=== PATIENT | male | born 1945 | race Caucasian/White ===

== ENCOUNTER 2016-09-13 18:57 | Emergency (ER) | payer MEDICARE ==
[~2016-09-13] VITALS: Ht 175.3 cm; Wt 98.4 kg
[~2016-09-13 18:57] MED LIST: AMLO10TA2 PO; ASPI1TAB PO; DIOV80TA3 PO; Glucometer; IBUPOTC PO; IRBE150T12 PO; LEVA500T PO; Lancets; METF850T PO; SIMV40TA2 PO; [UNRECOGNIZED DRUG - OTHER]
[2016-09-13] MEDS ORDERED: NS 500 ML IV ONE (19:30)
--- NOTE | 2016-09-13 19:50 | REPUSA ---
CT of the head Clinical history: CVA. Protocol: Multiple axial CT images obtained with 5 mm slice thickness were obtained through the head without administration of contrast. Findings: The ventricles and sulci are symmetric but prominent in size bilaterally. There are periven tricular areas of low attenuation throughout the deep white matter. There is no evidence of acute hem orrhage or infarct. There is no midline shift, mass effect, or extra-axial fluid collection. The osse ous structures are unremarkable. The visualized paranasal sinuses and mastoid air cells are clear. Impression: No acute hemorrhage or infarct. Findings are consistent with moderate age-related atrophy and chronic small vessel ischemic disease.
[2016-09-13 20:05] LABS: BASO % 0.4 % (0.0-1.0); EOS # 0.1 K/mm3 (0.0-0.50); EOS % 1.5 % (0.0-3.0); LARGE UNSTAINED CELL # 0.1 K/mm3 (0.0-0.4); LARGE UNSTAINED CELL % 1.7 % (0.0-4.0); LYMPH # 1.7 K/mm3 (1.5-4.5); MEAN CORPUSCULAR HEMOGLOBIN 28.9 pg (27.0-33.0); MEAN CORPUSCULAR VOLUME 87.7 fl (80.0-96.0); MONO # 0.6 K/mm3 (0.0-0.8); MONO % 7.8 % (0.0-5.0); NEUTROPHILS # 4.7 K/mm3 (1.8-7.7); NEUTROPHILS % 64.6 % (36.0-66.0); PLATELET COUNT, AUTOMATED 202 k/mm3 (150-450); RED CELL DISTRIBUTION WIDTH 13.1 % (11.5-14.5); WHITE BLOOD COUNT 7.2 K/mm3 (4.0-10.0)
[2016-09-13 20:12] LABS: INR 1.02
[2016-09-13 20:30] LABS: ANION GAP 9 MEQ/L (8-16); BLOOD UREA NITROGEN 16 MG/DL (7-18); CALCIUM LEVEL 9.3 MG/DL (8.8-10.2); CARBON DIOXIDE LEVEL 27 MEQ/L (21-32); CHLORIDE LEVEL 103 MEQ/L (98-107); CREATININE FOR GFR 1.54 MG/DL (0.70-1.30); GLOMERULAR FILTRATION RATE 47.5 (>42); GLUCOSE, FASTING 192 MG/DL (83-110); POTASSIUM SERUM 4.3 MEQ/L (3.5-5.1); SODIUM LEVEL 139 MEQ/L (136-145)
--- NOTE | 2016-09-13 23:01 | REP ---
AP PORTABLE CHEST: 09/13/2016. Clinical history: CVA. There are no prior studies. Findings: Lungs are well inflated. There is underlying change of COPD. Some minor fibrotic change in the bases. No pleural effusion or acute infiltrate. Cardial fat pad along the left heart border. The aorta is mildly tortuous. Airway is intact. There is no widening of the mediastinum. No pulmonary edema, infiltrate, atelectasis or mass. Impression: 1. Hyperinflation with some underlying fibrotic change and no gross cardiomegaly, edema or other acute finding. Signed by Broderick Diaz MD 09/14/2016 08:12 P
[2016-09-13 23:03] VITALS: BP 173/84
--- NOTE | 2016-09-14 08:36 | ECGEPIP ---
Stationary ECG Study [facility] - ED Test Date: 2016-09-13 Pat Name: LINDSAY AMIN Department: Room: - Gender: M Protective Clothing Issuer: mayra : [id number] Requested By: LEAH Alexander Order Number: [id number] Reading MD: Nuria Walker Measurements Intervals [place] Rate: 83 P: 8 NM: 204 QRS: 4 QRSD: 90 T: 138 QT: 338 QTc: 398 Interpretive Statements SINUS RHYTHM LOW QRS VOLTAGE IN PRECORDIAL LEADS POSSIBLE ANTERIOR MYOCARDIAL INFARCTION, OF INDETERMINATE AGE MODERATE T-WAVE ABNORMALITY, CONSIDER LATERAL ISCHEMIA LAD NSTTW ABNORMALITY SIMILAR 03/18/16 Electronically Signed On 09-14-2016 8:36:18 EDT by Nuria Walker
== END 2016-09-13 23:05 | disposition left against medical advice (07) ==
LOC: EDBD 18:57 → EDUNIT# 18:57 → M ED 20:29
DX: G45.9 Transient cerebral ischemic attack, unspecified (principal)
CPT/HCPCS: 70450; 71010; 80048; 82550; 82553; 84484; 85025; 85610; 85730; 86850; 86900; 86901; 93005; 93041; 94760; 99284; G0480

== ENCOUNTER 2017-06-19 15:16 | Inpatient (IN) | payer MEDICARE ==
[2017-06-19 16:23] LABS: BASO % 0.2 % (0.0-1.0); EOS % 0.2 % (0.0-3.0); HEMATOCRIT 37.8 % (42.0-52.0); IMMATURE GRANULOCYTE # 0.1 10^3/uL (0-0); IMMATURE GRANULOCYTE % 0.5 % (0-0); LYMPH # 1.1 10^3/uL (1.5-4.5); LYMPH % 6.8 % (24.0-44.0); MEAN CORPUSCULAR HEMOGLOBIN 29.5 pg (27.0-33.0); MEAN CORPUSCULAR HGB CONC 34.4 g/dl (32.0-36.5); MEAN CORPUSCULAR VOLUME 85.9 fl (80.0-96.0); MONO # 1.7 10^3/uL (0.0-0.8); MONO % 11.2 % (0.0-5.0); NEUTROPHILS # 12.6 10^3/uL (1.8-7.7); NEUTROPHILS % 81.1 % (36.0-66.0); PLATELET COUNT, AUTOMATED 220 10^3/uL (150-450); RED CELL DISTRIBUTION WIDTH 11.9 % (11.5-14.5); WHITE BLOOD COUNT 15.5 10^3/uL (4.0-10.0)
[2017-06-19 16:43] LABS: ALBUMIN 3.4 GM/DL (3.2-5.2); ALBUMIN/GLOBULIN RATIO 0.89 (1.00-1.93); ALKALINE PHOSPHATASE 90 U/L (45-117); ALT/SGPT 37 U/L (12-78); ANION GAP 12 MEQ/L (8-16); AST/SGOT 35 U/L (7-37); BILIRUBIN,TOTAL 0.6 MG/DL (0.2-1.0); BLOOD UREA NITROGEN 28 MG/DL (7-18); CARBON DIOXIDE LEVEL 22 MEQ/L (21-32); CHLORIDE LEVEL 100 MEQ/L (98-107); CREATININE FOR GFR 1.32 MG/DL (0.70-1.30); GLOMERULAR FILTRATION RATE 56.6 (>42); GLUCOSE, FASTING 254 MG/DL (83-110); MAGNESIUM LEVEL 1.6 MG/DL (1.8-2.4); POTASSIUM SERUM 3.9 MEQ/L (3.5-5.1); SODIUM LEVEL 134 MEQ/L (136-145); TOTAL PROTEIN 7.2 GM/DL (6.4-8.2)
[2017-06-19] MEDS: TETANUS/DIPHTHERIA TOX ADSORB ADULT 0.5ML SYR/VIAL (90714) IM (16:55)
[2017-06-19] MEDS: VANCOMYCIN HCL 1,000 MG, VIAL MATE ADAPTER 1 EACH in D5W 250 ML IV ×2 (16:56→23:18)
[2017-06-19 17:18] LABS: ESTIMATED AVERAGE GLUCOSE 200 MG/DL (60-110); HEMOGLOBIN A1c 8.6 %
[2017-06-19 18:35] LABS: LACTIC ACID SEPSIS PROTOCOL 1.7 MMOL/L (0.4-2.0)
[2017-06-19] MEDS ORDERED: ONDANSETRON 4MG/2ML VIAL (J2405) IV (19:15)
[2017-06-19] MEDS ORDERED: GLUCOSE 4 GM CHEW TABLET PO (19:30)
[2017-06-19] MEDS ORDERED: DEXTROSE 50% 50 ML SYRINGE IV (19:30)
[2017-06-19] MEDS ORDERED: GLUCAGON FOR INJ 1 MG VIAL (J1610) SC (19:30)
[2017-06-19] MEDS: NS 1,000 ML IV (19:32)
[2017-06-19] MEDS: MAG SULF 1GM/100ML (MAG RUN) 1 GM in APPROPRIATE DILUENT 1 EA IV (19:38)
[2017-06-19] MEDS ORDERED: LORazepam 2 MG TAB PO (19:45)
[2017-06-19] MEDS: amLODIPine 5 MG TAB PO (20:00)
[2017-06-19] MEDS: HumaLOG INSULIN (NovoLOG) PER UNIT SC (21:00)
[2017-06-19 22:41] LABS: BEDSIDE GLUCOSE 227 MG/DL (83-110)
[2017-06-19] MEDS: THIAMINE 100 MG TAB PO (22:54)
[2017-06-19] MEDS: FOLIC ACID 1 MG TAB PO (22:54)
[2017-06-19] MEDS: MULTIVITAMINS/MINERALS THERAP 1 TAB PO (22:54)
[2017-06-20] MEDS: PIPERACILLIN/TAZOBACTAM SOD 3.375 GM in APPROPRIATE DILUENT 1 EA IV ×5 (00:24→21:32)
[2017-06-20 06:56] LABS: BASO % 0.3 % (0.0-1.0); EOS # 0.3 10^3/uL (0.0-0.50); EOS % 2.8 % (0.0-3.0); HEMATOCRIT 34.9 % (42.0-52.0); IMMATURE GRANULOCYTE % 0.3 % (0-0); LYMPH # 1.5 10^3/uL (1.5-4.5); LYMPH % 12.9 % (24.0-44.0); MEAN CORPUSCULAR HEMOGLOBIN 29.4 pg (27.0-33.0); MEAN CORPUSCULAR HGB CONC 34.4 g/dl (32.0-36.5); MEAN CORPUSCULAR VOLUME 85.5 fl (80.0-96.0); MONO # 1.4 10^3/uL (0.0-0.8); MONO % 11.6 % (0.0-5.0); NEUTROPHILS # 8.6 10^3/uL (1.8-7.7); NEUTROPHILS % 72.1 % (36.0-66.0); PLATELET COUNT, AUTOMATED 186 10^3/uL (150-450); RED BLOOD COUNT 4.08 10^6/uL (4.30-6.10); RED CELL DISTRIBUTION WIDTH 11.8 % (11.5-14.5); WHITE BLOOD COUNT 11.9 10^3/uL (4.0-10.0)
[2017-06-20 07:11] LABS: ANION GAP 5 MEQ/L (8-16); BLOOD UREA NITROGEN 19 MG/DL (7-18); CALCIUM LEVEL 8.5 MG/DL (8.8-10.2); CARBON DIOXIDE LEVEL 27 MEQ/L (21-32); CHLORIDE LEVEL 102 MEQ/L (98-107); CREATININE FOR GFR 1.02 MG/DL (0.70-1.30); GLOMERULAR FILTRATION RATE > 60.0 (>42); GLUCOSE, FASTING 237 MG/DL (83-110); MAGNESIUM LEVEL 2.2 MG/DL (1.8-2.4); POTASSIUM SERUM 3.7 MEQ/L (3.5-5.1); SODIUM LEVEL 134 MEQ/L (136-145)
[2017-06-20 07:38] LABS: ERYTHROCYTE SEDIMENTATION RATE 49 mm/hr (0-20)
[2017-06-20] MEDS: FOLIC ACID 1 MG TAB PO (08:07)
[2017-06-20] MEDS: THIAMINE 100 MG TAB PO ×2 (08:07→20:30)
[2017-06-20] MEDS: HumaLOG INSULIN (NovoLOG) PER UNIT SC ×4 (08:07→21:00)
[2017-06-20] MEDS: amLODIPine 5 MG TAB PO (08:07)
[2017-06-20] MEDS: ENOXAPARIN 40 MG/0.4 ML SYRINGE (J1650) SC (08:08)
[2017-06-20] MEDS: MULTIVITAMINS/MINERALS THERAP 1 TAB PO (08:08)
[2017-06-20] MEDS: VANCOMYCIN HCL 1,000 MG, VIAL MATE ADAPTER 1 EACH in D5W 250 ML IV ×2 (10:35→22:18)
[2017-06-20 12:02] LABS: BEDSIDE GLUCOSE 177 MG/DL (83-110)
[2017-06-20 17:04] LABS: BEDSIDE GLUCOSE 193 MG/DL (83-110)
[2017-06-20] MEDS ORDERED: PROHANCE 279.3MG/ML 5ML VIAL (A9576) As Ordered (17:54)
[2017-06-20] MEDS ORDERED: PROHANCE 279.3MG/ML 15ML VIAL (A9576) As Ordered (17:54)
[2017-06-20 21:15] LABS: BEDSIDE GLUCOSE 228 MG/DL (83-110)
[2017-06-21] MEDS: PIPERACILLIN/TAZOBACTAM SOD 3.375 GM in APPROPRIATE DILUENT 1 EA IV ×4 (04:41→21:12)
[2017-06-21 05:43] LABS: BASO % 0.3 % (0.0-1.0); EOS # 0.4 10^3/uL (0.0-0.50); EOS % 3.3 % (0.0-3.0); HEMATOCRIT 35.3 % (42.0-52.0); IMMATURE GRANULOCYTE # 0.1 10^3/uL (0-0); IMMATURE GRANULOCYTE % 0.5 % (0-0); LYMPH # 1.5 10^3/uL (1.5-4.5); LYMPH % 13.9 % (24.0-44.0); MEAN CORPUSCULAR HEMOGLOBIN 29.7 pg (27.0-33.0); MEAN CORPUSCULAR VOLUME 87.4 fl (80.0-96.0); MONO # 1.2 10^3/uL (0.0-0.8); NEUTROPHILS # 7.6 10^3/uL (1.8-7.7); PLATELET COUNT, AUTOMATED 192 10^3/uL (150-450); RED BLOOD COUNT 4.04 10^6/uL (4.30-6.10); RED CELL DISTRIBUTION WIDTH 11.8 % (11.5-14.5); WHITE BLOOD COUNT 10.7 10^3/uL (4.0-10.0)
[2017-06-21 05:50] LABS: ANION GAP 8 MEQ/L (8-16); BLOOD UREA NITROGEN 18 MG/DL (7-18); CALCIUM LEVEL 8.3 MG/DL (8.8-10.2); CARBON DIOXIDE LEVEL 26 MEQ/L (21-32); CHLORIDE LEVEL 102 MEQ/L (98-107); CREATININE FOR GFR 1.03 MG/DL (0.70-1.30); GLOMERULAR FILTRATION RATE > 60.0 (>42); GLUCOSE, FASTING 260 MG/DL (83-110); POTASSIUM SERUM 3.7 MEQ/L (3.5-5.1); SODIUM LEVEL 136 MEQ/L (136-145)
[2017-06-21 06:28] LABS: ERYTHROCYTE SEDIMENTATION RATE 56 mm/hr (0-20)
[2017-06-21] MEDS: HumaLOG INSULIN (NovoLOG) PER UNIT SC ×4 (08:00→21:13)
[2017-06-21] MEDS: ENOXAPARIN 40 MG/0.4 ML SYRINGE (J1650) SC (08:00)
[2017-06-21] MEDS: MULTIVITAMINS/MINERALS THERAP 1 TAB PO (08:00)
[2017-06-21] MEDS: THIAMINE 100 MG TAB PO ×2 (08:00→21:12)
[2017-06-21] MEDS: amLODIPine 5 MG TAB PO (08:01)
[2017-06-21] MEDS: FOLIC ACID 1 MG TAB PO (08:01)
[2017-06-21] MEDS: VANCOMYCIN HCL 1,000 MG, VIAL MATE ADAPTER 1 EACH in D5W 250 ML IV ×2 (10:37→19:00)
[2017-06-21 10:45] LABS: VANCOMYCIN LEVEL TROUGH 11.2 UG/ML (10.0-20.0)
[2017-06-21 11:46] LABS: BEDSIDE GLUCOSE 178 MG/DL (83-110)
[2017-06-21 20:52] LABS: BEDSIDE GLUCOSE 308 MG/DL (83-110)
[2017-06-22] MEDS: PIPERACILLIN/TAZOBACTAM SOD 3.375 GM in APPROPRIATE DILUENT 1 EA IV ×2 (04:27→09:23)
[2017-06-22 06:15] LABS: BASO # 0.1 10^3/uL (0.0-0.2); BASO % 0.5 % (0.0-1.0); EOS # 0.4 10^3/uL (0.0-0.50); EOS % 3.5 % (0.0-3.0); HEMATOCRIT 36.5 % (42.0-52.0); IMMATURE GRANULOCYTE # 0.1 10^3/uL (0-0); IMMATURE GRANULOCYTE % 0.6 % (0-0); LYMPH # 1.9 10^3/uL (1.5-4.5); LYMPH % 17.1 % (24.0-44.0); MEAN CORPUSCULAR HEMOGLOBIN 28.2 pg (27.0-33.0); MEAN CORPUSCULAR HGB CONC 32.9 g/dl (32.0-36.5); MEAN CORPUSCULAR VOLUME 85.9 fl (80.0-96.0); MONO # 1.3 10^3/uL (0.0-0.8); MONO % 11.5 % (0.0-5.0); NEUTROPHILS # 7.4 10^3/uL (1.8-7.7); NEUTROPHILS % 66.8 % (36.0-66.0); PLATELET COUNT, AUTOMATED 238 10^3/uL (150-450); RED BLOOD COUNT 4.25 10^6/uL (4.30-6.10); RED CELL DISTRIBUTION WIDTH 11.9 % (11.5-14.5); WHITE BLOOD COUNT 11.1 10^3/uL (4.0-10.0)
[2017-06-22 06:29] LABS: ANION GAP 7 MEQ/L (8-16); BLOOD UREA NITROGEN 12 MG/DL (7-18); CALCIUM LEVEL 8.6 MG/DL (8.8-10.2); CARBON DIOXIDE LEVEL 26 MEQ/L (21-32); CHLORIDE LEVEL 103 MEQ/L (98-107); CREATININE FOR GFR 0.95 MG/DL (0.70-1.30); GLOMERULAR FILTRATION RATE > 60.0 (>42); GLUCOSE, FASTING 188 MG/DL (83-110); MAGNESIUM LEVEL 1.8 MG/DL (1.8-2.4); POTASSIUM SERUM 3.8 MEQ/L (3.5-5.1); SODIUM LEVEL 136 MEQ/L (136-145)
[2017-06-22] MEDS: VANCOMYCIN HCL 1,000 MG, VIAL MATE ADAPTER 1 EACH in D5W 250 ML IV (06:30)
[2017-06-22 06:52] LABS: ERYTHROCYTE SEDIMENTATION RATE 74 mm/hr (0-20)
[2017-06-22] MEDS: ENOXAPARIN 40 MG/0.4 ML SYRINGE (J1650) SC (07:52)
[2017-06-22] MEDS: HumaLOG INSULIN (NovoLOG) PER UNIT SC ×4 (07:52→21:00)
[2017-06-22] MEDS: MULTIVITAMINS/MINERALS THERAP 1 TAB PO (07:53)
[2017-06-22] MEDS: THIAMINE 100 MG TAB PO (07:53)
[2017-06-22] MEDS: FOLIC ACID 1 MG TAB PO (07:53)
[2017-06-22] MEDS: amLODIPine 5 MG TAB PO (07:55)
[2017-06-22] MEDS: SILVER SULFADIAZINE 1% CR 50 GM JAR TOP ×2 (09:23→21:00)
[2017-06-22 11:59] LABS: BEDSIDE GLUCOSE 225 MG/DL (83-110)
[2017-06-22] MEDS ORDERED: CEFAZOLIN SOD 2 GM in APPROPRIATE DILUENT 1 EA IV (16:00)
[2017-06-22 16:59] LABS: BEDSIDE GLUCOSE 248 MG/DL (83-110)
[2017-06-22 21:03] LABS: BEDSIDE GLUCOSE 240 MG/DL (83-110)
[2017-06-23 06:31] LABS: BASO % 0.4 % (0.0-1.0); EOS # 0.3 10^3/uL (0.0-0.50); EOS % 2.9 % (0.0-3.0); HEMATOCRIT 36.7 % (42.0-52.0); HEMOGLOBIN 12.3 g/dl (14.0-18.0); IMMATURE GRANULOCYTE # 0.1 10^3/uL (0-0); IMMATURE GRANULOCYTE % 0.6 % (0-0); LYMPH # 1.8 10^3/uL (1.5-4.5); LYMPH % 18.5 % (24.0-44.0); MEAN CORPUSCULAR HEMOGLOBIN 29.1 pg (27.0-33.0); MEAN CORPUSCULAR HGB CONC 33.5 g/dl (32.0-36.5); MEAN CORPUSCULAR VOLUME 86.8 fl (80.0-96.0); MONO # 1.3 10^3/uL (0.0-0.8); MONO % 13.5 % (0.0-5.0); NEUTROPHILS # 6.1 10^3/uL (1.8-7.7); NEUTROPHILS % 64.1 % (36.0-66.0); PLATELET COUNT, AUTOMATED 229 10^3/uL (150-450); RED BLOOD COUNT 4.23 10^6/uL (4.30-6.10); RED CELL DISTRIBUTION WIDTH 11.8 % (11.5-14.5); WHITE BLOOD COUNT 9.5 10^3/uL (4.0-10.0)
[2017-06-23 06:51] LABS: ANION GAP 9 MEQ/L (8-16); BLOOD UREA NITROGEN 12 MG/DL (7-18); C REACTIVE PROTEIN QUANTITATIV 9.55 MG/DL (0.00-0.30); CALCIUM LEVEL 8.7 MG/DL (8.8-10.2); CARBON DIOXIDE LEVEL 27 MEQ/L (21-32); CHLORIDE LEVEL 101 MEQ/L (98-107); CREATININE FOR GFR 1.01 MG/DL (0.70-1.30); GLOMERULAR FILTRATION RATE > 60.0 (>42); GLUCOSE, FASTING 241 MG/DL (83-110); MAGNESIUM LEVEL 1.9 MG/DL (1.8-2.4); POTASSIUM SERUM 4.3 MEQ/L (3.5-5.1); SODIUM LEVEL 137 MEQ/L (136-145)
[2017-06-23 07:01] LABS: ERYTHROCYTE SEDIMENTATION RATE 50 mm/hr (0-20)
[2017-06-23] MEDS: HumaLOG INSULIN (NovoLOG) PER UNIT SC ×4 (08:00→20:06)
[2017-06-23 09:10] LABS: BEDSIDE GLUCOSE 238 MG/DL (83-110)
[2017-06-23 09:10] LABS: BEDSIDE GLUCOSE 421 MG/DL (83-110)
[2017-06-23] MEDS: FOLIC ACID 1 MG TAB PO (09:19)
[2017-06-23] MEDS: MULTIVITAMINS/MINERALS THERAP 1 TAB PO (09:19)
[2017-06-23] MEDS: amLODIPine 5 MG TAB PO (09:19)
[2017-06-23] MEDS: ENOXAPARIN 40 MG/0.4 ML SYRINGE (J1650) SC (09:20)
[2017-06-23] MEDS: SILVER SULFADIAZINE 1% CR 50 GM JAR TOP ×2 (09:20→20:07)
[2017-06-23 11:38] LABS: BEDSIDE GLUCOSE 243 MG/DL (83-110)
[2017-06-23] MEDS: LEVEMIR (INSULIN DETEMIR) 1 UNITS/0.01ML SC ×2 (12:45→20:06)
[2017-06-23 17:12] LABS: BEDSIDE GLUCOSE 246 MG/DL (83-110)
[2017-06-23 19:57] LABS: BEDSIDE GLUCOSE 252 MG/DL (83-110)
[2017-06-24] MEDS: ACETAMINOPHEN TAB 650MG DOSE (2X325MG) PO (00:18)
[2017-06-24] MEDS: LISINOPRIL 10 MG TAB PO (00:18)
[2017-06-24 07:04] LABS: BEDSIDE GLUCOSE 167 MG/DL (83-110)
[2017-06-24 07:26] LABS: BASO # 0.1 10^3/uL (0.0-0.2); BASO % 0.4 % (0.0-1.0); EOS # 0.3 10^3/uL (0.0-0.50); EOS % 2.9 % (0.0-3.0); HEMATOCRIT 36.6 % (42.0-52.0); HEMOGLOBIN 12.1 g/dl (14.0-18.0); IMMATURE GRANULOCYTE # 0.1 10^3/uL (0-0); LYMPH # 1.5 10^3/uL (1.5-4.5); LYMPH % 13.1 % (24.0-44.0); MEAN CORPUSCULAR HEMOGLOBIN 28.3 pg (27.0-33.0); MEAN CORPUSCULAR HGB CONC 33.1 g/dl (32.0-36.5); MEAN CORPUSCULAR VOLUME 85.7 fl (80.0-96.0); MONO # 1.6 10^3/uL (0.0-0.8); MONO % 13.9 % (0.0-5.0); NEUTROPHILS # 7.9 10^3/uL (1.8-7.7); NEUTROPHILS % 68.7 % (36.0-66.0); PLATELET COUNT, AUTOMATED 268 10^3/uL (150-450); RED BLOOD COUNT 4.27 10^6/uL (4.30-6.10); RED CELL DISTRIBUTION WIDTH 11.8 % (11.5-14.5); WHITE BLOOD COUNT 11.5 10^3/uL (4.0-10.0)
[2017-06-24 07:51] LABS: ANION GAP 7 MEQ/L (8-16); BLOOD UREA NITROGEN 12 MG/DL (7-18); C REACTIVE PROTEIN QUANTITATIV 8.41 MG/DL (0.00-0.30); CALCIUM LEVEL 8.8 MG/DL (8.8-10.2); CARBON DIOXIDE LEVEL 28 MEQ/L (21-32); CHLORIDE LEVEL 101 MEQ/L (98-107); CREATININE FOR GFR 0.92 MG/DL (0.70-1.30); GLOMERULAR FILTRATION RATE > 60.0 (>42); GLUCOSE, FASTING 168 MG/DL (83-110); MAGNESIUM LEVEL 1.9 MG/DL (1.8-2.4); POTASSIUM SERUM 3.8 MEQ/L (3.5-5.1); SODIUM LEVEL 136 MEQ/L (136-145)
[2017-06-24] MEDS: HumaLOG INSULIN (NovoLOG) PER UNIT SC ×4 (08:17→20:19)
[2017-06-24] MEDS: LEVEMIR (INSULIN DETEMIR) 1 UNITS/0.01ML SC ×2 (08:18→20:33)
[2017-06-24] MEDS: ENOXAPARIN 40 MG/0.4 ML SYRINGE (J1650) SC (08:18)
[2017-06-24] MEDS: SILVER SULFADIAZINE 1% CR 50 GM JAR TOP ×2 (08:19→20:33)
[2017-06-24] MEDS: FOLIC ACID 1 MG TAB PO (08:19)
[2017-06-24] MEDS: amLODIPine 5 MG TAB PO (08:20)
[2017-06-24] MEDS: MULTIVITAMINS/MINERALS THERAP 1 TAB PO (08:20)
[2017-06-24 08:27] LABS: ERYTHROCYTE SEDIMENTATION RATE 66 mm/hr (0-20)
[2017-06-24 12:12] LABS: BEDSIDE GLUCOSE 124 MG/DL (83-110)
[2017-06-24 17:00] LABS: BEDSIDE GLUCOSE 190 MG/DL (83-110)
[2017-06-24 20:24] LABS: BEDSIDE GLUCOSE 225 MG/DL (83-110)
[2017-06-25 06:20] LABS: BASO # 0.1 10^3/uL (0.0-0.2); BASO % 0.4 % (0.0-1.0); EOS # 0.3 10^3/uL (0.0-0.50); EOS % 2.6 % (0.0-3.0); HEMATOCRIT 35.3 % (42.0-52.0); HEMOGLOBIN 11.9 g/dl (14.0-18.0); IMMATURE GRANULOCYTE # 0.1 10^3/uL (0-0); IMMATURE GRANULOCYTE % 0.9 % (0-0); LYMPH # 1.9 10^3/uL (1.5-4.5); LYMPH % 15.7 % (24.0-44.0); MEAN CORPUSCULAR HEMOGLOBIN 29.1 pg (27.0-33.0); MEAN CORPUSCULAR HGB CONC 33.7 g/dl (32.0-36.5); MEAN CORPUSCULAR VOLUME 86.3 fl (80.0-96.0); MONO # 1.4 10^3/uL (0.0-0.8); MONO % 11.4 % (0.0-5.0); NEUTROPHILS # 8.3 10^3/uL (1.8-7.7); PLATELET COUNT, AUTOMATED 289 10^3/uL (150-450); RED BLOOD COUNT 4.09 10^6/uL (4.30-6.10); RED CELL DISTRIBUTION WIDTH 11.9 % (11.5-14.5)
[2017-06-25 06:33] LABS: ANION GAP 8 MEQ/L (8-16); BLOOD UREA NITROGEN 14 MG/DL (7-18); CALCIUM LEVEL 8.9 MG/DL (8.8-10.2); CARBON DIOXIDE LEVEL 27 MEQ/L (21-32); CHLORIDE LEVEL 101 MEQ/L (98-107); CREATININE FOR GFR 0.98 MG/DL (0.70-1.30); GLOMERULAR FILTRATION RATE > 60.0 (>42); GLUCOSE, FASTING 167 MG/DL (83-110); POTASSIUM SERUM 4.2 MEQ/L (3.5-5.1); SODIUM LEVEL 136 MEQ/L (136-145)
[2017-06-25] MEDS: LEVEMIR (INSULIN DETEMIR) 1 UNITS/0.01ML SC ×2 (08:00→22:12)
[2017-06-25] MEDS: HumaLOG INSULIN (NovoLOG) PER UNIT SC ×4 (08:00→20:56)
[2017-06-25] MEDS: ENOXAPARIN 40 MG/0.4 ML SYRINGE (J1650) SC (08:00)
[2017-06-25] MEDS: FOLIC ACID 1 MG TAB PO (08:01)
[2017-06-25] MEDS: MULTIVITAMINS/MINERALS THERAP 1 TAB PO (08:01)
[2017-06-25] MEDS: amLODIPine 5 MG TAB PO (08:01)
[2017-06-25] MEDS: LISINOPRIL 10 MG TAB PO (08:01)
[2017-06-25] MEDS: SILVER SULFADIAZINE 1% CR 50 GM JAR TOP ×2 (08:03→22:13)
[2017-06-25 11:49] LABS: BEDSIDE GLUCOSE 182 MG/DL (83-110)
[2017-06-25 16:53] LABS: BEDSIDE GLUCOSE 171 MG/DL (83-110)
[2017-06-25 21:02] LABS: BEDSIDE GLUCOSE 209 MG/DL (83-110)
[2017-06-25] MEDS: ACETAMINOPHEN TAB 650MG DOSE (2X325MG) PO (22:17)
[2017-06-26 06:18] LABS: BASO % 0.3 % (0.0-1.0); EOS # 0.3 10^3/uL (0.0-0.50); EOS % 2.3 % (0.0-3.0); HEMATOCRIT 34.8 % (42.0-52.0); HEMOGLOBIN 11.4 g/dl (14.0-18.0); IMMATURE GRANULOCYTE # 0.2 10^3/uL (0-0); IMMATURE GRANULOCYTE % 1.3 % (0-0); LYMPH # 1.7 10^3/uL (1.5-4.5); LYMPH % 14.7 % (24.0-44.0); MEAN CORPUSCULAR HEMOGLOBIN 28.5 pg (27.0-33.0); MEAN CORPUSCULAR HGB CONC 32.8 g/dl (32.0-36.5); MONO # 1.4 10^3/uL (0.0-0.8); NEUTROPHILS % 69.4 % (36.0-66.0); PLATELET COUNT, AUTOMATED 310 10^3/uL (150-450); RED CELL DISTRIBUTION WIDTH 11.9 % (11.5-14.5); WHITE BLOOD COUNT 11.5 10^3/uL (4.0-10.0)
[2017-06-26 06:36] LABS: ANION GAP 5 MEQ/L (8-16); BLOOD UREA NITROGEN 15 MG/DL (7-18); C REACTIVE PROTEIN QUANTITATIV 9.74 MG/DL (0.00-0.30); CALCIUM LEVEL 8.4 MG/DL (8.8-10.2); CARBON DIOXIDE LEVEL 28 MEQ/L (21-32); CHLORIDE LEVEL 103 MEQ/L (98-107); CREATININE FOR GFR 0.93 MG/DL (0.70-1.30); GLOMERULAR FILTRATION RATE > 60.0 (>42); GLUCOSE, FASTING 169 MG/DL (83-110); POTASSIUM SERUM 4.1 MEQ/L (3.5-5.1); SODIUM LEVEL 136 MEQ/L (136-145); URIC ACID 4.6 MG/DL (3.5-7.2)
[2017-06-26] MEDS: MULTIVITAMINS/MINERALS THERAP 1 TAB PO (08:36)
[2017-06-26] MEDS: FOLIC ACID 1 MG TAB PO (08:36)
[2017-06-26] MEDS: HumaLOG INSULIN (NovoLOG) PER UNIT SC ×4 (08:36→20:33)
[2017-06-26] MEDS: amLODIPine 5 MG TAB PO (08:36)
[2017-06-26] MEDS: LISINOPRIL 10 MG TAB PO (08:37)
[2017-06-26] MEDS: ENOXAPARIN 40 MG/0.4 ML SYRINGE (J1650) SC (08:38)
[2017-06-26] MEDS: LEVEMIR (INSULIN DETEMIR) 1 UNITS/0.01ML SC ×2 (08:38→20:37)
[2017-06-26] MEDS: SILVER SULFADIAZINE 1% CR 50 GM JAR TOP ×2 (08:39→20:37)
[2017-06-26 12:16] LABS: BEDSIDE GLUCOSE 151 MG/DL (83-110)
[2017-06-26 17:09] LABS: BEDSIDE GLUCOSE 119 MG/DL (83-110)
[2017-06-26 20:58] LABS: BEDSIDE GLUCOSE 203 MG/DL (83-110)
[2017-06-27 06:35] LABS: C REACTIVE PROTEIN QUANTITATIV 9.41 MG/DL (0.00-0.30)
[2017-06-27 07:50] LABS: BEDSIDE GLUCOSE 178 MG/DL (83-110)
[2017-06-27] MEDS: LEVEMIR (INSULIN DETEMIR) 1 UNITS/0.01ML SC ×2 (08:38→21:57)
[2017-06-27] MEDS: MULTIVITAMINS/MINERALS THERAP 1 TAB PO (08:38)
[2017-06-27] MEDS: HumaLOG INSULIN (NovoLOG) PER UNIT SC ×4 (08:38→21:00)
[2017-06-27] MEDS: FOLIC ACID 1 MG TAB PO (08:38)
[2017-06-27] MEDS: ENOXAPARIN 40 MG/0.4 ML SYRINGE (J1650) SC (08:41)
[2017-06-27] MEDS: SILVER SULFADIAZINE 1% CR 50 GM JAR TOP ×2 (08:42→21:57)
[2017-06-27] MEDS: amLODIPine 5 MG TAB PO ×2 (08:48→09:53)
[2017-06-27 09:30] LABS: BASO # 0.1 10^3/uL (0.0-0.2); BASO % 0.5 % (0.0-1.0); EOS # 0.3 10^3/uL (0.0-0.50); EOS % 2.9 % (0.0-3.0); HEMATOCRIT 35.5 % (42.0-52.0); HEMOGLOBIN 11.5 g/dl (14.0-18.0); IMMATURE GRANULOCYTE # 0.1 10^3/uL (0-0); LYMPH # 1.7 10^3/uL (1.5-4.5); LYMPH % 15.6 % (24.0-44.0); MEAN CORPUSCULAR HEMOGLOBIN 28.5 pg (27.0-33.0); MEAN CORPUSCULAR HGB CONC 32.4 g/dl (32.0-36.5); MEAN CORPUSCULAR VOLUME 88.1 fl (80.0-96.0); MONO # 1.3 10^3/uL (0.0-0.8); MONO % 11.9 % (0.0-5.0); NEUTROPHILS # 7.5 10^3/uL (1.8-7.7); NEUTROPHILS % 68.1 % (36.0-66.0); PLATELET COUNT, AUTOMATED 328 10^3/uL (150-450); RED BLOOD COUNT 4.03 10^6/uL (4.30-6.10); RED CELL DISTRIBUTION WIDTH 11.9 % (11.5-14.5); WHITE BLOOD COUNT 11.1 10^3/uL (4.0-10.0)
[2017-06-27 09:32] LABS: ANION GAP 8 MEQ/L (8-16); BLOOD UREA NITROGEN 16 MG/DL (7-18); CALCIUM LEVEL 8.8 MG/DL (8.8-10.2); CARBON DIOXIDE LEVEL 26 MEQ/L (21-32); CHLORIDE LEVEL 102 MEQ/L (98-107); CREATININE FOR GFR 0.93 MG/DL (0.70-1.30); GLOMERULAR FILTRATION RATE > 60.0 (>42); GLUCOSE, FASTING 154 MG/DL (83-110); POTASSIUM SERUM 4.4 MEQ/L (3.5-5.1); SODIUM LEVEL 136 MEQ/L (136-145)
[2017-06-27] MEDS: LISINOPRIL 10 MG TAB PO (09:54)
[2017-06-27 12:01] LABS: BEDSIDE GLUCOSE 127 MG/DL (83-110)
[2017-06-27 17:00] LABS: BEDSIDE GLUCOSE 130 MG/DL (83-110)
[2017-06-27 20:17] LABS: BEDSIDE GLUCOSE 198 MG/DL (83-110)
[2017-06-28 06:09] LABS: HEMATOCRIT 35.6 % (42.0-52.0); HEMOGLOBIN 11.7 g/dl (14.0-18.0); MEAN CORPUSCULAR HEMOGLOBIN 28.4 pg (27.0-33.0); MEAN CORPUSCULAR HGB CONC 32.9 g/dl (32.0-36.5); MEAN CORPUSCULAR VOLUME 86.4 fl (80.0-96.0); PLATELET COUNT, AUTOMATED 339 10^3/uL (150-450); RED BLOOD COUNT 4.12 10^6/uL (4.30-6.10); RED CELL DISTRIBUTION WIDTH 11.9 % (11.5-14.5); WHITE BLOOD COUNT 11.5 10^3/uL (4.0-10.0)
[2017-06-28 06:25] LABS: ANION GAP 7 MEQ/L (8-16); BLOOD UREA NITROGEN 18 MG/DL (7-18); C REACTIVE PROTEIN QUANTITATIV 7.78 MG/DL (0.00-0.30); CALCIUM LEVEL 8.7 MG/DL (8.8-10.2); CARBON DIOXIDE LEVEL 27 MEQ/L (21-32); CHLORIDE LEVEL 102 MEQ/L (98-107); CREATININE FOR GFR 0.91 MG/DL (0.70-1.30); GLOMERULAR FILTRATION RATE > 60.0 (>42); GLUCOSE, FASTING 140 MG/DL (83-110); POTASSIUM SERUM 4.4 MEQ/L (3.5-5.1); SODIUM LEVEL 136 MEQ/L (136-145)
[2017-06-28] MEDS: HumaLOG INSULIN (NovoLOG) PER UNIT SC ×4 (08:08→20:25)
[2017-06-28] MEDS: amLODIPine 5 MG TAB PO (08:08)
[2017-06-28] MEDS: LISINOPRIL 10 MG TAB PO (08:09)
[2017-06-28] MEDS: FOLIC ACID 1 MG TAB PO (08:09)
[2017-06-28] MEDS: LEVEMIR (INSULIN DETEMIR) 1 UNITS/0.01ML SC ×2 (08:09→20:24)
[2017-06-28] MEDS: MULTIVITAMINS/MINERALS THERAP 1 TAB PO (08:09)
[2017-06-28] MEDS: SILVER SULFADIAZINE 1% CR 50 GM JAR TOP ×2 (08:10→20:26)
[2017-06-28] MEDS: ENOXAPARIN 40 MG/0.4 ML SYRINGE (J1650) SC (08:10)
[2017-06-28 11:59] LABS: BEDSIDE GLUCOSE 163 MG/DL (83-110)
[2017-06-28] MEDS: SENOKOT S TAB PO ×2 (13:21→20:24)
[2017-06-28 17:17] LABS: BEDSIDE GLUCOSE 107 MG/DL (83-110)
[2017-06-28 21:04] LABS: BEDSIDE GLUCOSE 265 MG/DL (83-110)
[2017-06-29 06:10] LABS: HEMATOCRIT 34.9 % (42.0-52.0); HEMOGLOBIN 11.4 g/dl (14.0-18.0); MEAN CORPUSCULAR HGB CONC 32.7 g/dl (32.0-36.5); MEAN CORPUSCULAR VOLUME 85.7 fl (80.0-96.0); PLATELET COUNT, AUTOMATED 362 10^3/uL (150-450); RED BLOOD COUNT 4.07 10^6/uL (4.30-6.10); RED CELL DISTRIBUTION WIDTH 11.9 % (11.5-14.5); WHITE BLOOD COUNT 10.1 10^3/uL (4.0-10.0)
[2017-06-29 06:26] LABS: ANION GAP 6 MEQ/L (8-16); BLOOD UREA NITROGEN 18 MG/DL (7-18); CALCIUM LEVEL 8.5 MG/DL (8.8-10.2); CARBON DIOXIDE LEVEL 28 MEQ/L (21-32); CHLORIDE LEVEL 104 MEQ/L (98-107); CREATININE FOR GFR 0.93 MG/DL (0.70-1.30); GLOMERULAR FILTRATION RATE > 60.0 (>42); GLUCOSE, FASTING 151 MG/DL (83-110); POTASSIUM SERUM 4.1 MEQ/L (3.5-5.1); SODIUM LEVEL 138 MEQ/L (136-145)
[2017-06-29] MEDS: HumaLOG INSULIN (NovoLOG) PER UNIT SC ×4 (07:50→21:00)
[2017-06-29] MEDS: ENOXAPARIN 40 MG/0.4 ML SYRINGE (J1650) SC (07:51)
[2017-06-29] MEDS: SENOKOT S TAB PO ×2 (07:51→21:22)
[2017-06-29] MEDS: LISINOPRIL 10 MG TAB PO (07:51)
[2017-06-29] MEDS: FOLIC ACID 1 MG TAB PO (07:52)
[2017-06-29] MEDS: MULTIVITAMINS/MINERALS THERAP 1 TAB PO (07:52)
[2017-06-29] MEDS: LEVEMIR (INSULIN DETEMIR) 1 UNITS/0.01ML SC ×2 (07:52→21:22)
[2017-06-29] MEDS: amLODIPine 5 MG TAB PO (07:52)
[2017-06-29] MEDS: SILVER SULFADIAZINE 1% CR 50 GM JAR TOP ×2 (07:53→21:23)
[2017-06-29 11:41] LABS: BEDSIDE GLUCOSE 193 MG/DL (83-110)
[2017-06-30 05:48] LABS: HEMATOCRIT 35.9 % (42.0-52.0); HEMOGLOBIN 11.8 g/dl (14.0-18.0); MEAN CORPUSCULAR HEMOGLOBIN 28.4 pg (27.0-33.0); MEAN CORPUSCULAR HGB CONC 32.9 g/dl (32.0-36.5); MEAN CORPUSCULAR VOLUME 86.3 fl (80.0-96.0); PLATELET COUNT, AUTOMATED 356 10^3/uL (150-450); RED BLOOD COUNT 4.16 10^6/uL (4.30-6.10); RED CELL DISTRIBUTION WIDTH 11.8 % (11.5-14.5)
[2017-06-30 06:05] LABS: ANION GAP 8 MEQ/L (8-16); BLOOD UREA NITROGEN 20 MG/DL (7-18); CALCIUM LEVEL 8.9 MG/DL (8.8-10.2); CARBON DIOXIDE LEVEL 28 MEQ/L (21-32); CHLORIDE LEVEL 103 MEQ/L (98-107); CREATININE FOR GFR 0.97 MG/DL (0.70-1.30); GLOMERULAR FILTRATION RATE > 60.0 (>42); GLUCOSE, FASTING 146 MG/DL (83-110); POTASSIUM SERUM 4.2 MEQ/L (3.5-5.1); SODIUM LEVEL 139 MEQ/L (136-145)
[2017-06-30 07:04] LABS: BEDSIDE GLUCOSE 134 MG/DL (83-110)
[2017-06-30 07:04] LABS: BEDSIDE GLUCOSE 157 MG/DL (83-110)
[2017-06-30] MEDS: HumaLOG INSULIN (NovoLOG) PER UNIT SC ×4 (09:02→20:42)
[2017-06-30] MEDS: MULTIVITAMINS/MINERALS THERAP 1 TAB PO (09:02)
[2017-06-30] MEDS: ENOXAPARIN 40 MG/0.4 ML SYRINGE (J1650) SC (09:03)
[2017-06-30] MEDS: FOLIC ACID 1 MG TAB PO (09:03)
[2017-06-30] MEDS: SENOKOT S TAB PO ×2 (09:03→20:47)
[2017-06-30] MEDS: LEVEMIR (INSULIN DETEMIR) 1 UNITS/0.01ML SC ×2 (09:03→20:49)
[2017-06-30] MEDS: SILVER SULFADIAZINE 1% CR 50 GM JAR TOP ×2 (09:04→20:48)
[2017-06-30] MEDS: ACETAMINOPHEN TAB 650MG DOSE (2X325MG) PO (09:10)
[2017-06-30] MEDS: LISINOPRIL 10 MG TAB PO (09:10)
[2017-06-30] MEDS: amLODIPine 5 MG TAB PO (09:11)
[2017-06-30] MEDS: MOM 30ML SUSPENSION UDC PO (11:50)
[2017-06-30 12:20] LABS: BEDSIDE GLUCOSE 162 MG/DL (83-110)
[2017-06-30] MEDS ORDERED: fentaNYL 100 MCG/2 ML INJECTION (J3010) As Ordered (15:26)
[2017-06-30] MEDS ORDERED: PROTAMINE SULF INJ 50 MG/5 ML VIAL (J2720) As Ordered (15:26)
[2017-06-30] MEDS ORDERED: ISOVUE-300 61% 50ML VIAL (Q9967) As Ordered (15:27)
[2017-06-30] MEDS ORDERED: HEPARIN 1,000 UNITS/ML 10ML VIAL (FOR RADIOLOGY& DIALYSIS ONLY) As Ordered (15:27)
[2017-06-30] MEDS ORDERED: MIDAZOLAM INJ 2 MG/2 ML VIAL (J2250) As Ordered (15:27)
[2017-06-30 18:03] LABS: BEDSIDE GLUCOSE 161 MG/DL (83-110)
[2017-06-30] MEDS: NYSTATIN 100,000 UNITS/GM TOPICAL PWD 15 GM TOP (20:47)
[2017-06-30 20:55] LABS: BEDSIDE GLUCOSE 134 MG/DL (83-110)
[2017-07-01 06:31] LABS: HEMOGLOBIN 12.2 g/dl (14.0-18.0); MEAN CORPUSCULAR HEMOGLOBIN 28.3 pg (27.0-33.0); MEAN CORPUSCULAR VOLUME 85.8 fl (80.0-96.0); PLATELET COUNT, AUTOMATED 399 10^3/uL (150-450); RED BLOOD COUNT 4.31 10^6/uL (4.30-6.10); RED CELL DISTRIBUTION WIDTH 11.8 % (11.5-14.5); WHITE BLOOD COUNT 12.8 10^3/uL (4.0-10.0)
[2017-07-01 06:52] LABS: ANION GAP 7 MEQ/L (8-16); BLOOD UREA NITROGEN 19 MG/DL (7-18); C REACTIVE PROTEIN QUANTITATIV 5.39 MG/DL (0.00-0.30); CALCIUM LEVEL 9.2 MG/DL (8.8-10.2); CARBON DIOXIDE LEVEL 28 MEQ/L (21-32); CHLORIDE LEVEL 101 MEQ/L (98-107); CREATININE FOR GFR 0.88 MG/DL (0.70-1.30); GLOMERULAR FILTRATION RATE > 60.0 (>42); GLUCOSE, FASTING 117 MG/DL (70-100); POTASSIUM SERUM 4.3 MEQ/L (3.5-5.1); SODIUM LEVEL 136 MEQ/L (136-145)
[2017-07-01] MEDS: LEVEMIR (INSULIN DETEMIR) 1 UNITS/0.01ML SC ×2 (07:58→20:07)
[2017-07-01] MEDS: HumaLOG INSULIN (NovoLOG) PER UNIT SC ×4 (07:58→19:59)
[2017-07-01] MEDS: amLODIPine 5 MG TAB PO (07:59)
[2017-07-01] MEDS: FOLIC ACID 1 MG TAB PO (07:59)
[2017-07-01] MEDS: SENOKOT S TAB PO ×2 (07:59→20:07)
[2017-07-01] MEDS: LISINOPRIL 10 MG TAB PO (07:59)
[2017-07-01] MEDS: MULTIVITAMINS/MINERALS THERAP 1 TAB PO (07:59)
[2017-07-01] MEDS: SILVER SULFADIAZINE 1% CR 50 GM JAR TOP ×2 (08:00→20:08)
[2017-07-01] MEDS: ENOXAPARIN 40 MG/0.4 ML SYRINGE (J1650) SC (08:00)
[2017-07-01] MEDS: MIRALAX *UNIT DOSE* 17GM PACKET PO (10:25)
[2017-07-01] MEDS: MOM 30ML SUSPENSION UDC PO (10:25)
[2017-07-01 13:23] LABS: BEDSIDE GLUCOSE 178 MG/DL (83-110)
[2017-07-01 16:36] LABS: BEDSIDE GLUCOSE 133 MG/DL (83-110)
[2017-07-01 19:49] LABS: BEDSIDE GLUCOSE 247 MG/DL (83-110)
[2017-07-02 06:31] LABS: HEMATOCRIT 36.8 % (42.0-52.0); HEMOGLOBIN 11.9 g/dl (14.0-18.0); MEAN CORPUSCULAR HEMOGLOBIN 27.7 pg (27.0-33.0); MEAN CORPUSCULAR HGB CONC 32.3 g/dl (32.0-36.5); MEAN CORPUSCULAR VOLUME 85.6 fl (80.0-96.0); PLATELET COUNT, AUTOMATED 402 10^3/uL (150-450); RED CELL DISTRIBUTION WIDTH 11.9 % (11.5-14.5); WHITE BLOOD COUNT 12.1 10^3/uL (4.0-10.0)
[2017-07-02 06:52] LABS: ANION GAP 6 MEQ/L (8-16); BLOOD UREA NITROGEN 24 MG/DL (7-18); C REACTIVE PROTEIN QUANTITATIV 4.66 MG/DL (0.00-0.30); CALCIUM LEVEL 9.1 MG/DL (8.8-10.2); CARBON DIOXIDE LEVEL 28 MEQ/L (21-32); CHLORIDE LEVEL 103 MEQ/L (98-107); CREATININE FOR GFR 1.02 MG/DL (0.70-1.30); GLOMERULAR FILTRATION RATE > 60.0 (>42); GLUCOSE, FASTING 132 MG/DL (70-100); POTASSIUM SERUM 4.3 MEQ/L (3.5-5.1); SODIUM LEVEL 137 MEQ/L (136-145)
[2017-07-02] MEDS: LEVEMIR (INSULIN DETEMIR) 1 UNITS/0.01ML SC ×2 (08:54→20:33)
[2017-07-02] MEDS: HumaLOG INSULIN (NovoLOG) PER UNIT SC ×4 (08:54→20:29)
[2017-07-02] MEDS: SENOKOT S TAB PO ×2 (08:54→20:32)
[2017-07-02] MEDS: MULTIVITAMINS/MINERALS THERAP 1 TAB PO (08:54)
[2017-07-02] MEDS: FOLIC ACID 1 MG TAB PO (08:54)
[2017-07-02] MEDS: amLODIPine 5 MG TAB PO (08:55)
[2017-07-02] MEDS: SILVER SULFADIAZINE 1% CR 50 GM JAR TOP ×2 (08:55→20:33)
[2017-07-02] MEDS: ENOXAPARIN 40 MG/0.4 ML SYRINGE (J1650) SC (08:55)
[2017-07-02] MEDS: LISINOPRIL 10 MG TAB PO (08:55)
[2017-07-02 11:46] LABS: BEDSIDE GLUCOSE 107 MG/DL (83-110)
[2017-07-02 16:54] LABS: BEDSIDE GLUCOSE 154 MG/DL (83-110)
[2017-07-02 20:41] LABS: BEDSIDE GLUCOSE 170 MG/DL (83-110)
[2017-07-03 06:36] LABS: HEMATOCRIT 36.4 % (42.0-52.0); HEMOGLOBIN 11.9 g/dl (14.0-18.0); MEAN CORPUSCULAR HGB CONC 32.7 g/dl (32.0-36.5); MEAN CORPUSCULAR VOLUME 85.6 fl (80.0-96.0); PLATELET COUNT, AUTOMATED 418 10^3/uL (150-450); RED BLOOD COUNT 4.25 10^6/uL (4.30-6.10); RED CELL DISTRIBUTION WIDTH 11.9 % (11.5-14.5); WHITE BLOOD COUNT 11.5 10^3/uL (4.0-10.0)
[2017-07-03 06:59] LABS: ANION GAP 6 MEQ/L (8-16); BLOOD UREA NITROGEN 22 MG/DL (7-18); C REACTIVE PROTEIN QUANTITATIV 3.27 MG/DL (0.00-0.30); CALCIUM LEVEL 8.9 MG/DL (8.8-10.2); CARBON DIOXIDE LEVEL 28 MEQ/L (21-32); CHLORIDE LEVEL 103 MEQ/L (98-107); CREATININE FOR GFR 0.98 MG/DL (0.70-1.30); GLOMERULAR FILTRATION RATE > 60.0 (>42); GLUCOSE, FASTING 142 MG/DL (70-100); POTASSIUM SERUM 4.3 MEQ/L (3.5-5.1); SODIUM LEVEL 137 MEQ/L (136-145)
[2017-07-03] MEDS: SILVER SULFADIAZINE 1% CR 50 GM JAR TOP ×2 (09:00→21:00)
[2017-07-03] MEDS: ENOXAPARIN 40 MG/0.4 ML SYRINGE (J1650) SC (09:27)
[2017-07-03] MEDS: LEVEMIR (INSULIN DETEMIR) 1 UNITS/0.01ML SC ×2 (09:27→21:00)
[2017-07-03] MEDS: HumaLOG INSULIN (NovoLOG) PER UNIT SC ×4 (09:27→20:54)
[2017-07-03] MEDS: SENOKOT S TAB PO ×2 (09:28→20:59)
[2017-07-03] MEDS: MULTIVITAMINS/MINERALS THERAP 1 TAB PO (09:28)
[2017-07-03] MEDS: amLODIPine 5 MG TAB PO (09:30)
[2017-07-03] MEDS: FOLIC ACID 1 MG TAB PO (09:30)
[2017-07-03] MEDS: LISINOPRIL 10 MG TAB PO (09:31)
[2017-07-03 12:13] LABS: BEDSIDE GLUCOSE 142 MG/DL (83-110)
[2017-07-03 18:04] LABS: BEDSIDE GLUCOSE 126 MG/DL (83-110)
[2017-07-03 21:26] LABS: BEDSIDE GLUCOSE 178 MG/DL (83-110)
[2017-07-04 06:51] LABS: HEMATOCRIT 35.5 % (42.0-52.0); HEMOGLOBIN 11.6 g/dl (14.0-18.0); MEAN CORPUSCULAR HEMOGLOBIN 28.3 pg (27.0-33.0); MEAN CORPUSCULAR HGB CONC 32.7 g/dl (32.0-36.5); MEAN CORPUSCULAR VOLUME 86.6 fl (80.0-96.0); PLATELET COUNT, AUTOMATED 389 10^3/uL (150-450); RED CELL DISTRIBUTION WIDTH 11.9 % (11.5-14.5)
[2017-07-04 07:04] LABS: ANION GAP 7 MEQ/L (8-16); BLOOD UREA NITROGEN 20 MG/DL (7-18); CALCIUM LEVEL 8.8 MG/DL (8.8-10.2); CARBON DIOXIDE LEVEL 27 MEQ/L (21-32); CHLORIDE LEVEL 104 MEQ/L (98-107); CREATININE FOR GFR 1.12 MG/DL (0.70-1.30); GLOMERULAR FILTRATION RATE > 60.0 (>42); GLUCOSE, FASTING 186 MG/DL (70-100); POTASSIUM SERUM 4.2 MEQ/L (3.5-5.1); SODIUM LEVEL 138 MEQ/L (136-145)
[2017-07-04] MEDS: SILVER SULFADIAZINE 1% CR 50 GM JAR TOP ×2 (09:00→20:56)
[2017-07-04] MEDS: LEVEMIR (INSULIN DETEMIR) 1 UNITS/0.01ML SC ×2 (09:14→20:54)
[2017-07-04] MEDS: HumaLOG INSULIN (NovoLOG) PER UNIT SC ×4 (09:14→21:00)
[2017-07-04] MEDS: SENOKOT S TAB PO ×2 (09:15→20:54)
[2017-07-04] MEDS: LISINOPRIL 10 MG TAB PO (09:15)
[2017-07-04] MEDS: MULTIVITAMINS/MINERALS THERAP 1 TAB PO (09:15)
[2017-07-04] MEDS: FOLIC ACID 1 MG TAB PO (09:15)
[2017-07-04] MEDS: amLODIPine 5 MG TAB PO (09:15)
[2017-07-04] MEDS: ENOXAPARIN 40 MG/0.4 ML SYRINGE (J1650) SC (09:16)
[2017-07-04 12:14] LABS: BEDSIDE GLUCOSE 134 MG/DL (83-110)
[2017-07-04 13:05] LABS: BEDSIDE GLUCOSE 140 MG/DL (83-110)
[2017-07-04] MEDS: ASPIRIN 81 MG ENTERIC TAB PO (16:32)
[2017-07-04 17:34] LABS: BEDSIDE GLUCOSE 100 MG/DL (83-110)
[2017-07-04 20:30] LABS: BEDSIDE GLUCOSE 99 MG/DL (83-110)
[2017-07-05 07:48] LABS: HEMOGLOBIN 11.8 g/dl (14.0-18.0); MEAN CORPUSCULAR HEMOGLOBIN 28.5 pg (27.0-33.0); MEAN CORPUSCULAR HGB CONC 32.8 g/dl (32.0-36.5); PLATELET COUNT, AUTOMATED 373 10^3/uL (150-450); RED BLOOD COUNT 4.14 10^6/uL (4.30-6.10); RED CELL DISTRIBUTION WIDTH 11.9 % (11.5-14.5); WHITE BLOOD COUNT 9.6 10^3/uL (4.0-10.0)
[2017-07-05 08:01] LABS: BEDSIDE GLUCOSE 125 MG/DL (83-110)
[2017-07-05] MEDS: HumaLOG INSULIN (NovoLOG) PER UNIT SC ×4 (08:34→21:00)
[2017-07-05] MEDS: MULTIVITAMINS/MINERALS THERAP 1 TAB PO (08:35)
[2017-07-05] MEDS: FOLIC ACID 1 MG TAB PO (08:35)
[2017-07-05] MEDS: LEVEMIR (INSULIN DETEMIR) 1 UNITS/0.01ML SC ×2 (08:35→21:18)
[2017-07-05] MEDS: SENOKOT S TAB PO ×2 (08:35→21:18)
[2017-07-05] MEDS: ENOXAPARIN 40 MG/0.4 ML SYRINGE (J1650) SC (08:35)
[2017-07-05] MEDS: ASPIRIN 81 MG ENTERIC TAB PO (08:35)
[2017-07-05] MEDS: SILVER SULFADIAZINE 1% CR 50 GM JAR TOP ×2 (08:36→21:19)
[2017-07-05] MEDS: LISINOPRIL 10 MG TAB PO (08:36)
[2017-07-05] MEDS: amLODIPine 5 MG TAB PO (08:36)
[2017-07-05 12:21] LABS: BEDSIDE GLUCOSE 165 MG/DL (83-110)
[2017-07-05] MEDS: ATORVASTATIN 20 MG TAB PO (13:01)
[2017-07-05 17:52] LABS: BEDSIDE GLUCOSE 126 MG/DL (83-110)
[2017-07-05 21:22] LABS: BEDSIDE GLUCOSE 139 MG/DL (83-110)
[2017-07-06 05:51] LABS: BEDSIDE GLUCOSE 115 MG/DL (83-110)
[2017-07-06] MEDS: HumaLOG INSULIN (NovoLOG) PER UNIT SC ×4 (07:52→22:10)
[2017-07-06] MEDS: LEVEMIR (INSULIN DETEMIR) 1 UNITS/0.01ML SC ×2 (07:53→22:16)
[2017-07-06] MEDS: ENOXAPARIN 40 MG/0.4 ML SYRINGE (J1650) SC (07:53)
[2017-07-06] MEDS: amLODIPine 5 MG TAB PO (07:54)
[2017-07-06] MEDS: FOLIC ACID 1 MG TAB PO (07:54)
[2017-07-06] MEDS: LISINOPRIL 10 MG TAB PO (07:54)
[2017-07-06] MEDS: ATORVASTATIN 20 MG TAB PO (07:54)
[2017-07-06] MEDS: SENOKOT S TAB PO ×2 (07:55→22:15)
[2017-07-06] MEDS: MULTIVITAMINS/MINERALS THERAP 1 TAB PO (07:55)
[2017-07-06] MEDS: SILVER SULFADIAZINE 1% CR 50 GM JAR TOP ×2 (07:55→22:16)
[2017-07-06] MEDS: ASPIRIN 81 MG ENTERIC TAB PO (07:55)
[2017-07-06 12:33] LABS: BEDSIDE GLUCOSE 177 MG/DL (83-110)
[2017-07-06 17:17] LABS: BEDSIDE GLUCOSE 163 MG/DL (83-110)
[2017-07-06 22:58] LABS: BEDSIDE GLUCOSE 142 MG/DL (83-110)
[2017-07-07 07:11] LABS: BEDSIDE GLUCOSE 128 MG/DL (83-110)
[2017-07-07] MEDS: SENOKOT S TAB PO ×2 (08:51→20:54)
[2017-07-07] MEDS: HumaLOG INSULIN (NovoLOG) PER UNIT SC ×4 (08:51→20:49)
[2017-07-07] MEDS: ASPIRIN 81 MG ENTERIC TAB PO (08:51)
[2017-07-07] MEDS: ATORVASTATIN 20 MG TAB PO (08:51)
[2017-07-07] MEDS: LEVEMIR (INSULIN DETEMIR) 1 UNITS/0.01ML SC ×2 (08:51→20:54)
[2017-07-07] MEDS: amLODIPine 5 MG TAB PO (08:52)
[2017-07-07] MEDS: MULTIVITAMINS/MINERALS THERAP 1 TAB PO (08:52)
[2017-07-07] MEDS: FOLIC ACID 1 MG TAB PO (08:52)
[2017-07-07] MEDS: SILVER SULFADIAZINE 1% CR 50 GM JAR TOP ×2 (08:52→20:55)
[2017-07-07] MEDS: LISINOPRIL 10 MG TAB PO (08:52)
[2017-07-07] MEDS: ENOXAPARIN 40 MG/0.4 ML SYRINGE (J1650) SC (09:00)
[2017-07-07 12:08] LABS: BEDSIDE GLUCOSE 119 MG/DL (83-110)
[2017-07-07 16:46] LABS: BEDSIDE GLUCOSE 98 MG/DL (83-110)
[2017-07-07 21:47] LABS: BEDSIDE GLUCOSE 168 MG/DL (83-110)
[2017-07-08 07:14] LABS: HEMATOCRIT 38.9 % (42.0-52.0); HEMOGLOBIN 12.6 g/dl (14.0-18.0); MEAN CORPUSCULAR HEMOGLOBIN 28.1 pg (27.0-33.0); MEAN CORPUSCULAR HGB CONC 32.4 g/dl (32.0-36.5); MEAN CORPUSCULAR VOLUME 86.6 fl (80.0-96.0); PLATELET COUNT, AUTOMATED 331 10^3/uL (150-450); RED BLOOD COUNT 4.49 10^6/uL (4.30-6.10); RED CELL DISTRIBUTION WIDTH 11.8 % (11.5-14.5); WHITE BLOOD COUNT 8.6 10^3/uL (4.0-10.0)
[2017-07-08] MEDS: HumaLOG INSULIN (NovoLOG) PER UNIT SC ×4 (07:30→19:53)
[2017-07-08 07:32] LABS: ALBUMIN 2.8 GM/DL (3.2-5.2); ALBUMIN/GLOBULIN RATIO 0.62 (1.00-1.93); ALKALINE PHOSPHATASE 96 U/L (45-117); ALT/SGPT 17 U/L (12-78); ANION GAP 7 MEQ/L (8-16); AST/SGOT 14 U/L (7-37); BILIRUBIN,TOTAL 0.2 MG/DL (0.2-1.0); BLOOD UREA NITROGEN 20 MG/DL (7-18); C REACTIVE PROTEIN QUANTITATIV 1.38 MG/DL (0.00-0.30); CALCIUM LEVEL 9.2 MG/DL (8.8-10.2); CARBON DIOXIDE LEVEL 27 MEQ/L (21-32); CHLORIDE LEVEL 105 MEQ/L (98-107); CREATININE FOR GFR 0.85 MG/DL (0.70-1.30); GLOMERULAR FILTRATION RATE > 60.0 (>42); GLUCOSE, FASTING 97 MG/DL (70-100); POTASSIUM SERUM 4.1 MEQ/L (3.5-5.1); SODIUM LEVEL 139 MEQ/L (136-145); TOTAL PROTEIN 7.3 GM/DL (6.4-8.2)
[2017-07-08] MEDS: SILVER SULFADIAZINE 1% CR 50 GM JAR TOP ×2 (09:00→20:15)
[2017-07-08] MEDS: LEVEMIR (INSULIN DETEMIR) 1 UNITS/0.01ML SC ×2 (10:00→20:16)
[2017-07-08] MEDS: ATORVASTATIN 20 MG TAB PO (10:01)
[2017-07-08] MEDS: ENOXAPARIN 40 MG/0.4 ML SYRINGE (J1650) SC (10:01)
[2017-07-08] MEDS: LISINOPRIL 10 MG TAB PO (10:01)
[2017-07-08] MEDS: ASPIRIN 81 MG ENTERIC TAB PO (10:02)
[2017-07-08] MEDS: SENOKOT S TAB PO ×2 (10:02→20:15)
[2017-07-08] MEDS: FOLIC ACID 1 MG TAB PO (10:02)
[2017-07-08] MEDS: amLODIPine 5 MG TAB PO (10:02)
[2017-07-08] MEDS: MULTIVITAMINS/MINERALS THERAP 1 TAB PO (10:03)
[2017-07-08 11:32] LABS: BEDSIDE GLUCOSE 144 MG/DL (83-110)
[2017-07-08 16:44] LABS: BEDSIDE GLUCOSE 219 MG/DL (83-110)
[2017-07-08 20:05] LABS: BEDSIDE GLUCOSE 139 MG/DL (83-110)
[2017-07-08] MEDS: MIRALAX *UNIT DOSE* 17GM PACKET PO (20:16)
[2017-07-09 05:50] LABS: BEDSIDE GLUCOSE 122 MG/DL (83-110)
[2017-07-09] MEDS: LEVEMIR (INSULIN DETEMIR) 1 UNITS/0.01ML SC ×2 (09:00→20:57)
[2017-07-09] MEDS: HumaLOG INSULIN (NovoLOG) PER UNIT SC ×4 (09:00→20:51)
[2017-07-09] MEDS: ENOXAPARIN 40 MG/0.4 ML SYRINGE (J1650) SC (09:00)
[2017-07-09] MEDS: LISINOPRIL 10 MG TAB PO (09:01)
[2017-07-09] MEDS: ASPIRIN 81 MG ENTERIC TAB PO (09:01)
[2017-07-09] MEDS: MULTIVITAMINS/MINERALS THERAP 1 TAB PO (09:01)
[2017-07-09] MEDS: SILVER SULFADIAZINE 1% CR 50 GM JAR TOP ×2 (09:02→20:59)
[2017-07-09] MEDS: SENOKOT S TAB PO ×2 (09:02→20:57)
[2017-07-09] MEDS: FOLIC ACID 1 MG TAB PO (09:02)
[2017-07-09] MEDS: amLODIPine 5 MG TAB PO (09:02)
[2017-07-09] MEDS: ATORVASTATIN 20 MG TAB PO (09:02)
[2017-07-09 12:27] LABS: BEDSIDE GLUCOSE 148 MG/DL (83-110)
[2017-07-09 16:52] LABS: BEDSIDE GLUCOSE 181 MG/DL (83-110)
[2017-07-09 20:09] LABS: BEDSIDE GLUCOSE 189 MG/DL (83-110)
[2017-07-09] MEDS: NYSTATIN 100,000 UNITS/GM TOPICAL PWD 15 GM TOP (20:58)
[2017-07-10] MEDS: ASPIRIN 81 MG ENTERIC TAB PO (08:26)
[2017-07-10] MEDS: ATORVASTATIN 20 MG TAB PO (08:26)
[2017-07-10] MEDS: MULTIVITAMINS/MINERALS THERAP 1 TAB PO (08:26)
[2017-07-10] MEDS: FOLIC ACID 1 MG TAB PO (08:26)
[2017-07-10] MEDS: SENOKOT S TAB PO ×2 (08:27→20:40)
[2017-07-10] MEDS: MOM 30ML SUSPENSION UDC PO (08:27)
[2017-07-10] MEDS: amLODIPine 5 MG TAB PO (08:27)
[2017-07-10] MEDS: LISINOPRIL 10 MG TAB PO (08:27)
[2017-07-10] MEDS: ENOXAPARIN 40 MG/0.4 ML SYRINGE (J1650) SC (08:27)
[2017-07-10] MEDS: NYSTATIN 100,000 UNITS/GM TOPICAL PWD 15 GM TOP (08:27)
[2017-07-10] MEDS: HumaLOG INSULIN (NovoLOG) PER UNIT SC ×4 (08:28→20:26)
[2017-07-10] MEDS: LEVEMIR (INSULIN DETEMIR) 1 UNITS/0.01ML SC ×2 (08:28→20:40)
[2017-07-10] MEDS: SILVER SULFADIAZINE 1% CR 50 GM JAR TOP ×2 (08:28→20:40)
[2017-07-10 09:29] LABS: BEDSIDE GLUCOSE 128 MG/DL (83-110)
[2017-07-10 09:29] LABS: BEDSIDE GLUCOSE 138 MG/DL (83-110)
[2017-07-10 11:59] LABS: BEDSIDE GLUCOSE 194 MG/DL (83-110)
[2017-07-10 17:10] LABS: BEDSIDE GLUCOSE 102 MG/DL (83-110)
[2017-07-11 06:19] LABS: HEMATOCRIT 36.5 % (42.0-52.0); HEMOGLOBIN 11.9 g/dl (14.0-18.0); MEAN CORPUSCULAR HEMOGLOBIN 28.3 pg (27.0-33.0); MEAN CORPUSCULAR HGB CONC 32.6 g/dl (32.0-36.5); MEAN CORPUSCULAR VOLUME 86.7 fl (80.0-96.0); PLATELET COUNT, AUTOMATED 319 10^3/uL (150-450); RED BLOOD COUNT 4.21 10^6/uL (4.30-6.10); RED CELL DISTRIBUTION WIDTH 11.9 % (11.5-14.5); WHITE BLOOD COUNT 8.5 10^3/uL (4.0-10.0)
[2017-07-11 06:37] LABS: ALBUMIN 2.9 GM/DL (3.2-5.2); ALBUMIN/GLOBULIN RATIO 0.69 (1.00-1.93); ALKALINE PHOSPHATASE 82 U/L (45-117); ALT/SGPT 19 U/L (12-78); ANION GAP 7 MEQ/L (8-16); AST/SGOT 14 U/L (7-37); BILIRUBIN,TOTAL 0.2 MG/DL (0.2-1.0); BLOOD UREA NITROGEN 23 MG/DL (7-18); CALCIUM LEVEL 8.7 MG/DL (8.8-10.2); CARBON DIOXIDE LEVEL 27 MEQ/L (21-32); CHLORIDE LEVEL 105 MEQ/L (98-107); GLOMERULAR FILTRATION RATE > 60.0 (>42); GLUCOSE, FASTING 127 MG/DL (70-100); MAGNESIUM LEVEL 2.1 MG/DL (1.8-2.4); POTASSIUM SERUM 4.3 MEQ/L (3.5-5.1); SODIUM LEVEL 139 MEQ/L (136-145); TOTAL PROTEIN 7.1 GM/DL (6.4-8.2)
[2017-07-11] MEDS: HumaLOG INSULIN (NovoLOG) PER UNIT SC ×4 (08:58→20:22)
[2017-07-11] MEDS: SENOKOT S TAB PO ×2 (10:37→21:50)
[2017-07-11] MEDS: FOLIC ACID 1 MG TAB PO (10:38)
[2017-07-11] MEDS: ASPIRIN 81 MG ENTERIC TAB PO (10:38)
[2017-07-11] MEDS: ATORVASTATIN 20 MG TAB PO (10:38)
[2017-07-11] MEDS: MULTIVITAMINS/MINERALS THERAP 1 TAB PO (10:38)
[2017-07-11] MEDS: LISINOPRIL 10 MG TAB PO (10:38)
[2017-07-11] MEDS: amLODIPine 5 MG TAB PO (10:39)
[2017-07-11] MEDS: ENOXAPARIN 40 MG/0.4 ML SYRINGE (J1650) SC (10:39)
[2017-07-11] MEDS: LEVEMIR (INSULIN DETEMIR) 1 UNITS/0.01ML SC ×2 (10:40→21:50)
[2017-07-11] MEDS: SILVER SULFADIAZINE 1% CR 50 GM JAR TOP ×2 (10:40→21:51)
[2017-07-11 17:31] LABS: BEDSIDE GLUCOSE 105 MG/DL (83-110)
[2017-07-11 20:23] LABS: BEDSIDE GLUCOSE 136 MG/DL (83-110)
[2017-07-11 20:23] LABS: BEDSIDE GLUCOSE 169 MG/DL (83-110)
[2017-07-11 20:23] LABS: BEDSIDE GLUCOSE 197 MG/DL (83-110)
[2017-07-12] MEDS: MULTIVITAMINS/MINERALS THERAP 1 TAB PO (08:04)
[2017-07-12] MEDS: SENOKOT S TAB PO ×2 (08:04→21:56)
[2017-07-12] MEDS: ASPIRIN 81 MG ENTERIC TAB PO (08:04)
[2017-07-12] MEDS: ENOXAPARIN 40 MG/0.4 ML SYRINGE (J1650) SC (08:04)
[2017-07-12] MEDS: FOLIC ACID 1 MG TAB PO (08:05)
[2017-07-12] MEDS: LISINOPRIL 10 MG TAB PO (08:05)
[2017-07-12] MEDS: amLODIPine 5 MG TAB PO (08:05)
[2017-07-12] MEDS: LEVEMIR (INSULIN DETEMIR) 1 UNITS/0.01ML SC ×2 (08:06→21:56)
[2017-07-12] MEDS: ATORVASTATIN 20 MG TAB PO (08:06)
[2017-07-12] MEDS: SILVER SULFADIAZINE 1% CR 50 GM JAR TOP ×2 (08:08→21:57)
[2017-07-12 08:41] LABS: BEDSIDE GLUCOSE 161 MG/DL (83-110)
[2017-07-12] MEDS: HumaLOG INSULIN (NovoLOG) PER UNIT SC ×4 (09:42→21:13)
[2017-07-12 13:04] LABS: BEDSIDE GLUCOSE 116 MG/DL (83-110)
[2017-07-12 19:13] LABS: BEDSIDE GLUCOSE 156 MG/DL (83-110)
[2017-07-13] MEDS: amLODIPine 5 MG TAB PO (09:00)
[2017-07-13] MEDS: ASPIRIN 81 MG ENTERIC TAB PO (10:05)
[2017-07-13] MEDS: ATORVASTATIN 20 MG TAB PO (10:05)
[2017-07-13] MEDS: SENOKOT S TAB PO ×2 (10:05→21:35)
[2017-07-13] MEDS: MULTIVITAMINS/MINERALS THERAP 1 TAB PO (10:06)
[2017-07-13] MEDS: LISINOPRIL 10 MG TAB PO (10:06)
[2017-07-13] MEDS: FOLIC ACID 1 MG TAB PO (10:06)
[2017-07-13] MEDS: LEVEMIR (INSULIN DETEMIR) 1 UNITS/0.01ML SC ×2 (10:07→21:35)
[2017-07-13] MEDS: ENOXAPARIN 40 MG/0.4 ML SYRINGE (J1650) SC (10:07)
[2017-07-13] MEDS: HumaLOG INSULIN (NovoLOG) PER UNIT SC ×4 (10:07→20:34)
[2017-07-13] MEDS: SILVER SULFADIAZINE 1% CR 50 GM JAR TOP ×2 (10:08→21:36)
[2017-07-13 11:45] LABS: BEDSIDE GLUCOSE 181 MG/DL (83-110)
[2017-07-13 11:45] LABS: BEDSIDE GLUCOSE 102 MG/DL (83-110)
[2017-07-13 20:28] LABS: BEDSIDE GLUCOSE 133 MG/DL (83-110)
[2017-07-13] MEDS: EUCERIN 120GM CREAM TOP (21:36)
[2017-07-14 06:10] LABS: HEMATOCRIT 38.1 % (42.0-52.0); HEMOGLOBIN 12.7 g/dl (14.0-18.0); MEAN CORPUSCULAR HEMOGLOBIN 28.3 pg (27.0-33.0); MEAN CORPUSCULAR HGB CONC 33.3 g/dl (32.0-36.5); PLATELET COUNT, AUTOMATED 304 10^3/uL (150-450); RED BLOOD COUNT 4.48 10^6/uL (4.30-6.10); RED CELL DISTRIBUTION WIDTH 12.1 % (11.5-14.5); WHITE BLOOD COUNT 9.2 10^3/uL (4.0-10.0)
[2017-07-14 06:31] LABS: ALBUMIN 3.1 GM/DL (3.2-5.2); ALBUMIN/GLOBULIN RATIO 0.72 (1.00-1.93); ALKALINE PHOSPHATASE 79 U/L (45-117); ALT/SGPT 24 U/L (12-78); ANION GAP 8 MEQ/L (8-16); AST/SGOT 15 U/L (7-37); BILIRUBIN,TOTAL 0.1 MG/DL (0.2-1.0); BLOOD UREA NITROGEN 26 MG/DL (7-18); CALCIUM LEVEL 8.9 MG/DL (8.8-10.2); CARBON DIOXIDE LEVEL 25 MEQ/L (21-32); CHLORIDE LEVEL 105 MEQ/L (98-107); GLOMERULAR FILTRATION RATE > 60.0 (>42); GLUCOSE, FASTING 124 MG/DL (70-100); MAGNESIUM LEVEL 2.1 MG/DL (1.8-2.4); POTASSIUM SERUM 4.2 MEQ/L (3.5-5.1); SODIUM LEVEL 138 MEQ/L (136-145); TOTAL PROTEIN 7.4 GM/DL (6.4-8.2)
[2017-07-14 06:57] LABS: BEDSIDE GLUCOSE 117 MG/DL (83-110)
[2017-07-14] MEDS: amLODIPine 5 MG TAB PO (08:45)
[2017-07-14] MEDS: LISINOPRIL 10 MG TAB PO (08:45)
[2017-07-14] MEDS: SENOKOT S TAB PO ×2 (09:00→21:52)
[2017-07-14] MEDS: ENOXAPARIN 40 MG/0.4 ML SYRINGE (J1650) SC (09:00)
[2017-07-14] MEDS: MOM 30ML SUSPENSION UDC PO (09:00)
[2017-07-14] MEDS: MULTIVITAMINS/MINERALS THERAP 1 TAB PO (09:00)
[2017-07-14] MEDS: ASPIRIN 81 MG ENTERIC TAB PO (09:00)
[2017-07-14] MEDS: ATORVASTATIN 20 MG TAB PO (09:00)
[2017-07-14] MEDS: EUCERIN 120GM CREAM TOP ×2 (09:00→21:54)
[2017-07-14] MEDS: FOLIC ACID 1 MG TAB PO (09:00)
[2017-07-14] MEDS: HumaLOG INSULIN (NovoLOG) PER UNIT SC ×4 (09:01→21:00)
[2017-07-14] MEDS: LEVEMIR (INSULIN DETEMIR) 1 UNITS/0.01ML SC ×2 (09:01→21:52)
[2017-07-14 12:22] LABS: BEDSIDE GLUCOSE 187 MG/DL (83-110)
[2017-07-14] MEDS: SILVER SULFADIAZINE 1% CR 50 GM JAR TOP ×2 (14:05→21:53)
[2017-07-14 17:00] LABS: BEDSIDE GLUCOSE 140 MG/DL (83-110)
[2017-07-14 21:25] LABS: BEDSIDE GLUCOSE 162 MG/DL (83-110)
[2017-07-15 06:52] LABS: BEDSIDE GLUCOSE 117 MG/DL (83-110)
[2017-07-15] MEDS: HumaLOG INSULIN (NovoLOG) PER UNIT SC ×4 (08:38→21:17)
[2017-07-15] MEDS: LEVEMIR (INSULIN DETEMIR) 1 UNITS/0.01ML SC ×2 (08:38→22:03)
[2017-07-15] MEDS: ENOXAPARIN 40 MG/0.4 ML SYRINGE (J1650) SC (08:39)
[2017-07-15] MEDS: FOLIC ACID 1 MG TAB PO (08:39)
[2017-07-15] MEDS: MULTIVITAMINS/MINERALS THERAP 1 TAB PO (08:39)
[2017-07-15] MEDS: SENOKOT S TAB PO ×2 (08:39→22:03)
[2017-07-15] MEDS: ATORVASTATIN 20 MG TAB PO (08:39)
[2017-07-15] MEDS: LISINOPRIL 10 MG TAB PO (08:39)
[2017-07-15] MEDS: ASPIRIN 81 MG ENTERIC TAB PO (08:39)
[2017-07-15] MEDS: SILVER SULFADIAZINE 1% CR 50 GM JAR TOP ×2 (08:40→22:04)
[2017-07-15] MEDS: amLODIPine 5 MG TAB PO (08:40)
[2017-07-15] MEDS: EUCERIN 120GM CREAM TOP ×2 (08:40→22:04)
[2017-07-15 12:14] LABS: BEDSIDE GLUCOSE 143 MG/DL (83-110)
[2017-07-15] MEDS: MOM 30ML SUSPENSION UDC PO (12:55)
[2017-07-15 16:43] LABS: BEDSIDE GLUCOSE 127 MG/DL (83-110)
[2017-07-15 21:14] LABS: BEDSIDE GLUCOSE 160 MG/DL (83-110)
[2017-07-16 06:46] LABS: BEDSIDE GLUCOSE 126 MG/DL (83-110)
[2017-07-16] MEDS: MOM 30ML SUSPENSION UDC PO (08:45)
[2017-07-16] MEDS: SENOKOT S TAB PO ×2 (08:45→20:33)
[2017-07-16] MEDS: HumaLOG INSULIN (NovoLOG) PER UNIT SC ×4 (08:45→20:34)
[2017-07-16] MEDS: ENOXAPARIN 40 MG/0.4 ML SYRINGE (J1650) SC (08:45)
[2017-07-16] MEDS: ATORVASTATIN 20 MG TAB PO (08:45)
[2017-07-16] MEDS: LEVEMIR (INSULIN DETEMIR) 1 UNITS/0.01ML SC ×2 (08:45→20:34)
[2017-07-16] MEDS: ASPIRIN 81 MG ENTERIC TAB PO (08:45)
[2017-07-16] MEDS: amLODIPine 5 MG TAB PO (08:46)
[2017-07-16] MEDS: LISINOPRIL 10 MG TAB PO (08:46)
[2017-07-16] MEDS: FOLIC ACID 1 MG TAB PO (08:46)
[2017-07-16] MEDS: MULTIVITAMINS/MINERALS THERAP 1 TAB PO (08:46)
[2017-07-16] MEDS: SILVER SULFADIAZINE 1% CR 50 GM JAR TOP (08:47)
[2017-07-16] MEDS: EUCERIN 120GM CREAM TOP ×2 (08:47→20:35)
[2017-07-16 12:02] LABS: BEDSIDE GLUCOSE 209 MG/DL (83-110)
[2017-07-16 17:09] LABS: BEDSIDE GLUCOSE 81 MG/DL (83-110)
[2017-07-16 20:56] LABS: BEDSIDE GLUCOSE 176 MG/DL (83-110)
[2017-07-17 06:50] LABS: HEMATOCRIT 39.8 % (42.0-52.0); HEMOGLOBIN 12.9 g/dl (14.0-18.0); MEAN CORPUSCULAR HEMOGLOBIN 27.7 pg (27.0-33.0); MEAN CORPUSCULAR HGB CONC 32.4 g/dl (32.0-36.5); MEAN CORPUSCULAR VOLUME 85.4 fl (80.0-96.0); PLATELET COUNT, AUTOMATED 280 10^3/uL (150-450); RED BLOOD COUNT 4.66 10^6/uL (4.30-6.10); RED CELL DISTRIBUTION WIDTH 12.3 % (11.5-14.5); WHITE BLOOD COUNT 9.1 10^3/uL (4.0-10.0)
[2017-07-17 07:10] LABS: ALBUMIN 3.3 GM/DL (3.2-5.2); ALBUMIN/GLOBULIN RATIO 0.79 (1.00-1.93); ALKALINE PHOSPHATASE 86 U/L (45-117); ALT/SGPT 22 U/L (12-78); ANION GAP 7 MEQ/L (8-16); AST/SGOT 9 U/L (7-37); BILIRUBIN,TOTAL 0.2 MG/DL (0.2-1.0); BLOOD UREA NITROGEN 21 MG/DL (7-18); CALCIUM LEVEL 9.4 MG/DL (8.8-10.2); CARBON DIOXIDE LEVEL 28 MEQ/L (21-32); CHLORIDE LEVEL 105 MEQ/L (98-107); CREATININE FOR GFR 0.88 MG/DL (0.70-1.30); GLOMERULAR FILTRATION RATE > 60.0 (>42); GLUCOSE, FASTING 101 MG/DL (70-100); MAGNESIUM LEVEL 2.3 MG/DL (1.8-2.4); POTASSIUM SERUM 4.1 MEQ/L (3.5-5.1); SODIUM LEVEL 140 MEQ/L (136-145); TOTAL PROTEIN 7.5 GM/DL (6.4-8.2)
[2017-07-17] MEDS: HumaLOG INSULIN (NovoLOG) PER UNIT SC ×4 (07:30→21:00)
[2017-07-17] MEDS: ENOXAPARIN 40 MG/0.4 ML SYRINGE (J1650) SC (09:05)
[2017-07-17] MEDS: LEVEMIR (INSULIN DETEMIR) 1 UNITS/0.01ML SC ×2 (09:05→22:15)
[2017-07-17] MEDS: ATORVASTATIN 20 MG TAB PO (09:05)
[2017-07-17] MEDS: SENOKOT S TAB PO ×2 (09:06→22:15)
[2017-07-17] MEDS: LISINOPRIL 10 MG TAB PO (09:06)
[2017-07-17] MEDS: FOLIC ACID 1 MG TAB PO (09:06)
[2017-07-17] MEDS: MULTIVITAMINS/MINERALS THERAP 1 TAB PO (09:07)
[2017-07-17] MEDS: amLODIPine 5 MG TAB PO (09:07)
[2017-07-17] MEDS: EUCERIN 120GM CREAM TOP ×2 (09:07→22:15)
[2017-07-17 11:51] LABS: BEDSIDE GLUCOSE 160 MG/DL (83-110)
[2017-07-17 17:24] LABS: BEDSIDE GLUCOSE 144 MG/DL (83-110)
[2017-07-18] MEDS: HumaLOG INSULIN (NovoLOG) PER UNIT SC ×4 (07:30→21:00)
[2017-07-18 08:37] LABS: BEDSIDE GLUCOSE 138 MG/DL (83-110)
[2017-07-18 08:37] LABS: BEDSIDE GLUCOSE 155 MG/DL (83-110)
[2017-07-18] MEDS: LISINOPRIL 10 MG TAB PO ×2 (09:00→10:11)
[2017-07-18] MEDS: SENOKOT S TAB PO ×3 (09:00→22:04)
[2017-07-18] MEDS: FOLIC ACID 1 MG TAB PO ×2 (09:00→10:11)
[2017-07-18] MEDS: amLODIPine 5 MG TAB PO (09:00)
[2017-07-18] MEDS: LEVEMIR (INSULIN DETEMIR) 1 UNITS/0.01ML SC ×2 (09:00→22:04)
[2017-07-18] MEDS: MULTIVITAMINS/MINERALS THERAP 1 TAB PO ×2 (09:00→10:11)
[2017-07-18] MEDS: ATORVASTATIN 20 MG TAB PO ×2 (09:00→10:10)
[2017-07-18] MEDS: EUCERIN 120GM CREAM TOP ×2 (10:12→22:05)
[2017-07-18 11:13] LABS: BEDSIDE GLUCOSE 112 MG/DL (83-110)
[2017-07-18] MEDS ORDERED: LIDOCAINE 2% INJ 100 MG/5 ML SDV (FOR ANES.) As Ordered (14:05)
[2017-07-18] MEDS ORDERED: PROPOFOL 200 MG/20 ML VIAL As Ordered (14:05)
[2017-07-18] MEDS ORDERED: MIDAZOLAM INJ 2 MG/2 ML VIAL (J2250) As Ordered ×2 (14:06→15:26)
[2017-07-18] MEDS ORDERED: fentaNYL 100 MCG/2 ML INJECTION (J3010) As Ordered ×2 (14:06→15:49)
[2017-07-18] MEDS: ROPIvacaine 0.5% 30 ML INJECTION (J2795 PER 1MG) As Ordered (15:09)
[2017-07-18] MEDS: VANCOMYCIN 1000 MG/20 ML VIAL (J3370) As Ordered (15:19)
[2017-07-18] MEDS ORDERED: PHENYLephrine HCL 500 MCG/5 ML (100MCG/ML) SYRINGE (J2370) As Ordered (15:26)
[2017-07-18] MEDS ORDERED: ePHEDrine INJ 50 MG/ML VIAL As Ordered (15:38)
[2017-07-18] MEDS ORDERED: METOCLOPRAMIDE INJ 10MG/2ML VIAL (J2765) As Ordered (15:48)
[2017-07-18] MEDS ORDERED: ONDANSETRON 4MG/2ML VIAL (J2405) As Ordered (15:48)
[2017-07-18] MEDS: VANCOMYCIN HCL 500 MG/10 ML VIAL (J3370) As Ordered (15:49)
[2017-07-18] MEDS ORDERED: KETOROLAC 60 MG/2 ML VIAL (J1885) As Ordered (16:59)
[2017-07-18 17:35] LABS: BEDSIDE GLUCOSE 128 MG/DL (83-110)
[2017-07-18 22:56] LABS: BEDSIDE GLUCOSE 187 MG/DL (83-110)
[2017-07-19 07:50] LABS: HEMATOCRIT 33.5 % (42.0-52.0); MEAN CORPUSCULAR HEMOGLOBIN 28.3 pg (27.0-33.0); MEAN CORPUSCULAR HGB CONC 32.8 g/dl (32.0-36.5); MEAN CORPUSCULAR VOLUME 86.1 fl (80.0-96.0); PLATELET COUNT, AUTOMATED 233 10^3/uL (150-450); RED BLOOD COUNT 3.89 10^6/uL (4.30-6.10); RED CELL DISTRIBUTION WIDTH 12.5 % (11.5-14.5); WHITE BLOOD COUNT 10.3 10^3/uL (4.0-10.0)
[2017-07-19 08:16] LABS: ANION GAP 6 MEQ/L (8-16); BLOOD UREA NITROGEN 32 MG/DL (7-18); CALCIUM LEVEL 8.7 MG/DL (8.8-10.2); CARBON DIOXIDE LEVEL 29 MEQ/L (21-32); CHLORIDE LEVEL 104 MEQ/L (98-107); CREATININE FOR GFR 1.32 MG/DL (0.70-1.30); GLOMERULAR FILTRATION RATE 56.6 (>42); GLUCOSE, FASTING 113 MG/DL (70-100); MAGNESIUM LEVEL 2.2 MG/DL (1.8-2.4); POTASSIUM SERUM 4.5 MEQ/L (3.5-5.1); SODIUM LEVEL 139 MEQ/L (136-145)
[2017-07-19 08:30] LABS: BEDSIDE GLUCOSE 121 MG/DL (83-110)
[2017-07-19] MEDS: HumaLOG INSULIN (NovoLOG) PER UNIT SC ×4 (09:10→20:37)
[2017-07-19] MEDS: LEVEMIR (INSULIN DETEMIR) 1 UNITS/0.01ML SC ×2 (09:11→20:41)
[2017-07-19] MEDS: LISINOPRIL 10 MG TAB PO (09:12)
[2017-07-19] MEDS: ENOXAPARIN 40 MG/0.4 ML SYRINGE (J1650) SC (09:12)
[2017-07-19] MEDS: FOLIC ACID 1 MG TAB PO (09:13)
[2017-07-19] MEDS: ATORVASTATIN 20 MG TAB PO (09:13)
[2017-07-19] MEDS: amLODIPine 5 MG TAB PO (09:13)
[2017-07-19] MEDS: SENOKOT S TAB PO ×2 (09:14→20:41)
[2017-07-19] MEDS: MULTIVITAMINS/MINERALS THERAP 1 TAB PO (09:14)
[2017-07-19] MEDS: EUCERIN 120GM CREAM TOP ×2 (09:14→20:42)
[2017-07-19] MEDS: NS 1,000 ML IV (11:37)
[2017-07-19 12:12] LABS: BEDSIDE GLUCOSE 182 MG/DL (83-110)
[2017-07-19 12:12] LABS: BEDSIDE GLUCOSE 391 MG/DL (83-110)
[2017-07-19 17:26] LABS: BEDSIDE GLUCOSE 132 MG/DL (83-110)
[2017-07-20] MEDS: NS 1,000 ML IV (00:52)
[2017-07-20 07:40] LABS: HEMATOCRIT 31.2 % (42.0-52.0); HEMOGLOBIN 10.2 g/dl (14.0-18.0); MEAN CORPUSCULAR HEMOGLOBIN 28.2 pg (27.0-33.0); MEAN CORPUSCULAR HGB CONC 32.7 g/dl (32.0-36.5); MEAN CORPUSCULAR VOLUME 86.2 fl (80.0-96.0); PLATELET COUNT, AUTOMATED 214 10^3/uL (150-450); RED BLOOD COUNT 3.62 10^6/uL (4.30-6.10); RED CELL DISTRIBUTION WIDTH 12.5 % (11.5-14.5); WHITE BLOOD COUNT 9.5 10^3/uL (4.0-10.0)
[2017-07-20 08:10] LABS: ANION GAP 7 MEQ/L (8-16); BLOOD UREA NITROGEN 20 MG/DL (7-18); CALCIUM LEVEL 8.3 MG/DL (8.8-10.2); CARBON DIOXIDE LEVEL 26 MEQ/L (21-32); CHLORIDE LEVEL 108 MEQ/L (98-107); CREATININE FOR GFR 0.91 MG/DL (0.70-1.30); GLOMERULAR FILTRATION RATE > 60.0 (>42); GLUCOSE, FASTING 118 MG/DL (70-100); POTASSIUM SERUM 4.4 MEQ/L (3.5-5.1); SODIUM LEVEL 141 MEQ/L (136-145)
[2017-07-20] MEDS: ENOXAPARIN 40 MG/0.4 ML SYRINGE (J1650) SC (09:13)
[2017-07-20] MEDS: HumaLOG INSULIN (NovoLOG) PER UNIT SC ×4 (09:13→20:30)
[2017-07-20] MEDS: LEVEMIR (INSULIN DETEMIR) 1 UNITS/0.01ML SC ×2 (09:14→20:58)
[2017-07-20] MEDS: ATORVASTATIN 20 MG TAB PO (09:14)
[2017-07-20] MEDS: SENOKOT S TAB PO ×2 (09:14→20:58)
[2017-07-20] MEDS: MULTIVITAMINS/MINERALS THERAP 1 TAB PO (09:14)
[2017-07-20] MEDS: FOLIC ACID 1 MG TAB PO (09:15)
[2017-07-20] MEDS: EUCERIN 120GM CREAM TOP ×2 (09:15→20:59)
[2017-07-20] MEDS: amLODIPine 5 MG TAB PO (09:15)
[2017-07-20] MEDS: LISINOPRIL 10 MG TAB PO (09:15)
[2017-07-20 14:21] LABS: BEDSIDE GLUCOSE 151 MG/DL (83-110)
[2017-07-20 14:21] LABS: BEDSIDE GLUCOSE 152 MG/DL (83-110)
[2017-07-20 14:21] LABS: BEDSIDE GLUCOSE 163 MG/DL (83-110)
[2017-07-20 16:45] LABS: BEDSIDE GLUCOSE 149 MG/DL (83-110)
[2017-07-20 20:37] LABS: BEDSIDE GLUCOSE 167 MG/DL (83-110)
[2017-07-21] MEDS: ACETAMINOPHEN TAB 650MG DOSE (2X325MG) PO (03:36)
[2017-07-21 06:17] LABS: BEDSIDE GLUCOSE 144 MG/DL (83-110)
[2017-07-21] MEDS: amLODIPine 5 MG TAB PO (09:00)
[2017-07-21] MEDS: ENOXAPARIN 40 MG/0.4 ML SYRINGE (J1650) SC (09:57)
[2017-07-21] MEDS: LEVEMIR (INSULIN DETEMIR) 1 UNITS/0.01ML SC ×2 (09:58→21:36)
[2017-07-21] MEDS: LISINOPRIL 10 MG TAB PO (09:59)
[2017-07-21] MEDS: FOLIC ACID 1 MG TAB PO (10:00)
[2017-07-21] MEDS: MULTIVITAMINS/MINERALS THERAP 1 TAB PO (10:00)
[2017-07-21] MEDS: ATORVASTATIN 20 MG TAB PO (10:01)
[2017-07-21] MEDS: SENOKOT S TAB PO ×2 (10:01→21:36)
[2017-07-21] MEDS: EUCERIN 120GM CREAM TOP ×2 (10:02→21:36)
[2017-07-21] MEDS: HumaLOG INSULIN (NovoLOG) PER UNIT SC ×4 (10:04→21:00)
[2017-07-21 11:11] LABS: BEDSIDE GLUCOSE 133 MG/DL (83-110)
[2017-07-21 11:11] LABS: BEDSIDE GLUCOSE 122 MG/DL (83-110)
[2017-07-21 12:01] LABS: BEDSIDE GLUCOSE 177 MG/DL (83-110)
[2017-07-21 17:07] LABS: BEDSIDE GLUCOSE 132 MG/DL (83-110)
[2017-07-21 20:31] LABS: BEDSIDE GLUCOSE 242 MG/DL (83-110)
[2017-07-22 06:50] LABS: HEMOGLOBIN 10.6 g/dl (14.0-18.0); MEAN CORPUSCULAR HEMOGLOBIN 28.2 pg (27.0-33.0); MEAN CORPUSCULAR HGB CONC 33.1 g/dl (32.0-36.5); MEAN CORPUSCULAR VOLUME 85.1 fl (80.0-96.0); PLATELET COUNT, AUTOMATED 235 10^3/uL (150-450); RED BLOOD COUNT 3.76 10^6/uL (4.30-6.10); RED CELL DISTRIBUTION WIDTH 12.4 % (11.5-14.5); WHITE BLOOD COUNT 12.1 10^3/uL (4.0-10.0)
[2017-07-22 07:25] LABS: ANION GAP 9 MEQ/L (8-16); BLOOD UREA NITROGEN 18 MG/DL (7-18); CALCIUM LEVEL 8.7 MG/DL (8.8-10.2); CARBON DIOXIDE LEVEL 25 MEQ/L (21-32); CHLORIDE LEVEL 105 MEQ/L (98-107); CREATININE FOR GFR 0.95 MG/DL (0.70-1.30); GLOMERULAR FILTRATION RATE > 60.0 (>42); GLUCOSE, FASTING 105 MG/DL (70-100); MAGNESIUM LEVEL 1.9 MG/DL (1.8-2.4); POTASSIUM SERUM 4.1 MEQ/L (3.5-5.1); SODIUM LEVEL 139 MEQ/L (136-145)
[2017-07-22] MEDS: SENOKOT S TAB PO ×2 (08:17→20:28)
[2017-07-22] MEDS: FOLIC ACID 1 MG TAB PO (08:17)
[2017-07-22] MEDS: ATORVASTATIN 20 MG TAB PO (08:17)
[2017-07-22] MEDS: HumaLOG INSULIN (NovoLOG) PER UNIT SC ×4 (08:17→20:28)
[2017-07-22] MEDS: MULTIVITAMINS/MINERALS THERAP 1 TAB PO (08:17)
[2017-07-22] MEDS: LEVEMIR (INSULIN DETEMIR) 1 UNITS/0.01ML SC ×2 (08:18→20:28)
[2017-07-22] MEDS: EUCERIN 120GM CREAM TOP ×2 (08:18→20:29)
[2017-07-22] MEDS: ENOXAPARIN 40 MG/0.4 ML SYRINGE (J1650) SC (08:18)
[2017-07-22] MEDS: LISINOPRIL 10 MG TAB PO (08:19)
[2017-07-22] MEDS: amLODIPine 5 MG TAB PO (08:19)
[2017-07-22 11:57] LABS: BEDSIDE GLUCOSE 154 MG/DL (83-110)
[2017-07-22] MEDS: NS 1,000 ML IV (13:41)
[2017-07-22 14:55] LABS: BEDSIDE GLUCOSE 134 MG/DL (83-110)
[2017-07-22] MEDS: ASPIRIN 81 MG CHEW TABLET PO (17:20)
[2017-07-22 17:34] LABS: BEDSIDE GLUCOSE 151 MG/DL (83-110)
[2017-07-22 21:22] LABS: BEDSIDE GLUCOSE 246 MG/DL (83-110)
[2017-07-23] MEDS: HumaLOG INSULIN (NovoLOG) PER UNIT SC ×4 (07:30→21:41)
[2017-07-23] MEDS: LEVEMIR (INSULIN DETEMIR) 1 UNITS/0.01ML SC ×2 (09:21→21:41)
[2017-07-23] MEDS: ENOXAPARIN 40 MG/0.4 ML SYRINGE (J1650) SC (09:21)
[2017-07-23] MEDS: SENOKOT S TAB PO ×2 (09:22→21:40)
[2017-07-23] MEDS: FOLIC ACID 1 MG TAB PO (09:22)
[2017-07-23] MEDS: LISINOPRIL 10 MG TAB PO (09:22)
[2017-07-23] MEDS: MULTIVITAMINS/MINERALS THERAP 1 TAB PO (09:22)
[2017-07-23] MEDS: amLODIPine 5 MG TAB PO (09:22)
[2017-07-23] MEDS: ASPIRIN 81 MG CHEW TABLET PO (09:22)
[2017-07-23] MEDS: ATORVASTATIN 20 MG TAB PO (09:22)
[2017-07-23] MEDS: EUCERIN 120GM CREAM TOP ×2 (09:23→21:42)
[2017-07-23] MEDS: MOM 30ML SUSPENSION UDC PO (09:23)
[2017-07-23 12:09] LABS: BEDSIDE GLUCOSE 102 MG/DL (83-110)
[2017-07-23 15:00] LABS: BEDSIDE GLUCOSE 211 MG/DL (83-110)
[2017-07-24 06:12] LABS: BEDSIDE GLUCOSE 148 MG/DL (83-110)
[2017-07-24] MEDS: LEVEMIR (INSULIN DETEMIR) 1 UNITS/0.01ML SC ×2 (09:09→21:30)
[2017-07-24] MEDS: HumaLOG INSULIN (NovoLOG) PER UNIT SC ×4 (09:09→21:30)
[2017-07-24] MEDS: ASPIRIN 81 MG CHEW TABLET PO (09:10)
[2017-07-24] MEDS: amLODIPine 5 MG TAB PO (09:10)
[2017-07-24] MEDS: LISINOPRIL 10 MG TAB PO (09:10)
[2017-07-24] MEDS: MULTIVITAMINS/MINERALS THERAP 1 TAB PO (09:10)
[2017-07-24] MEDS: ATORVASTATIN 20 MG TAB PO (09:10)
[2017-07-24] MEDS: SENOKOT S TAB PO ×2 (09:10→21:30)
[2017-07-24] MEDS: FOLIC ACID 1 MG TAB PO (09:10)
[2017-07-24] MEDS: EUCERIN 120GM CREAM TOP ×2 (09:11→21:31)
[2017-07-24] MEDS: ENOXAPARIN 40 MG/0.4 ML SYRINGE (J1650) SC (09:11)
[2017-07-24 10:30] LABS: HEMATOCRIT 30.7 % (42.0-52.0); HEMOGLOBIN 9.9 g/dl (14.0-18.0); MEAN CORPUSCULAR HEMOGLOBIN 27.4 pg (27.0-33.0); MEAN CORPUSCULAR HGB CONC 32.2 g/dl (32.0-36.5); PLATELET COUNT, AUTOMATED 278 10^3/uL (150-450); RED BLOOD COUNT 3.61 10^6/uL (4.30-6.10); RED CELL DISTRIBUTION WIDTH 12.3 % (11.5-14.5); WHITE BLOOD COUNT 12.1 10^3/uL (4.0-10.0)
[2017-07-24 10:57] LABS: ANION GAP 7 MEQ/L (8-16); BLOOD UREA NITROGEN 21 MG/DL (7-18); CALCIUM LEVEL 8.5 MG/DL (8.8-10.2); CARBON DIOXIDE LEVEL 28 MEQ/L (21-32); CHLORIDE LEVEL 102 MEQ/L (98-107); CREATININE FOR GFR 0.93 MG/DL (0.70-1.30); GLOMERULAR FILTRATION RATE > 60.0 (>42); GLUCOSE, FASTING 194 MG/DL (70-100); POTASSIUM SERUM 4.4 MEQ/L (3.5-5.1); SODIUM LEVEL 137 MEQ/L (136-145)
[2017-07-24 11:14] LABS: ERYTHROCYTE SEDIMENTATION RATE 106 mm/hr (0-20)
[2017-07-24] MEDS: PIPERACILLIN/TAZOBACTAM SOD 3.375 GM in APPROPRIATE DILUENT 1 EA IV ×3 (11:27→22:42)
[2017-07-24 11:44] LABS: BEDSIDE GLUCOSE 217 MG/DL (83-110)
[2017-07-24 12:01] LABS: BEDSIDE GLUCOSE 142 MG/DL (83-110)
[2017-07-24 12:01] LABS: BEDSIDE GLUCOSE 260 MG/DL (83-110)
[2017-07-24] MEDS: VANCOMYCIN HCL 1,000 MG, VIAL MATE ADAPTER 1 EACH in D5W 250 ML IV ×2 (12:12→17:44)
[2017-07-24 16:39] LABS: BEDSIDE GLUCOSE 150 MG/DL (83-110)
[2017-07-24] MEDS: MOM 30ML SUSPENSION UDC PO (18:54)
[2017-07-24 22:33] LABS: BEDSIDE GLUCOSE 254 MG/DL (83-110)
[2017-07-25] MEDS: PIPERACILLIN/TAZOBACTAM SOD 3.375 GM in APPROPRIATE DILUENT 1 EA IV ×2 (04:52→11:42)
[2017-07-25] MEDS: VANCOMYCIN HCL 1,000 MG, VIAL MATE ADAPTER 1 EACH in D5W 250 ML IV (05:39)
[2017-07-25 06:36] LABS: BASO # 0.1 10^3/uL (0.0-0.2); BASO % 0.5 % (0.0-1.0); EOS # 0.2 10^3/uL (0.0-0.50); EOS % 1.8 % (0.0-3.0); HEMATOCRIT 28.6 % (42.0-52.0); HEMOGLOBIN 9.4 g/dl (14.0-18.0); IMMATURE GRANULOCYTE % 0.4 % (0-3.0); LYMPH # 1.8 10^3/uL (1.5-4.5); LYMPH % 16.8 % (24.0-44.0); MEAN CORPUSCULAR HEMOGLOBIN 27.8 pg (27.0-33.0); MEAN CORPUSCULAR HGB CONC 32.9 g/dl (32.0-36.5); MEAN CORPUSCULAR VOLUME 84.6 fl (80.0-96.0); MONO # 1.2 10^3/uL (0.0-0.8); MONO % 11.3 % (0.0-5.0); NEUTROPHILS # 7.6 10^3/uL (1.8-7.7); NEUTROPHILS % 69.2 % (36.0-66.0); PLATELET COUNT, AUTOMATED 290 10^3/uL (150-450); RED BLOOD COUNT 3.38 10^6/uL (4.30-6.10); RED CELL DISTRIBUTION WIDTH 12.4 % (11.5-14.5); WHITE BLOOD COUNT 10.9 10^3/uL (4.0-10.0)
[2017-07-25 06:52] LABS: MAGNESIUM LEVEL 2.3 MG/DL (1.8-2.4)
[2017-07-25 08:12] LABS: BEDSIDE GLUCOSE 190 MG/DL (83-110)
[2017-07-25] MEDS: HumaLOG INSULIN (NovoLOG) PER UNIT SC ×4 (08:35→21:00)
[2017-07-25] MEDS: ENOXAPARIN 40 MG/0.4 ML SYRINGE (J1650) SC (08:36)
[2017-07-25] MEDS: ATORVASTATIN 20 MG TAB PO (08:36)
[2017-07-25] MEDS: LEVEMIR (INSULIN DETEMIR) 1 UNITS/0.01ML SC ×2 (08:36→21:49)
[2017-07-25] MEDS: SENOKOT S TAB PO ×2 (08:36→21:50)
[2017-07-25] MEDS: MULTIVITAMINS/MINERALS THERAP 1 TAB PO (08:36)
[2017-07-25] MEDS: amLODIPine 5 MG TAB PO (08:36)
[2017-07-25] MEDS: LISINOPRIL 10 MG TAB PO (08:37)
[2017-07-25] MEDS: NYSTATIN 100,000 UNITS/GM TOPICAL PWD 15 GM TOP (08:37)
[2017-07-25] MEDS: FOLIC ACID 1 MG TAB PO (08:37)
[2017-07-25] MEDS: EUCERIN 120GM CREAM TOP ×2 (08:38→21:50)
[2017-07-25] MEDS: ASPIRIN 81 MG CHEW TABLET PO (08:38)
[2017-07-25] MEDS: NAFCILLIN SOD 2 GM in D5W MINI-BAG PLUS 50 ML IV ×2 (18:15→21:49)
[2017-07-25] MEDS: MOM 30ML SUSPENSION UDC PO (21:49)
[2017-07-25 22:20] LABS: BEDSIDE GLUCOSE 209 MG/DL (83-110)
[2017-07-26] MEDS: NAFCILLIN SOD 2 GM in D5W MINI-BAG PLUS 50 ML IV ×6 (01:58→21:51)
[2017-07-26 06:07] LABS: BASO # 0.1 10^3/uL (0.0-0.2); BASO % 0.4 % (0.0-1.0); EOS # 0.2 10^3/uL (0.0-0.50); EOS % 1.5 % (0.0-3.0); HEMATOCRIT 32.5 % (42.0-52.0); HEMOGLOBIN 10.6 g/dl (14.0-18.0); IMMATURE GRANULOCYTE % 0.3 % (0-3.0); LYMPH # 1.8 10^3/uL (1.5-4.5); LYMPH % 14.1 % (24.0-44.0); MEAN CORPUSCULAR HEMOGLOBIN 27.7 pg (27.0-33.0); MEAN CORPUSCULAR HGB CONC 32.6 g/dl (32.0-36.5); MEAN CORPUSCULAR VOLUME 84.9 fl (80.0-96.0); MONO # 1.4 10^3/uL (0.0-0.8); MONO % 11.5 % (0.0-5.0); NEUTROPHILS % 72.2 % (36.0-66.0); PLATELET COUNT, AUTOMATED 330 10^3/uL (150-450); RED BLOOD COUNT 3.83 10^6/uL (4.30-6.10); RED CELL DISTRIBUTION WIDTH 12.4 % (11.5-14.5); WHITE BLOOD COUNT 12.4 10^3/uL (4.0-10.0)
[2017-07-26 06:25] LABS: MAGNESIUM LEVEL 2.5 MG/DL (1.8-2.4)
[2017-07-26 06:57] LABS: BEDSIDE GLUCOSE 111 MG/DL (83-110)
[2017-07-26] MEDS: HumaLOG INSULIN (NovoLOG) PER UNIT SC ×4 (07:41→21:00)
[2017-07-26] MEDS: amLODIPine 5 MG TAB PO (09:00)
[2017-07-26] MEDS: FOLIC ACID 1 MG TAB PO (09:52)
[2017-07-26] MEDS: ASPIRIN 81 MG CHEW TABLET PO (09:52)
[2017-07-26] MEDS: LISINOPRIL 10 MG TAB PO (09:53)
[2017-07-26] MEDS: ATORVASTATIN 20 MG TAB PO (09:53)
[2017-07-26] MEDS: MULTIVITAMINS/MINERALS THERAP 1 TAB PO (09:53)
[2017-07-26] MEDS: SENOKOT S TAB PO ×2 (09:53→21:50)
[2017-07-26] MEDS: EUCERIN 120GM CREAM TOP ×2 (09:54→21:51)
[2017-07-26] MEDS: LEVEMIR (INSULIN DETEMIR) 1 UNITS/0.01ML SC ×2 (09:54→21:50)
[2017-07-26] MEDS: ENOXAPARIN 40 MG/0.4 ML SYRINGE (J1650) SC (09:54)
[2017-07-26 12:03] LABS: BEDSIDE GLUCOSE 163 MG/DL (83-110)
[2017-07-26] MEDS ORDERED: LIDOCAINE 2% INJ 100 MG/5 ML SDV (FOR ANES.) As Ordered (15:53)
[2017-07-26] MEDS ORDERED: fentaNYL 100 MCG/2 ML INJECTION (J3010) As Ordered (15:53)
[2017-07-26] MEDS ORDERED: PROPOFOL 200 MG/20 ML VIAL As Ordered (15:53)
[2017-07-26] MEDS ORDERED: MIDAZOLAM INJ 2 MG/2 ML VIAL (J2250) As Ordered (15:53)
[2017-07-26] MEDS ORDERED: PHENYLephrine HCL 500 MCG/5 ML (100MCG/ML) SYRINGE (J2370) As Ordered (16:10)
[2017-07-26] MEDS ORDERED: fentaNYL 100 MCG/2 ML INJECTION (J3010) IV (16:30)
[2017-07-26] MEDS ORDERED: PERCOCET 5MG/325MG TAB PO (16:30)
[2017-07-26] MEDS: D5W 1,000 ML IV (16:30)
[2017-07-26] MEDS ORDERED: ONDANSETRON 4MG/2ML VIAL (J2405) IV (16:30)
[2017-07-26] MEDS ORDERED: HYDROmorphone HCL 1 MG/ML SYRINGE (J1170) IV (16:30)
[2017-07-26 17:31] LABS: BEDSIDE GLUCOSE 207 MG/DL (83-110)
[2017-07-26] MEDS: MOM 30ML SUSPENSION UDC PO (21:50)
[2017-07-26] MEDS: MIRALAX *UNIT DOSE* 17GM PACKET PO (21:50)
[2017-07-27] MEDS: NAFCILLIN SOD 2 GM in D5W MINI-BAG PLUS 50 ML IV ×6 (01:45→21:36)
[2017-07-27 05:56] LABS: BASO % 0.3 % (0.0-1.0); EOS # 0.2 10^3/uL (0.0-0.50); EOS % 1.3 % (0.0-3.0); HEMATOCRIT 29.1 % (42.0-52.0); HEMOGLOBIN 9.5 g/dl (14.0-18.0); IMMATURE GRANULOCYTE % 0.6 % (0-3.0); LYMPH # 1.6 10^3/uL (1.5-4.5); LYMPH % 12.3 % (24.0-44.0); MEAN CORPUSCULAR HEMOGLOBIN 27.8 pg (27.0-33.0); MEAN CORPUSCULAR HGB CONC 32.6 g/dl (32.0-36.5); MEAN CORPUSCULAR VOLUME 85.1 fl (80.0-96.0); MONO # 1.2 10^3/uL (0.0-0.8); MONO % 9.5 % (0.0-5.0); NEUTROPHILS # 9.6 10^3/uL (1.8-7.7); PLATELET COUNT, AUTOMATED 352 10^3/uL (150-450); RED BLOOD COUNT 3.42 10^6/uL (4.30-6.10); RED CELL DISTRIBUTION WIDTH 12.8 % (11.5-14.5); WHITE BLOOD COUNT 12.6 10^3/uL (4.0-10.0)
[2017-07-27] MEDS: HumaLOG INSULIN (NovoLOG) PER UNIT SC ×4 (07:30→21:35)
[2017-07-27] MEDS: MULTIVITAMINS/MINERALS THERAP 1 TAB PO (07:57)
[2017-07-27] MEDS: SENOKOT S TAB PO ×2 (07:57→21:34)
[2017-07-27] MEDS: FOLIC ACID 1 MG TAB PO (07:57)
[2017-07-27] MEDS: ATORVASTATIN 20 MG TAB PO (07:57)
[2017-07-27] MEDS: ASPIRIN 81 MG CHEW TABLET PO (07:57)
[2017-07-27] MEDS: amLODIPine 5 MG TAB PO (07:58)
[2017-07-27] MEDS: LISINOPRIL 10 MG TAB PO (07:58)
[2017-07-27] MEDS: LEVEMIR (INSULIN DETEMIR) 1 UNITS/0.01ML SC ×2 (07:58→21:34)
[2017-07-27] MEDS: EUCERIN 120GM CREAM TOP ×2 (07:59→21:35)
[2017-07-27] MEDS: ENOXAPARIN 40 MG/0.4 ML SYRINGE (J1650) SC (07:59)
[2017-07-27 12:18] LABS: BEDSIDE GLUCOSE 197 MG/DL (83-110)
[2017-07-27 17:22] LABS: BEDSIDE GLUCOSE 157 MG/DL (83-110)
[2017-07-28] MEDS: NAFCILLIN SOD 2 GM in D5W MINI-BAG PLUS 50 ML IV ×3 (01:54→10:37)
[2017-07-28 06:15] LABS: BASO % 0.2 % (0.0-1.0); EOS # 0.1 10^3/uL (0.0-0.50); EOS % 0.8 % (0.0-3.0); HEMATOCRIT 30.3 % (42.0-52.0); HEMOGLOBIN 9.8 g/dl (14.0-18.0); IMMATURE GRANULOCYTE % 0.5 % (0-3.0); LYMPH % 13.2 % (24.0-44.0); MEAN CORPUSCULAR HEMOGLOBIN 27.4 pg (27.0-33.0); MEAN CORPUSCULAR HGB CONC 32.3 g/dl (32.0-36.5); MEAN CORPUSCULAR VOLUME 84.6 fl (80.0-96.0); MONO # 1.2 10^3/uL (0.0-0.8); MONO % 8.2 % (0.0-5.0); NEUTROPHILS # 11.5 10^3/uL (1.8-7.7); NEUTROPHILS % 77.1 % (36.0-66.0); PLATELET COUNT, AUTOMATED 411 10^3/uL (150-450); RED BLOOD COUNT 3.58 10^6/uL (4.30-6.10); RED CELL DISTRIBUTION WIDTH 12.9 % (11.5-14.5); WHITE BLOOD COUNT 14.9 10^3/uL (4.0-10.0)
[2017-07-28 06:38] LABS: ANION GAP 9 MEQ/L (8-16); BLOOD UREA NITROGEN 38 MG/DL (7-18); CALCIUM LEVEL 8.6 MG/DL (8.8-10.2); CARBON DIOXIDE LEVEL 27 MEQ/L (21-32); CHLORIDE LEVEL 102 MEQ/L (98-107); CREATININE FOR GFR 2.52 MG/DL (0.70-1.30); GLOMERULAR FILTRATION RATE 26.8 (>42); GLUCOSE, FASTING 134 MG/DL (70-100); MAGNESIUM LEVEL 3.3 MG/DL (1.8-2.4); POTASSIUM SERUM 3.9 MEQ/L (3.5-5.1); SODIUM LEVEL 138 MEQ/L (136-145)
[2017-07-28] MEDS: ASPIRIN 81 MG CHEW TABLET PO (08:26)
[2017-07-28] MEDS: HumaLOG INSULIN (NovoLOG) PER UNIT SC ×4 (08:26→20:37)
[2017-07-28] MEDS: FOLIC ACID 1 MG TAB PO (08:26)
[2017-07-28] MEDS: ATORVASTATIN 20 MG TAB PO (08:26)
[2017-07-28] MEDS: LISINOPRIL 10 MG TAB PO (08:26)
[2017-07-28] MEDS: SENOKOT S TAB PO ×3 (08:27→20:39)
[2017-07-28] MEDS: EUCERIN 120GM CREAM TOP ×2 (08:27→21:15)
[2017-07-28] MEDS: MULTIVITAMINS/MINERALS THERAP 1 TAB PO (08:27)
[2017-07-28] MEDS: amLODIPine 5 MG TAB PO (08:27)
[2017-07-28] MEDS: ENOXAPARIN 40 MG/0.4 ML SYRINGE (J1650) SC (08:27)
[2017-07-28] MEDS: LEVEMIR (INSULIN DETEMIR) 1 UNITS/0.01ML SC ×2 (08:28→21:15)
[2017-07-28] MEDS: LevoFLOXacin 500 MG TABLET PO (14:15)
[2017-07-28] MEDS: CEFTRIAXONE SOD 2 GM in APPROPRIATE DILUENT 1 EA IV (14:38)
[2017-07-28 15:55] LABS: BEDSIDE GLUCOSE 132 MG/DL (83-110)
[2017-07-28 15:55] LABS: BEDSIDE GLUCOSE 261 MG/DL (83-110)
[2017-07-28 15:55] LABS: BEDSIDE GLUCOSE 105 MG/DL (83-110)
[2017-07-28 15:55] LABS: BEDSIDE GLUCOSE 156 MG/DL (83-110)
[2017-07-29 02:45] LABS: KETONE, URINE AUTO RFX NEGATIVE (NEGATIVE); MUCUS, URINE RFX SMALL (NEGATIVE); NITRITE, URINE AUTO RFX NEGATIVE (NEGATIVE); RBC, URINE AUTO RFX TNTC /HPF (0-3); RENAL EPITHELIAL CELLS RFX 1 /HPF; SPECIFIC GRAVITY UR AUTO RFX 1.014 (1.002-1.035); SQUAM EPITHELIAL CELL UR AURFX 2 /HPF (0-6); TRANSITIONAL EPITHELIAL AU RFX 2 /HPF; YEAST LIKE CELL URINE AUTO RFX LARGE
[2017-07-29 03:15] LABS: LEUKOCYTE ESTERASE UR AUTO RFX 2+ (NEGATIVE); WBC, URINE AUTO RFX TNTC /HPF (0-3)
[2017-07-29] MEDS: LevoFLOXacin 250 MG TABLET PO (05:26)
[2017-07-29 05:57] LABS: BASO % 0.3 % (0.0-1.0); EOS # 0.2 10^3/uL (0.0-0.50); EOS % 1.7 % (0.0-3.0); HEMATOCRIT 29.3 % (42.0-52.0); HEMOGLOBIN 9.5 g/dl (14.0-18.0); IMMATURE GRANULOCYTE % 0.6 % (0-3.0); LYMPH # 1.9 10^3/uL (1.5-4.5); LYMPH % 14.9 % (24.0-44.0); MEAN CORPUSCULAR HEMOGLOBIN 27.6 pg (27.0-33.0); MEAN CORPUSCULAR HGB CONC 32.4 g/dl (32.0-36.5); MEAN CORPUSCULAR VOLUME 85.2 fl (80.0-96.0); MONO # 1.1 10^3/uL (0.0-0.8); NEUTROPHILS # 9.4 10^3/uL (1.8-7.7); NEUTROPHILS % 73.5 % (36.0-66.0); PLATELET COUNT, AUTOMATED 368 10^3/uL (150-450); RED BLOOD COUNT 3.44 10^6/uL (4.30-6.10); WHITE BLOOD COUNT 12.7 10^3/uL (4.0-10.0)
[2017-07-29 06:19] LABS: ANION GAP 10 MEQ/L (8-16); BLOOD UREA NITROGEN 41 MG/DL (7-18); CALCIUM LEVEL 8.3 MG/DL (8.8-10.2); CARBON DIOXIDE LEVEL 27 MEQ/L (21-32); CHLORIDE LEVEL 103 MEQ/L (98-107); CREATININE FOR GFR 2.47 MG/DL (0.70-1.30); GLOMERULAR FILTRATION RATE 27.5 (>42); GLUCOSE, FASTING 84 MG/DL (70-100); MAGNESIUM LEVEL 3.2 MG/DL (1.8-2.4); POTASSIUM SERUM 3.6 MEQ/L (3.5-5.1); SODIUM LEVEL 140 MEQ/L (136-145)
[2017-07-29] MEDS: HumaLOG INSULIN (NovoLOG) PER UNIT SC ×4 (07:26→21:00)
[2017-07-29] MEDS: ATORVASTATIN 20 MG TAB PO (08:18)
[2017-07-29] MEDS: ASPIRIN 81 MG CHEW TABLET PO (08:18)
[2017-07-29] MEDS: MULTIVITAMINS/MINERALS THERAP 1 TAB PO (08:21)
[2017-07-29] MEDS: FOLIC ACID 1 MG TAB PO (08:21)
[2017-07-29] MEDS: amLODIPine 5 MG TAB PO (08:21)
[2017-07-29] MEDS: LEVEMIR (INSULIN DETEMIR) 1 UNITS/0.01ML SC ×2 (08:22→21:00)
[2017-07-29] MEDS: SENOKOT S TAB PO ×2 (08:22→22:17)
[2017-07-29] MEDS: EUCERIN 120GM CREAM TOP ×2 (08:22→21:00)
[2017-07-29 09:13] LABS: BEDSIDE GLUCOSE 176 MG/DL (83-110)
[2017-07-29 09:13] LABS: BEDSIDE GLUCOSE 149 MG/DL (83-110)
[2017-07-29 11:13] LABS: BEDSIDE GLUCOSE 209 MG/DL (83-110)
[2017-07-29 12:40] LABS: BEDSIDE GLUCOSE 191 MG/DL (83-110)
[2017-07-29] MEDS: CEFTRIAXONE SOD 2 GM in APPROPRIATE DILUENT 1 EA IV (14:11)
[2017-07-29 17:07] LABS: BEDSIDE GLUCOSE 151 MG/DL (83-110)
[2017-07-29] MEDS: ENOXAPARIN 40 MG/0.4 ML SYRINGE (J1650) SC (17:36)
[2017-07-29 21:12] LABS: BEDSIDE GLUCOSE 213 MG/DL (83-110)
[2017-07-30] MEDS: LevoFLOXacin 250 MG TABLET PO (06:04)
[2017-07-30 06:41] LABS: BASO % 0.3 % (0.0-1.0); EOS # 0.3 10^3/uL (0.0-0.50); EOS % 2.2 % (0.0-3.0); HEMATOCRIT 28.7 % (42.0-52.0); HEMOGLOBIN 9.3 g/dl (14.0-18.0); IMMATURE GRANULOCYTE % 0.6 % (0-3.0); LYMPH # 2.1 10^3/uL (1.5-4.5); LYMPH % 16.7 % (24.0-44.0); MEAN CORPUSCULAR HEMOGLOBIN 27.5 pg (27.0-33.0); MEAN CORPUSCULAR HGB CONC 32.4 g/dl (32.0-36.5); MEAN CORPUSCULAR VOLUME 84.9 fl (80.0-96.0); MONO # 1.2 10^3/uL (0.0-0.8); MONO % 9.4 % (0.0-5.0); NEUTROPHILS # 8.8 10^3/uL (1.8-7.7); NEUTROPHILS % 70.8 % (36.0-66.0); PLATELET COUNT, AUTOMATED 362 10^3/uL (150-450); RED BLOOD COUNT 3.38 10^6/uL (4.30-6.10); RED CELL DISTRIBUTION WIDTH 12.9 % (11.5-14.5); WHITE BLOOD COUNT 12.4 10^3/uL (4.0-10.0)
[2017-07-30 06:53] LABS: ANION GAP 6 MEQ/L (8-16); BLOOD UREA NITROGEN 35 MG/DL (7-18); C REACTIVE PROTEIN QUANTITATIV 8.62 MG/DL (0.00-0.30); CALCIUM LEVEL 8.4 MG/DL (8.8-10.2); CARBON DIOXIDE LEVEL 29 MEQ/L (21-32); CHLORIDE LEVEL 102 MEQ/L (98-107); CREATININE FOR GFR 1.92 MG/DL (0.70-1.30); GLOMERULAR FILTRATION RATE 36.7 (>42); GLUCOSE, FASTING 119 MG/DL (70-100); MAGNESIUM LEVEL 2.8 MG/DL (1.8-2.4); POTASSIUM SERUM 3.7 MEQ/L (3.5-5.1); SODIUM LEVEL 137 MEQ/L (136-145)
[2017-07-30] MEDS: LEVEMIR (INSULIN DETEMIR) 1 UNITS/0.01ML SC ×2 (08:23→21:20)
[2017-07-30] MEDS: HumaLOG INSULIN (NovoLOG) PER UNIT SC ×4 (08:23→21:00)
[2017-07-30] MEDS: ATORVASTATIN 20 MG TAB PO (08:24)
[2017-07-30] MEDS: ASPIRIN 81 MG CHEW TABLET PO (08:24)
[2017-07-30] MEDS: SENOKOT S TAB PO ×2 (08:24→21:19)
[2017-07-30] MEDS: FOLIC ACID 1 MG TAB PO (08:24)
[2017-07-30] MEDS: MULTIVITAMINS/MINERALS THERAP 1 TAB PO (08:24)
[2017-07-30] MEDS: amLODIPine 5 MG TAB PO (08:25)
[2017-07-30] MEDS: ENOXAPARIN 40 MG/0.4 ML SYRINGE (J1650) SC (08:25)
[2017-07-30] MEDS: EUCERIN 120GM CREAM TOP ×2 (08:26→21:00)
[2017-07-30 12:21] LABS: BEDSIDE GLUCOSE 120 MG/DL (83-110)
[2017-07-30 13:18] LABS: ALBUMIN 2.2 GM/DL (3.2-5.2); ALKALINE PHOSPHATASE 82 U/L (45-117); ALT/SGPT 18 U/L (12-78); AST/SGOT 24 U/L (7-37); BILIRUBIN,DIRECT < 0.1 MG/DL (0.0-0.2); BILIRUBIN,TOTAL 0.4 MG/DL (0.2-1.0); TOTAL PROTEIN 6.6 GM/DL (6.4-8.2)
[2017-07-30] MEDS: CEFTRIAXONE SOD 2 GM in APPROPRIATE DILUENT 1 EA IV ×2 (14:00→15:14)
[2017-07-30 17:04] LABS: BEDSIDE GLUCOSE 140 MG/DL (83-110)
[2017-07-30] MEDS: TAMSULOSIN 0.4 MG CAP PO (21:19)
[2017-07-31 00:28] LABS: BEDSIDE GLUCOSE 206 MG/DL (83-110)
[2017-07-31 06:43] LABS: BASO # 0.1 10^3/uL (0.0-0.2); BASO % 0.4 % (0.0-1.0); EOS # 0.4 10^3/uL (0.0-0.50); EOS % 2.8 % (0.0-3.0); HEMATOCRIT 31.4 % (42.0-52.0); HEMOGLOBIN 10.2 g/dl (14.0-18.0); IMMATURE GRANULOCYTE % 1.3 % (0-3.0); LYMPH # 1.7 10^3/uL (1.5-4.5); LYMPH % 13.7 % (24.0-44.0); MEAN CORPUSCULAR HEMOGLOBIN 27.8 pg (27.0-33.0); MEAN CORPUSCULAR HGB CONC 32.5 g/dl (32.0-36.5); MEAN CORPUSCULAR VOLUME 85.6 fl (80.0-96.0); MONO # 1.1 10^3/uL (0.0-0.8); MONO % 8.4 % (0.0-5.0); NEUTROPHILS # 9.3 10^3/uL (1.8-7.7); NEUTROPHILS % 73.4 % (36.0-66.0); PLATELET COUNT, AUTOMATED 360 10^3/uL (150-450); RED BLOOD COUNT 3.67 10^6/uL (4.30-6.10); RED CELL DISTRIBUTION WIDTH 12.6 % (11.5-14.5); WHITE BLOOD COUNT 12.7 10^3/uL (4.0-10.0)
[2017-07-31] MEDS: LevoFLOXacin 250 MG TABLET PO (06:43)
[2017-07-31 06:56] LABS: ANION GAP 6 MEQ/L (8-16); BLOOD UREA NITROGEN 26 MG/DL (7-18); C REACTIVE PROTEIN QUANTITATIV 8.99 MG/DL (0.00-0.30); CALCIUM LEVEL 8.4 MG/DL (8.8-10.2); CARBON DIOXIDE LEVEL 29 MEQ/L (21-32); CHLORIDE LEVEL 103 MEQ/L (98-107); CREATININE FOR GFR 1.64 MG/DL (0.70-1.30); GLOMERULAR FILTRATION RATE 44.1 (>42); GLUCOSE, FASTING 95 MG/DL (70-100); MAGNESIUM LEVEL 2.4 MG/DL (1.8-2.4); SODIUM LEVEL 138 MEQ/L (136-145)
[2017-07-31] MEDS: HumaLOG INSULIN (NovoLOG) PER UNIT SC ×4 (07:17→21:00)
[2017-07-31] MEDS: SENOKOT S TAB PO ×2 (09:27→21:42)
[2017-07-31] MEDS: ASPIRIN 81 MG CHEW TABLET PO (09:27)
[2017-07-31] MEDS: MULTIVITAMINS/MINERALS THERAP 1 TAB PO (09:27)
[2017-07-31] MEDS: FOLIC ACID 1 MG TAB PO (09:27)
[2017-07-31] MEDS: ATORVASTATIN 20 MG TAB PO (09:27)
[2017-07-31] MEDS: ENOXAPARIN 40 MG/0.4 ML SYRINGE (J1650) SC (09:28)
[2017-07-31] MEDS: LEVEMIR (INSULIN DETEMIR) 1 UNITS/0.01ML SC ×2 (09:28→21:43)
[2017-07-31] MEDS: amLODIPine 5 MG TAB PO (09:28)
[2017-07-31] MEDS: EUCERIN 120GM CREAM TOP ×2 (09:29→21:00)
[2017-07-31] MEDS: DOXYCYCLINE HYCLATE 100 MG TAB PO ×2 (11:19→21:42)
[2017-07-31 12:07] LABS: BEDSIDE GLUCOSE 121 MG/DL (83-110)
[2017-07-31 17:16] LABS: BEDSIDE GLUCOSE 206 MG/DL (83-110)
[2017-07-31 21:24] LABS: BEDSIDE GLUCOSE 166 MG/DL (83-110)
[2017-07-31] MEDS: TAMSULOSIN 0.4 MG CAP PO (21:42)
[2017-08-01] MEDS: LevoFLOXacin 250 MG TABLET PO (06:15)
[2017-08-01 07:05] LABS: ANION GAP 6 MEQ/L (8-16); BLOOD UREA NITROGEN 26 MG/DL (7-18); CALCIUM LEVEL 8.5 MG/DL (8.8-10.2); CARBON DIOXIDE LEVEL 29 MEQ/L (21-32); CHLORIDE LEVEL 102 MEQ/L (98-107); CREATININE FOR GFR 1.63 MG/DL (0.70-1.30); GLOMERULAR FILTRATION RATE 44.4 (>42); GLUCOSE, FASTING 148 MG/DL (70-100); POTASSIUM SERUM 4.3 MEQ/L (3.5-5.1); SODIUM LEVEL 137 MEQ/L (136-145)
[2017-08-01] MEDS: HumaLOG INSULIN (NovoLOG) PER UNIT SC ×4 (07:53→21:00)
[2017-08-01] MEDS: ATORVASTATIN 20 MG TAB PO (07:53)
[2017-08-01] MEDS: amLODIPine 5 MG TAB PO (07:53)
[2017-08-01] MEDS: SENOKOT S TAB PO ×2 (07:53→21:12)
[2017-08-01] MEDS: MULTIVITAMINS/MINERALS THERAP 1 TAB PO (07:53)
[2017-08-01] MEDS: FOLIC ACID 1 MG TAB PO (07:53)
[2017-08-01] MEDS: ASPIRIN 81 MG CHEW TABLET PO (07:53)
[2017-08-01] MEDS: EUCERIN 120GM CREAM TOP ×2 (07:54→21:00)
[2017-08-01] MEDS: ENOXAPARIN 40 MG/0.4 ML SYRINGE (J1650) SC (07:54)
[2017-08-01] MEDS: DOXYCYCLINE HYCLATE 100 MG TAB PO ×2 (07:54→21:12)
[2017-08-01] MEDS: LEVEMIR (INSULIN DETEMIR) 1 UNITS/0.01ML SC ×2 (07:55→21:12)
[2017-08-01 12:04] LABS: BEDSIDE GLUCOSE 176 MG/DL (83-110)
[2017-08-01 16:48] LABS: BEDSIDE GLUCOSE 79 MG/DL (83-110)
[2017-08-01 20:59] LABS: BEDSIDE GLUCOSE 240 MG/DL (83-110)
[2017-08-01] MEDS: TAMSULOSIN 0.4 MG CAP PO (21:12)
[2017-08-02 05:58] LABS: BEDSIDE GLUCOSE 112 MG/DL (83-110)
[2017-08-02] MEDS: LevoFLOXacin 250 MG TABLET PO (06:04)
[2017-08-02 06:29] LABS: BASO # 0.1 10^3/uL (0.0-0.2); BASO % 0.4 % (0.0-1.0); EOS # 0.4 10^3/uL (0.0-0.50); EOS % 2.4 % (0.0-3.0); HEMATOCRIT 29.5 % (42.0-52.0); HEMOGLOBIN 9.6 g/dl (14.0-18.0); IMMATURE GRANULOCYTE % 1.7 % (0-3.0); LYMPH # 1.9 10^3/uL (1.5-4.5); LYMPH % 13.3 % (24.0-44.0); MEAN CORPUSCULAR HEMOGLOBIN 27.4 pg (27.0-33.0); MEAN CORPUSCULAR HGB CONC 32.5 g/dl (32.0-36.5); MONO # 1.3 10^3/uL (0.0-0.8); MONO % 9.2 % (0.0-5.0); NEUTROPHILS # 10.5 10^3/uL (1.8-7.7); PLATELET COUNT, AUTOMATED 429 10^3/uL (150-450); RED BLOOD COUNT 3.51 10^6/uL (4.30-6.10); RED CELL DISTRIBUTION WIDTH 12.6 % (11.5-14.5); WHITE BLOOD COUNT 14.4 10^3/uL (4.0-10.0)
[2017-08-02 06:34] LABS: ANION GAP 8 MEQ/L (8-16); BLOOD UREA NITROGEN 24 MG/DL (7-18); CALCIUM LEVEL 8.9 MG/DL (8.8-10.2); CARBON DIOXIDE LEVEL 27 MEQ/L (21-32); CHLORIDE LEVEL 103 MEQ/L (98-107); CREATININE FOR GFR 1.47 MG/DL (0.70-1.30); GLUCOSE, FASTING 113 MG/DL (70-100); POTASSIUM SERUM 4.2 MEQ/L (3.5-5.1); SODIUM LEVEL 138 MEQ/L (136-145)
[2017-08-02 06:48] LABS: URIC ACID 5.7 MG/DL (3.5-7.2)
[2017-08-02] MEDS: ENOXAPARIN 40 MG/0.4 ML SYRINGE (J1650) SC (08:57)
[2017-08-02] MEDS: HumaLOG INSULIN (NovoLOG) PER UNIT SC ×4 (08:58→21:00)
[2017-08-02] MEDS: LEVEMIR (INSULIN DETEMIR) 1 UNITS/0.01ML SC ×2 (08:59→22:04)
[2017-08-02] MEDS: FOLIC ACID 1 MG TAB PO (08:59)
[2017-08-02] MEDS: SENOKOT S TAB PO ×2 (08:59→22:03)
[2017-08-02] MEDS: ATORVASTATIN 20 MG TAB PO (08:59)
[2017-08-02] MEDS: ASPIRIN 81 MG CHEW TABLET PO (08:59)
[2017-08-02] MEDS: amLODIPine 5 MG TAB PO (09:00)
[2017-08-02] MEDS: MULTIVITAMINS/MINERALS THERAP 1 TAB PO (09:00)
[2017-08-02] MEDS: DOXYCYCLINE HYCLATE 100 MG TAB PO ×2 (09:00→22:03)
[2017-08-02] MEDS: EUCERIN 120GM CREAM TOP ×2 (09:01→21:00)
[2017-08-02] MEDS: predniSONE 20 MG TAB PO (11:26)
[2017-08-02 12:13] LABS: BEDSIDE GLUCOSE 206 MG/DL (83-110)
[2017-08-02 18:10] LABS: BEDSIDE GLUCOSE 176 MG/DL (83-110)
[2017-08-02 21:35] LABS: BEDSIDE GLUCOSE 161 MG/DL (83-110)
[2017-08-02] MEDS: TAMSULOSIN 0.4 MG CAP PO (22:03)
[2017-08-03] MEDS: LevoFLOXacin 250 MG TABLET PO (05:32)
[2017-08-03 06:11] LABS: ANION GAP 10 MEQ/L (8-16); BLOOD UREA NITROGEN 31 MG/DL (7-18); CARBON DIOXIDE LEVEL 26 MEQ/L (21-32); CHLORIDE LEVEL 103 MEQ/L (98-107); CREATININE FOR GFR 1.52 MG/DL (0.70-1.30); GLOMERULAR FILTRATION RATE 48.1 (>42); GLUCOSE, FASTING 114 MG/DL (70-100); POTASSIUM SERUM 4.8 MEQ/L (3.5-5.1); SODIUM LEVEL 139 MEQ/L (136-145)
[2017-08-03] MEDS: LEVEMIR (INSULIN DETEMIR) 1 UNITS/0.01ML SC ×2 (08:32→22:27)
[2017-08-03] MEDS: HumaLOG INSULIN (NovoLOG) PER UNIT SC ×4 (08:32→22:12)
[2017-08-03] MEDS: ASPIRIN 81 MG CHEW TABLET PO (08:32)
[2017-08-03] MEDS: DOXYCYCLINE HYCLATE 100 MG TAB PO ×2 (08:33→22:26)
[2017-08-03] MEDS: ATORVASTATIN 20 MG TAB PO (08:33)
[2017-08-03] MEDS: SENOKOT S TAB PO ×2 (08:33→22:27)
[2017-08-03] MEDS: MULTIVITAMINS/MINERALS THERAP 1 TAB PO (08:33)
[2017-08-03] MEDS: amLODIPine 5 MG TAB PO (08:34)
[2017-08-03] MEDS: EUCERIN 120GM CREAM TOP ×2 (08:34→22:27)
[2017-08-03] MEDS: FOLIC ACID 1 MG TAB PO (08:35)
[2017-08-03 08:39] LABS: BASO % 0.1 % (0.0-1.0); EOS # 0.1 10^3/uL (0.0-0.50); EOS % 0.3 % (0.0-3.0); HEMATOCRIT 30.7 % (42.0-52.0); HEMOGLOBIN 9.8 g/dl (14.0-18.0); LYMPH # 1.9 10^3/uL (1.5-4.5); LYMPH % 12.2 % (24.0-44.0); MEAN CORPUSCULAR HEMOGLOBIN 27.1 pg (27.0-33.0); MEAN CORPUSCULAR HGB CONC 31.9 g/dl (32.0-36.5); MEAN CORPUSCULAR VOLUME 84.8 fl (80.0-96.0); MONO % 6.4 % (0.0-5.0); NEUTROPHILS # 12.3 10^3/uL (1.8-7.7); PLATELET COUNT, AUTOMATED 484 10^3/uL (150-450); RED BLOOD COUNT 3.62 10^6/uL (4.30-6.10); RED CELL DISTRIBUTION WIDTH 12.5 % (11.5-14.5); WHITE BLOOD COUNT 15.4 10^3/uL (4.0-10.0)
[2017-08-03] MEDS ORDERED: COLCHICINE 0.6 MG TAB PO (09:30)
[2017-08-03 12:18] LABS: BEDSIDE GLUCOSE 184 MG/DL (83-110)
[2017-08-03] MEDS: predniSONE 10 MG TAB PO (12:56)
[2017-08-03] MEDS: ENOXAPARIN 40 MG/0.4 ML SYRINGE (J1650) SC (12:56)
[2017-08-03 17:24] LABS: BEDSIDE GLUCOSE 144 MG/DL (83-110)
[2017-08-03 21:21] LABS: BEDSIDE GLUCOSE 248 MG/DL (83-110)
[2017-08-03] MEDS: TAMSULOSIN 0.4 MG CAP PO (22:26)
[2017-08-04] MEDS: LevoFLOXacin 250 MG TABLET PO (05:16)
[2017-08-04 06:00] LABS: HEMATOCRIT 29.7 % (42.0-52.0); HEMOGLOBIN 9.7 g/dl (14.0-18.0); MEAN CORPUSCULAR HEMOGLOBIN 27.5 pg (27.0-33.0); MEAN CORPUSCULAR HGB CONC 32.7 g/dl (32.0-36.5); MEAN CORPUSCULAR VOLUME 84.1 fl (80.0-96.0); PLATELET COUNT, AUTOMATED 470 10^3/uL (150-450); RED BLOOD COUNT 3.53 10^6/uL (4.30-6.10); RED CELL DISTRIBUTION WIDTH 12.4 % (11.5-14.5); WHITE BLOOD COUNT 15.8 10^3/uL (4.0-10.0)
[2017-08-04 06:24] LABS: ANION GAP 8 MEQ/L (8-16); BLOOD UREA NITROGEN 34 MG/DL (7-18); CALCIUM LEVEL 9.3 MG/DL (8.8-10.2); CARBON DIOXIDE LEVEL 27 MEQ/L (21-32); CHLORIDE LEVEL 101 MEQ/L (98-107); CREATININE FOR GFR 1.56 MG/DL (0.70-1.30); GLOMERULAR FILTRATION RATE 46.7 (>42); GLUCOSE, FASTING 193 MG/DL (70-100); POTASSIUM SERUM 4.9 MEQ/L (3.5-5.1); SODIUM LEVEL 136 MEQ/L (136-145)
[2017-08-04] MEDS: SENOKOT S TAB PO ×2 (09:00→21:42)
[2017-08-04] MEDS: DOXYCYCLINE HYCLATE 100 MG TAB PO ×2 (09:04→21:42)
[2017-08-04] MEDS: MULTIVITAMINS/MINERALS THERAP 1 TAB PO (09:04)
[2017-08-04] MEDS: amLODIPine 5 MG TAB PO (09:04)
[2017-08-04] MEDS: FOLIC ACID 1 MG TAB PO (09:04)
[2017-08-04] MEDS: ASPIRIN 81 MG CHEW TABLET PO (09:04)
[2017-08-04] MEDS: ATORVASTATIN 20 MG TAB PO (09:04)
[2017-08-04] MEDS: ENOXAPARIN 40 MG/0.4 ML SYRINGE (J1650) SC (09:05)
[2017-08-04] MEDS: LEVEMIR (INSULIN DETEMIR) 1 UNITS/0.01ML SC ×2 (09:05→21:43)
[2017-08-04] MEDS: HumaLOG INSULIN (NovoLOG) PER UNIT SC ×4 (09:05→21:42)
[2017-08-04] MEDS: EUCERIN 120GM CREAM TOP ×2 (09:06→21:43)
[2017-08-04 12:29] LABS: BEDSIDE GLUCOSE 177 MG/DL (83-110)
[2017-08-04] MEDS: predniSONE 20 MG TAB PO (12:49)
[2017-08-04 16:47] LABS: BEDSIDE GLUCOSE 176 MG/DL (83-110)
[2017-08-04 21:11] LABS: BEDSIDE GLUCOSE 257 MG/DL (83-110)
[2017-08-04] MEDS: TAMSULOSIN 0.4 MG CAP PO (21:42)
[2017-08-05] MEDS: LevoFLOXacin 250 MG TABLET PO (05:16)
[2017-08-05 06:45] LABS: HEMATOCRIT 29.3 % (42.0-52.0); HEMOGLOBIN 9.4 g/dl (14.0-18.0); MEAN CORPUSCULAR HEMOGLOBIN 27.1 pg (27.0-33.0); MEAN CORPUSCULAR HGB CONC 32.1 g/dl (32.0-36.5); MEAN CORPUSCULAR VOLUME 84.4 fl (80.0-96.0); PLATELET COUNT, AUTOMATED 481 10^3/uL (150-450); RED BLOOD COUNT 3.47 10^6/uL (4.30-6.10); RED CELL DISTRIBUTION WIDTH 12.5 % (11.5-14.5)
[2017-08-05 06:59] LABS: ANION GAP 8 MEQ/L (8-16); BLOOD UREA NITROGEN 35 MG/DL (7-18); CALCIUM LEVEL 8.8 MG/DL (8.8-10.2); CARBON DIOXIDE LEVEL 26 MEQ/L (21-32); CHLORIDE LEVEL 103 MEQ/L (98-107); GLOMERULAR FILTRATION RATE 48.8 (>42); GLUCOSE, FASTING 181 MG/DL (70-100); POTASSIUM SERUM 4.9 MEQ/L (3.5-5.1); SODIUM LEVEL 137 MEQ/L (136-145)
[2017-08-05] MEDS: amLODIPine 5 MG TAB PO (08:22)
[2017-08-05] MEDS: predniSONE 10 MG TAB PO (08:22)
[2017-08-05] MEDS: DOXYCYCLINE HYCLATE 100 MG TAB PO ×2 (08:22→20:22)
[2017-08-05] MEDS: FOLIC ACID 1 MG TAB PO (08:22)
[2017-08-05] MEDS: MULTIVITAMINS/MINERALS THERAP 1 TAB PO (08:22)
[2017-08-05] MEDS: ATORVASTATIN 20 MG TAB PO (08:22)
[2017-08-05] MEDS: ASPIRIN 81 MG CHEW TABLET PO (08:22)
[2017-08-05] MEDS: SENOKOT S TAB PO ×2 (08:22→20:22)
[2017-08-05] MEDS: HumaLOG INSULIN (NovoLOG) PER UNIT SC ×4 (08:23→20:11)
[2017-08-05] MEDS: ENOXAPARIN 40 MG/0.4 ML SYRINGE (J1650) SC (08:23)
[2017-08-05] MEDS: LEVEMIR (INSULIN DETEMIR) 1 UNITS/0.01ML SC ×2 (08:23→20:23)
[2017-08-05] MEDS: EUCERIN 120GM CREAM TOP ×2 (09:00→20:23)
[2017-08-05 10:47] LABS: AMMONIA 18 uMOL/L (<32)
[2017-08-05 11:42] LABS: BEDSIDE GLUCOSE 188 MG/DL (83-110)
[2017-08-05 17:09] LABS: BEDSIDE GLUCOSE 214 MG/DL (83-110)
[2017-08-05 20:16] LABS: BEDSIDE GLUCOSE 250 MG/DL (83-110)
[2017-08-05] MEDS: TAMSULOSIN 0.4 MG CAP PO (20:22)
[2017-08-06] MEDS: LevoFLOXacin 250 MG TABLET PO (06:18)
[2017-08-06 06:25] LABS: HEMATOCRIT 29.5 % (42.0-52.0); HEMOGLOBIN 9.7 g/dl (14.0-18.0); MEAN CORPUSCULAR HEMOGLOBIN 27.9 pg (27.0-33.0); MEAN CORPUSCULAR HGB CONC 32.9 g/dl (32.0-36.5); MEAN CORPUSCULAR VOLUME 84.8 fl (80.0-96.0); PLATELET COUNT, AUTOMATED 465 10^3/uL (150-450); RED BLOOD COUNT 3.48 10^6/uL (4.30-6.10); RED CELL DISTRIBUTION WIDTH 12.6 % (11.5-14.5); WHITE BLOOD COUNT 13.9 10^3/uL (4.0-10.0)
[2017-08-06 06:39] LABS: ANION GAP 5 MEQ/L (8-16); BLOOD UREA NITROGEN 33 MG/DL (7-18); CARBON DIOXIDE LEVEL 28 MEQ/L (21-32); CHLORIDE LEVEL 103 MEQ/L (98-107); CREATININE FOR GFR 1.48 MG/DL (0.70-1.30); GLOMERULAR FILTRATION RATE 49.6 (>42); GLUCOSE, FASTING 133 MG/DL (70-100); POTASSIUM SERUM 4.4 MEQ/L (3.5-5.1); SODIUM LEVEL 136 MEQ/L (136-145)
[2017-08-06] MEDS: HumaLOG INSULIN (NovoLOG) PER UNIT SC ×4 (08:40→21:00)
[2017-08-06] MEDS: ATORVASTATIN 20 MG TAB PO (08:41)
[2017-08-06] MEDS: DOXYCYCLINE HYCLATE 100 MG TAB PO ×2 (08:41→21:42)
[2017-08-06] MEDS: LEVEMIR (INSULIN DETEMIR) 1 UNITS/0.01ML SC ×2 (08:41→21:41)
[2017-08-06] MEDS: MULTIVITAMINS/MINERALS THERAP 1 TAB PO (08:41)
[2017-08-06] MEDS: ASPIRIN 81 MG CHEW TABLET PO (08:41)
[2017-08-06] MEDS: amLODIPine 5 MG TAB PO (08:41)
[2017-08-06] MEDS: FOLIC ACID 1 MG TAB PO (08:41)
[2017-08-06] MEDS: EUCERIN 120GM CREAM TOP ×2 (08:42→21:42)
[2017-08-06] MEDS: ENOXAPARIN 40 MG/0.4 ML SYRINGE (J1650) SC (08:42)
[2017-08-06] MEDS: SENOKOT S TAB PO ×2 (08:42→21:42)
[2017-08-06 11:43] LABS: BEDSIDE GLUCOSE 181 MG/DL (83-110)
[2017-08-06 17:28] LABS: BEDSIDE GLUCOSE 171 MG/DL (83-110)
[2017-08-06 21:00] LABS: BEDSIDE GLUCOSE 143 MG/DL (83-110)
[2017-08-06] MEDS: TAMSULOSIN 0.4 MG CAP PO (21:42)
[2017-08-07] MEDS: LevoFLOXacin 250 MG TABLET PO (05:18)
[2017-08-07 06:39] LABS: HEMATOCRIT 31.1 % (42.0-52.0); HEMOGLOBIN 10.2 g/dl (14.0-18.0); MEAN CORPUSCULAR HEMOGLOBIN 27.8 pg (27.0-33.0); MEAN CORPUSCULAR HGB CONC 32.8 g/dl (32.0-36.5); MEAN CORPUSCULAR VOLUME 84.7 fl (80.0-96.0); PLATELET COUNT, AUTOMATED 461 10^3/uL (150-450); RED BLOOD COUNT 3.67 10^6/uL (4.30-6.10); RED CELL DISTRIBUTION WIDTH 12.7 % (11.5-14.5)
[2017-08-07 06:58] LABS: ANION GAP 6 MEQ/L (8-16); BLOOD UREA NITROGEN 35 MG/DL (7-18); CALCIUM LEVEL 9.1 MG/DL (8.8-10.2); CARBON DIOXIDE LEVEL 28 MEQ/L (21-32); CHLORIDE LEVEL 105 MEQ/L (98-107); CREATININE FOR GFR 1.48 MG/DL (0.70-1.30); GLOMERULAR FILTRATION RATE 49.6 (>42); GLUCOSE, FASTING 103 MG/DL (70-100); POTASSIUM SERUM 4.7 MEQ/L (3.5-5.1); SODIUM LEVEL 139 MEQ/L (136-145)
[2017-08-07] MEDS: LEVEMIR (INSULIN DETEMIR) 1 UNITS/0.01ML SC ×2 (08:00→20:25)
[2017-08-07] MEDS: HumaLOG INSULIN (NovoLOG) PER UNIT SC ×4 (08:00→21:00)
[2017-08-07] MEDS: ASPIRIN 81 MG CHEW TABLET PO (08:01)
[2017-08-07] MEDS: ENOXAPARIN 40 MG/0.4 ML SYRINGE (J1650) SC (08:01)
[2017-08-07] MEDS: FOLIC ACID 1 MG TAB PO (08:01)
[2017-08-07] MEDS: SENOKOT S TAB PO ×2 (08:01→20:25)
[2017-08-07] MEDS: DOXYCYCLINE HYCLATE 100 MG TAB PO ×2 (08:01→20:25)
[2017-08-07] MEDS: MULTIVITAMINS/MINERALS THERAP 1 TAB PO (08:02)
[2017-08-07] MEDS: ATORVASTATIN 20 MG TAB PO (08:02)
[2017-08-07] MEDS: EUCERIN 120GM CREAM TOP ×2 (08:02→20:25)
[2017-08-07] MEDS: amLODIPine 5 MG TAB PO (08:02)
[2017-08-07 12:39] LABS: BEDSIDE GLUCOSE 126 MG/DL (83-110)
[2017-08-07 17:06] LABS: BEDSIDE GLUCOSE 140 MG/DL (83-110)
[2017-08-07] MEDS: TAMSULOSIN 0.4 MG CAP PO (20:25)
[2017-08-07 21:37] LABS: BEDSIDE GLUCOSE 225 MG/DL (83-110)
[2017-08-08] MEDS: LevoFLOXacin 250 MG TABLET PO (05:40)
[2017-08-08 06:30] LABS: HEMATOCRIT 32.9 % (42.0-52.0); HEMOGLOBIN 10.5 g/dl (14.0-18.0); MEAN CORPUSCULAR HEMOGLOBIN 27.2 pg (27.0-33.0); MEAN CORPUSCULAR HGB CONC 31.9 g/dl (32.0-36.5); MEAN CORPUSCULAR VOLUME 85.2 fl (80.0-96.0); PLATELET COUNT, AUTOMATED 441 10^3/uL (150-450); RED BLOOD COUNT 3.86 10^6/uL (4.30-6.10); RED CELL DISTRIBUTION WIDTH 12.8 % (11.5-14.5); WHITE BLOOD COUNT 14.2 10^3/uL (4.0-10.0)
[2017-08-08 06:48] LABS: ANION GAP 7 MEQ/L (8-16); BLOOD UREA NITROGEN 31 MG/DL (7-18); C REACTIVE PROTEIN QUANTITATIV 1.29 MG/DL (0.00-0.30); CALCIUM LEVEL 9.3 MG/DL (8.8-10.2); CARBON DIOXIDE LEVEL 27 MEQ/L (21-32); CHLORIDE LEVEL 104 MEQ/L (98-107); CREATININE FOR GFR 1.41 MG/DL (0.70-1.30); GLOMERULAR FILTRATION RATE 52.5 (>42); GLUCOSE, FASTING 137 MG/DL (70-100); POTASSIUM SERUM 4.4 MEQ/L (3.5-5.1); SODIUM LEVEL 138 MEQ/L (136-145)
[2017-08-08] MEDS: LEVEMIR (INSULIN DETEMIR) 1 UNITS/0.01ML SC ×2 (08:48→21:37)
[2017-08-08] MEDS: HumaLOG INSULIN (NovoLOG) PER UNIT SC ×4 (08:48→21:38)
[2017-08-08] MEDS: SENOKOT S TAB PO ×2 (08:49→21:37)
[2017-08-08] MEDS: FOLIC ACID 1 MG TAB PO (08:49)
[2017-08-08] MEDS: ASPIRIN 81 MG CHEW TABLET PO (08:49)
[2017-08-08] MEDS: MULTIVITAMINS/MINERALS THERAP 1 TAB PO (08:49)
[2017-08-08] MEDS: ENOXAPARIN 40 MG/0.4 ML SYRINGE (J1650) SC (08:49)
[2017-08-08] MEDS: amLODIPine 5 MG TAB PO (08:50)
[2017-08-08] MEDS: ATORVASTATIN 20 MG TAB PO (08:50)
[2017-08-08] MEDS: DOXYCYCLINE HYCLATE 100 MG TAB PO ×2 (08:50→21:37)
[2017-08-08] MEDS: EUCERIN 120GM CREAM TOP ×2 (08:51→21:38)
[2017-08-08 12:24] LABS: BEDSIDE GLUCOSE 133 MG/DL (83-110)
[2017-08-08] MEDS: ACETAMINOPHEN TAB 650MG DOSE (2X325MG) PO (12:35)
[2017-08-08 17:11] LABS: BEDSIDE GLUCOSE 147 MG/DL (83-110)
[2017-08-08 20:55] LABS: BEDSIDE GLUCOSE 253 MG/DL (83-110)
[2017-08-08] MEDS: TAMSULOSIN 0.4 MG CAP PO (21:37)
[2017-08-09] MEDS: LevoFLOXacin 250 MG TABLET PO (05:18)
[2017-08-09 06:39] LABS: HEMATOCRIT 31.6 % (42.0-52.0); MEAN CORPUSCULAR HEMOGLOBIN 26.6 pg (27.0-33.0); MEAN CORPUSCULAR HGB CONC 31.6 g/dl (32.0-36.5); PLATELET COUNT, AUTOMATED 426 10^3/uL (150-450); RED BLOOD COUNT 3.76 10^6/uL (4.30-6.10); WHITE BLOOD COUNT 12.4 10^3/uL (4.0-10.0)
[2017-08-09 06:57] LABS: ANION GAP 8 MEQ/L (8-16); BLOOD UREA NITROGEN 32 MG/DL (7-18); CALCIUM LEVEL 8.9 MG/DL (8.8-10.2); CARBON DIOXIDE LEVEL 26 MEQ/L (21-32); CHLORIDE LEVEL 104 MEQ/L (98-107); CREATININE FOR GFR 1.39 MG/DL (0.70-1.30); GLOMERULAR FILTRATION RATE 53.3 (>42); GLUCOSE, FASTING 120 MG/DL (70-100); POTASSIUM SERUM 4.1 MEQ/L (3.5-5.1); SODIUM LEVEL 138 MEQ/L (136-145)
[2017-08-09] MEDS: HumaLOG INSULIN (NovoLOG) PER UNIT SC ×4 (07:30→20:01)
[2017-08-09] MEDS: LEVEMIR (INSULIN DETEMIR) 1 UNITS/0.01ML SC ×2 (09:46→20:01)
[2017-08-09] MEDS: ENOXAPARIN 40 MG/0.4 ML SYRINGE (J1650) SC (09:46)
[2017-08-09] MEDS: amLODIPine 5 MG TAB PO (09:47)
[2017-08-09] MEDS: SENOKOT S TAB PO ×2 (09:47→20:00)
[2017-08-09] MEDS: ATORVASTATIN 20 MG TAB PO (09:47)
[2017-08-09] MEDS: EUCERIN 120GM CREAM TOP ×2 (09:47→20:03)
[2017-08-09] MEDS: MULTIVITAMINS/MINERALS THERAP 1 TAB PO (09:47)
[2017-08-09] MEDS: FOLIC ACID 1 MG TAB PO (09:48)
[2017-08-09] MEDS: ASPIRIN 81 MG CHEW TABLET PO (09:48)
[2017-08-09] MEDS: DOXYCYCLINE HYCLATE 100 MG TAB PO ×2 (09:48→20:00)
[2017-08-09 12:05] LABS: BEDSIDE GLUCOSE 194 MG/DL (83-110)
[2017-08-09 18:11] LABS: BEDSIDE GLUCOSE 163 MG/DL (83-110)
[2017-08-09] MEDS: TAMSULOSIN 0.4 MG CAP PO (20:00)
[2017-08-09 20:39] LABS: BEDSIDE GLUCOSE 123 MG/DL (83-110)
[2017-08-10] MEDS: LevoFLOXacin 250 MG TABLET PO (05:27)
[2017-08-10 06:23] LABS: HEMATOCRIT 30.7 % (42.0-52.0); HEMOGLOBIN 9.8 g/dl (14.0-18.0); MEAN CORPUSCULAR HEMOGLOBIN 26.8 pg (27.0-33.0); MEAN CORPUSCULAR HGB CONC 31.9 g/dl (32.0-36.5); MEAN CORPUSCULAR VOLUME 84.1 fl (80.0-96.0); PLATELET COUNT, AUTOMATED 413 10^3/uL (150-450); RED BLOOD COUNT 3.65 10^6/uL (4.30-6.10); RED CELL DISTRIBUTION WIDTH 13.1 % (11.5-14.5)
[2017-08-10 06:37] LABS: ANION GAP 7 MEQ/L (8-16); BLOOD UREA NITROGEN 32 MG/DL (7-18); C REACTIVE PROTEIN QUANTITATIV 0.81 MG/DL (0.00-0.30); CALCIUM LEVEL 8.5 MG/DL (8.8-10.2); CARBON DIOXIDE LEVEL 27 MEQ/L (21-32); CHLORIDE LEVEL 106 MEQ/L (98-107); CREATININE FOR GFR 1.41 MG/DL (0.70-1.30); GLOMERULAR FILTRATION RATE 52.5 (>42); GLUCOSE, FASTING 96 MG/DL (70-100); POTASSIUM SERUM 4.1 MEQ/L (3.5-5.1); SODIUM LEVEL 140 MEQ/L (136-145)
[2017-08-10] MEDS: HumaLOG INSULIN (NovoLOG) PER UNIT SC ×4 (07:30→21:00)
[2017-08-10] MEDS: ATORVASTATIN 20 MG TAB PO (08:04)
[2017-08-10] MEDS: MULTIVITAMINS/MINERALS THERAP 1 TAB PO (08:04)
[2017-08-10] MEDS: SENOKOT S TAB PO ×2 (08:04→22:01)
[2017-08-10] MEDS: LEVEMIR (INSULIN DETEMIR) 1 UNITS/0.01ML SC ×2 (08:05→22:00)
[2017-08-10] MEDS: ASPIRIN 81 MG CHEW TABLET PO (08:05)
[2017-08-10] MEDS: DOXYCYCLINE HYCLATE 100 MG TAB PO ×2 (08:05→22:01)
[2017-08-10] MEDS: ENOXAPARIN 40 MG/0.4 ML SYRINGE (J1650) SC (08:05)
[2017-08-10] MEDS: FOLIC ACID 1 MG TAB PO (08:05)
[2017-08-10] MEDS: amLODIPine 5 MG TAB PO (08:05)
[2017-08-10] MEDS: EUCERIN 120GM CREAM TOP ×2 (08:06→22:01)
[2017-08-10 15:37] LABS: BEDSIDE GLUCOSE 162 MG/DL (83-110)
[2017-08-10 16:55] LABS: BEDSIDE GLUCOSE 135 MG/DL (83-110)
[2017-08-10 21:52] LABS: BEDSIDE GLUCOSE 191 MG/DL (83-110)
[2017-08-10] MEDS: TAMSULOSIN 0.4 MG CAP PO (22:01)
[2017-08-11] MEDS: NYSTATIN 100,000 UNITS/GM TOPICAL PWD 15 GM TOP ×2 (00:50→10:28)
[2017-08-11] MEDS: LevoFLOXacin 250 MG TABLET PO (05:26)
[2017-08-11 06:04] LABS: HEMATOCRIT 29.2 % (42.0-52.0); HEMOGLOBIN 9.5 g/dl (14.0-18.0); MEAN CORPUSCULAR HEMOGLOBIN 27.4 pg (27.0-33.0); MEAN CORPUSCULAR HGB CONC 32.5 g/dl (32.0-36.5); MEAN CORPUSCULAR VOLUME 84.1 fl (80.0-96.0); PLATELET COUNT, AUTOMATED 368 10^3/uL (150-450); RED BLOOD COUNT 3.47 10^6/uL (4.30-6.10); RED CELL DISTRIBUTION WIDTH 13.2 % (11.5-14.5); WHITE BLOOD COUNT 10.4 10^3/uL (4.0-10.0)
[2017-08-11 06:27] LABS: ANION GAP 8 MEQ/L (8-16); BLOOD UREA NITROGEN 30 MG/DL (7-18); CALCIUM LEVEL 8.6 MG/DL (8.8-10.2); CARBON DIOXIDE LEVEL 27 MEQ/L (21-32); CHLORIDE LEVEL 105 MEQ/L (98-107); CREATININE FOR GFR 1.39 MG/DL (0.70-1.30); GLOMERULAR FILTRATION RATE 53.3 (>42); GLUCOSE, FASTING 104 MG/DL (70-100); MAGNESIUM LEVEL 1.8 MG/DL (1.8-2.4); SODIUM LEVEL 140 MEQ/L (136-145)
[2017-08-11] MEDS: HumaLOG INSULIN (NovoLOG) PER UNIT SC ×4 (07:54→21:00)
[2017-08-11] MEDS: ENOXAPARIN 40 MG/0.4 ML SYRINGE (J1650) SC (10:26)
[2017-08-11] MEDS: LEVEMIR (INSULIN DETEMIR) 1 UNITS/0.01ML SC ×2 (10:26→21:34)
[2017-08-11] MEDS: FOLIC ACID 1 MG TAB PO (10:27)
[2017-08-11] MEDS: amLODIPine 5 MG TAB PO (10:27)
[2017-08-11] MEDS: ATORVASTATIN 20 MG TAB PO (10:27)
[2017-08-11] MEDS: ASPIRIN 81 MG CHEW TABLET PO (10:27)
[2017-08-11] MEDS: SENOKOT S TAB PO ×2 (10:27→21:33)
[2017-08-11] MEDS: DOXYCYCLINE HYCLATE 100 MG TAB PO ×2 (10:27→21:33)
[2017-08-11] MEDS: MULTIVITAMINS/MINERALS THERAP 1 TAB PO (10:27)
[2017-08-11] MEDS: EUCERIN 120GM CREAM TOP ×2 (10:28→21:35)
[2017-08-11 12:00] LABS: BEDSIDE GLUCOSE 145 MG/DL (83-110)
[2017-08-11] MEDS: TAMSULOSIN 0.4 MG CAP PO (21:33)
[2017-08-11 21:52] LABS: BEDSIDE GLUCOSE 195 MG/DL (83-110)
[2017-08-11 21:52] LABS: BEDSIDE GLUCOSE 157 MG/DL (83-110)
[2017-08-12] MEDS: NYSTATIN 100,000 UNITS/GM TOPICAL PWD 15 GM TOP ×2 (01:18→21:10)
[2017-08-12 06:15] LABS: HEMOGLOBIN 9.3 g/dl (14.0-18.0); MEAN CORPUSCULAR HEMOGLOBIN 26.9 pg (27.0-33.0); MEAN CORPUSCULAR HGB CONC 32.1 g/dl (32.0-36.5); MEAN CORPUSCULAR VOLUME 83.8 fl (80.0-96.0); PLATELET COUNT, AUTOMATED 372 10^3/uL (150-450); RED BLOOD COUNT 3.46 10^6/uL (4.30-6.10); RED CELL DISTRIBUTION WIDTH 13.3 % (11.5-14.5); WHITE BLOOD COUNT 10.8 10^3/uL (4.0-10.0)
[2017-08-12] MEDS: LevoFLOXacin 250 MG TABLET PO (06:23)
[2017-08-12 06:30] LABS: ANION GAP 7 MEQ/L (8-16); BLOOD UREA NITROGEN 35 MG/DL (7-18); C REACTIVE PROTEIN QUANTITATIV 1.18 MG/DL (0.00-0.30); CALCIUM LEVEL 8.6 MG/DL (8.8-10.2); CARBON DIOXIDE LEVEL 28 MEQ/L (21-32); CHLORIDE LEVEL 105 MEQ/L (98-107); CREATININE FOR GFR 1.44 MG/DL (0.70-1.30); GLOMERULAR FILTRATION RATE 51.2 (>42); GLUCOSE, FASTING 139 MG/DL (70-100); MAGNESIUM LEVEL 1.9 MG/DL (1.8-2.4); POTASSIUM SERUM 4.1 MEQ/L (3.5-5.1); SODIUM LEVEL 140 MEQ/L (136-145)
[2017-08-12] MEDS: HumaLOG INSULIN (NovoLOG) PER UNIT SC ×4 (07:23→21:00)
[2017-08-12] MEDS: ENOXAPARIN 40 MG/0.4 ML SYRINGE (J1650) SC (09:00)
[2017-08-12] MEDS: ASPIRIN 81 MG CHEW TABLET PO (09:00)
[2017-08-12] MEDS: LEVEMIR (INSULIN DETEMIR) 1 UNITS/0.01ML SC ×2 (09:00→21:00)
[2017-08-12] MEDS: FOLIC ACID 1 MG TAB PO (09:00)
[2017-08-12] MEDS: SENOKOT S TAB PO ×2 (09:00→20:52)
[2017-08-12] MEDS: MULTIVITAMINS/MINERALS THERAP 1 TAB PO (09:00)
[2017-08-12] MEDS: DOXYCYCLINE HYCLATE 100 MG TAB PO ×2 (09:01→20:52)
[2017-08-12] MEDS: amLODIPine 5 MG TAB PO (09:01)
[2017-08-12] MEDS: ATORVASTATIN 20 MG TAB PO (09:01)
[2017-08-12] MEDS: EUCERIN 120GM CREAM TOP ×2 (09:02→20:53)
[2017-08-12] MEDS: NS 0.45% 1,000 ML IV (14:40)
[2017-08-12 16:42] LABS: BEDSIDE GLUCOSE 181 MG/DL (83-110)
[2017-08-12 16:42] LABS: BEDSIDE GLUCOSE 116 MG/DL (83-110)
[2017-08-12] MEDS: ONDANSETRON 4 MG ORAL DISINTEGRATING TAB (Q0162 PER 1MG) PO (20:52)
[2017-08-12] MEDS: TAMSULOSIN 0.4 MG CAP PO (20:52)
[2017-08-12 21:59] LABS: BEDSIDE GLUCOSE 136 MG/DL (83-110)
[2017-08-13] MEDS: LevoFLOXacin 250 MG TABLET PO (05:40)
[2017-08-13] MEDS: NYSTATIN 100,000 UNITS/GM TOPICAL PWD 15 GM TOP (05:40)
[2017-08-13 06:06] LABS: HEMATOCRIT 29.7 % (42.0-52.0); HEMOGLOBIN 9.5 g/dl (14.0-18.0); MEAN CORPUSCULAR HEMOGLOBIN 26.9 pg (27.0-33.0); MEAN CORPUSCULAR VOLUME 84.1 fl (80.0-96.0); PLATELET COUNT, AUTOMATED 342 10^3/uL (150-450); RED BLOOD COUNT 3.53 10^6/uL (4.30-6.10); RED CELL DISTRIBUTION WIDTH 13.5 % (11.5-14.5); WHITE BLOOD COUNT 10.3 10^3/uL (4.0-10.0)
[2017-08-13 06:31] LABS: ANION GAP 6 MEQ/L (8-16); BLOOD UREA NITROGEN 31 MG/DL (7-18); CARBON DIOXIDE LEVEL 29 MEQ/L (21-32); CHLORIDE LEVEL 104 MEQ/L (98-107); CREATININE FOR GFR 1.44 MG/DL (0.70-1.30); GLOMERULAR FILTRATION RATE 51.2 (>42); GLUCOSE, FASTING 93 MG/DL (70-100); MAGNESIUM LEVEL 2.2 MG/DL (1.8-2.4); POTASSIUM SERUM 4.1 MEQ/L (3.5-5.1); SODIUM LEVEL 139 MEQ/L (136-145)
[2017-08-13] MEDS: HumaLOG INSULIN (NovoLOG) PER UNIT SC ×4 (07:30→20:53)
[2017-08-13] MEDS: EUCERIN 120GM CREAM TOP ×2 (09:00→20:53)
[2017-08-13] MEDS: ASPIRIN 81 MG CHEW TABLET PO (09:44)
[2017-08-13] MEDS: LEVEMIR (INSULIN DETEMIR) 1 UNITS/0.01ML SC ×2 (09:45→20:53)
[2017-08-13] MEDS: SENOKOT S TAB PO ×2 (09:45→20:47)
[2017-08-13] MEDS: ATORVASTATIN 20 MG TAB PO (09:45)
[2017-08-13] MEDS: MULTIVITAMINS/MINERALS THERAP 1 TAB PO (09:45)
[2017-08-13] MEDS: FOLIC ACID 1 MG TAB PO (09:45)
[2017-08-13] MEDS: ENOXAPARIN 40 MG/0.4 ML SYRINGE (J1650) SC (09:45)
[2017-08-13] MEDS: amLODIPine 5 MG TAB PO (09:46)
[2017-08-13 11:48] LABS: BEDSIDE GLUCOSE 172 MG/DL (83-110)
[2017-08-13] MEDS: DOXYCYCLINE HYCLATE 100 MG TAB PO ×2 (12:09→20:47)
[2017-08-13 16:55] LABS: BEDSIDE GLUCOSE 142 MG/DL (83-110)
[2017-08-13] MEDS: TAMSULOSIN 0.4 MG CAP PO (20:47)
[2017-08-13] MEDS: MOM 30ML SUSPENSION UDC PO (20:53)
[2017-08-13 21:00] LABS: BEDSIDE GLUCOSE 161 MG/DL (83-110)
[2017-08-14 05:53] LABS: HEMATOCRIT 28.4 % (42.0-52.0); HEMOGLOBIN 9.2 g/dl (14.0-18.0); MEAN CORPUSCULAR HEMOGLOBIN 27.5 pg (27.0-33.0); MEAN CORPUSCULAR HGB CONC 32.4 g/dl (32.0-36.5); PLATELET COUNT, AUTOMATED 288 10^3/uL (150-450); RED BLOOD COUNT 3.34 10^6/uL (4.30-6.10); RED CELL DISTRIBUTION WIDTH 13.4 % (11.5-14.5); WHITE BLOOD COUNT 12.3 10^3/uL (4.0-10.0)
[2017-08-14 06:17] LABS: ANION GAP 5 MEQ/L (8-16); BLOOD UREA NITROGEN 30 MG/DL (7-18); C REACTIVE PROTEIN QUANTITATIV 1.89 MG/DL (0.00-0.30); CALCIUM LEVEL 8.9 MG/DL (8.8-10.2); CARBON DIOXIDE LEVEL 30 MEQ/L (21-32); CHLORIDE LEVEL 103 MEQ/L (98-107); CREATININE FOR GFR 1.45 MG/DL (0.70-1.30); GLOMERULAR FILTRATION RATE 50.8 (>42); GLUCOSE, FASTING 114 MG/DL (70-100); MAGNESIUM LEVEL 2.1 MG/DL (1.8-2.4); POTASSIUM SERUM 4.3 MEQ/L (3.5-5.1); SODIUM LEVEL 138 MEQ/L (136-145)
[2017-08-14] MEDS: HumaLOG INSULIN (NovoLOG) PER UNIT SC ×4 (08:01→20:16)
[2017-08-14] MEDS: SENOKOT S TAB PO ×2 (08:37→20:23)
[2017-08-14] MEDS: ATORVASTATIN 20 MG TAB PO (08:37)
[2017-08-14] MEDS: LEVEMIR (INSULIN DETEMIR) 1 UNITS/0.01ML SC ×2 (08:37→20:24)
[2017-08-14] MEDS: MULTIVITAMINS/MINERALS THERAP 1 TAB PO (08:37)
[2017-08-14] MEDS: ENOXAPARIN 40 MG/0.4 ML SYRINGE (J1650) SC (08:37)
[2017-08-14] MEDS: ASPIRIN 81 MG CHEW TABLET PO (08:37)
[2017-08-14] MEDS: FOLIC ACID 1 MG TAB PO (08:37)
[2017-08-14] MEDS: EUCERIN 120GM CREAM TOP ×2 (08:38→20:24)
[2017-08-14] MEDS: amLODIPine 5 MG TAB PO (08:38)
[2017-08-14 11:53] LABS: BEDSIDE GLUCOSE 137 MG/DL (83-110)
[2017-08-14 16:36] LABS: BEDSIDE GLUCOSE 131 MG/DL (83-110)
[2017-08-14 20:17] LABS: BEDSIDE GLUCOSE 149 MG/DL (83-110)
[2017-08-14] MEDS: TAMSULOSIN 0.4 MG CAP PO (20:23)
[2017-08-15 06:22] LABS: HEMATOCRIT 29.3 % (42.0-52.0); HEMOGLOBIN 9.4 g/dl (14.0-18.0); MEAN CORPUSCULAR HGB CONC 32.1 g/dl (32.0-36.5); MEAN CORPUSCULAR VOLUME 84.2 fl (80.0-96.0); PLATELET COUNT, AUTOMATED 308 10^3/uL (150-450); RED BLOOD COUNT 3.48 10^6/uL (4.30-6.10); RED CELL DISTRIBUTION WIDTH 13.7 % (11.5-14.5)
[2017-08-15 06:36] LABS: ANION GAP 6 MEQ/L (8-16); BLOOD UREA NITROGEN 25 MG/DL (7-18); CALCIUM LEVEL 8.9 MG/DL (8.8-10.2); CARBON DIOXIDE LEVEL 28 MEQ/L (21-32); CHLORIDE LEVEL 106 MEQ/L (98-107); CREATININE FOR GFR 1.33 MG/DL (0.70-1.30); GLOMERULAR FILTRATION RATE 56.1 (>42); GLUCOSE, FASTING 97 MG/DL (70-100); MAGNESIUM LEVEL 2.2 MG/DL (1.8-2.4); POTASSIUM SERUM 4.4 MEQ/L (3.5-5.1); SODIUM LEVEL 140 MEQ/L (136-145)
[2017-08-15] MEDS: HumaLOG INSULIN (NovoLOG) PER UNIT SC ×4 (07:25→20:09)
[2017-08-15] MEDS: SENOKOT S TAB PO ×2 (09:05→20:13)
[2017-08-15] MEDS: ASPIRIN 81 MG CHEW TABLET PO (09:05)
[2017-08-15] MEDS: FOLIC ACID 1 MG TAB PO (09:05)
[2017-08-15] MEDS: MULTIVITAMINS/MINERALS THERAP 1 TAB PO (09:05)
[2017-08-15] MEDS: ATORVASTATIN 20 MG TAB PO (09:05)
[2017-08-15] MEDS: LEVEMIR (INSULIN DETEMIR) 1 UNITS/0.01ML SC ×2 (09:06→20:14)
[2017-08-15] MEDS: amLODIPine 5 MG TAB PO (09:06)
[2017-08-15] MEDS: ENOXAPARIN 40 MG/0.4 ML SYRINGE (J1650) SC (09:06)
[2017-08-15] MEDS: EUCERIN 120GM CREAM TOP ×2 (09:07→20:14)
[2017-08-15] MEDS: MAGNESIUM CITRATE 300 ML BTL PO (09:57)
[2017-08-15 11:57] LABS: BEDSIDE GLUCOSE 122 MG/DL (83-110)
[2017-08-15 17:11] LABS: BEDSIDE GLUCOSE 106 MG/DL (83-110)
[2017-08-15 20:07] LABS: BEDSIDE GLUCOSE 196 MG/DL (83-110)
[2017-08-15] MEDS: TAMSULOSIN 0.4 MG CAP PO (20:13)
[2017-08-16 05:54] LABS: HEMATOCRIT 29.1 % (42.0-52.0); HEMOGLOBIN 9.3 g/dl (14.0-18.0); MEAN CORPUSCULAR HEMOGLOBIN 26.6 pg (27.0-33.0); MEAN CORPUSCULAR VOLUME 83.1 fl (80.0-96.0); PLATELET COUNT, AUTOMATED 299 10^3/uL (150-450); RED CELL DISTRIBUTION WIDTH 13.8 % (11.5-14.5)
[2017-08-16 06:12] LABS: ANION GAP 7 MEQ/L (8-16); BLOOD UREA NITROGEN 23 MG/DL (7-18); CALCIUM LEVEL 8.6 MG/DL (8.8-10.2); CARBON DIOXIDE LEVEL 27 MEQ/L (21-32); CHLORIDE LEVEL 104 MEQ/L (98-107); CREATININE FOR GFR 1.17 MG/DL (0.70-1.30); GLOMERULAR FILTRATION RATE > 60.0 (>42); GLUCOSE, FASTING 84 MG/DL (70-100); MAGNESIUM LEVEL 2.4 MG/DL (1.8-2.4); POTASSIUM SERUM 3.8 MEQ/L (3.5-5.1); SODIUM LEVEL 138 MEQ/L (136-145)
[2017-08-16] MEDS: HumaLOG INSULIN (NovoLOG) PER UNIT SC ×4 (07:30→21:00)
[2017-08-16] MEDS: ENOXAPARIN 40 MG/0.4 ML SYRINGE (J1650) SC (09:54)
[2017-08-16] MEDS: MULTIVITAMINS/MINERALS THERAP 1 TAB PO (09:55)
[2017-08-16] MEDS: LEVEMIR (INSULIN DETEMIR) 1 UNITS/0.01ML SC ×2 (09:55→21:06)
[2017-08-16] MEDS: FOLIC ACID 1 MG TAB PO (09:56)
[2017-08-16] MEDS: amLODIPine 5 MG TAB PO (09:56)
[2017-08-16] MEDS: SENOKOT S TAB PO ×2 (09:56→21:05)
[2017-08-16] MEDS: EUCERIN 120GM CREAM TOP ×2 (09:57→21:06)
[2017-08-16] MEDS: ATORVASTATIN 20 MG TAB PO (09:57)
[2017-08-16] MEDS: ASPIRIN 81 MG CHEW TABLET PO (09:57)
[2017-08-16] MEDS: MAGNESIUM CITRATE 300 ML BTL PO (10:15)
[2017-08-16 15:12] LABS: BEDSIDE GLUCOSE 159 MG/DL (83-110)
[2017-08-16 16:44] LABS: BEDSIDE GLUCOSE 194 MG/DL (83-110)
[2017-08-16 20:21] LABS: BEDSIDE GLUCOSE 149 MG/DL (83-110)
[2017-08-16] MEDS: TAMSULOSIN 0.4 MG CAP PO (21:05)
[2017-08-17 05:55] LABS: MEAN CORPUSCULAR HEMOGLOBIN 26.6 pg (27.0-33.0); MEAN CORPUSCULAR VOLUME 85.8 fl (80.0-96.0); PLATELET COUNT, AUTOMATED 277 10^3/uL (150-450); RED BLOOD COUNT 3.38 10^6/uL (4.30-6.10); RED CELL DISTRIBUTION WIDTH 13.8 % (11.5-14.5); WHITE BLOOD COUNT 8.3 10^3/uL (4.0-10.0)
[2017-08-17 06:25] LABS: ANION GAP 7 MEQ/L (8-16); BLOOD UREA NITROGEN 20 MG/DL (7-18); CALCIUM LEVEL 8.6 MG/DL (8.8-10.2); CARBON DIOXIDE LEVEL 27 MEQ/L (21-32); CHLORIDE LEVEL 106 MEQ/L (98-107); CREATININE FOR GFR 1.25 MG/DL (0.70-1.30); GLOMERULAR FILTRATION RATE > 60.0 (>42); GLUCOSE, FASTING 73 MG/DL (70-100); MAGNESIUM LEVEL 2.3 MG/DL (1.8-2.4); POTASSIUM SERUM 3.8 MEQ/L (3.5-5.1); SODIUM LEVEL 140 MEQ/L (136-145)
[2017-08-17] MEDS: HumaLOG INSULIN (NovoLOG) PER UNIT SC ×4 (07:03→21:00)
[2017-08-17] MEDS: ATORVASTATIN 20 MG TAB PO (08:33)
[2017-08-17] MEDS: ENOXAPARIN 40 MG/0.4 ML SYRINGE (J1650) SC (08:33)
[2017-08-17] MEDS: ASPIRIN 81 MG CHEW TABLET PO (08:33)
[2017-08-17] MEDS: SENOKOT S TAB PO ×2 (08:33→21:00)
[2017-08-17] MEDS: EUCERIN 120GM CREAM TOP ×2 (08:33→21:34)
[2017-08-17] MEDS: amLODIPine 5 MG TAB PO (08:34)
[2017-08-17] MEDS: FOLIC ACID 1 MG TAB PO (08:34)
[2017-08-17] MEDS: MULTIVITAMINS/MINERALS THERAP 1 TAB PO (08:34)
[2017-08-17] MEDS: LEVEMIR (INSULIN DETEMIR) 1 UNITS/0.01ML SC ×2 (08:35→21:34)
[2017-08-17 11:34] LABS: BEDSIDE GLUCOSE 126 MG/DL (83-110)
[2017-08-17 19:52] LABS: BEDSIDE GLUCOSE 129 MG/DL (83-110)
[2017-08-17 20:42] LABS: BEDSIDE GLUCOSE 128 MG/DL (83-110)
[2017-08-17] MEDS: TAMSULOSIN 0.4 MG CAP PO (21:32)
[2017-08-18 06:28] LABS: C REACTIVE PROTEIN QUANTITATIV 1.29 MG/DL (0.00-0.30)
[2017-08-18] MEDS: HumaLOG INSULIN (NovoLOG) PER UNIT SC ×4 (07:30→20:25)
[2017-08-18 07:47] LABS: BEDSIDE GLUCOSE 103 MG/DL (83-110)
[2017-08-18 07:47] LABS: BEDSIDE GLUCOSE 107 MG/DL (83-110)
[2017-08-18] MEDS: FOLIC ACID 1 MG TAB PO (08:46)
[2017-08-18] MEDS: MULTIVITAMINS/MINERALS THERAP 1 TAB PO (08:46)
[2017-08-18] MEDS: amLODIPine 5 MG TAB PO (08:46)
[2017-08-18] MEDS: SENOKOT S TAB PO ×2 (08:46→20:31)
[2017-08-18] MEDS: ASPIRIN 81 MG CHEW TABLET PO (08:46)
[2017-08-18] MEDS: LEVEMIR (INSULIN DETEMIR) 1 UNITS/0.01ML SC ×2 (08:46→20:32)
[2017-08-18] MEDS: ENOXAPARIN 40 MG/0.4 ML SYRINGE (J1650) SC (08:46)
[2017-08-18] MEDS: ATORVASTATIN 20 MG TAB PO (08:46)
[2017-08-18] MEDS: EUCERIN 120GM CREAM TOP ×2 (08:46→20:32)
[2017-08-18 12:07] LABS: BEDSIDE GLUCOSE 137 MG/DL (83-110)
[2017-08-18 17:22] LABS: BEDSIDE GLUCOSE 121 MG/DL (83-110)
[2017-08-18] MEDS: TAMSULOSIN 0.4 MG CAP PO (20:31)
[2017-08-18 21:14] LABS: BEDSIDE GLUCOSE 180 MG/DL (83-110)
[2017-08-19 08:03] LABS: BEDSIDE GLUCOSE 117 MG/DL (83-110)
[2017-08-19] MEDS: HumaLOG INSULIN (NovoLOG) PER UNIT SC ×4 (08:29→20:26)
[2017-08-19] MEDS: LEVEMIR (INSULIN DETEMIR) 1 UNITS/0.01ML SC ×2 (08:29→20:34)
[2017-08-19] MEDS: amLODIPine 5 MG TAB PO (08:30)
[2017-08-19] MEDS: ASPIRIN 81 MG CHEW TABLET PO (08:30)
[2017-08-19] MEDS: FOLIC ACID 1 MG TAB PO (08:30)
[2017-08-19] MEDS: ATORVASTATIN 20 MG TAB PO (08:30)
[2017-08-19] MEDS: MULTIVITAMINS/MINERALS THERAP 1 TAB PO (08:30)
[2017-08-19] MEDS: SENOKOT S TAB PO ×2 (08:30→20:34)
[2017-08-19] MEDS: EUCERIN 120GM CREAM TOP ×2 (08:30→20:36)
[2017-08-19] MEDS: ENOXAPARIN 40 MG/0.4 ML SYRINGE (J1650) SC (08:30)
[2017-08-19 10:41] LABS: HEMATOCRIT 27.8 % (42.0-52.0); HEMOGLOBIN 8.9 g/dl (14.0-18.0); MEAN CORPUSCULAR HEMOGLOBIN 26.8 pg (27.0-33.0); MEAN CORPUSCULAR VOLUME 83.7 fl (80.0-96.0); PLATELET COUNT, AUTOMATED 275 10^3/uL (150-450); RED BLOOD COUNT 3.32 10^6/uL (4.30-6.10); RED CELL DISTRIBUTION WIDTH 13.6 % (11.5-14.5); WHITE BLOOD COUNT 7.5 10^3/uL (4.0-10.0)
[2017-08-19 11:09] LABS: ANION GAP 7 MEQ/L (8-16); BLOOD UREA NITROGEN 22 MG/DL (7-18); CALCIUM LEVEL 8.6 MG/DL (8.8-10.2); CARBON DIOXIDE LEVEL 28 MEQ/L (21-32); CHLORIDE LEVEL 104 MEQ/L (98-107); CREATININE FOR GFR 1.17 MG/DL (0.70-1.30); GLOMERULAR FILTRATION RATE > 60.0 (>42); GLUCOSE, FASTING 92 MG/DL (70-100); POTASSIUM SERUM 4.2 MEQ/L (3.5-5.1); SODIUM LEVEL 139 MEQ/L (136-145)
[2017-08-19 12:16] LABS: BEDSIDE GLUCOSE 96 MG/DL (83-110)
[2017-08-19 17:03] LABS: BEDSIDE GLUCOSE 119 MG/DL (83-110)
[2017-08-19 20:14] LABS: BEDSIDE GLUCOSE 160 MG/DL (83-110)
[2017-08-19] MEDS: TAMSULOSIN 0.4 MG CAP PO (20:34)
[2017-08-19] MEDS: NYSTATIN 100,000 UNITS/GM TOPICAL PWD 15 GM TOP (20:36)
[2017-08-20 08:44] LABS: BEDSIDE GLUCOSE 276 MG/DL (83-110)
[2017-08-20] MEDS: ATORVASTATIN 20 MG TAB PO (08:51)
[2017-08-20] MEDS: FOLIC ACID 1 MG TAB PO (08:51)
[2017-08-20] MEDS: ASPIRIN 81 MG CHEW TABLET PO (08:51)
[2017-08-20] MEDS: SENOKOT S TAB PO ×2 (08:51→20:52)
[2017-08-20] MEDS: MULTIVITAMINS/MINERALS THERAP 1 TAB PO (08:51)
[2017-08-20] MEDS: amLODIPine 5 MG TAB PO (08:52)
[2017-08-20] MEDS: LEVEMIR (INSULIN DETEMIR) 1 UNITS/0.01ML SC ×2 (08:52→20:53)
[2017-08-20] MEDS: EUCERIN 120GM CREAM TOP ×2 (08:53→20:53)
[2017-08-20] MEDS: ENOXAPARIN 40 MG/0.4 ML SYRINGE (J1650) SC (08:53)
[2017-08-20] MEDS: HumaLOG INSULIN (NovoLOG) PER UNIT SC ×4 (08:53→20:53)
[2017-08-20 11:59] LABS: BEDSIDE GLUCOSE 110 MG/DL (83-110)
[2017-08-20 16:36] LABS: BEDSIDE GLUCOSE 118 MG/DL (83-110)
[2017-08-20 20:51] LABS: BEDSIDE GLUCOSE 240 MG/DL (83-110)
[2017-08-20] MEDS: NYSTATIN 100,000 UNITS/GM TOPICAL PWD 15 GM TOP (20:52)
[2017-08-20] MEDS: TAMSULOSIN 0.4 MG CAP PO (20:52)
[2017-08-21] MEDS: HumaLOG INSULIN (NovoLOG) PER UNIT SC ×4 (07:30→20:37)
[2017-08-21 08:21] LABS: BEDSIDE GLUCOSE 97 MG/DL (83-110)
[2017-08-21] MEDS: SENOKOT S TAB PO ×2 (08:53→20:20)
[2017-08-21] MEDS: LEVEMIR (INSULIN DETEMIR) 1 UNITS/0.01ML SC ×2 (08:53→20:30)
[2017-08-21] MEDS: ASPIRIN 81 MG CHEW TABLET PO (08:53)
[2017-08-21] MEDS: MULTIVITAMINS/MINERALS THERAP 1 TAB PO (08:53)
[2017-08-21] MEDS: ATORVASTATIN 20 MG TAB PO (08:53)
[2017-08-21] MEDS: ENOXAPARIN 40 MG/0.4 ML SYRINGE (J1650) SC (08:53)
[2017-08-21] MEDS: FOLIC ACID 1 MG TAB PO (08:53)
[2017-08-21] MEDS: amLODIPine 5 MG TAB PO (08:54)
[2017-08-21] MEDS: EUCERIN 120GM CREAM TOP ×2 (08:54→20:29)
[2017-08-21 12:56] LABS: BEDSIDE GLUCOSE 157 MG/DL (83-110)
[2017-08-21 17:14] LABS: BEDSIDE GLUCOSE 143 MG/DL (83-110)
[2017-08-21] MEDS: TAMSULOSIN 0.4 MG CAP PO (20:20)
[2017-08-21] MEDS: NYSTATIN 100,000 UNITS/GM TOPICAL PWD 15 GM TOP (20:29)
[2017-08-21 20:34] LABS: BEDSIDE GLUCOSE 190 MG/DL (83-110)
[2017-08-22] MEDS: HumaLOG INSULIN (NovoLOG) PER UNIT SC ×4 (07:30→20:45)
[2017-08-22 08:07] LABS: BEDSIDE GLUCOSE 104 MG/DL (83-110)
[2017-08-22] MEDS: ENOXAPARIN 40 MG/0.4 ML SYRINGE (J1650) SC (08:57)
[2017-08-22] MEDS: MULTIVITAMINS/MINERALS THERAP 1 TAB PO (08:58)
[2017-08-22] MEDS: ATORVASTATIN 20 MG TAB PO (08:58)
[2017-08-22] MEDS: LEVEMIR (INSULIN DETEMIR) 1 UNITS/0.01ML SC ×2 (08:58→20:49)
[2017-08-22] MEDS: SENOKOT S TAB PO ×2 (08:58→20:49)
[2017-08-22] MEDS: amLODIPine 5 MG TAB PO (08:58)
[2017-08-22] MEDS: EUCERIN 120GM CREAM TOP ×2 (08:58→20:50)
[2017-08-22] MEDS: FOLIC ACID 1 MG TAB PO (08:58)
[2017-08-22] MEDS: ASPIRIN 81 MG CHEW TABLET PO (08:58)
[2017-08-22] MEDS: MOM 30ML SUSPENSION UDC PO (08:59)
[2017-08-22 11:16] LABS: BEDSIDE GLUCOSE 147 MG/DL (83-110)
[2017-08-22 16:47] LABS: BEDSIDE GLUCOSE 122 MG/DL (83-110)
[2017-08-22] MEDS: TAMSULOSIN 0.4 MG CAP PO (21:13)
[2017-08-22 22:19] LABS: BEDSIDE GLUCOSE 162 MG/DL (83-110)
[2017-08-23 07:04] LABS: BEDSIDE GLUCOSE 116 MG/DL (83-110)
[2017-08-23] MEDS: HumaLOG INSULIN (NovoLOG) PER UNIT SC ×4 (07:30→20:47)
[2017-08-23] MEDS: ASPIRIN 81 MG CHEW TABLET PO (09:55)
[2017-08-23] MEDS: SENOKOT S TAB PO ×2 (09:55→21:34)
[2017-08-23] MEDS: FOLIC ACID 1 MG TAB PO (09:56)
[2017-08-23] MEDS: amLODIPine 5 MG TAB PO (09:56)
[2017-08-23] MEDS: LEVEMIR (INSULIN DETEMIR) 1 UNITS/0.01ML SC ×2 (09:56→21:34)
[2017-08-23] MEDS: ATORVASTATIN 20 MG TAB PO (09:56)
[2017-08-23] MEDS: MULTIVITAMINS/MINERALS THERAP 1 TAB PO (09:56)
[2017-08-23] MEDS: ENOXAPARIN 40 MG/0.4 ML SYRINGE (J1650) SC (09:57)
[2017-08-23] MEDS: EUCERIN 120GM CREAM TOP ×2 (09:57→21:35)
[2017-08-23 11:49] LABS: BEDSIDE GLUCOSE 140 MG/DL (83-110)
[2017-08-23 16:28] LABS: BEDSIDE GLUCOSE 113 MG/DL (83-110)
[2017-08-23 20:34] LABS: BEDSIDE GLUCOSE 181 MG/DL (83-110)
[2017-08-23] MEDS: TAMSULOSIN 0.4 MG CAP PO (21:34)
[2017-08-24 06:46] LABS: BEDSIDE GLUCOSE 95 MG/DL (83-110)
[2017-08-24] MEDS: HumaLOG INSULIN (NovoLOG) PER UNIT SC ×4 (07:30→21:13)
[2017-08-24] MEDS: MULTIVITAMINS/MINERALS THERAP 1 TAB PO (08:51)
[2017-08-24] MEDS: FOLIC ACID 1 MG TAB PO (08:51)
[2017-08-24] MEDS: ASPIRIN 81 MG CHEW TABLET PO (08:51)
[2017-08-24] MEDS: ENOXAPARIN 40 MG/0.4 ML SYRINGE (J1650) SC (08:51)
[2017-08-24] MEDS: ATORVASTATIN 20 MG TAB PO (08:51)
[2017-08-24] MEDS: SENOKOT S TAB PO ×2 (08:51→21:13)
[2017-08-24] MEDS: amLODIPine 5 MG TAB PO (08:51)
[2017-08-24] MEDS: EUCERIN 120GM CREAM TOP ×2 (08:52→21:14)
[2017-08-24] MEDS: LEVEMIR (INSULIN DETEMIR) 1 UNITS/0.01ML SC ×2 (08:52→21:13)
[2017-08-24 12:01] LABS: BEDSIDE GLUCOSE 146 MG/DL (83-110)
[2017-08-24 16:51] LABS: BEDSIDE GLUCOSE 140 MG/DL (83-110)
[2017-08-24 20:27] LABS: BEDSIDE GLUCOSE 142 MG/DL (83-110)
[2017-08-24] MEDS: TAMSULOSIN 0.4 MG CAP PO (21:13)
[2017-08-25 06:53] LABS: BEDSIDE GLUCOSE 101 MG/DL (83-110)
[2017-08-25] MEDS: HumaLOG INSULIN (NovoLOG) PER UNIT SC ×4 (07:30→21:00)
[2017-08-25] MEDS: LEVEMIR (INSULIN DETEMIR) 1 UNITS/0.01ML SC ×2 (10:25→21:21)
[2017-08-25] MEDS: ENOXAPARIN 40 MG/0.4 ML SYRINGE (J1650) SC (10:25)
[2017-08-25] MEDS: ASPIRIN 81 MG CHEW TABLET PO (10:26)
[2017-08-25] MEDS: EUCERIN 120GM CREAM TOP ×2 (10:26→21:22)
[2017-08-25] MEDS: SENOKOT S TAB PO ×2 (10:26→21:21)
[2017-08-25] MEDS: MULTIVITAMINS/MINERALS THERAP 1 TAB PO (10:26)
[2017-08-25] MEDS: amLODIPine 5 MG TAB PO (10:26)
[2017-08-25] MEDS: FOLIC ACID 1 MG TAB PO (10:26)
[2017-08-25] MEDS: ATORVASTATIN 20 MG TAB PO (10:26)
[2017-08-25 16:47] LABS: BEDSIDE GLUCOSE 131 MG/DL (83-110)
[2017-08-25] MEDS: TAMSULOSIN 0.4 MG CAP PO (21:21)
[2017-08-25] MEDS: NYSTATIN 100,000 UNITS/GM TOPICAL PWD 15 GM TOP (21:41)
[2017-08-26] MEDS: NYSTATIN 100,000 UNITS/GM TOPICAL PWD 15 GM TOP ×2 (05:51→20:23)
[2017-08-26 06:04] LABS: HEMATOCRIT 28.1 % (42.0-52.0); MEAN CORPUSCULAR VOLUME 84.4 fl (80.0-96.0); PLATELET COUNT, AUTOMATED 243 10^3/uL (150-450); RED BLOOD COUNT 3.33 10^6/uL (4.30-6.10); RED CELL DISTRIBUTION WIDTH 13.8 % (11.5-14.5); WHITE BLOOD COUNT 7.1 10^3/uL (4.0-10.0)
[2017-08-26 06:21] LABS: ANION GAP 7 MEQ/L (8-16); BLOOD UREA NITROGEN 21 MG/DL (7-18); CALCIUM LEVEL 8.6 MG/DL (8.8-10.2); CARBON DIOXIDE LEVEL 28 MEQ/L (21-32); CHLORIDE LEVEL 105 MEQ/L (98-107); CREATININE FOR GFR 1.17 MG/DL (0.70-1.30); GLOMERULAR FILTRATION RATE > 60.0 (>42); GLUCOSE, FASTING 116 MG/DL (70-100); SODIUM LEVEL 140 MEQ/L (136-145)
[2017-08-26 07:04] LABS: BEDSIDE GLUCOSE 177 MG/DL (83-110)
[2017-08-26] MEDS: HumaLOG INSULIN (NovoLOG) PER UNIT SC ×4 (08:55→20:24)
[2017-08-26] MEDS: amLODIPine 5 MG TAB PO (09:00)
[2017-08-26] MEDS: ENOXAPARIN 40 MG/0.4 ML SYRINGE (J1650) SC (09:17)
[2017-08-26] MEDS: MULTIVITAMINS/MINERALS THERAP 1 TAB PO (09:18)
[2017-08-26] MEDS: SENOKOT S TAB PO ×2 (09:18→20:24)
[2017-08-26] MEDS: ASPIRIN 81 MG CHEW TABLET PO (09:18)
[2017-08-26] MEDS: ATORVASTATIN 20 MG TAB PO (09:18)
[2017-08-26] MEDS: FOLIC ACID 1 MG TAB PO (09:18)
[2017-08-26] MEDS: LEVEMIR (INSULIN DETEMIR) 1 UNITS/0.01ML SC ×2 (09:18→20:23)
[2017-08-26] MEDS: EUCERIN 120GM CREAM TOP ×2 (09:25→20:24)
[2017-08-26 11:56] LABS: BEDSIDE GLUCOSE 152 MG/DL (83-110)
[2017-08-26 17:06] LABS: BEDSIDE GLUCOSE 117 MG/DL (83-110)
[2017-08-26] MEDS: TAMSULOSIN 0.4 MG CAP PO (20:24)
[2017-08-26 21:05] LABS: BEDSIDE GLUCOSE 160 MG/DL (83-110)
[2017-08-27 06:50] LABS: BEDSIDE GLUCOSE 105 MG/DL (83-110)
[2017-08-27] MEDS: HumaLOG INSULIN (NovoLOG) PER UNIT SC ×4 (07:30→20:56)
[2017-08-27] MEDS: EUCERIN 120GM CREAM TOP ×2 (10:30→21:04)
[2017-08-27] MEDS: ATORVASTATIN 20 MG TAB PO (10:49)
[2017-08-27] MEDS: amLODIPine 5 MG TAB PO (10:49)
[2017-08-27] MEDS: SENOKOT S TAB PO ×2 (10:49→20:55)
[2017-08-27] MEDS: FOLIC ACID 1 MG TAB PO (10:49)
[2017-08-27] MEDS: LEVEMIR (INSULIN DETEMIR) 1 UNITS/0.01ML SC ×2 (10:49→21:03)
[2017-08-27] MEDS: ASPIRIN 81 MG CHEW TABLET PO (10:49)
[2017-08-27] MEDS: ENOXAPARIN 40 MG/0.4 ML SYRINGE (J1650) SC (10:50)
[2017-08-27] MEDS: MULTIVITAMINS/MINERALS THERAP 1 TAB PO (10:51)
[2017-08-27 11:57] LABS: BEDSIDE GLUCOSE 161 MG/DL (83-110)
[2017-08-27 21:02] LABS: BEDSIDE GLUCOSE 153 MG/DL (83-110)
[2017-08-27] MEDS: TAMSULOSIN 0.4 MG CAP PO (21:04)
[2017-08-28] MEDS: HumaLOG INSULIN (NovoLOG) PER UNIT SC ×4 (07:30→20:20)
[2017-08-28] MEDS: ATORVASTATIN 20 MG TAB PO (10:49)
[2017-08-28] MEDS: amLODIPine 5 MG TAB PO (10:49)
[2017-08-28] MEDS: ASPIRIN 81 MG CHEW TABLET PO (10:49)
[2017-08-28] MEDS: SENOKOT S TAB PO ×2 (10:49→20:23)
[2017-08-28] MEDS: EUCERIN 120GM CREAM TOP ×2 (10:50→20:23)
[2017-08-28] MEDS: LEVEMIR (INSULIN DETEMIR) 1 UNITS/0.01ML SC ×2 (10:50→20:23)
[2017-08-28] MEDS: MULTIVITAMINS/MINERALS THERAP 1 TAB PO (10:50)
[2017-08-28] MEDS: ENOXAPARIN 40 MG/0.4 ML SYRINGE (J1650) SC (10:50)
[2017-08-28] MEDS: FOLIC ACID 1 MG TAB PO (10:50)
[2017-08-28 11:43] LABS: BEDSIDE GLUCOSE 176 MG/DL (83-110)
[2017-08-28 14:58] LABS: BEDSIDE GLUCOSE 144 MG/DL (83-110)
[2017-08-28 17:17] LABS: BEDSIDE GLUCOSE 181 MG/DL (83-110)
[2017-08-28] MEDS: TAMSULOSIN 0.4 MG CAP PO (20:23)
[2017-08-29 07:24] LABS: BEDSIDE GLUCOSE 103 MG/DL (83-110)
[2017-08-29] MEDS: HumaLOG INSULIN (NovoLOG) PER UNIT SC ×4 (07:29→20:25)
[2017-08-29] MEDS: EUCERIN 120GM CREAM TOP ×2 (09:00→20:34)
[2017-08-29] MEDS: LEVEMIR (INSULIN DETEMIR) 1 UNITS/0.01ML SC ×2 (10:29→20:34)
[2017-08-29] MEDS: SENOKOT S TAB PO ×2 (10:30→20:26)
[2017-08-29] MEDS: MULTIVITAMINS/MINERALS THERAP 1 TAB PO (10:30)
[2017-08-29] MEDS: ASPIRIN 81 MG CHEW TABLET PO (10:30)
[2017-08-29] MEDS: FOLIC ACID 1 MG TAB PO (10:30)
[2017-08-29] MEDS: ENOXAPARIN 40 MG/0.4 ML SYRINGE (J1650) SC (10:30)
[2017-08-29] MEDS: ATORVASTATIN 20 MG TAB PO (10:30)
[2017-08-29] MEDS: amLODIPine 5 MG TAB PO (10:31)
[2017-08-29 12:19] LABS: BEDSIDE GLUCOSE 125 MG/DL (83-110)
[2017-08-29 15:57] LABS: BEDSIDE GLUCOSE 117 MG/DL (83-110)
[2017-08-29 16:57] LABS: BEDSIDE GLUCOSE 119 MG/DL (83-110)
[2017-08-29] MEDS: TAMSULOSIN 0.4 MG CAP PO (20:33)
[2017-08-29 21:00] LABS: BEDSIDE GLUCOSE 158 MG/DL (83-110)
[2017-08-30 07:10] LABS: BEDSIDE GLUCOSE 128 MG/DL (83-110)
[2017-08-30] MEDS: HumaLOG INSULIN (NovoLOG) PER UNIT SC ×4 (08:39→20:27)
[2017-08-30] MEDS: ENOXAPARIN 40 MG/0.4 ML SYRINGE (J1650) SC (10:20)
[2017-08-30] MEDS: MULTIVITAMINS/MINERALS THERAP 1 TAB PO (10:21)
[2017-08-30] MEDS: SENOKOT S TAB PO ×2 (10:21→20:33)
[2017-08-30] MEDS: ASPIRIN 81 MG CHEW TABLET PO (10:21)
[2017-08-30] MEDS: ATORVASTATIN 20 MG TAB PO (10:21)
[2017-08-30] MEDS: amLODIPine 5 MG TAB PO (10:23)
[2017-08-30] MEDS: FOLIC ACID 1 MG TAB PO (10:23)
[2017-08-30] MEDS: LEVEMIR (INSULIN DETEMIR) 1 UNITS/0.01ML SC ×2 (10:24→20:33)
[2017-08-30] MEDS: EUCERIN 120GM CREAM TOP ×2 (10:25→20:34)
[2017-08-30 10:50] LABS: BEDSIDE GLUCOSE 125 MG/DL (83-110)
[2017-08-30 10:50] LABS: BEDSIDE GLUCOSE 81 MG/DL (83-110)
[2017-08-30 10:50] LABS: BEDSIDE GLUCOSE 176 MG/DL (83-110)
[2017-08-30 17:36] LABS: BEDSIDE GLUCOSE 194 MG/DL (83-110)
[2017-08-30 20:32] LABS: BEDSIDE GLUCOSE 143 MG/DL (83-110)
[2017-08-30] MEDS: TAMSULOSIN 0.4 MG CAP PO (20:33)
[2017-08-30 22:00] LABS: BEDSIDE GLUCOSE 131 MG/DL (83-110)
[2017-08-31 08:00] LABS: BEDSIDE GLUCOSE 166 MG/DL (83-110)
[2017-08-31] MEDS: ENOXAPARIN 40 MG/0.4 ML SYRINGE (J1650) SC (08:24)
[2017-08-31] MEDS: HumaLOG INSULIN (NovoLOG) PER UNIT SC ×4 (08:24→21:00)
[2017-08-31] MEDS: LEVEMIR (INSULIN DETEMIR) 1 UNITS/0.01ML SC ×2 (08:24→21:55)
[2017-08-31] MEDS: FOLIC ACID 1 MG TAB PO (08:25)
[2017-08-31] MEDS: SENOKOT S TAB PO ×2 (08:25→20:21)
[2017-08-31] MEDS: MULTIVITAMINS/MINERALS THERAP 1 TAB PO (08:25)
[2017-08-31] MEDS: ASPIRIN 81 MG CHEW TABLET PO (08:25)
[2017-08-31] MEDS: ATORVASTATIN 20 MG TAB PO (08:25)
[2017-08-31] MEDS: amLODIPine 5 MG TAB PO (08:26)
[2017-08-31] MEDS: EUCERIN 120GM CREAM TOP ×2 (08:26→20:22)
[2017-08-31 12:18] LABS: BEDSIDE GLUCOSE 125 MG/DL (83-110)
[2017-08-31 17:01] LABS: BEDSIDE GLUCOSE 108 MG/DL (83-110)
[2017-08-31] MEDS: TAMSULOSIN 0.4 MG CAP PO (20:21)
[2017-08-31 21:25] LABS: BEDSIDE GLUCOSE 147 MG/DL (83-110)
[2017-09-01 05:51] LABS: BEDSIDE GLUCOSE 104 MG/DL (83-110)
[2017-09-01] MEDS: HumaLOG INSULIN (NovoLOG) PER UNIT SC ×4 (07:30→20:29)
[2017-09-01] MEDS: EUCERIN 120GM CREAM TOP ×2 (09:00→20:38)
[2017-09-01] MEDS: LEVEMIR (INSULIN DETEMIR) 1 UNITS/0.01ML SC ×2 (09:00→20:36)
[2017-09-01] MEDS: ATORVASTATIN 20 MG TAB PO (10:42)
[2017-09-01] MEDS: MULTIVITAMINS/MINERALS THERAP 1 TAB PO (10:43)
[2017-09-01] MEDS: SENOKOT S TAB PO ×2 (10:43→20:36)
[2017-09-01] MEDS: FOLIC ACID 1 MG TAB PO (10:43)
[2017-09-01] MEDS: amLODIPine 5 MG TAB PO (10:43)
[2017-09-01] MEDS: ASPIRIN 81 MG CHEW TABLET PO (10:43)
[2017-09-01] MEDS: ENOXAPARIN 40 MG/0.4 ML SYRINGE (J1650) SC (10:44)
[2017-09-01 12:49] LABS: BEDSIDE GLUCOSE 140 MG/DL (83-110)
[2017-09-01 17:12] LABS: BEDSIDE GLUCOSE 134 MG/DL (83-110)
[2017-09-01 20:29] LABS: BEDSIDE GLUCOSE 166 MG/DL (83-110)
[2017-09-01] MEDS: NYSTATIN 100,000 UNITS/GM TOPICAL PWD 15 GM TOP (20:36)
[2017-09-01] MEDS: TAMSULOSIN 0.4 MG CAP PO (20:36)
[2017-09-02 06:31] LABS: BEDSIDE GLUCOSE 94 MG/DL (83-110)
[2017-09-02] MEDS: HumaLOG INSULIN (NovoLOG) PER UNIT SC (07:45)
[2017-09-02] MEDS: ENOXAPARIN 40 MG/0.4 ML SYRINGE (J1650) SC (08:13)
[2017-09-02] MEDS: ATORVASTATIN 20 MG TAB PO (08:13)
[2017-09-02] MEDS: MULTIVITAMINS/MINERALS THERAP 1 TAB PO (08:14)
[2017-09-02] MEDS: ACETAMINOPHEN TAB 650MG DOSE (2X325MG) PO (08:14)
[2017-09-02] MEDS: FOLIC ACID 1 MG TAB PO (08:14)
[2017-09-02] MEDS: ASPIRIN 81 MG CHEW TABLET PO (08:14)
[2017-09-02] MEDS: amLODIPine 5 MG TAB PO (08:14)
[2017-09-02] MEDS: SENOKOT S TAB PO (08:14)
[2017-09-02] MEDS: LEVEMIR (INSULIN DETEMIR) 1 UNITS/0.01ML SC ×2 (08:15→20:54)
[2017-09-02] MEDS: EUCERIN 120GM CREAM TOP ×2 (08:17→20:54)
[2017-09-02 12:09] LABS: BEDSIDE GLUCOSE 127 MG/DL (83-110)
[2017-09-02 14:18] LABS: HEMATOCRIT 27.9 % (42.0-52.0); HEMOGLOBIN 8.8 g/dl (14.0-18.0); MEAN CORPUSCULAR HEMOGLOBIN 26.3 pg (27.0-33.0); MEAN CORPUSCULAR HGB CONC 31.5 g/dl (32.0-36.5); MEAN CORPUSCULAR VOLUME 83.5 fl (80.0-96.0); PLATELET COUNT, AUTOMATED 285 10^3/uL (150-450); RED BLOOD COUNT 3.34 10^6/uL (4.30-6.10); RED CELL DISTRIBUTION WIDTH 13.8 % (11.5-14.5); WHITE BLOOD COUNT 7.5 10^3/uL (4.0-10.0)
[2017-09-02 14:43] LABS: ANION GAP 5 MEQ/L (8-16); BLOOD UREA NITROGEN 22 MG/DL (7-18); CALCIUM LEVEL 8.6 MG/DL (8.8-10.2); CARBON DIOXIDE LEVEL 28 MEQ/L (21-32); CHLORIDE LEVEL 108 MEQ/L (98-107); CREATININE FOR GFR 1.09 MG/DL (0.70-1.30); GLOMERULAR FILTRATION RATE > 60.0 (>42); GLUCOSE, FASTING 99 MG/DL (70-100); MAGNESIUM LEVEL 1.9 MG/DL (1.8-2.4); POTASSIUM SERUM 4.1 MEQ/L (3.5-5.1); SODIUM LEVEL 141 MEQ/L (136-145)
[2017-09-02] MEDS: TAMSULOSIN 0.4 MG CAP PO (20:54)
[2017-09-02] MEDS: NYSTATIN 100,000 UNITS/GM TOPICAL PWD 15 GM TOP (20:55)
[2017-09-03 02:55] LABS: APPEARANCE, URINE CLEAR (CLEAR); BACTERIA, URINE AUTO NEGATIVE (NEGATIVE); BILIRUBIN, URINE AUTO NEGATIVE (NEGATIVE); BLOOD, URINE BLOOD NEGATIVE (NEGATIVE); COLOR, URINE YELLOW (YELLOW); GLUCOSE, URINE (UA) AUTO NEGATIVE (NEGATIVE); KETONE, URINE AUTO NEGATIVE (NEGATIVE); LEUKOCYTE ESTERASE, URINE AUTO TRACE (NEGATIVE); MUCUS, URINE SMALL (NEGATIVE); NITRITE, URINE AUTO NEGATIVE (NEGATIVE); PROTEIN, URINE AUTO NEGATIVE (NEGATIVE); RBC, URINE AUTO 2 /HPF (0-3); SPECIFIC GRAVITY URINE AUTO 1.016 (1.002-1.035); SQUAMOUS EPITHELIAL CELL UR AU 0 /HPF (0-6); UROBILINOGEN, URINE AUTO 0.2 mg/dL (0.0-2.0); WBC, URINE AUTO 35 /HPF (0-3)
[2017-09-03 07:11] LABS: BEDSIDE GLUCOSE 108 MG/DL (83-110)
[2017-09-03] MEDS: MULTIVITAMINS/MINERALS THERAP 1 TAB PO (10:33)
[2017-09-03] MEDS: amLODIPine 5 MG TAB PO (10:33)
[2017-09-03] MEDS: FOLIC ACID 1 MG TAB PO (10:33)
[2017-09-03] MEDS: ASPIRIN 81 MG CHEW TABLET PO (10:33)
[2017-09-03] MEDS: ATORVASTATIN 20 MG TAB PO (10:34)
[2017-09-03] MEDS: LEVEMIR (INSULIN DETEMIR) 1 UNITS/0.01ML SC ×2 (10:34→20:31)
[2017-09-03] MEDS: ENOXAPARIN 40 MG/0.4 ML SYRINGE (J1650) SC (10:34)
[2017-09-03] MEDS: EUCERIN 120GM CREAM TOP ×2 (10:34→20:31)
[2017-09-03 17:10] LABS: BEDSIDE GLUCOSE 130 MG/DL (83-110)
[2017-09-03] MEDS: TAMSULOSIN 0.4 MG CAP PO (20:31)
[2017-09-04 07:42] LABS: BEDSIDE GLUCOSE 101 MG/DL (83-110)
[2017-09-04] MEDS: EUCERIN 120GM CREAM TOP ×2 (09:00→20:08)
[2017-09-04] MEDS: ATORVASTATIN 20 MG TAB PO (10:54)
[2017-09-04] MEDS: ASPIRIN 81 MG CHEW TABLET PO (10:55)
[2017-09-04] MEDS: amLODIPine 5 MG TAB PO (10:55)
[2017-09-04] MEDS: ENOXAPARIN 40 MG/0.4 ML SYRINGE (J1650) SC (10:55)
[2017-09-04] MEDS: MULTIVITAMINS/MINERALS THERAP 1 TAB PO (10:55)
[2017-09-04] MEDS: LEVEMIR (INSULIN DETEMIR) 1 UNITS/0.01ML SC ×2 (10:55→20:08)
[2017-09-04] MEDS: FOLIC ACID 1 MG TAB PO (10:55)
[2017-09-04 12:08] LABS: BEDSIDE GLUCOSE 105 MG/DL (83-110)
[2017-09-04 12:47] LABS: BEDSIDE GLUCOSE 123 MG/DL (83-110)
[2017-09-04 16:49] LABS: BEDSIDE GLUCOSE 107 MG/DL (83-110)
[2017-09-04] MEDS: TAMSULOSIN 0.4 MG CAP PO (20:08)
[2017-09-05 07:16] LABS: BEDSIDE GLUCOSE 110 MG/DL (83-110)
[2017-09-05] MEDS: MULTIVITAMINS/MINERALS THERAP 1 TAB PO (08:45)
[2017-09-05] MEDS: FOLIC ACID 1 MG TAB PO (08:45)
[2017-09-05] MEDS: ATORVASTATIN 20 MG TAB PO (08:45)
[2017-09-05] MEDS: ENOXAPARIN 40 MG/0.4 ML SYRINGE (J1650) SC (08:45)
[2017-09-05] MEDS: amLODIPine 5 MG TAB PO (08:46)
[2017-09-05] MEDS: ASPIRIN 81 MG CHEW TABLET PO (08:46)
[2017-09-05] MEDS: EUCERIN 120GM CREAM TOP ×2 (08:47→21:13)
[2017-09-05] MEDS: LEVEMIR (INSULIN DETEMIR) 1 UNITS/0.01ML SC ×2 (08:47→21:13)
[2017-09-05 17:48] LABS: BEDSIDE GLUCOSE 153 MG/DL (83-110)
[2017-09-05] MEDS: TAMSULOSIN 0.4 MG CAP PO (21:13)
[2017-09-06 05:52] LABS: BEDSIDE GLUCOSE 101 MG/DL (83-110)
[2017-09-06 08:45] LABS: BEDSIDE GLUCOSE 171 MG/DL (83-110)
[2017-09-06] MEDS: LEVEMIR (INSULIN DETEMIR) 1 UNITS/0.01ML SC ×2 (08:57→20:39)
[2017-09-06] MEDS: ASPIRIN 81 MG CHEW TABLET PO (08:57)
[2017-09-06] MEDS: ENOXAPARIN 40 MG/0.4 ML SYRINGE (J1650) SC (08:57)
[2017-09-06] MEDS: ATORVASTATIN 20 MG TAB PO (08:57)
[2017-09-06] MEDS: EUCERIN 120GM CREAM TOP ×2 (08:58→20:39)
[2017-09-06] MEDS: MULTIVITAMINS/MINERALS THERAP 1 TAB PO (08:58)
[2017-09-06] MEDS: FOLIC ACID 1 MG TAB PO (08:58)
[2017-09-06] MEDS: amLODIPine 5 MG TAB PO (08:58)
[2017-09-06] MEDS: ACETAMINOPHEN TAB 650MG DOSE (2X325MG) PO (10:44)
[2017-09-06 12:13] LABS: BEDSIDE GLUCOSE 150 MG/DL (83-110)
[2017-09-06 20:21] LABS: BEDSIDE GLUCOSE 206 MG/DL (83-110)
[2017-09-06] MEDS: TAMSULOSIN 0.4 MG CAP PO (20:38)
[2017-09-07 06:28] LABS: BEDSIDE GLUCOSE 124 MG/DL (83-110)
[2017-09-07] MEDS: LEVEMIR (INSULIN DETEMIR) 1 UNITS/0.01ML SC ×2 (08:52→20:58)
[2017-09-07] MEDS: ENOXAPARIN 40 MG/0.4 ML SYRINGE (J1650) SC (08:52)
[2017-09-07] MEDS: EUCERIN 120GM CREAM TOP ×2 (08:52→20:58)
[2017-09-07] MEDS: ATORVASTATIN 20 MG TAB PO (08:53)
[2017-09-07] MEDS: MULTIVITAMINS/MINERALS THERAP 1 TAB PO (08:53)
[2017-09-07] MEDS: ASPIRIN 81 MG CHEW TABLET PO (08:53)
[2017-09-07] MEDS: amLODIPine 5 MG TAB PO (08:53)
[2017-09-07] MEDS: FOLIC ACID 1 MG TAB PO (08:53)
[2017-09-07 11:58] LABS: BEDSIDE GLUCOSE 161 MG/DL (83-110)
[2017-09-07 17:10] LABS: BEDSIDE GLUCOSE 151 MG/DL (83-110)
[2017-09-07 20:42] LABS: BEDSIDE GLUCOSE 248 MG/DL (83-110)
[2017-09-07] MEDS: TAMSULOSIN 0.4 MG CAP PO (20:57)
[2017-09-08] MEDS: MULTIVITAMINS/MINERALS THERAP 1 TAB PO (08:37)
[2017-09-08] MEDS: ASPIRIN 81 MG CHEW TABLET PO (08:37)
[2017-09-08] MEDS: ATORVASTATIN 20 MG TAB PO (08:37)
[2017-09-08] MEDS: ENOXAPARIN 40 MG/0.4 ML SYRINGE (J1650) SC (08:37)
[2017-09-08] MEDS: amLODIPine 5 MG TAB PO (08:37)
[2017-09-08] MEDS: FOLIC ACID 1 MG TAB PO (08:37)
[2017-09-08] MEDS: LEVEMIR (INSULIN DETEMIR) 1 UNITS/0.01ML SC ×2 (08:38→21:22)
[2017-09-08] MEDS: EUCERIN 120GM CREAM TOP ×2 (08:38→21:22)
[2017-09-08] MEDS ORDERED: SENNA 8.6 MG TAB (SENOKOT) PO (10:15)
[2017-09-08 13:11] LABS: BEDSIDE GLUCOSE 134 MG/DL (83-110)
[2017-09-08 13:11] LABS: BEDSIDE GLUCOSE 133 MG/DL (83-110)
[2017-09-08 19:52] LABS: BEDSIDE GLUCOSE 209 MG/DL (83-110)
[2017-09-08] MEDS: NYSTATIN 100,000 UNITS/GM TOPICAL PWD 15 GM TOP (21:21)
[2017-09-08] MEDS: TAMSULOSIN 0.4 MG CAP PO (21:22)
[2017-09-09] MEDS: NYSTATIN 100,000 UNITS/GM TOPICAL PWD 15 GM TOP ×2 (05:43→20:14)
[2017-09-09] MEDS: ACETAMINOPHEN TAB 650MG DOSE (2X325MG) PO ×2 (05:44→20:13)
[2017-09-09 07:08] LABS: BEDSIDE GLUCOSE 232 MG/DL (83-110)
[2017-09-09 08:47] LABS: BEDSIDE GLUCOSE 171 MG/DL (83-110)
[2017-09-09] MEDS: LEVEMIR (INSULIN DETEMIR) 1 UNITS/0.01ML SC ×2 (10:47→20:12)
[2017-09-09] MEDS: ASPIRIN 81 MG CHEW TABLET PO (10:47)
[2017-09-09] MEDS: amLODIPine 5 MG TAB PO (10:48)
[2017-09-09] MEDS: ATORVASTATIN 20 MG TAB PO (10:48)
[2017-09-09] MEDS: FOLIC ACID 1 MG TAB PO (10:48)
[2017-09-09] MEDS: ENOXAPARIN 40 MG/0.4 ML SYRINGE (J1650) SC (10:48)
[2017-09-09] MEDS: EUCERIN 120GM CREAM TOP ×2 (10:48→20:14)
[2017-09-09] MEDS: MULTIVITAMINS/MINERALS THERAP 1 TAB PO (10:48)
[2017-09-09 12:19] LABS: BEDSIDE GLUCOSE 188 MG/DL (83-110)
[2017-09-09 13:28] LABS: URIC ACID 4.8 MG/DL (3.5-7.2)
[2017-09-09 17:10] LABS: BEDSIDE GLUCOSE 166 MG/DL (83-110)
[2017-09-09] MEDS: TAMSULOSIN 0.4 MG CAP PO (20:14)
[2017-09-10] MEDS: ACETAMINOPHEN TAB 650MG DOSE (2X325MG) PO ×2 (05:39→20:15)
[2017-09-10 07:09] LABS: BEDSIDE GLUCOSE 119 MG/DL (83-110)
[2017-09-10] MEDS: amLODIPine 5 MG TAB PO (10:38)
[2017-09-10] MEDS: ENOXAPARIN 40 MG/0.4 ML SYRINGE (J1650) SC (10:38)
[2017-09-10] MEDS: LEVEMIR (INSULIN DETEMIR) 1 UNITS/0.01ML SC ×2 (10:38→20:15)
[2017-09-10] MEDS: MULTIVITAMINS/MINERALS THERAP 1 TAB PO (10:39)
[2017-09-10] MEDS: EUCERIN 120GM CREAM TOP ×2 (10:39→20:17)
[2017-09-10] MEDS: ATORVASTATIN 20 MG TAB PO (10:39)
[2017-09-10] MEDS: ASPIRIN 81 MG CHEW TABLET PO (10:39)
[2017-09-10] MEDS: FOLIC ACID 1 MG TAB PO (10:39)
[2017-09-10 16:56] LABS: BEDSIDE GLUCOSE 159 MG/DL (83-110)
[2017-09-10] MEDS: TAMSULOSIN 0.4 MG CAP PO (20:15)
[2017-09-10] MEDS: NYSTATIN 100,000 UNITS/GM TOPICAL PWD 15 GM TOP (20:18)
[2017-09-11 07:18] LABS: BEDSIDE GLUCOSE 114 MG/DL (83-110)
[2017-09-11] MEDS: ATORVASTATIN 20 MG TAB PO (10:36)
[2017-09-11] MEDS: FOLIC ACID 1 MG TAB PO (10:36)
[2017-09-11] MEDS: MULTIVITAMINS/MINERALS THERAP 1 TAB PO (10:36)
[2017-09-11] MEDS: ASPIRIN 81 MG CHEW TABLET PO (10:36)
[2017-09-11] MEDS: EUCERIN 120GM CREAM TOP ×2 (10:37→20:39)
[2017-09-11] MEDS: LEVEMIR (INSULIN DETEMIR) 1 UNITS/0.01ML SC ×2 (10:37→20:40)
[2017-09-11] MEDS: ENOXAPARIN 40 MG/0.4 ML SYRINGE (J1650) SC (10:37)
[2017-09-11] MEDS: MIDODRINE 2.5 MG TAB PO ×2 (13:01→16:00)
[2017-09-11 17:09] LABS: BEDSIDE GLUCOSE 211 MG/DL (83-110)
[2017-09-11] MEDS: TAMSULOSIN 0.4 MG CAP PO (20:37)
[2017-09-11] MEDS: NYSTATIN 100,000 UNITS/GM TOPICAL PWD 15 GM TOP (20:40)
[2017-09-12] MEDS: ACETAMINOPHEN TAB 650MG DOSE (2X325MG) PO (06:13)
[2017-09-12 07:06] LABS: BEDSIDE GLUCOSE 134 MG/DL (83-110)
[2017-09-12] MEDS: ATORVASTATIN 20 MG TAB PO (08:58)
[2017-09-12] MEDS: FOLIC ACID 1 MG TAB PO (08:58)
[2017-09-12] MEDS: MULTIVITAMINS/MINERALS THERAP 1 TAB PO (08:58)
[2017-09-12] MEDS: MIDODRINE 2.5 MG TAB PO ×3 (08:58→17:19)
[2017-09-12] MEDS: LEVEMIR (INSULIN DETEMIR) 1 UNITS/0.01ML SC ×2 (08:58→20:51)
[2017-09-12] MEDS: ASPIRIN 81 MG CHEW TABLET PO (08:58)
[2017-09-12] MEDS: ENOXAPARIN 40 MG/0.4 ML SYRINGE (J1650) SC (08:59)
[2017-09-12] MEDS: EUCERIN 120GM CREAM TOP ×2 (09:00→20:51)
[2017-09-12 16:52] LABS: BEDSIDE GLUCOSE 185 MG/DL (83-110)
[2017-09-12] MEDS: TAMSULOSIN 0.4 MG CAP PO (20:51)
[2017-09-13] MEDS: FOLIC ACID 1 MG TAB PO (09:38)
[2017-09-13] MEDS: MULTIVITAMINS/MINERALS THERAP 1 TAB PO (09:38)
[2017-09-13] MEDS: ASPIRIN 81 MG CHEW TABLET PO (09:38)
[2017-09-13] MEDS: ATORVASTATIN 20 MG TAB PO (09:38)
[2017-09-13] MEDS: LEVEMIR (INSULIN DETEMIR) 1 UNITS/0.01ML SC ×2 (09:38→20:41)
[2017-09-13] MEDS: MIDODRINE 2.5 MG TAB PO ×3 (09:38→16:50)
[2017-09-13] MEDS: EUCERIN 120GM CREAM TOP ×2 (09:39→20:41)
[2017-09-13 11:43] LABS: BEDSIDE GLUCOSE 135 MG/DL (83-110)
[2017-09-13 16:35] LABS: BEDSIDE GLUCOSE 260 MG/DL (83-110)
[2017-09-13] MEDS: ENOXAPARIN 40 MG/0.4 ML SYRINGE (J1650) SC (20:41)
[2017-09-13] MEDS: TAMSULOSIN 0.4 MG CAP PO (20:41)
[2017-09-14 06:37] LABS: BEDSIDE GLUCOSE 140 MG/DL (83-110)
[2017-09-14] MEDS: ENOXAPARIN 40 MG/0.4 ML SYRINGE (J1650) SC (08:59)
[2017-09-14] MEDS: LEVEMIR (INSULIN DETEMIR) 1 UNITS/0.01ML SC ×2 (08:59→21:27)
[2017-09-14] MEDS: ATORVASTATIN 20 MG TAB PO (08:59)
[2017-09-14] MEDS: MULTIVITAMINS/MINERALS THERAP 1 TAB PO (08:59)
[2017-09-14] MEDS: FOLIC ACID 1 MG TAB PO (08:59)
[2017-09-14] MEDS: MIDODRINE 2.5 MG TAB PO ×3 (08:59→17:49)
[2017-09-14] MEDS: ASPIRIN 81 MG CHEW TABLET PO (09:00)
[2017-09-14] MEDS: EUCERIN 120GM CREAM TOP ×2 (09:00→21:27)
[2017-09-14 17:16] LABS: BEDSIDE GLUCOSE 133 MG/DL (83-110)
[2017-09-14] MEDS: TAMSULOSIN 0.4 MG CAP PO (21:27)
[2017-09-15 07:00] LABS: BEDSIDE GLUCOSE 128 MG/DL (83-110)
[2017-09-15] MEDS: MIDODRINE 2.5 MG TAB PO ×3 (08:00→17:38)
[2017-09-15] MEDS: FOLIC ACID 1 MG TAB PO (10:49)
[2017-09-15] MEDS: MULTIVITAMINS/MINERALS THERAP 1 TAB PO (10:49)
[2017-09-15] MEDS: ENOXAPARIN 40 MG/0.4 ML SYRINGE (J1650) SC (10:49)
[2017-09-15] MEDS: LEVEMIR (INSULIN DETEMIR) 1 UNITS/0.01ML SC ×2 (10:49→20:43)
[2017-09-15] MEDS: ASPIRIN 81 MG CHEW TABLET PO (10:49)
[2017-09-15] MEDS: ATORVASTATIN 20 MG TAB PO (10:49)
[2017-09-15] MEDS: EUCERIN 120GM CREAM TOP ×2 (10:50→20:43)
[2017-09-15 12:05] LABS: BEDSIDE GLUCOSE 211 MG/DL (83-110)
[2017-09-15 16:54] LABS: BEDSIDE GLUCOSE 281 MG/DL (83-110)
[2017-09-15] MEDS: TAMSULOSIN 0.4 MG CAP PO (20:43)
[2017-09-15] MEDS: ACETAMINOPHEN TAB 650MG DOSE (2X325MG) PO (20:48)
[2017-09-16 08:06] LABS: BEDSIDE GLUCOSE 180 MG/DL (83-110)
[2017-09-16] MEDS: MIDODRINE 2.5 MG TAB PO ×3 (08:55→17:34)
[2017-09-16] MEDS: LEVEMIR (INSULIN DETEMIR) 1 UNITS/0.01ML SC ×2 (10:32→21:11)
[2017-09-16] MEDS: ATORVASTATIN 20 MG TAB PO (10:32)
[2017-09-16] MEDS: FOLIC ACID 1 MG TAB PO (10:32)
[2017-09-16] MEDS: MULTIVITAMINS/MINERALS THERAP 1 TAB PO (10:32)
[2017-09-16] MEDS: ENOXAPARIN 40 MG/0.4 ML SYRINGE (J1650) SC (10:32)
[2017-09-16] MEDS: ASPIRIN 81 MG CHEW TABLET PO (10:32)
[2017-09-16] MEDS: EUCERIN 120GM CREAM TOP ×2 (10:33→21:11)
[2017-09-16] MEDS: ACETAMINOPHEN TAB 650MG DOSE (2X325MG) PO ×2 (13:04→21:12)
[2017-09-16] MEDS: TAMSULOSIN 0.4 MG CAP PO (21:11)
[2017-09-17] MEDS: ACETAMINOPHEN TAB 650MG DOSE (2X325MG) PO ×2 (04:11→21:34)
[2017-09-17] MEDS: MIDODRINE 2.5 MG TAB PO ×3 (08:48→16:53)
[2017-09-17] MEDS: FOLIC ACID 1 MG TAB PO (08:48)
[2017-09-17] MEDS: ENOXAPARIN 40 MG/0.4 ML SYRINGE (J1650) SC (08:48)
[2017-09-17] MEDS: LEVEMIR (INSULIN DETEMIR) 1 UNITS/0.01ML SC ×2 (08:48→21:33)
[2017-09-17] MEDS: MULTIVITAMINS/MINERALS THERAP 1 TAB PO (08:48)
[2017-09-17] MEDS: ATORVASTATIN 20 MG TAB PO (08:48)
[2017-09-17] MEDS: ASPIRIN 81 MG CHEW TABLET PO (08:49)
[2017-09-17 12:35] LABS: HEMATOCRIT 27.4 % (42.0-52.0); HEMOGLOBIN 8.7 g/dl (13.5-17.5); MEAN CORPUSCULAR HEMOGLOBIN 25.6 pg (27.0-33.0); MEAN CORPUSCULAR HGB CONC 31.8 g/dl (32.0-36.5); MEAN CORPUSCULAR VOLUME 80.6 fl (80.0-96.0); PLATELET COUNT, AUTOMATED 461 10^3/uL (150-450); WHITE BLOOD COUNT 13.2 10^3/uL (4.0-10.0)
[2017-09-17] MEDS: LIDOCAINE 5% (LIDODERM) PATCH TD (12:52)
[2017-09-17] MEDS: EUCERIN 120GM CREAM TOP ×2 (12:52→21:35)
[2017-09-17 13:30] LABS: ANION GAP 7 MEQ/L (8-16); BLOOD UREA NITROGEN 18 MG/DL (7-18); CALCIUM LEVEL 8.8 MG/DL (8.8-10.2); CARBON DIOXIDE LEVEL 28 MEQ/L (21-32); CHLORIDE LEVEL 103 MEQ/L (98-107); CREATININE FOR GFR 0.85 MG/DL (0.70-1.30); GLOMERULAR FILTRATION RATE > 60.0 (>42); GLUCOSE, FASTING 133 MG/DL (70-100); PHOSPHORUS LEVEL 3.9 MG/DL (2.5-4.9); POTASSIUM SERUM 4.4 MEQ/L (3.5-5.1); SODIUM LEVEL 138 MEQ/L (136-145)
[2017-09-17 17:02] LABS: BEDSIDE GLUCOSE 198 MG/DL (83-110)
[2017-09-17 20:46] LABS: BEDSIDE GLUCOSE 202 MG/DL (83-110)
[2017-09-17] MEDS: **NOTE PATIENT COMMENT** MISC XX (21:00)
[2017-09-17] MEDS: TAMSULOSIN 0.4 MG CAP PO (21:35)
[2017-09-18] MEDS: ACETAMINOPHEN TAB 650MG DOSE (2X325MG) PO ×2 (01:46→21:52)
[2017-09-18 06:04] LABS: BEDSIDE GLUCOSE 228 MG/DL (83-110)
[2017-09-18] MEDS: MULTIVITAMINS/MINERALS THERAP 1 TAB PO (08:21)
[2017-09-18] MEDS: ENOXAPARIN 40 MG/0.4 ML SYRINGE (J1650) SC (08:21)
[2017-09-18] MEDS: MIDODRINE 2.5 MG TAB PO ×3 (08:21→17:48)
[2017-09-18] MEDS: FOLIC ACID 1 MG TAB PO (08:21)
[2017-09-18] MEDS: ASPIRIN 81 MG CHEW TABLET PO (08:21)
[2017-09-18] MEDS: ATORVASTATIN 20 MG TAB PO (08:21)
[2017-09-18] MEDS: LEVEMIR (INSULIN DETEMIR) 1 UNITS/0.01ML SC ×2 (08:21→21:53)
[2017-09-18] MEDS: EUCERIN 120GM CREAM TOP ×2 (08:22→21:53)
[2017-09-18 15:49] LABS: APPEARANCE, URINE HAZY (CLEAR); BACTERIA, URINE AUTO NEGATIVE (NEGATIVE); BILIRUBIN, URINE AUTO NEGATIVE (NEGATIVE); BLOOD, URINE BLOOD NEGATIVE (NEGATIVE); COLOR, URINE AMBER (YELLOW); GLUCOSE, URINE (UA) AUTO NEGATIVE (NEGATIVE); KETONE, URINE AUTO NEGATIVE (NEGATIVE); LEUKOCYTE ESTERASE, URINE AUTO NEGATIVE (NEGATIVE); MUCUS, URINE SMALL (NEGATIVE); NITRITE, URINE AUTO NEGATIVE (NEGATIVE); PROTEIN, URINE AUTO 1+ mg/dL (NEGATIVE); RBC, URINE AUTO 3 /HPF (0-3); SPECIFIC GRAVITY URINE AUTO 1.025 (1.002-1.035); SQUAMOUS EPITHELIAL CELL UR AU 0 /HPF (0-6); WBC, URINE AUTO 2 /HPF (0-3)
[2017-09-18 16:53] LABS: BEDSIDE GLUCOSE 272 MG/DL (83-110)
[2017-09-18] MEDS: HumaLOG INSULIN (NovoLOG) PER UNIT SC ×2 (17:48→21:00)
[2017-09-18] MEDS: **NOTE PATIENT COMMENT** MISC XX (21:00)
[2017-09-18] MEDS: TAMSULOSIN 0.4 MG CAP PO (21:51)
[2017-09-18 22:11] LABS: BEDSIDE GLUCOSE 171 MG/DL (83-110)
[2017-09-19 06:26] LABS: BASO # 0.1 10^3/uL (0.0-0.2); BASO % 0.2 % (0.0-1.0); HEMATOCRIT 28.5 % (42.0-52.0); HEMOGLOBIN 9.1 g/dl (13.5-17.5); IMMATURE GRANULOCYTE % 0.9 % (0-3.0); LYMPH % 9.6 % (24.0-44.0); MEAN CORPUSCULAR HEMOGLOBIN 25.3 pg (27.0-33.0); MEAN CORPUSCULAR HGB CONC 31.9 g/dl (32.0-36.5); MEAN CORPUSCULAR VOLUME 79.2 fl (80.0-96.0); MONO # 1.6 10^3/uL (0.0-0.8); MONO % 7.7 % (0.0-5.0); NEUTROPHILS # 17.1 10^3/uL (1.8-7.7); NEUTROPHILS % 81.6 % (36.0-66.0); PLATELET COUNT, AUTOMATED 517 10^3/uL (150-450); RED CELL DISTRIBUTION WIDTH 14.4 % (11.5-14.5)
[2017-09-19] MEDS: ACETAMINOPHEN TAB 650MG DOSE (2X325MG) PO ×2 (06:28→17:33)
[2017-09-19 06:51] LABS: ALBUMIN 2.3 GM/DL (3.2-5.2); ALBUMIN/GLOBULIN RATIO 0.42 (1.00-1.93); ALKALINE PHOSPHATASE 121 U/L (45-117); ALT/SGPT 31 U/L (12-78); ANION GAP 9 MEQ/L (8-16); AST/SGOT 19 U/L (7-37); BILIRUBIN,TOTAL 0.4 MG/DL (0.2-1.0); BLOOD UREA NITROGEN 24 MG/DL (7-18); CARBON DIOXIDE LEVEL 26 MEQ/L (21-32); CHLORIDE LEVEL 103 MEQ/L (98-107); CREATININE FOR GFR 0.94 MG/DL (0.70-1.30); GLOMERULAR FILTRATION RATE > 60.0 (>42); GLUCOSE, FASTING 155 MG/DL (70-100); SODIUM LEVEL 138 MEQ/L (136-145); TOTAL PROTEIN 7.8 GM/DL (6.4-8.2)
[2017-09-19] MEDS ORDERED: ISOVUE-370 76% 100ML VIAL (Q9967) As Ordered (07:40)
[2017-09-19] MEDS: ASPIRIN 81 MG CHEW TABLET PO (09:03)
[2017-09-19] MEDS: MIDODRINE 2.5 MG TAB PO ×3 (09:03→17:34)
[2017-09-19] MEDS: ATORVASTATIN 20 MG TAB PO (09:03)
[2017-09-19] MEDS: MULTIVITAMINS/MINERALS THERAP 1 TAB PO (09:03)
[2017-09-19] MEDS: ENOXAPARIN 40 MG/0.4 ML SYRINGE (J1650) SC (09:03)
[2017-09-19] MEDS: FOLIC ACID 1 MG TAB PO (09:03)
[2017-09-19] MEDS: LEVEMIR (INSULIN DETEMIR) 1 UNITS/0.01ML SC ×2 (09:03→20:55)
[2017-09-19] MEDS: HumaLOG INSULIN (NovoLOG) PER UNIT SC ×4 (09:03→20:54)
[2017-09-19] MEDS: NS 1,000 ML IV ×2 (09:04→20:56)
[2017-09-19] MEDS: PIPERACILLIN/TAZOBACTAM SOD 3.375 GM in APPROPRIATE DILUENT 1 EA IV ×2 (09:04→17:00)
[2017-09-19] MEDS: EUCERIN 120GM CREAM TOP ×2 (09:04→20:55)
[2017-09-19 12:56] LABS: BEDSIDE GLUCOSE 239 MG/DL (83-110)
[2017-09-19] MEDS: MEROPENEM INJ 1 GM in APPROPRIATE DILUENT 1 EA IV (17:33)
[2017-09-19] MEDS: diphenhydrAMINE INJ 50MG/ML VIAL (J1200) IV (17:34)
[2017-09-19 17:43] LABS: BEDSIDE GLUCOSE 229 MG/DL (83-110)
[2017-09-19] MEDS ORDERED: PILL CRUSHER/CUTTER 1 EACH XX (17:45)
[2017-09-19 20:20] LABS: BEDSIDE GLUCOSE 296 MG/DL (83-110)
[2017-09-19] MEDS: **NOTE PATIENT COMMENT** MISC XX (20:55)
[2017-09-19] MEDS: TAMSULOSIN 0.4 MG CAP PO (20:56)
[2017-09-19] MEDS: LIDOCAINE 5% (LIDODERM) PATCH TD (21:01)
[2017-09-20] MEDS: MEROPENEM INJ 1 GM in APPROPRIATE DILUENT 1 EA IV ×3 (02:39→17:24)
[2017-09-20] MEDS: ACETAMINOPHEN TAB 650MG DOSE (2X325MG) PO ×2 (03:15→20:51)
[2017-09-20 05:00] LABS: BEDSIDE GLUCOSE 226 MG/DL (83-110)
[2017-09-20 06:24] LABS: BASO % 0.2 % (0.0-1.0); EOS % 0.1 % (0.0-3.0); HEMATOCRIT 26.4 % (42.0-52.0); HEMOGLOBIN 8.3 g/dl (13.5-17.5); LYMPH # 1.7 10^3/uL (1.5-4.5); LYMPH % 9.9 % (24.0-44.0); MEAN CORPUSCULAR HEMOGLOBIN 25.4 pg (27.0-33.0); MEAN CORPUSCULAR HGB CONC 31.4 g/dl (32.0-36.5); MEAN CORPUSCULAR VOLUME 80.7 fl (80.0-96.0); MONO # 1.4 10^3/uL (0.0-0.8); MONO % 8.2 % (0.0-5.0); NEUTROPHILS # 13.5 10^3/uL (1.8-7.7); NEUTROPHILS % 80.6 % (36.0-66.0); PLATELET COUNT, AUTOMATED 438 10^3/uL (150-450); RED BLOOD COUNT 3.27 10^6/uL (4.30-6.10); RED CELL DISTRIBUTION WIDTH 14.6 % (11.5-14.5); WHITE BLOOD COUNT 16.8 10^3/uL (4.0-10.0)
[2017-09-20 06:58] LABS: ALKALINE PHOSPHATASE 142 U/L (45-117); ALT/SGPT 51 U/L (12-78); ANION GAP 8 MEQ/L (8-16); AST/SGOT 42 U/L (7-37); BILIRUBIN,TOTAL 0.2 MG/DL (0.2-1.0); BLOOD UREA NITROGEN 25 MG/DL (7-18); CALCIUM LEVEL 8.5 MG/DL (8.8-10.2); CARBON DIOXIDE LEVEL 23 MEQ/L (21-32); CHLORIDE LEVEL 108 MEQ/L (98-107); CREATININE FOR GFR 0.93 MG/DL (0.70-1.30); GLOMERULAR FILTRATION RATE > 60.0 (>42); GLUCOSE, FASTING 190 MG/DL (70-100); SODIUM LEVEL 139 MEQ/L (136-145)
[2017-09-20] MEDS: **NOTE PATIENT COMMENT** MISC XX ×2 (09:00→20:53)
[2017-09-20] MEDS: LEVEMIR (INSULIN DETEMIR) 1 UNITS/0.01ML SC ×2 (09:00→20:52)
[2017-09-20] MEDS: HumaLOG INSULIN (NovoLOG) PER UNIT SC ×4 (09:09→20:52)
[2017-09-20] MEDS: MIDODRINE 2.5 MG TAB PO ×3 (09:11→17:23)
[2017-09-20] MEDS: NS 1,000 ML IV ×2 (09:11→20:52)
[2017-09-20] MEDS: ENOXAPARIN 40 MG/0.4 ML SYRINGE (J1650) SC (09:11)
[2017-09-20] MEDS: FOLIC ACID 1 MG TAB PO (09:12)
[2017-09-20] MEDS: ASPIRIN 81 MG CHEW TABLET PO (09:12)
[2017-09-20] MEDS: MULTIVITAMINS/MINERALS THERAP 1 TAB PO (09:12)
[2017-09-20] MEDS: ATORVASTATIN 20 MG TAB PO (09:12)
[2017-09-20] MEDS: EUCERIN 120GM CREAM TOP ×2 (09:13→20:53)
[2017-09-20 11:57] LABS: BEDSIDE GLUCOSE 199 MG/DL (83-110)
[2017-09-20 17:00] LABS: BEDSIDE GLUCOSE 163 MG/DL (83-110)
[2017-09-20 20:28] LABS: BEDSIDE GLUCOSE 251 MG/DL (83-110)
[2017-09-20] MEDS: TAMSULOSIN 0.4 MG CAP PO (20:51)
[2017-09-20] MEDS: LIDOCAINE 5% (LIDODERM) PATCH TD (20:51)
[2017-09-21] MEDS: MEROPENEM INJ 1 GM in APPROPRIATE DILUENT 1 EA IV ×3 (01:22→17:17)
[2017-09-21 05:46] LABS: BASO % 0.2 % (0.0-1.0); EOS # 0.1 10^3/uL (0.0-0.50); EOS % 0.3 % (0.0-3.0); HEMATOCRIT 25.7 % (42.0-52.0); HEMOGLOBIN 8.1 g/dl (13.5-17.5); LYMPH # 2.3 10^3/uL (1.5-4.5); LYMPH % 15.3 % (24.0-44.0); MEAN CORPUSCULAR HEMOGLOBIN 25.1 pg (27.0-33.0); MEAN CORPUSCULAR HGB CONC 31.5 g/dl (32.0-36.5); MEAN CORPUSCULAR VOLUME 79.6 fl (80.0-96.0); MONO # 1.4 10^3/uL (0.0-0.8); MONO % 8.9 % (0.0-5.0); NEUTROPHILS # 11.3 10^3/uL (1.8-7.7); NEUTROPHILS % 74.3 % (36.0-66.0); PLATELET COUNT, AUTOMATED 443 10^3/uL (150-450); RED BLOOD COUNT 3.23 10^6/uL (4.30-6.10); RED CELL DISTRIBUTION WIDTH 14.6 % (11.5-14.5); WHITE BLOOD COUNT 15.2 10^3/uL (4.0-10.0)
[2017-09-21 06:08] LABS: ALBUMIN 1.9 GM/DL (3.2-5.2); ALBUMIN/GLOBULIN RATIO 0.38 (1.00-1.93); ALKALINE PHOSPHATASE 162 U/L (45-117); ALT/SGPT 67 U/L (12-78); ANION GAP 6 MEQ/L (8-16); AST/SGOT 52 U/L (7-37); BILIRUBIN,TOTAL 0.2 MG/DL (0.2-1.0); BLOOD UREA NITROGEN 22 MG/DL (7-18); CALCIUM LEVEL 8.2 MG/DL (8.8-10.2); CARBON DIOXIDE LEVEL 27 MEQ/L (21-32); CHLORIDE LEVEL 107 MEQ/L (98-107); CREATININE FOR GFR 0.76 MG/DL (0.70-1.30); GLOMERULAR FILTRATION RATE > 60.0 (>42); GLUCOSE, FASTING 136 MG/DL (70-100); POTASSIUM SERUM 3.7 MEQ/L (3.5-5.1); SODIUM LEVEL 140 MEQ/L (136-145); TOTAL PROTEIN 6.9 GM/DL (6.4-8.2)
[2017-09-21] MEDS: ACETAMINOPHEN TAB 650MG DOSE (2X325MG) PO (06:37)
[2017-09-21] MEDS: HumaLOG INSULIN (NovoLOG) PER UNIT SC ×4 (08:34→20:49)
[2017-09-21] MEDS: FOLIC ACID 1 MG TAB PO (08:35)
[2017-09-21] MEDS: ENOXAPARIN 40 MG/0.4 ML SYRINGE (J1650) SC (08:35)
[2017-09-21] MEDS: ATORVASTATIN 20 MG TAB PO (08:35)
[2017-09-21] MEDS: MULTIVITAMINS/MINERALS THERAP 1 TAB PO (08:35)
[2017-09-21] MEDS: MIDODRINE 2.5 MG TAB PO ×3 (08:35→17:16)
[2017-09-21] MEDS: LEVEMIR (INSULIN DETEMIR) 1 UNITS/0.01ML SC ×2 (08:35→21:18)
[2017-09-21] MEDS: ASPIRIN 81 MG CHEW TABLET PO (08:35)
[2017-09-21] MEDS: NS 1,000 ML IV ×2 (08:36→21:15)
[2017-09-21] MEDS: **NOTE PATIENT COMMENT** MISC XX ×2 (08:36→21:00)
[2017-09-21] MEDS: EUCERIN 120GM CREAM TOP ×2 (08:37→21:00)
[2017-09-21 12:05] LABS: BEDSIDE GLUCOSE 193 MG/DL (83-110)
[2017-09-21] MEDS: PERCOCET 5MG/325MG TAB PO ×2 (14:38→22:48)
[2017-09-21 16:51] LABS: BEDSIDE GLUCOSE 195 MG/DL (83-110)
[2017-09-21 20:54] LABS: BEDSIDE GLUCOSE 208 MG/DL (83-110)
[2017-09-21] MEDS: TAMSULOSIN 0.4 MG CAP PO (21:14)
[2017-09-22] MEDS: MEROPENEM INJ 1 GM in APPROPRIATE DILUENT 1 EA IV ×3 (01:06→18:45)
[2017-09-22 06:38] LABS: BASO # 0.1 10^3/uL (0.0-0.2); BASO % 0.4 % (0.0-1.0); EOS # 0.1 10^3/uL (0.0-0.50); EOS % 0.7 % (0.0-3.0); HEMATOCRIT 27.5 % (42.0-52.0); HEMOGLOBIN 8.6 g/dl (13.5-17.5); IMMATURE GRANULOCYTE % 1.7 % (0-3.0); LYMPH # 1.9 10^3/uL (1.5-4.5); LYMPH % 12.6 % (24.0-44.0); MEAN CORPUSCULAR HEMOGLOBIN 25.1 pg (27.0-33.0); MEAN CORPUSCULAR HGB CONC 31.3 g/dl (32.0-36.5); MEAN CORPUSCULAR VOLUME 80.4 fl (80.0-96.0); MONO # 1.3 10^3/uL (0.0-0.8); MONO % 8.4 % (0.0-5.0); NEUTROPHILS # 11.4 10^3/uL (1.8-7.7); NEUTROPHILS % 76.2 % (36.0-66.0); PLATELET COUNT, AUTOMATED 507 10^3/uL (150-450); RED BLOOD COUNT 3.42 10^6/uL (4.30-6.10); RED CELL DISTRIBUTION WIDTH 14.7 % (11.5-14.5); WHITE BLOOD COUNT 14.9 10^3/uL (4.0-10.0)
[2017-09-22 07:04] LABS: ALBUMIN 1.9 GM/DL (3.2-5.2); ALBUMIN/GLOBULIN RATIO 0.37 (1.00-1.93); ALKALINE PHOSPHATASE 162 U/L (45-117); ALT/SGPT 84 U/L (12-78); ANION GAP 6 MEQ/L (8-16); AST/SGOT 61 U/L (7-37); BILIRUBIN,TOTAL 0.3 MG/DL (0.2-1.0); BLOOD UREA NITROGEN 20 MG/DL (7-18); CALCIUM LEVEL 8.6 MG/DL (8.8-10.2); CARBON DIOXIDE LEVEL 27 MEQ/L (21-32); CHLORIDE LEVEL 106 MEQ/L (98-107); CREATININE FOR GFR 0.72 MG/DL (0.70-1.30); GLOMERULAR FILTRATION RATE > 60.0 (>42); GLUCOSE, FASTING 109 MG/DL (70-100); MAGNESIUM LEVEL 2.1 MG/DL (1.8-2.4); POTASSIUM SERUM 3.8 MEQ/L (3.5-5.1); SODIUM LEVEL 139 MEQ/L (136-145); TOTAL PROTEIN 7.1 GM/DL (6.4-8.2)
[2017-09-22] MEDS: LEVEMIR (INSULIN DETEMIR) 1 UNITS/0.01ML SC ×2 (09:04→20:20)
[2017-09-22] MEDS: HumaLOG INSULIN (NovoLOG) PER UNIT SC ×4 (09:04→21:37)
[2017-09-22] MEDS: ATORVASTATIN 20 MG TAB PO (09:05)
[2017-09-22] MEDS: LIDOCAINE 5% (LIDODERM) PATCH TD (09:05)
[2017-09-22] MEDS: ENOXAPARIN 40 MG/0.4 ML SYRINGE (J1650) SC (09:05)
[2017-09-22] MEDS: MULTIVITAMINS/MINERALS THERAP 1 TAB PO (09:06)
[2017-09-22] MEDS: MIDODRINE 2.5 MG TAB PO ×3 (09:06→18:45)
[2017-09-22] MEDS: PERCOCET 5MG/325MG TAB PO (09:06)
[2017-09-22] MEDS: ASPIRIN 81 MG CHEW TABLET PO (09:06)
[2017-09-22] MEDS: FOLIC ACID 1 MG TAB PO (09:06)
[2017-09-22] MEDS: EUCERIN 120GM CREAM TOP ×2 (09:07→20:20)
[2017-09-22 12:00] LABS: BEDSIDE GLUCOSE 145 MG/DL (83-110)
[2017-09-22] MEDS ORDERED: PROPOFOL 200 MG/20 ML VIAL As Ordered (17:06)
[2017-09-22] MEDS ORDERED: LIDOCAINE 2% INJ 100 MG/5 ML SDV (FOR ANES.) As Ordered (17:06)
[2017-09-22 17:35] LABS: BEDSIDE GLUCOSE 109 MG/DL (83-110)
[2017-09-22] MEDS ORDERED: ONDANSETRON 4MG/2ML VIAL (J2405) IV (17:45)
[2017-09-22] MEDS: LR 1,000 ML IV (17:45)
[2017-09-22] MEDS: ACETAMINOPHEN TAB 650MG DOSE (2X325MG) PO (18:45)
[2017-09-22] MEDS: FINASTERIDE 5 MG TAB PO (20:18)
[2017-09-22] MEDS: IBUPROFEN 800 MG TAB PO (20:18)
[2017-09-22] MEDS: TAMSULOSIN 0.4 MG CAP PO (20:19)
[2017-09-22] MEDS: **NOTE PATIENT COMMENT** MISC XX ×2 (20:20→20:46)
[2017-09-22 21:30] LABS: BEDSIDE GLUCOSE 122 MG/DL (83-110)
[2017-09-22] MEDS ORDERED: CEFAZOLIN SOD 2 GM in APPROPRIATE DILUENT 1 EA IV (22:00)
[2017-09-23 06:17] LABS: BASO # 0.1 10^3/uL (0.0-0.2); BASO % 0.4 % (0.0-1.0); EOS # 0.3 10^3/uL (0.0-0.50); EOS % 1.8 % (0.0-3.0); HEMOGLOBIN 8.2 g/dl (13.5-17.5); IMMATURE GRANULOCYTE % 2.3 % (0-3.0); LYMPH # 2.6 10^3/uL (1.5-4.5); LYMPH % 18.2 % (24.0-44.0); MEAN CORPUSCULAR HEMOGLOBIN 24.8 pg (27.0-33.0); MEAN CORPUSCULAR HGB CONC 31.5 g/dl (32.0-36.5); MEAN CORPUSCULAR VOLUME 78.8 fl (80.0-96.0); MONO # 1.1 10^3/uL (0.0-0.8); MONO % 7.9 % (0.0-5.0); NEUTROPHILS # 9.7 10^3/uL (1.8-7.7); NEUTROPHILS % 69.4 % (36.0-66.0); PLATELET COUNT, AUTOMATED 473 10^3/uL (150-450); RED CELL DISTRIBUTION WIDTH 14.7 % (11.5-14.5)
[2017-09-23 06:36] LABS: ALBUMIN 1.7 GM/DL (3.2-5.2); ALBUMIN/GLOBULIN RATIO 0.34 (1.00-1.93); ALKALINE PHOSPHATASE 145 U/L (45-117); ALT/SGPT 54 U/L (12-78); ANION GAP 7 MEQ/L (8-16); AST/SGOT 37 U/L (7-37); BILIRUBIN,TOTAL 0.3 MG/DL (0.2-1.0); BLOOD UREA NITROGEN 20 MG/DL (7-18); CALCIUM LEVEL 8.7 MG/DL (8.8-10.2); CARBON DIOXIDE LEVEL 27 MEQ/L (21-32); CHLORIDE LEVEL 106 MEQ/L (98-107); CREATININE FOR GFR 0.75 MG/DL (0.70-1.30); GLOMERULAR FILTRATION RATE > 60.0 (>42); GLUCOSE, FASTING 83 MG/DL (70-100); MAGNESIUM LEVEL 2.1 MG/DL (1.8-2.4); SODIUM LEVEL 140 MEQ/L (136-145); TOTAL PROTEIN 6.7 GM/DL (6.4-8.2)
[2017-09-23] MEDS: HumaLOG INSULIN (NovoLOG) PER UNIT SC ×4 (07:30→21:25)
[2017-09-23] MEDS: ASPIRIN 81 MG CHEW TABLET PO (08:45)
[2017-09-23] MEDS: ATORVASTATIN 20 MG TAB PO (08:45)
[2017-09-23] MEDS: FOLIC ACID 1 MG TAB PO (08:45)
[2017-09-23] MEDS: MIDODRINE 2.5 MG TAB PO ×3 (08:45→14:46)
[2017-09-23] MEDS: MULTIVITAMINS/MINERALS THERAP 1 TAB PO (08:45)
[2017-09-23] MEDS: LIDOCAINE 5% (LIDODERM) PATCH TD (08:46)
[2017-09-23] MEDS: EUCERIN 120GM CREAM TOP ×2 (08:46→21:00)
[2017-09-23] MEDS: ENOXAPARIN 40 MG/0.4 ML SYRINGE (J1650) SC (08:46)
[2017-09-23] MEDS: LEVEMIR (INSULIN DETEMIR) 1 UNITS/0.01ML SC ×2 (08:47→21:26)
[2017-09-23 11:54] LABS: BEDSIDE GLUCOSE 157 MG/DL (83-110)
[2017-09-23 17:12] LABS: BEDSIDE GLUCOSE 192 MG/DL (83-110)
[2017-09-23] MEDS: ACETAMINOPHEN TAB 650MG DOSE (2X325MG) PO (19:04)
[2017-09-23 20:53] LABS: BEDSIDE GLUCOSE 235 MG/DL (83-110)
[2017-09-23] MEDS: **NOTE PATIENT COMMENT** MISC XX ×2 (21:00→21:27)
[2017-09-23] MEDS: FINASTERIDE 5 MG TAB PO (21:25)
[2017-09-23] MEDS: TAMSULOSIN 0.4 MG CAP PO (21:25)
[2017-09-23] MEDS: PERCOCET 5MG/325MG TAB PO (23:43)
[2017-09-24 06:27] LABS: BASO # 0.1 10^3/uL (0.0-0.2); BASO % 0.3 % (0.0-1.0); EOS # 0.2 10^3/uL (0.0-0.50); EOS % 1.5 % (0.0-3.0); HEMATOCRIT 26.9 % (42.0-52.0); HEMOGLOBIN 8.6 g/dl (13.5-17.5); IMMATURE GRANULOCYTE % 2.4 % (0-3.0); LYMPH # 2.6 10^3/uL (1.5-4.5); LYMPH % 17.2 % (24.0-44.0); MEAN CORPUSCULAR VOLUME 78.2 fl (80.0-96.0); MONO # 1.3 10^3/uL (0.0-0.8); MONO % 8.9 % (0.0-5.0); NEUTROPHILS # 10.4 10^3/uL (1.8-7.7); NEUTROPHILS % 69.7 % (36.0-66.0); PLATELET COUNT, AUTOMATED 516 10^3/uL (150-450); RED BLOOD COUNT 3.44 10^6/uL (4.30-6.10); RED CELL DISTRIBUTION WIDTH 14.6 % (11.5-14.5); WHITE BLOOD COUNT 14.9 10^3/uL (4.0-10.0)
[2017-09-24 06:47] LABS: ALBUMIN 1.9 GM/DL (3.2-5.2); ALBUMIN/GLOBULIN RATIO 0.39 (1.00-1.93); ALKALINE PHOSPHATASE 151 U/L (45-117); ALT/SGPT 49 U/L (12-78); ANION GAP 7 MEQ/L (8-16); AST/SGOT 42 U/L (7-37); BILIRUBIN,TOTAL 0.3 MG/DL (0.2-1.0); BLOOD UREA NITROGEN 19 MG/DL (7-18); CALCIUM LEVEL 8.4 MG/DL (8.8-10.2); CARBON DIOXIDE LEVEL 28 MEQ/L (21-32); CHLORIDE LEVEL 101 MEQ/L (98-107); CREATININE FOR GFR 0.76 MG/DL (0.70-1.30); GLOMERULAR FILTRATION RATE > 60.0 (>42); GLUCOSE, FASTING 92 MG/DL (70-100); POTASSIUM SERUM 3.7 MEQ/L (3.5-5.1); SODIUM LEVEL 136 MEQ/L (136-145); TOTAL PROTEIN 6.8 GM/DL (6.4-8.2)
[2017-09-24] MEDS: HumaLOG INSULIN (NovoLOG) PER UNIT SC ×4 (07:30→21:46)
[2017-09-24] MEDS: LEVEMIR (INSULIN DETEMIR) 1 UNITS/0.01ML SC ×2 (10:04→21:46)
[2017-09-24] MEDS: LIDOCAINE 5% (LIDODERM) PATCH TD (10:04)
[2017-09-24] MEDS: ASPIRIN 81 MG CHEW TABLET PO (10:05)
[2017-09-24] MEDS: ATORVASTATIN 20 MG TAB PO (10:05)
[2017-09-24] MEDS: MIDODRINE 2.5 MG TAB PO ×3 (10:05→17:22)
[2017-09-24] MEDS: MULTIVITAMINS/MINERALS THERAP 1 TAB PO (10:05)
[2017-09-24] MEDS: FOLIC ACID 1 MG TAB PO (10:05)
[2017-09-24] MEDS: EUCERIN 120GM CREAM TOP ×2 (10:06→21:48)
[2017-09-24] MEDS: ENOXAPARIN 40 MG/0.4 ML SYRINGE (J1650) SC (10:06)
[2017-09-24] MEDS ORDERED: MIRALAX *UNIT DOSE* 17GM PACKET PO (10:30)
[2017-09-24] MEDS ORDERED: SENOKOT S TAB PO (10:30)
[2017-09-24 12:03] LABS: BEDSIDE GLUCOSE 158 MG/DL (83-110)
[2017-09-24 17:22] LABS: BEDSIDE GLUCOSE 247 MG/DL (83-110)
[2017-09-24 21:03] LABS: BEDSIDE GLUCOSE 180 MG/DL (83-110)
[2017-09-24] MEDS: FINASTERIDE 5 MG TAB PO (21:45)
[2017-09-24] MEDS: TAMSULOSIN 0.4 MG CAP PO (21:48)
[2017-09-24] MEDS: **NOTE PATIENT COMMENT** MISC XX ×2 (21:48→21:49)
[2017-09-25 06:44] LABS: BASO % 0.3 % (0.0-1.0); EOS # 0.2 10^3/uL (0.0-0.50); EOS % 1.7 % (0.0-3.0); HEMATOCRIT 26.5 % (42.0-52.0); HEMOGLOBIN 8.4 g/dl (13.5-17.5); IMMATURE GRANULOCYTE % 2.2 % (0-3.0); LYMPH # 2.4 10^3/uL (1.5-4.5); LYMPH % 17.1 % (24.0-44.0); MEAN CORPUSCULAR HEMOGLOBIN 24.4 pg (27.0-33.0); MEAN CORPUSCULAR HGB CONC 31.7 g/dl (32.0-36.5); MONO # 1.2 10^3/uL (0.0-0.8); MONO % 8.5 % (0.0-5.0); NEUTROPHILS # 9.7 10^3/uL (1.8-7.7); NEUTROPHILS % 70.2 % (36.0-66.0); PLATELET COUNT, AUTOMATED 519 10^3/uL (150-450); RED BLOOD COUNT 3.44 10^6/uL (4.30-6.10); RED CELL DISTRIBUTION WIDTH 14.8 % (11.5-14.5); WHITE BLOOD COUNT 13.8 10^3/uL (4.0-10.0)
[2017-09-25 07:13] LABS: ALBUMIN 1.9 GM/DL (3.2-5.2); ALBUMIN/GLOBULIN RATIO 0.39 (1.00-1.93); ALKALINE PHOSPHATASE 144 U/L (45-117); ALT/SGPT 50 U/L (12-78); ANION GAP 8 MEQ/L (8-16); AST/SGOT 49 U/L (7-37); BILIRUBIN,TOTAL 0.3 MG/DL (0.2-1.0); BLOOD UREA NITROGEN 18 MG/DL (7-18); CALCIUM LEVEL 8.4 MG/DL (8.8-10.2); CARBON DIOXIDE LEVEL 26 MEQ/L (21-32); CHLORIDE LEVEL 99 MEQ/L (98-107); CREATININE FOR GFR 0.74 MG/DL (0.70-1.30); GLOMERULAR FILTRATION RATE > 60.0 (>42); GLUCOSE, FASTING 116 MG/DL (70-100); POTASSIUM SERUM 3.9 MEQ/L (3.5-5.1); SODIUM LEVEL 133 MEQ/L (136-145); TOTAL PROTEIN 6.8 GM/DL (6.4-8.2)
[2017-09-25] MEDS: LEVEMIR (INSULIN DETEMIR) 1 UNITS/0.01ML SC ×2 (08:20→21:05)
[2017-09-25] MEDS: MIDODRINE 2.5 MG TAB PO ×3 (08:21→17:07)
[2017-09-25] MEDS: ATORVASTATIN 20 MG TAB PO (08:21)
[2017-09-25] MEDS: FOLIC ACID 1 MG TAB PO (08:21)
[2017-09-25] MEDS: ASPIRIN 81 MG CHEW TABLET PO (08:21)
[2017-09-25] MEDS: HumaLOG INSULIN (NovoLOG) PER UNIT SC ×4 (08:21→21:00)
[2017-09-25] MEDS: MULTIVITAMINS/MINERALS THERAP 1 TAB PO (08:22)
[2017-09-25] MEDS: EUCERIN 120GM CREAM TOP ×2 (08:22→21:00)
[2017-09-25] MEDS: LIDOCAINE 5% (LIDODERM) PATCH TD (08:22)
[2017-09-25] MEDS: ENOXAPARIN 40 MG/0.4 ML SYRINGE (J1650) SC (08:22)
[2017-09-25 11:35] LABS: BEDSIDE GLUCOSE 165 MG/DL (83-110)
[2017-09-25 16:55] LABS: BEDSIDE GLUCOSE 118 MG/DL (83-110)
[2017-09-25 20:59] LABS: BEDSIDE GLUCOSE 133 MG/DL (83-110)
[2017-09-25] MEDS: **NOTE PATIENT COMMENT** MISC XX ×2 (21:00)
[2017-09-25] MEDS: TAMSULOSIN 0.4 MG CAP PO (21:05)
[2017-09-25] MEDS: FINASTERIDE 5 MG TAB PO (21:05)
[2017-09-25] MEDS: PERCOCET 5MG/325MG TAB PO (21:06)
[2017-09-26 06:32] LABS: BEDSIDE GLUCOSE 84 MG/DL (83-110)
[2017-09-26] MEDS: HumaLOG INSULIN (NovoLOG) PER UNIT SC ×4 (07:30→21:53)
[2017-09-26] MEDS: LEVEMIR (INSULIN DETEMIR) 1 UNITS/0.01ML SC ×2 (08:27→21:54)
[2017-09-26] MEDS: FOLIC ACID 1 MG TAB PO (08:28)
[2017-09-26] MEDS: ATORVASTATIN 20 MG TAB PO (08:28)
[2017-09-26] MEDS: ASPIRIN 81 MG CHEW TABLET PO (08:28)
[2017-09-26] MEDS: LIDOCAINE 5% (LIDODERM) PATCH TD (08:28)
[2017-09-26] MEDS: MULTIVITAMINS/MINERALS THERAP 1 TAB PO (08:28)
[2017-09-26] MEDS: MIDODRINE 2.5 MG TAB PO ×3 (08:28→18:01)
[2017-09-26] MEDS: ENOXAPARIN 40 MG/0.4 ML SYRINGE (J1650) SC (08:28)
[2017-09-26] MEDS: EUCERIN 120GM CREAM TOP ×2 (08:29→21:54)
[2017-09-26 11:54] LABS: BEDSIDE GLUCOSE 141 MG/DL (83-110)
[2017-09-26] MEDS: LACTOBACILLUS ACIDOPHILUS CAP (BACID) PO ×2 (12:38→18:00)
[2017-09-26 17:04] LABS: BEDSIDE GLUCOSE 183 MG/DL (83-110)
[2017-09-26 20:29] LABS: BEDSIDE GLUCOSE 227 MG/DL (83-110)
[2017-09-26] MEDS: FINASTERIDE 5 MG TAB PO (21:52)
[2017-09-26] MEDS: TAMSULOSIN 0.4 MG CAP PO (21:53)
[2017-09-26] MEDS: **NOTE PATIENT COMMENT** MISC XX ×2 (21:54→21:55)
[2017-09-27] MEDS: PERCOCET 5MG/325MG TAB PO (06:39)
[2017-09-27 07:16] LABS: BEDSIDE GLUCOSE 127 MG/DL (83-110)
[2017-09-27] MEDS: HumaLOG INSULIN (NovoLOG) PER UNIT SC ×4 (08:40→20:36)
[2017-09-27] MEDS: LEVEMIR (INSULIN DETEMIR) 1 UNITS/0.01ML SC ×2 (08:41→21:14)
[2017-09-27] MEDS: MULTIVITAMINS/MINERALS THERAP 1 TAB PO (08:41)
[2017-09-27] MEDS: ASPIRIN 81 MG CHEW TABLET PO (08:41)
[2017-09-27] MEDS: LACTOBACILLUS ACIDOPHILUS CAP (BACID) PO ×2 (08:41→17:59)
[2017-09-27] MEDS: FOLIC ACID 1 MG TAB PO (08:41)
[2017-09-27] MEDS: ENOXAPARIN 40 MG/0.4 ML SYRINGE (J1650) SC (08:42)
[2017-09-27] MEDS: MIDODRINE 2.5 MG TAB PO ×3 (08:42→16:09)
[2017-09-27] MEDS: ATORVASTATIN 20 MG TAB PO (08:42)
[2017-09-27] MEDS: EUCERIN 120GM CREAM TOP ×2 (08:43→21:15)
[2017-09-27] MEDS: LIDOCAINE 5% (LIDODERM) PATCH TD (08:43)
[2017-09-27 11:48] LABS: BEDSIDE GLUCOSE 72 MG/DL (83-110)
[2017-09-27 16:44] LABS: BEDSIDE GLUCOSE 133 MG/DL (83-110)
[2017-09-27 20:32] LABS: BEDSIDE GLUCOSE 212 MG/DL (83-110)
[2017-09-27] MEDS: **NOTE PATIENT COMMENT** MISC XX ×2 (21:14→21:15)
[2017-09-27] MEDS: TAMSULOSIN 0.4 MG CAP PO (21:14)
[2017-09-27] MEDS: FINASTERIDE 5 MG TAB PO (21:14)
[2017-09-28 06:41] LABS: BEDSIDE GLUCOSE 162 MG/DL (83-110)
[2017-09-28] MEDS: MULTIVITAMINS/MINERALS THERAP 1 TAB PO (08:55)
[2017-09-28] MEDS: LACTOBACILLUS ACIDOPHILUS CAP (BACID) PO ×2 (08:55→17:29)
[2017-09-28] MEDS: MIDODRINE 2.5 MG TAB PO ×3 (08:55→17:29)
[2017-09-28] MEDS: ASPIRIN 81 MG CHEW TABLET PO (08:56)
[2017-09-28] MEDS: ATORVASTATIN 20 MG TAB PO (08:56)
[2017-09-28] MEDS: FOLIC ACID 1 MG TAB PO (08:56)
[2017-09-28] MEDS: HumaLOG INSULIN (NovoLOG) PER UNIT SC ×4 (08:57→21:33)
[2017-09-28] MEDS: LEVEMIR (INSULIN DETEMIR) 1 UNITS/0.01ML SC ×2 (08:57→21:34)
[2017-09-28] MEDS: LIDOCAINE 5% (LIDODERM) PATCH TD (08:58)
[2017-09-28] MEDS: EUCERIN 120GM CREAM TOP ×2 (08:58→21:38)
[2017-09-28 09:18] LABS: HEMATOCRIT 26.4 % (42.0-52.0); HEMOGLOBIN 8.3 g/dl (13.5-17.5); MEAN CORPUSCULAR HEMOGLOBIN 24.5 pg (27.0-33.0); MEAN CORPUSCULAR HGB CONC 31.4 g/dl (32.0-36.5); MEAN CORPUSCULAR VOLUME 77.9 fl (80.0-96.0); PLATELET COUNT, AUTOMATED 544 10^3/uL (150-450); RED BLOOD COUNT 3.39 10^6/uL (4.30-6.10); WHITE BLOOD COUNT 13.8 10^3/uL (4.0-10.0)
[2017-09-28 09:37] LABS: ANION GAP 6 MEQ/L (8-16); BLOOD UREA NITROGEN 16 MG/DL (7-18); CALCIUM LEVEL 8.2 MG/DL (8.8-10.2); CARBON DIOXIDE LEVEL 29 MEQ/L (21-32); CHLORIDE LEVEL 101 MEQ/L (98-107); GLOMERULAR FILTRATION RATE > 60.0 (>42); GLUCOSE, FASTING 137 MG/DL (70-100); POTASSIUM SERUM 4.1 MEQ/L (3.5-5.1); SODIUM LEVEL 136 MEQ/L (136-145)
[2017-09-28 11:57] LABS: BEDSIDE GLUCOSE 180 MG/DL (83-110)
[2017-09-28 16:58] LABS: BEDSIDE GLUCOSE 140 MG/DL (83-110)
[2017-09-28 20:39] LABS: BEDSIDE GLUCOSE 311 MG/DL (83-110)
[2017-09-28] MEDS: **NOTE PATIENT COMMENT** MISC XX ×2 (21:00)
[2017-09-28] MEDS: FINASTERIDE 5 MG TAB PO (21:34)
[2017-09-28] MEDS: TAMSULOSIN 0.4 MG CAP PO (21:34)
[2017-09-29 05:56] LABS: HEMATOCRIT 25.1 % (42.0-52.0); MEAN CORPUSCULAR HEMOGLOBIN 24.8 pg (27.0-33.0); MEAN CORPUSCULAR HGB CONC 31.9 g/dl (32.0-36.5); PLATELET COUNT, AUTOMATED 478 10^3/uL (150-450); RED BLOOD COUNT 3.22 10^6/uL (4.30-6.10); RED CELL DISTRIBUTION WIDTH 15.1 % (11.5-14.5); WHITE BLOOD COUNT 10.5 10^3/uL (4.0-10.0)
[2017-09-29 06:33] LABS: ALBUMIN 1.9 GM/DL (3.2-5.2); ALKALINE PHOSPHATASE 114 U/L (45-117); ALT/SGPT 26 U/L (12-78); ANION GAP 7 MEQ/L (8-16); AST/SGOT 29 U/L (7-37); BILIRUBIN,TOTAL 0.2 MG/DL (0.2-1.0); BLOOD UREA NITROGEN 15 MG/DL (7-18); CALCIUM LEVEL 8.3 MG/DL (8.8-10.2); CARBON DIOXIDE LEVEL 28 MEQ/L (21-32); CHLORIDE LEVEL 104 MEQ/L (98-107); CREATININE FOR GFR 0.61 MG/DL (0.70-1.30); GLOMERULAR FILTRATION RATE > 60.0 (>42); GLUCOSE, FASTING 89 MG/DL (70-100); POTASSIUM SERUM 3.6 MEQ/L (3.5-5.1); SODIUM LEVEL 139 MEQ/L (136-145); TOTAL PROTEIN 6.6 GM/DL (6.4-8.2)
[2017-09-29] MEDS: HumaLOG INSULIN (NovoLOG) PER UNIT SC ×4 (07:25→21:00)
[2017-09-29] MEDS: MULTIVITAMINS/MINERALS THERAP 1 TAB PO (08:37)
[2017-09-29] MEDS: LACTOBACILLUS ACIDOPHILUS CAP (BACID) PO ×2 (08:37→19:17)
[2017-09-29] MEDS: FOLIC ACID 1 MG TAB PO (08:37)
[2017-09-29] MEDS: LIDOCAINE 5% (LIDODERM) PATCH TD (08:37)
[2017-09-29] MEDS: ATORVASTATIN 20 MG TAB PO (08:37)
[2017-09-29] MEDS: LEVEMIR (INSULIN DETEMIR) 1 UNITS/0.01ML SC ×2 (08:38→21:17)
[2017-09-29] MEDS: ENOXAPARIN 40 MG/0.4 ML SYRINGE (J1650) SC (08:38)
[2017-09-29] MEDS: MIDODRINE 2.5 MG TAB PO ×3 (08:41→16:00)
[2017-09-29] MEDS: EUCERIN 120GM CREAM TOP ×2 (08:41→21:18)
[2017-09-29] MEDS: ASPIRIN 81 MG CHEW TABLET PO (09:09)
[2017-09-29 09:15] LABS: C REACTIVE PROTEIN QUANTITATIV 6.19 MG/DL (0.00-0.30)
[2017-09-29] MEDS ORDERED: PROPOFOL 200 MG/20 ML VIAL As Ordered (16:38)
[2017-09-29] MEDS: GENTAMICIN SULF INJ 80MG/2ML VIAL (J1580) As Ordered (17:33)
[2017-09-29] MEDS: LIDOCAINE 2% MDV 20 ML VIAL As Ordered (17:33)
[2017-09-29] MEDS: BUPIVACAINE HCL 0.5% 30 ML VIAL As Ordered (17:33)
[2017-09-29 18:28] LABS: BEDSIDE GLUCOSE 101 MG/DL (83-110)
[2017-09-29] MEDS ORDERED: fentaNYL 100 MCG/2 ML INJECTION (J3010) IV (18:45)
[2017-09-29] MEDS ORDERED: ONDANSETRON 4MG/2ML VIAL (J2405) IV (18:45)
[2017-09-29] MEDS: LR 1,000 ML IV (18:45)
[2017-09-29] MEDS: **NOTE PATIENT COMMENT** MISC XX (21:00)
[2017-09-29 21:10] LABS: BEDSIDE GLUCOSE 157 MG/DL (83-110)
[2017-09-29] MEDS: TAMSULOSIN 0.4 MG CAP PO (21:17)
[2017-09-29] MEDS: FINASTERIDE 5 MG TAB PO (21:17)
[2017-09-30 06:03] LABS: HEMOGLOBIN 7.8 g/dl (13.5-17.5); MEAN CORPUSCULAR HEMOGLOBIN 24.5 pg (27.0-33.0); MEAN CORPUSCULAR HGB CONC 31.2 g/dl (32.0-36.5); MEAN CORPUSCULAR VOLUME 78.4 fl (80.0-96.0); PLATELET COUNT, AUTOMATED 498 10^3/uL (150-450); RED BLOOD COUNT 3.19 10^6/uL (4.30-6.10); RED CELL DISTRIBUTION WIDTH 14.8 % (11.5-14.5); WHITE BLOOD COUNT 10.7 10^3/uL (4.0-10.0)
[2017-09-30 06:20] LABS: ALBUMIN 1.9 GM/DL (3.2-5.2); ALBUMIN/GLOBULIN RATIO 0.41 (1.00-1.93); ALKALINE PHOSPHATASE 105 U/L (45-117); ALT/SGPT 25 U/L (12-78); ANION GAP 5 MEQ/L (8-16); AST/SGOT 26 U/L (7-37); BILIRUBIN,TOTAL 0.2 MG/DL (0.2-1.0); BLOOD UREA NITROGEN 16 MG/DL (7-18); CALCIUM LEVEL 8.5 MG/DL (8.8-10.2); CARBON DIOXIDE LEVEL 29 MEQ/L (21-32); CHLORIDE LEVEL 104 MEQ/L (98-107); CREATININE FOR GFR 0.66 MG/DL (0.70-1.30); GLOMERULAR FILTRATION RATE > 60.0 (>42); GLUCOSE, FASTING 77 MG/DL (70-100); MAGNESIUM LEVEL 2.2 MG/DL (1.8-2.4); SODIUM LEVEL 138 MEQ/L (136-145); TOTAL PROTEIN 6.5 GM/DL (6.4-8.2)
[2017-09-30] MEDS: HumaLOG INSULIN (NovoLOG) PER UNIT SC ×4 (07:30→20:15)
[2017-09-30] MEDS: LACTOBACILLUS ACIDOPHILUS CAP (BACID) PO ×2 (08:38→17:03)
[2017-09-30] MEDS: LIDOCAINE 5% (LIDODERM) PATCH TD (08:38)
[2017-09-30] MEDS: MIDODRINE 2.5 MG TAB PO ×3 (08:38→17:03)
[2017-09-30] MEDS: FOLIC ACID 1 MG TAB PO (08:38)
[2017-09-30] MEDS: MULTIVITAMINS/MINERALS THERAP 1 TAB PO (08:38)
[2017-09-30] MEDS: ASPIRIN 81 MG CHEW TABLET PO (08:38)
[2017-09-30] MEDS: ENOXAPARIN 40 MG/0.4 ML SYRINGE (J1650) SC (08:39)
[2017-09-30] MEDS: LEVEMIR (INSULIN DETEMIR) 1 UNITS/0.01ML SC ×2 (08:39→20:11)
[2017-09-30] MEDS: ATORVASTATIN 20 MG TAB PO (08:39)
[2017-09-30] MEDS: EUCERIN 120GM CREAM TOP ×2 (08:40→20:11)
[2017-09-30 12:17] LABS: HEMATOCRIT 26.8 % (42.0-52.0); HEMOGLOBIN 8.3 g/dl (13.5-17.5)
[2017-09-30 15:04] LABS: BEDSIDE GLUCOSE 173 MG/DL (83-110)
[2017-09-30] MEDS: TAMSULOSIN 0.4 MG CAP PO (20:11)
[2017-09-30] MEDS: FINASTERIDE 5 MG TAB PO (20:11)
[2017-09-30] MEDS: **NOTE PATIENT COMMENT** MISC XX (20:23)
[2017-09-30 21:13] LABS: BEDSIDE GLUCOSE 237 MG/DL (83-110)
[2017-10-01] MEDS: HumaLOG INSULIN (NovoLOG) PER UNIT SC ×4 (07:30→20:31)
[2017-10-01 07:42] LABS: HEMATOCRIT 29.4 % (42.0-52.0); HEMOGLOBIN 8.7 g/dl (13.5-17.5); MEAN CORPUSCULAR HEMOGLOBIN 24.6 pg (27.0-33.0); MEAN CORPUSCULAR HGB CONC 29.6 g/dl (32.0-36.5); MEAN CORPUSCULAR VOLUME 83.3 fl (80.0-96.0); PLATELET COUNT, AUTOMATED 429 10^3/uL (150-450); RED BLOOD COUNT 3.53 10^6/uL (4.30-6.10); RED CELL DISTRIBUTION WIDTH 15.3 % (11.5-14.5); WHITE BLOOD COUNT 10.3 10^3/uL (4.0-10.0)
[2017-10-01 07:55] LABS: ALBUMIN 2.1 GM/DL (3.2-5.2); ALBUMIN/GLOBULIN RATIO 0.45 (1.00-1.93); ALKALINE PHOSPHATASE 109 U/L (45-117); ALT/SGPT 32 U/L (12-78); ANION GAP 6 MEQ/L (8-16); AST/SGOT 38 U/L (7-37); BILIRUBIN,TOTAL 0.2 MG/DL (0.2-1.0); BLOOD UREA NITROGEN 13 MG/DL (7-18); CALCIUM LEVEL 8.6 MG/DL (8.8-10.2); CARBON DIOXIDE LEVEL 28 MEQ/L (21-32); CHLORIDE LEVEL 104 MEQ/L (98-107); CREATININE FOR GFR 0.61 MG/DL (0.70-1.30); GLOMERULAR FILTRATION RATE > 60.0 (>42); GLUCOSE, FASTING 98 MG/DL (70-100); POTASSIUM SERUM 4.1 MEQ/L (3.5-5.1); SODIUM LEVEL 138 MEQ/L (136-145); TOTAL PROTEIN 6.8 GM/DL (6.4-8.2)
[2017-10-01 08:45] LABS: BEDSIDE GLUCOSE 138 MG/DL (83-110)
[2017-10-01 08:46] LABS: BEDSIDE GLUCOSE 142 MG/DL (83-110)
[2017-10-01] MEDS: EUCERIN 120GM CREAM TOP ×2 (09:00→21:10)
[2017-10-01] MEDS: LIDOCAINE 5% (LIDODERM) PATCH TD (09:55)
[2017-10-01] MEDS: FOLIC ACID 1 MG TAB PO (09:56)
[2017-10-01] MEDS: MIDODRINE 2.5 MG TAB PO ×3 (09:56→17:13)
[2017-10-01] MEDS: MULTIVITAMINS/MINERALS THERAP 1 TAB PO (09:56)
[2017-10-01] MEDS: ATORVASTATIN 20 MG TAB PO (09:56)
[2017-10-01] MEDS: LACTOBACILLUS ACIDOPHILUS CAP (BACID) PO ×2 (09:56→17:13)
[2017-10-01] MEDS: ENOXAPARIN 40 MG/0.4 ML SYRINGE (J1650) SC (09:56)
[2017-10-01] MEDS: ASPIRIN 81 MG CHEW TABLET PO (09:56)
[2017-10-01] MEDS: LEVEMIR (INSULIN DETEMIR) 1 UNITS/0.01ML SC ×2 (09:57→21:10)
[2017-10-01 11:41] LABS: BEDSIDE GLUCOSE 225 MG/DL (83-110)
[2017-10-01 17:01] LABS: BEDSIDE GLUCOSE 204 MG/DL (83-110)
[2017-10-01 20:07] LABS: BEDSIDE GLUCOSE 121 MG/DL (83-110)
[2017-10-01] MEDS: **NOTE PATIENT COMMENT** MISC XX (21:10)
[2017-10-01] MEDS: TAMSULOSIN 0.4 MG CAP PO (21:10)
[2017-10-01] MEDS: FINASTERIDE 5 MG TAB PO (21:10)
[2017-10-02 06:23] LABS: HEMATOCRIT 27.4 % (42.0-52.0); HEMOGLOBIN 8.6 g/dl (13.5-17.5); MEAN CORPUSCULAR HEMOGLOBIN 24.7 pg (27.0-33.0); MEAN CORPUSCULAR HGB CONC 31.4 g/dl (32.0-36.5); MEAN CORPUSCULAR VOLUME 78.7 fl (80.0-96.0); PLATELET COUNT, AUTOMATED 496 10^3/uL (150-450); RED BLOOD COUNT 3.48 10^6/uL (4.30-6.10); RED CELL DISTRIBUTION WIDTH 15.1 % (11.5-14.5); WHITE BLOOD COUNT 10.9 10^3/uL (4.0-10.0)
[2017-10-02 06:43] LABS: ALBUMIN 2.1 GM/DL (3.2-5.2); ALBUMIN/GLOBULIN RATIO 0.42 (1.00-1.93); ALKALINE PHOSPHATASE 112 U/L (45-117); ALT/SGPT 28 U/L (12-78); ANION GAP 8 MEQ/L (8-16); AST/SGOT 39 U/L (7-37); BILIRUBIN,TOTAL 0.2 MG/DL (0.2-1.0); BLOOD UREA NITROGEN 11 MG/DL (7-18); CALCIUM LEVEL 8.5 MG/DL (8.8-10.2); CARBON DIOXIDE LEVEL 26 MEQ/L (21-32); CHLORIDE LEVEL 104 MEQ/L (98-107); CREATININE FOR GFR 0.69 MG/DL (0.70-1.30); GLOMERULAR FILTRATION RATE > 60.0 (>42); GLUCOSE, FASTING 97 MG/DL (70-100); MAGNESIUM LEVEL 1.9 MG/DL (1.8-2.4); POTASSIUM SERUM 4.2 MEQ/L (3.5-5.1); SODIUM LEVEL 138 MEQ/L (136-145); TOTAL PROTEIN 7.1 GM/DL (6.4-8.2)
[2017-10-02] MEDS: HumaLOG INSULIN (NovoLOG) PER UNIT SC ×4 (07:30→21:00)
[2017-10-02] MEDS: LIDOCAINE 5% (LIDODERM) PATCH TD (09:56)
[2017-10-02] MEDS: LEVEMIR (INSULIN DETEMIR) 1 UNITS/0.01ML SC ×2 (09:57→21:30)
[2017-10-02] MEDS: MULTIVITAMINS/MINERALS THERAP 1 TAB PO (09:57)
[2017-10-02] MEDS: ATORVASTATIN 20 MG TAB PO (09:57)
[2017-10-02] MEDS: ASPIRIN 81 MG CHEW TABLET PO (09:57)
[2017-10-02] MEDS: FOLIC ACID 1 MG TAB PO (09:58)
[2017-10-02] MEDS: ENOXAPARIN 40 MG/0.4 ML SYRINGE (J1650) SC (09:58)
[2017-10-02] MEDS: LACTOBACILLUS ACIDOPHILUS CAP (BACID) PO ×2 (09:58→17:19)
[2017-10-02] MEDS: MIDODRINE 2.5 MG TAB PO ×3 (09:58→17:20)
[2017-10-02] MEDS: EUCERIN 120GM CREAM TOP ×2 (09:59→21:31)
[2017-10-02 11:54] LABS: BEDSIDE GLUCOSE 157 MG/DL (83-110)
[2017-10-02 16:52] LABS: BEDSIDE GLUCOSE 101 MG/DL (83-110)
[2017-10-02 20:30] LABS: BEDSIDE GLUCOSE 208 MG/DL (83-110)
[2017-10-02] MEDS: **NOTE PATIENT COMMENT** MISC XX (21:00)
[2017-10-02] MEDS: FINASTERIDE 5 MG TAB PO (21:30)
[2017-10-02] MEDS: TAMSULOSIN 0.4 MG CAP PO (21:30)
[2017-10-03 06:38] LABS: HEMOGLOBIN 8.1 g/dl (13.5-17.5); MEAN CORPUSCULAR HEMOGLOBIN 24.5 pg (27.0-33.0); MEAN CORPUSCULAR HGB CONC 31.2 g/dl (32.0-36.5); MEAN CORPUSCULAR VOLUME 78.8 fl (80.0-96.0); PLATELET COUNT, AUTOMATED 451 10^3/uL (150-450); RED CELL DISTRIBUTION WIDTH 15.3 % (11.5-14.5); WHITE BLOOD COUNT 9.3 10^3/uL (4.0-10.0)
[2017-10-03 07:02] LABS: ALBUMIN 2.1 GM/DL (3.2-5.2); ALBUMIN/GLOBULIN RATIO 0.47 (1.00-1.93); ALKALINE PHOSPHATASE 100 U/L (45-117); ALT/SGPT 20 U/L (12-78); ANION GAP 6 MEQ/L (8-16); AST/SGOT 21 U/L (7-37); BILIRUBIN,TOTAL 0.2 MG/DL (0.2-1.0); BLOOD UREA NITROGEN 13 MG/DL (7-18); CALCIUM LEVEL 8.7 MG/DL (8.8-10.2); CARBON DIOXIDE LEVEL 28 MEQ/L (21-32); CHLORIDE LEVEL 104 MEQ/L (98-107); CREATININE FOR GFR 0.75 MG/DL (0.70-1.30); GLOMERULAR FILTRATION RATE > 60.0 (>42); GLUCOSE, FASTING 88 MG/DL (70-100); MAGNESIUM LEVEL 1.9 MG/DL (1.8-2.4); SODIUM LEVEL 138 MEQ/L (136-145); TOTAL PROTEIN 6.6 GM/DL (6.4-8.2)
[2017-10-03] MEDS: HumaLOG INSULIN (NovoLOG) PER UNIT SC ×4 (07:30→20:32)
[2017-10-03] MEDS: MIDODRINE 2.5 MG TAB PO ×3 (08:55→18:02)
[2017-10-03] MEDS: ATORVASTATIN 20 MG TAB PO (08:55)
[2017-10-03] MEDS: MULTIVITAMINS/MINERALS THERAP 1 TAB PO (08:55)
[2017-10-03] MEDS: LACTOBACILLUS ACIDOPHILUS CAP (BACID) PO ×2 (08:55→18:02)
[2017-10-03] MEDS: FOLIC ACID 1 MG TAB PO (08:55)
[2017-10-03] MEDS: LEVEMIR (INSULIN DETEMIR) 1 UNITS/0.01ML SC ×2 (08:56→21:19)
[2017-10-03] MEDS: LIDOCAINE 5% (LIDODERM) PATCH TD (08:56)
[2017-10-03] MEDS: ASPIRIN 81 MG CHEW TABLET PO (08:56)
[2017-10-03] MEDS: ENOXAPARIN 40 MG/0.4 ML SYRINGE (J1650) SC (08:57)
[2017-10-03] MEDS: EUCERIN 120GM CREAM TOP ×2 (08:57→21:09)
[2017-10-03 11:50] LABS: BEDSIDE GLUCOSE 127 MG/DL (83-110)
[2017-10-03 15:27] LABS: BEDSIDE GLUCOSE 129 MG/DL (83-110)
[2017-10-03] MEDS: NS 1,000 ML IV (15:30)
[2017-10-03 15:47] LABS: HEMATOCRIT 25.7 % (42.0-52.0); HEMOGLOBIN 7.9 g/dl (13.5-17.5); MEAN CORPUSCULAR HEMOGLOBIN 24.6 pg (27.0-33.0); MEAN CORPUSCULAR HGB CONC 30.7 g/dl (32.0-36.5); MEAN CORPUSCULAR VOLUME 80.1 fl (80.0-96.0); PLATELET COUNT, AUTOMATED 449 10^3/uL (150-450); RED BLOOD COUNT 3.21 10^6/uL (4.30-6.10); WHITE BLOOD COUNT 10.2 10^3/uL (4.0-10.0)
[2017-10-03 16:06] LABS: BLOOD UREA NITROGEN 16 MG/DL (7-18); CREATININE FOR GFR 0.94 MG/DL (0.70-1.30); GLOMERULAR FILTRATION RATE > 60.0 (>42); GLUCOSE, FASTING 130 MG/DL (70-100); SODIUM LEVEL 139 MEQ/L (136-145)
[2017-10-03 16:07] LABS: ANION GAP 5 MEQ/L (8-16); CALCIUM LEVEL 8.2 MG/DL (8.8-10.2); CARBON DIOXIDE LEVEL 29 MEQ/L (21-32); CHLORIDE LEVEL 105 MEQ/L (98-107); POTASSIUM SERUM 4.3 MEQ/L (3.5-5.1)
[2017-10-03 17:00] LABS: BEDSIDE GLUCOSE 130 MG/DL (83-110)
[2017-10-03] MEDS: **NOTE PATIENT COMMENT** MISC XX ×2 (21:00)
[2017-10-03] MEDS: TAMSULOSIN 0.4 MG CAP PO (21:09)
[2017-10-03] MEDS: FINASTERIDE 5 MG TAB PO (21:09)
[2017-10-04 06:03] LABS: HEMOGLOBIN 8.1 g/dl (13.5-17.5); MEAN CORPUSCULAR HEMOGLOBIN 24.5 pg (27.0-33.0); MEAN CORPUSCULAR HGB CONC 31.2 g/dl (32.0-36.5); MEAN CORPUSCULAR VOLUME 78.8 fl (80.0-96.0); PLATELET COUNT, AUTOMATED 461 10^3/uL (150-450); RED CELL DISTRIBUTION WIDTH 15.2 % (11.5-14.5); WHITE BLOOD COUNT 8.5 10^3/uL (4.0-10.0)
[2017-10-04 06:27] LABS: ALBUMIN 2.1 GM/DL (3.2-5.2); ALBUMIN/GLOBULIN RATIO 0.55 (1.00-1.93); ALKALINE PHOSPHATASE 98 U/L (45-117); ALT/SGPT 16 U/L (12-78); ANION GAP 6 MEQ/L (8-16); AST/SGOT 17 U/L (7-37); BILIRUBIN,TOTAL 0.3 MG/DL (0.2-1.0); BLOOD UREA NITROGEN 16 MG/DL (7-18); CALCIUM LEVEL 8.5 MG/DL (8.8-10.2); CARBON DIOXIDE LEVEL 28 MEQ/L (21-32); CHLORIDE LEVEL 106 MEQ/L (98-107); CREATININE FOR GFR 0.72 MG/DL (0.70-1.30); GLOMERULAR FILTRATION RATE > 60.0 (>42); GLUCOSE, FASTING 83 MG/DL (70-100); MAGNESIUM LEVEL 1.9 MG/DL (1.8-2.4); POTASSIUM SERUM 4.2 MEQ/L (3.5-5.1); SODIUM LEVEL 140 MEQ/L (136-145); TOTAL PROTEIN 5.9 GM/DL (6.4-8.2)
[2017-10-04] MEDS: HumaLOG INSULIN (NovoLOG) PER UNIT SC ×4 (07:29→20:16)
[2017-10-04] MEDS: ENOXAPARIN 40 MG/0.4 ML SYRINGE (J1650) SC (08:22)
[2017-10-04] MEDS: LIDOCAINE 5% (LIDODERM) PATCH TD (08:22)
[2017-10-04] MEDS: LEVEMIR (INSULIN DETEMIR) 1 UNITS/0.01ML SC ×2 (08:23→20:45)
[2017-10-04] MEDS: LACTOBACILLUS ACIDOPHILUS CAP (BACID) PO ×2 (08:24→17:23)
[2017-10-04] MEDS: FOLIC ACID 1 MG TAB PO (08:24)
[2017-10-04] MEDS: EUCERIN 120GM CREAM TOP ×2 (08:24→20:45)
[2017-10-04] MEDS: MULTIVITAMINS/MINERALS THERAP 1 TAB PO (08:24)
[2017-10-04] MEDS: ATORVASTATIN 20 MG TAB PO (08:24)
[2017-10-04] MEDS: ASPIRIN 81 MG CHEW TABLET PO (08:24)
[2017-10-04] MEDS: MIDODRINE 2.5 MG TAB PO ×3 (08:24→17:23)
[2017-10-04 11:50] LABS: BEDSIDE GLUCOSE 185 MG/DL (83-110)
[2017-10-04 16:54] LABS: BEDSIDE GLUCOSE 117 MG/DL (83-110)
[2017-10-04] MEDS: PERCOCET 5MG/325MG TAB PO (20:44)
[2017-10-04] MEDS: **NOTE PATIENT COMMENT** MISC XX (20:45)
[2017-10-04] MEDS: TAMSULOSIN 0.4 MG CAP PO (20:45)
[2017-10-04] MEDS: FINASTERIDE 5 MG TAB PO (20:45)
[2017-10-05 05:55] LABS: HEMATOCRIT 27.1 % (42.0-52.0); HEMOGLOBIN 8.4 g/dl (13.5-17.5); MEAN CORPUSCULAR HEMOGLOBIN 24.6 pg (27.0-33.0); MEAN CORPUSCULAR VOLUME 79.2 fl (80.0-96.0); PLATELET COUNT, AUTOMATED 452 10^3/uL (150-450); RED BLOOD COUNT 3.42 10^6/uL (4.30-6.10); RED CELL DISTRIBUTION WIDTH 15.3 % (11.5-14.5); WHITE BLOOD COUNT 8.5 10^3/uL (4.0-10.0)
[2017-10-05 06:20] LABS: ALBUMIN 2.2 GM/DL (3.2-5.2); ALBUMIN/GLOBULIN RATIO 0.49 (1.00-1.93); ALKALINE PHOSPHATASE 96 U/L (45-117); ALT/SGPT 14 U/L (12-78); ANION GAP 6 MEQ/L (8-16); AST/SGOT 16 U/L (7-37); BILIRUBIN,TOTAL 0.2 MG/DL (0.2-1.0); BLOOD UREA NITROGEN 14 MG/DL (7-18); CALCIUM LEVEL 8.6 MG/DL (8.8-10.2); CARBON DIOXIDE LEVEL 27 MEQ/L (21-32); CHLORIDE LEVEL 106 MEQ/L (98-107); CREATININE FOR GFR 0.71 MG/DL (0.70-1.30); GLOMERULAR FILTRATION RATE > 60.0 (>42); GLUCOSE, FASTING 89 MG/DL (70-100); MAGNESIUM LEVEL 1.9 MG/DL (1.8-2.4); POTASSIUM SERUM 4.1 MEQ/L (3.5-5.1); SODIUM LEVEL 139 MEQ/L (136-145); TOTAL PROTEIN 6.7 GM/DL (6.4-8.2)
[2017-10-05] MEDS: HumaLOG INSULIN (NovoLOG) PER UNIT SC ×4 (07:22→21:19)
[2017-10-05] MEDS: ASPIRIN 81 MG CHEW TABLET PO (08:52)
[2017-10-05] MEDS: MIDODRINE 2.5 MG TAB PO ×3 (08:52→17:41)
[2017-10-05] MEDS: MULTIVITAMINS/MINERALS THERAP 1 TAB PO (08:52)
[2017-10-05] MEDS: LIDOCAINE 5% (LIDODERM) PATCH TD (08:53)
[2017-10-05] MEDS: ATORVASTATIN 20 MG TAB PO (08:53)
[2017-10-05] MEDS: LACTOBACILLUS ACIDOPHILUS CAP (BACID) PO ×2 (08:53→17:41)
[2017-10-05] MEDS: FOLIC ACID 1 MG TAB PO (08:53)
[2017-10-05] MEDS: ENOXAPARIN 40 MG/0.4 ML SYRINGE (J1650) SC (08:53)
[2017-10-05] MEDS: EUCERIN 120GM CREAM TOP ×2 (08:55→21:19)
[2017-10-05] MEDS: LEVEMIR (INSULIN DETEMIR) 1 UNITS/0.01ML SC ×2 (08:55→21:19)
[2017-10-05 16:51] LABS: BEDSIDE GLUCOSE 126 MG/DL (83-110)
[2017-10-05] MEDS: **NOTE PATIENT COMMENT** MISC XX (21:00)
[2017-10-05] MEDS: TAMSULOSIN 0.4 MG CAP PO (21:18)
[2017-10-05] MEDS: FINASTERIDE 5 MG TAB PO (21:18)
[2017-10-06 08:04] LABS: BEDSIDE GLUCOSE 116 MG/DL (83-110)
[2017-10-06 08:04] LABS: BEDSIDE GLUCOSE 131 MG/DL (83-110)
[2017-10-06] MEDS: MIDODRINE 2.5 MG TAB PO ×3 (09:13→17:46)
[2017-10-06] MEDS: MULTIVITAMINS/MINERALS THERAP 1 TAB PO (09:13)
[2017-10-06] MEDS: ATORVASTATIN 20 MG TAB PO (09:13)
[2017-10-06] MEDS: LEVEMIR (INSULIN DETEMIR) 1 UNITS/0.01ML SC ×2 (09:14→20:22)
[2017-10-06] MEDS: ASPIRIN 81 MG CHEW TABLET PO (09:14)
[2017-10-06] MEDS: FOLIC ACID 1 MG TAB PO (09:14)
[2017-10-06] MEDS: LACTOBACILLUS ACIDOPHILUS CAP (BACID) PO ×2 (09:14→17:46)
[2017-10-06] MEDS: ENOXAPARIN 40 MG/0.4 ML SYRINGE (J1650) SC (09:15)
[2017-10-06] MEDS: LIDOCAINE 5% (LIDODERM) PATCH TD (09:15)
[2017-10-06] MEDS: EUCERIN 120GM CREAM TOP ×2 (09:15→20:21)
[2017-10-06] MEDS: HumaLOG INSULIN (NovoLOG) PER UNIT SC ×4 (09:15→20:15)
[2017-10-06 15:10] LABS: BEDSIDE GLUCOSE 130 MG/DL (83-110)
[2017-10-06 17:17] LABS: BEDSIDE GLUCOSE 255 MG/DL (83-110)
[2017-10-06] MEDS: **NOTE PATIENT COMMENT** MISC XX (20:22)
[2017-10-06] MEDS: FINASTERIDE 5 MG TAB PO (20:22)
[2017-10-06] MEDS: TAMSULOSIN 0.4 MG CAP PO (20:22)
[2017-10-06 21:18] LABS: BEDSIDE GLUCOSE 128 MG/DL (83-110)
[2017-10-07 05:32] LABS: BEDSIDE GLUCOSE 108 MG/DL (83-110)
[2017-10-07] MEDS: LEVEMIR (INSULIN DETEMIR) 1 UNITS/0.01ML SC ×2 (08:08→21:13)
[2017-10-07] MEDS: ENOXAPARIN 40 MG/0.4 ML SYRINGE (J1650) SC (08:09)
[2017-10-07] MEDS: MIDODRINE 2.5 MG TAB PO ×3 (08:09→16:16)
[2017-10-07] MEDS: MULTIVITAMINS/MINERALS THERAP 1 TAB PO (08:09)
[2017-10-07] MEDS: LACTOBACILLUS ACIDOPHILUS CAP (BACID) PO ×2 (08:09→17:23)
[2017-10-07] MEDS: ATORVASTATIN 20 MG TAB PO (08:09)
[2017-10-07] MEDS: FOLIC ACID 1 MG TAB PO (08:09)
[2017-10-07] MEDS: HumaLOG INSULIN (NovoLOG) PER UNIT SC ×4 (08:09→21:00)
[2017-10-07] MEDS: ASPIRIN 81 MG CHEW TABLET PO (08:09)
[2017-10-07] MEDS: EUCERIN 120GM CREAM TOP ×2 (08:10→21:14)
[2017-10-07] MEDS: LIDOCAINE 5% (LIDODERM) PATCH TD (08:10)
[2017-10-07 08:26] LABS: BEDSIDE GLUCOSE 212 MG/DL (83-110)
[2017-10-07 08:26] LABS: BEDSIDE GLUCOSE 172 MG/DL (83-110)
[2017-10-07 08:27] LABS: BEDSIDE GLUCOSE 251 MG/DL (83-110)
[2017-10-07 08:27] LABS: BEDSIDE GLUCOSE 118 MG/DL (83-110)
[2017-10-07 11:40] LABS: BEDSIDE GLUCOSE 264 MG/DL (83-110)
[2017-10-07 16:50] LABS: BEDSIDE GLUCOSE 142 MG/DL (83-110)
[2017-10-07 20:56] LABS: BEDSIDE GLUCOSE 178 MG/DL (83-110)
[2017-10-07] MEDS: **NOTE PATIENT COMMENT** MISC XX (21:00)
[2017-10-07] MEDS: FINASTERIDE 5 MG TAB PO (21:12)
[2017-10-07] MEDS: TAMSULOSIN 0.4 MG CAP PO (21:12)
[2017-10-08 06:13] LABS: HEMATOCRIT 27.5 % (42.0-52.0); HEMOGLOBIN 8.6 g/dl (13.5-17.5); MEAN CORPUSCULAR HEMOGLOBIN 24.6 pg (27.0-33.0); MEAN CORPUSCULAR HGB CONC 31.3 g/dl (32.0-36.5); MEAN CORPUSCULAR VOLUME 78.8 fl (80.0-96.0); PLATELET COUNT, AUTOMATED 399 10^3/uL (150-450); RED BLOOD COUNT 3.49 10^6/uL (4.30-6.10); RED CELL DISTRIBUTION WIDTH 15.5 % (11.5-14.5); WHITE BLOOD COUNT 9.5 10^3/uL (4.0-10.0)
[2017-10-08 06:39] LABS: C REACTIVE PROTEIN QUANTITATIV 2.89 MG/DL (0.00-0.30)
[2017-10-08 07:08] LABS: ERYTHROCYTE SEDIMENTATION RATE 85 mm/hr (0-20)
[2017-10-08 07:11] LABS: BEDSIDE GLUCOSE 106 MG/DL (83-110)
[2017-10-08] MEDS: LEVEMIR (INSULIN DETEMIR) 1 UNITS/0.01ML SC ×2 (08:16→22:03)
[2017-10-08] MEDS: HumaLOG INSULIN (NovoLOG) PER UNIT SC ×4 (08:16→21:00)
[2017-10-08] MEDS: LIDOCAINE 5% (LIDODERM) PATCH TD (08:17)
[2017-10-08] MEDS: ATORVASTATIN 20 MG TAB PO (08:17)
[2017-10-08] MEDS: ENOXAPARIN 40 MG/0.4 ML SYRINGE (J1650) SC (08:17)
[2017-10-08] MEDS: ASPIRIN 81 MG CHEW TABLET PO (08:17)
[2017-10-08] MEDS: LACTOBACILLUS ACIDOPHILUS CAP (BACID) PO ×2 (08:17→16:59)
[2017-10-08] MEDS: MULTIVITAMINS/MINERALS THERAP 1 TAB PO (08:17)
[2017-10-08] MEDS: FOLIC ACID 1 MG TAB PO (08:18)
[2017-10-08] MEDS: MIDODRINE 2.5 MG TAB PO ×3 (08:18→16:59)
[2017-10-08] MEDS: EUCERIN 120GM CREAM TOP ×2 (09:00→22:04)
[2017-10-08 11:39] LABS: BEDSIDE GLUCOSE 130 MG/DL (83-110)
[2017-10-08 16:47] LABS: BEDSIDE GLUCOSE 162 MG/DL (83-110)
[2017-10-08] MEDS: **NOTE PATIENT COMMENT** MISC XX (21:00)
[2017-10-08 21:01] LABS: BEDSIDE GLUCOSE 163 MG/DL (83-110)
[2017-10-08] MEDS: FINASTERIDE 5 MG TAB PO (22:03)
[2017-10-08] MEDS: TAMSULOSIN 0.4 MG CAP PO (22:03)
[2017-10-09 06:14] LABS: BEDSIDE GLUCOSE 108 MG/DL (83-110)
[2017-10-09] MEDS: ENOXAPARIN 40 MG/0.4 ML SYRINGE (J1650) SC (10:20)
[2017-10-09] MEDS: LACTOBACILLUS ACIDOPHILUS CAP (BACID) PO ×2 (10:20→17:08)
[2017-10-09] MEDS: MIDODRINE 2.5 MG TAB PO ×3 (10:20→17:08)
[2017-10-09] MEDS: ATORVASTATIN 20 MG TAB PO (10:20)
[2017-10-09] MEDS: MULTIVITAMINS/MINERALS THERAP 1 TAB PO (10:20)
[2017-10-09] MEDS: ASPIRIN 81 MG CHEW TABLET PO (10:20)
[2017-10-09] MEDS: FOLIC ACID 1 MG TAB PO (10:20)
[2017-10-09] MEDS: EUCERIN 120GM CREAM TOP ×2 (10:21→21:43)
[2017-10-09] MEDS: LEVEMIR (INSULIN DETEMIR) 1 UNITS/0.01ML SC ×2 (10:21→21:42)
[2017-10-09] MEDS: LIDOCAINE 5% (LIDODERM) PATCH TD (10:21)
[2017-10-09] MEDS: HumaLOG INSULIN (NovoLOG) PER UNIT SC ×4 (10:23→20:22)
[2017-10-09 12:53] LABS: BEDSIDE GLUCOSE 182 MG/DL (83-110)
[2017-10-09 16:58] LABS: BEDSIDE GLUCOSE 158 MG/DL (83-110)
[2017-10-09 20:24] LABS: BEDSIDE GLUCOSE 154 MG/DL (83-110)
[2017-10-09] MEDS: **NOTE PATIENT COMMENT** MISC XX (21:00)
[2017-10-09] MEDS: TAMSULOSIN 0.4 MG CAP PO (21:42)
[2017-10-09] MEDS: FINASTERIDE 5 MG TAB PO (21:42)
[2017-10-10] MEDS: HumaLOG INSULIN (NovoLOG) PER UNIT SC ×4 (09:15→21:00)
[2017-10-10] MEDS: ENOXAPARIN 40 MG/0.4 ML SYRINGE (J1650) SC (09:15)
[2017-10-10] MEDS: LIDOCAINE 5% (LIDODERM) PATCH TD (09:15)
[2017-10-10] MEDS: LEVEMIR (INSULIN DETEMIR) 1 UNITS/0.01ML SC ×2 (09:15→21:09)
[2017-10-10] MEDS: FOLIC ACID 1 MG TAB PO (09:16)
[2017-10-10] MEDS: EUCERIN 120GM CREAM TOP ×2 (09:16→21:10)
[2017-10-10] MEDS: LACTOBACILLUS ACIDOPHILUS CAP (BACID) PO ×2 (09:16→16:59)
[2017-10-10] MEDS: MIDODRINE 2.5 MG TAB PO ×3 (09:16→15:54)
[2017-10-10] MEDS: ATORVASTATIN 20 MG TAB PO (09:16)
[2017-10-10] MEDS: ASPIRIN 81 MG CHEW TABLET PO (09:16)
[2017-10-10] MEDS: MULTIVITAMINS/MINERALS THERAP 1 TAB PO (09:16)
[2017-10-10 10:53] LABS: BEDSIDE GLUCOSE 110 MG/DL (83-110)
[2017-10-10 12:01] LABS: BEDSIDE GLUCOSE 112 MG/DL (83-110)
[2017-10-10 16:46] LABS: BEDSIDE GLUCOSE 116 MG/DL (83-110)
[2017-10-10 20:49] LABS: BEDSIDE GLUCOSE 123 MG/DL (83-110)
[2017-10-10] MEDS: **NOTE PATIENT COMMENT** MISC XX (21:00)
[2017-10-10] MEDS: TAMSULOSIN 0.4 MG CAP PO (21:10)
[2017-10-10] MEDS: FINASTERIDE 5 MG TAB PO (21:10)
[2017-10-11] MEDS: FOLIC ACID 1 MG TAB PO (07:47)
[2017-10-11] MEDS: MIDODRINE 2.5 MG TAB PO ×3 (07:47→16:19)
[2017-10-11] MEDS: ASPIRIN 81 MG CHEW TABLET PO (07:47)
[2017-10-11] MEDS: LACTOBACILLUS ACIDOPHILUS CAP (BACID) PO ×2 (07:47→17:45)
[2017-10-11] MEDS: MULTIVITAMINS/MINERALS THERAP 1 TAB PO (07:47)
[2017-10-11] MEDS: ATORVASTATIN 20 MG TAB PO (07:47)
[2017-10-11] MEDS: LEVEMIR (INSULIN DETEMIR) 1 UNITS/0.01ML SC ×2 (07:48→20:56)
[2017-10-11] MEDS: ENOXAPARIN 40 MG/0.4 ML SYRINGE (J1650) SC (07:48)
[2017-10-11] MEDS: HumaLOG INSULIN (NovoLOG) PER UNIT SC ×4 (07:48→20:57)
[2017-10-11] MEDS: LIDOCAINE 5% (LIDODERM) PATCH TD (07:49)
[2017-10-11] MEDS: EUCERIN 120GM CREAM TOP ×2 (07:49→20:57)
[2017-10-11 12:29] LABS: BEDSIDE GLUCOSE 138 MG/DL (83-110)
[2017-10-11 16:50] LABS: BEDSIDE GLUCOSE 124 MG/DL (83-110)
[2017-10-11 20:48] LABS: BEDSIDE GLUCOSE 192 MG/DL (83-110)
[2017-10-11] MEDS: FINASTERIDE 5 MG TAB PO (20:56)
[2017-10-11] MEDS: **NOTE PATIENT COMMENT** MISC XX (20:56)
[2017-10-11] MEDS: TAMSULOSIN 0.4 MG CAP PO (20:56)
[2017-10-12 06:05] LABS: HEMATOCRIT 27.3 % (42.0-52.0); HEMOGLOBIN 8.5 g/dl (13.5-17.5); MEAN CORPUSCULAR HEMOGLOBIN 24.4 pg (27.0-33.0); MEAN CORPUSCULAR HGB CONC 31.1 g/dl (32.0-36.5); MEAN CORPUSCULAR VOLUME 78.4 fl (80.0-96.0); PLATELET COUNT, AUTOMATED 333 10^3/uL (150-450); RED BLOOD COUNT 3.48 10^6/uL (4.30-6.10); RED CELL DISTRIBUTION WIDTH 15.3 % (11.5-14.5); WHITE BLOOD COUNT 6.3 10^3/uL (4.0-10.0)
[2017-10-12 06:25] LABS: C REACTIVE PROTEIN QUANTITATIV 1.91 MG/DL (0.00-0.30)
[2017-10-12 06:48] LABS: ERYTHROCYTE SEDIMENTATION RATE 79 mm/hr (0-20)
[2017-10-12] MEDS: HumaLOG INSULIN (NovoLOG) PER UNIT SC ×4 (07:22→20:27)
[2017-10-12] MEDS: ENOXAPARIN 40 MG/0.4 ML SYRINGE (J1650) SC (08:37)
[2017-10-12] MEDS: ATORVASTATIN 20 MG TAB PO (08:37)
[2017-10-12] MEDS: FOLIC ACID 1 MG TAB PO (08:37)
[2017-10-12] MEDS: ASPIRIN 81 MG CHEW TABLET PO (08:37)
[2017-10-12] MEDS: LACTOBACILLUS ACIDOPHILUS CAP (BACID) PO ×2 (08:37→16:50)
[2017-10-12] MEDS: EUCERIN 120GM CREAM TOP ×2 (08:37→21:07)
[2017-10-12] MEDS: MULTIVITAMINS/MINERALS THERAP 1 TAB PO (08:37)
[2017-10-12] MEDS: LIDOCAINE 5% (LIDODERM) PATCH TD (08:37)
[2017-10-12] MEDS: LEVEMIR (INSULIN DETEMIR) 1 UNITS/0.01ML SC ×2 (08:38→21:07)
[2017-10-12] MEDS: MIDODRINE 2.5 MG TAB PO ×3 (08:39→16:50)
[2017-10-12 09:59] LABS: BEDSIDE GLUCOSE 99 MG/DL (83-110)
[2017-10-12 10:34] LABS: BEDSIDE GLUCOSE 151 MG/DL (83-110)
[2017-10-12 12:26] LABS: BEDSIDE GLUCOSE 123 MG/DL (83-110)
[2017-10-12 16:54] LABS: BEDSIDE GLUCOSE 145 MG/DL (83-110)
[2017-10-12 20:10] LABS: BEDSIDE GLUCOSE 206 MG/DL (83-110)
[2017-10-12] MEDS: **NOTE PATIENT COMMENT** MISC XX (21:00)
[2017-10-12] MEDS: TAMSULOSIN 0.4 MG CAP PO (21:07)
[2017-10-12] MEDS: FINASTERIDE 5 MG TAB PO (21:07)
[2017-10-13 05:59] LABS: BEDSIDE GLUCOSE 97 MG/DL (83-110)
[2017-10-13] MEDS: HumaLOG INSULIN (NovoLOG) PER UNIT SC ×4 (07:30→21:00)
[2017-10-13] MEDS: LIDOCAINE 5% (LIDODERM) PATCH TD (09:31)
[2017-10-13] MEDS: ENOXAPARIN 40 MG/0.4 ML SYRINGE (J1650) SC (09:31)
[2017-10-13] MEDS: ASPIRIN 81 MG CHEW TABLET PO (09:32)
[2017-10-13] MEDS: LACTOBACILLUS ACIDOPHILUS CAP (BACID) PO ×2 (09:32→17:25)
[2017-10-13] MEDS: MULTIVITAMINS/MINERALS THERAP 1 TAB PO (09:32)
[2017-10-13] MEDS: LEVEMIR (INSULIN DETEMIR) 1 UNITS/0.01ML SC ×2 (09:32→21:38)
[2017-10-13] MEDS: ATORVASTATIN 20 MG TAB PO (09:33)
[2017-10-13] MEDS: FOLIC ACID 1 MG TAB PO (09:33)
[2017-10-13] MEDS: EUCERIN 120GM CREAM TOP ×2 (09:33→21:39)
[2017-10-13] MEDS: MIDODRINE 2.5 MG TAB PO ×3 (09:37→17:25)
[2017-10-13 11:58] LABS: BEDSIDE GLUCOSE 152 MG/DL (83-110)
[2017-10-13 13:39] LABS: ANION GAP 8 MEQ/L (8-16); BLOOD UREA NITROGEN 16 MG/DL (7-18); CALCIUM LEVEL 8.8 MG/DL (8.8-10.2); CARBON DIOXIDE LEVEL 28 MEQ/L (21-32); CHLORIDE LEVEL 105 MEQ/L (98-107); CREATININE FOR GFR 0.92 MG/DL (0.70-1.30); GLOMERULAR FILTRATION RATE > 60.0 (>42); GLUCOSE, FASTING 132 MG/DL (70-100); POTASSIUM SERUM 4.4 MEQ/L (3.5-5.1); SODIUM LEVEL 141 MEQ/L (136-145)
[2017-10-13 16:56] LABS: BEDSIDE GLUCOSE 106 MG/DL (83-110)
[2017-10-13] MEDS: TAMSULOSIN 0.4 MG CAP PO (20:42)
[2017-10-13] MEDS: FINASTERIDE 5 MG TAB PO (20:42)
[2017-10-13] MEDS: **NOTE PATIENT COMMENT** MISC XX (21:00)
[2017-10-13 21:04] LABS: BEDSIDE GLUCOSE 138 MG/DL (83-110)
[2017-10-14 06:39] LABS: BEDSIDE GLUCOSE 104 MG/DL (83-110)
[2017-10-14] MEDS: HumaLOG INSULIN (NovoLOG) PER UNIT SC ×4 (07:53→21:21)
[2017-10-14] MEDS: MIDODRINE 2.5 MG TAB PO ×3 (09:00→17:16)
[2017-10-14] MEDS: LEVEMIR (INSULIN DETEMIR) 1 UNITS/0.01ML SC ×2 (10:45→21:30)
[2017-10-14] MEDS: FOLIC ACID 1 MG TAB PO (10:45)
[2017-10-14] MEDS: ASPIRIN 81 MG CHEW TABLET PO (10:45)
[2017-10-14] MEDS: MULTIVITAMINS/MINERALS THERAP 1 TAB PO (10:45)
[2017-10-14] MEDS: LACTOBACILLUS ACIDOPHILUS CAP (BACID) PO ×2 (10:45→17:16)
[2017-10-14] MEDS: ATORVASTATIN 20 MG TAB PO (10:45)
[2017-10-14] MEDS: ENOXAPARIN 40 MG/0.4 ML SYRINGE (J1650) SC (10:46)
[2017-10-14] MEDS: EUCERIN 120GM CREAM TOP ×2 (10:46→21:30)
[2017-10-14] MEDS: LIDOCAINE 5% (LIDODERM) PATCH TD (10:46)
[2017-10-14 11:47] LABS: BEDSIDE GLUCOSE 154 MG/DL (83-110)
[2017-10-14 16:53] LABS: BEDSIDE GLUCOSE 141 MG/DL (83-110)
[2017-10-14 20:46] LABS: BEDSIDE GLUCOSE 111 MG/DL (83-110)
[2017-10-14] MEDS: FINASTERIDE 5 MG TAB PO (21:29)
[2017-10-14] MEDS: TAMSULOSIN 0.4 MG CAP PO (21:29)
[2017-10-14] MEDS: **NOTE PATIENT COMMENT** MISC XX (21:30)
[2017-10-15 06:42] LABS: BEDSIDE GLUCOSE 126 MG/DL (83-110)
[2017-10-15] MEDS: ENOXAPARIN 40 MG/0.4 ML SYRINGE (J1650) SC (08:44)
[2017-10-15] MEDS: HumaLOG INSULIN (NovoLOG) PER UNIT SC ×4 (08:44→20:41)
[2017-10-15] MEDS: LEVEMIR (INSULIN DETEMIR) 1 UNITS/0.01ML SC ×2 (08:45→20:40)
[2017-10-15] MEDS: LACTOBACILLUS ACIDOPHILUS CAP (BACID) PO ×2 (08:45→17:54)
[2017-10-15] MEDS: ATORVASTATIN 20 MG TAB PO (08:45)
[2017-10-15] MEDS: MULTIVITAMINS/MINERALS THERAP 1 TAB PO (08:45)
[2017-10-15] MEDS: MIDODRINE 2.5 MG TAB PO ×3 (08:45→17:54)
[2017-10-15] MEDS: FOLIC ACID 1 MG TAB PO (08:45)
[2017-10-15] MEDS: LIDOCAINE 5% (LIDODERM) PATCH TD (08:45)
[2017-10-15] MEDS: ASPIRIN 81 MG CHEW TABLET PO (08:45)
[2017-10-15] MEDS: EUCERIN 120GM CREAM TOP ×2 (08:46→20:40)
[2017-10-15 12:04] LABS: BEDSIDE GLUCOSE 91 MG/DL (83-110)
[2017-10-15 17:22] LABS: BEDSIDE GLUCOSE 113 MG/DL (83-110)
[2017-10-15] MEDS: FINASTERIDE 5 MG TAB PO (20:40)
[2017-10-15] MEDS: TAMSULOSIN 0.4 MG CAP PO (20:40)
[2017-10-15] MEDS: **NOTE PATIENT COMMENT** MISC XX (20:40)
[2017-10-15 21:33] LABS: BEDSIDE GLUCOSE 186 MG/DL (83-110)
[2017-10-16 06:21] LABS: BEDSIDE GLUCOSE 89 MG/DL (83-110)
[2017-10-16] MEDS: HumaLOG INSULIN (NovoLOG) PER UNIT SC ×4 (08:06→21:30)
[2017-10-16] MEDS: FOLIC ACID 1 MG TAB PO (08:38)
[2017-10-16] MEDS: LIDOCAINE 5% (LIDODERM) PATCH TD (08:38)
[2017-10-16] MEDS: MIDODRINE 2.5 MG TAB PO ×3 (08:38→17:53)
[2017-10-16] MEDS: LACTOBACILLUS ACIDOPHILUS CAP (BACID) PO ×2 (08:38→17:53)
[2017-10-16] MEDS: LEVEMIR (INSULIN DETEMIR) 1 UNITS/0.01ML SC ×2 (08:38→22:18)
[2017-10-16] MEDS: ASPIRIN 81 MG CHEW TABLET PO (08:38)
[2017-10-16] MEDS: MULTIVITAMINS/MINERALS THERAP 1 TAB PO (08:38)
[2017-10-16] MEDS: ATORVASTATIN 20 MG TAB PO (08:38)
[2017-10-16] MEDS: EUCERIN 120GM CREAM TOP ×2 (08:39→22:18)
[2017-10-16] MEDS: ENOXAPARIN 40 MG/0.4 ML SYRINGE (J1650) SC (08:39)
[2017-10-16 17:07] LABS: BEDSIDE GLUCOSE 158 MG/DL (83-110)
[2017-10-16 21:26] LABS: BEDSIDE GLUCOSE 126 MG/DL (83-110)
[2017-10-16] MEDS: FINASTERIDE 5 MG TAB PO (22:17)
[2017-10-16] MEDS: **NOTE PATIENT COMMENT** MISC XX (22:18)
[2017-10-16] MEDS: TAMSULOSIN 0.4 MG CAP PO (22:18)
[2017-10-17] MEDS: HumaLOG INSULIN (NovoLOG) PER UNIT SC ×4 (07:30→20:47)
[2017-10-17 09:44] LABS: BEDSIDE GLUCOSE 97 MG/DL (83-110)
[2017-10-17] MEDS: ENOXAPARIN 40 MG/0.4 ML SYRINGE (J1650) SC (10:13)
[2017-10-17] MEDS: LIDOCAINE 5% (LIDODERM) PATCH TD (10:14)
[2017-10-17] MEDS: ATORVASTATIN 20 MG TAB PO (10:15)
[2017-10-17] MEDS: MULTIVITAMINS/MINERALS THERAP 1 TAB PO (10:15)
[2017-10-17] MEDS: ASPIRIN 81 MG CHEW TABLET PO (10:15)
[2017-10-17] MEDS: FOLIC ACID 1 MG TAB PO (10:15)
[2017-10-17] MEDS: MIDODRINE 2.5 MG TAB PO ×3 (10:15→18:10)
[2017-10-17] MEDS: LACTOBACILLUS ACIDOPHILUS CAP (BACID) PO ×2 (10:15→18:10)
[2017-10-17] MEDS: EUCERIN 120GM CREAM TOP ×2 (10:16→21:32)
[2017-10-17] MEDS: LEVEMIR (INSULIN DETEMIR) 1 UNITS/0.01ML SC ×2 (10:16→21:31)
[2017-10-17 11:53] LABS: BEDSIDE GLUCOSE 184 MG/DL (83-110)
[2017-10-17 17:26] LABS: BEDSIDE GLUCOSE 164 MG/DL (83-110)
[2017-10-17 20:54] LABS: BEDSIDE GLUCOSE 150 MG/DL (83-110)
[2017-10-17] MEDS: FINASTERIDE 5 MG TAB PO (21:31)
[2017-10-17] MEDS: TAMSULOSIN 0.4 MG CAP PO (21:31)
[2017-10-17] MEDS: **NOTE PATIENT COMMENT** MISC XX (21:32)
[2017-10-18] MEDS: FOLIC ACID 1 MG TAB PO (09:07)
[2017-10-18] MEDS: MIDODRINE 2.5 MG TAB PO ×3 (09:07→17:40)
[2017-10-18] MEDS: ASPIRIN 81 MG CHEW TABLET PO (09:07)
[2017-10-18] MEDS: LACTOBACILLUS ACIDOPHILUS CAP (BACID) PO ×2 (09:08→17:40)
[2017-10-18] MEDS: EUCERIN 120GM CREAM TOP ×2 (09:08→21:32)
[2017-10-18] MEDS: ENOXAPARIN 40 MG/0.4 ML SYRINGE (J1650) SC (09:08)
[2017-10-18] MEDS: ATORVASTATIN 20 MG TAB PO (09:08)
[2017-10-18] MEDS: MULTIVITAMINS/MINERALS THERAP 1 TAB PO (09:08)
[2017-10-18] MEDS: LIDOCAINE 5% (LIDODERM) PATCH TD (09:08)
[2017-10-18] MEDS: LEVEMIR (INSULIN DETEMIR) 1 UNITS/0.01ML SC ×2 (09:09→21:31)
[2017-10-18] MEDS: HumaLOG INSULIN (NovoLOG) PER UNIT SC ×4 (09:13→21:30)
[2017-10-18 09:15] LABS: BEDSIDE GLUCOSE 138 MG/DL (83-110)
[2017-10-18 11:40] LABS: BEDSIDE GLUCOSE 121 MG/DL (83-110)
[2017-10-18 12:14] LABS: BEDSIDE GLUCOSE 107 MG/DL (83-110)
[2017-10-18 17:36] LABS: BEDSIDE GLUCOSE 109 MG/DL (83-110)
[2017-10-18 20:53] LABS: BEDSIDE GLUCOSE 193 MG/DL (83-110)
[2017-10-18] MEDS: TAMSULOSIN 0.4 MG CAP PO (21:30)
[2017-10-18] MEDS: FINASTERIDE 5 MG TAB PO (21:30)
[2017-10-18] MEDS: **NOTE PATIENT COMMENT** MISC XX (21:32)
[2017-10-19] MEDS: ACETAMINOPHEN TAB 650MG DOSE (2X325MG) PO (04:22)
[2017-10-19] MEDS: HumaLOG INSULIN (NovoLOG) PER UNIT SC ×4 (07:25→21:30)
[2017-10-19] MEDS: LACTOBACILLUS ACIDOPHILUS CAP (BACID) PO ×2 (08:29→17:08)
[2017-10-19] MEDS: LIDOCAINE 5% (LIDODERM) PATCH TD (08:29)
[2017-10-19] MEDS: MIDODRINE 2.5 MG TAB PO ×3 (08:29→17:08)
[2017-10-19] MEDS: ENOXAPARIN 40 MG/0.4 ML SYRINGE (J1650) SC (08:29)
[2017-10-19] MEDS: FOLIC ACID 1 MG TAB PO (08:29)
[2017-10-19] MEDS: ASPIRIN 81 MG CHEW TABLET PO (08:29)
[2017-10-19] MEDS: ATORVASTATIN 20 MG TAB PO (08:29)
[2017-10-19] MEDS: MULTIVITAMINS/MINERALS THERAP 1 TAB PO (08:29)
[2017-10-19] MEDS: LEVEMIR (INSULIN DETEMIR) 1 UNITS/0.01ML SC ×2 (08:30→21:19)
[2017-10-19] MEDS: EUCERIN 120GM CREAM TOP ×2 (08:30→21:18)
[2017-10-19 09:11] LABS: BEDSIDE GLUCOSE 118 MG/DL (83-110)
[2017-10-19 12:11] LABS: BEDSIDE GLUCOSE 126 MG/DL (83-110)
[2017-10-19 17:04] LABS: BEDSIDE GLUCOSE 171 MG/DL (83-110)
[2017-10-19 20:50] LABS: BEDSIDE GLUCOSE 151 MG/DL (83-110)
[2017-10-19] MEDS: TAMSULOSIN 0.4 MG CAP PO (21:18)
[2017-10-19] MEDS: FINASTERIDE 5 MG TAB PO (21:18)
[2017-10-19] MEDS: **NOTE PATIENT COMMENT** MISC XX (21:30)
[2017-10-20 06:00] LABS: BEDSIDE GLUCOSE 109 MG/DL (83-110)
[2017-10-20] MEDS: MULTIVITAMINS/MINERALS THERAP 1 TAB PO (08:06)
[2017-10-20] MEDS: MIDODRINE 2.5 MG TAB PO ×3 (08:06→17:10)
[2017-10-20] MEDS: ATORVASTATIN 20 MG TAB PO (08:06)
[2017-10-20] MEDS: LACTOBACILLUS ACIDOPHILUS CAP (BACID) PO ×2 (08:06→17:10)
[2017-10-20] MEDS: ASPIRIN 81 MG CHEW TABLET PO (08:06)
[2017-10-20] MEDS: FOLIC ACID 1 MG TAB PO (08:06)
[2017-10-20] MEDS: LEVEMIR (INSULIN DETEMIR) 1 UNITS/0.01ML SC ×2 (08:07→20:52)
[2017-10-20] MEDS: HumaLOG INSULIN (NovoLOG) PER UNIT SC ×4 (08:07→20:42)
[2017-10-20] MEDS: ENOXAPARIN 40 MG/0.4 ML SYRINGE (J1650) SC (08:12)
[2017-10-20] MEDS: LIDOCAINE 5% (LIDODERM) PATCH TD (08:13)
[2017-10-20] MEDS: EUCERIN 120GM CREAM TOP ×2 (08:13→20:52)
[2017-10-20 11:33] LABS: BEDSIDE GLUCOSE 114 MG/DL (83-110)
[2017-10-20 16:57] LABS: BEDSIDE GLUCOSE 155 MG/DL (83-110)
[2017-10-20 20:44] LABS: BEDSIDE GLUCOSE 131 MG/DL (83-110)
[2017-10-20] MEDS: FINASTERIDE 5 MG TAB PO (20:51)
[2017-10-20] MEDS: TAMSULOSIN 0.4 MG CAP PO (20:51)
[2017-10-20] MEDS: **NOTE PATIENT COMMENT** MISC XX (20:52)
[2017-10-21 06:36] LABS: BEDSIDE GLUCOSE 155 MG/DL (83-110)
[2017-10-21] MEDS: MIDODRINE 2.5 MG TAB PO ×3 (08:39→15:22)
[2017-10-21] MEDS: ATORVASTATIN 20 MG TAB PO (08:39)
[2017-10-21] MEDS: ASPIRIN 81 MG CHEW TABLET PO (08:39)
[2017-10-21] MEDS: LACTOBACILLUS ACIDOPHILUS CAP (BACID) PO ×2 (08:39→17:29)
[2017-10-21] MEDS: FOLIC ACID 1 MG TAB PO (08:39)
[2017-10-21] MEDS: MULTIVITAMINS/MINERALS THERAP 1 TAB PO (08:39)
[2017-10-21] MEDS: HumaLOG INSULIN (NovoLOG) PER UNIT SC ×4 (08:39→21:00)
[2017-10-21] MEDS: LEVEMIR (INSULIN DETEMIR) 1 UNITS/0.01ML SC ×2 (08:40→21:18)
[2017-10-21] MEDS: LIDOCAINE 5% (LIDODERM) PATCH TD (08:40)
[2017-10-21] MEDS: EUCERIN 120GM CREAM TOP ×2 (08:40→21:00)
[2017-10-21] MEDS: ENOXAPARIN 40 MG/0.4 ML SYRINGE (J1650) SC (08:40)
[2017-10-21 11:44] LABS: BEDSIDE GLUCOSE 151 MG/DL (83-110)
[2017-10-21 12:00] LABS: BEDSIDE GLUCOSE 126 MG/DL (83-110)
[2017-10-21 16:37] LABS: BEDSIDE GLUCOSE 320 MG/DL (83-110)
[2017-10-21] MEDS: **NOTE PATIENT COMMENT** MISC XX (21:00)
[2017-10-21 21:14] LABS: BEDSIDE GLUCOSE 167 MG/DL (83-110)
[2017-10-21] MEDS: FINASTERIDE 5 MG TAB PO (21:18)
[2017-10-21] MEDS: TAMSULOSIN 0.4 MG CAP PO (21:18)
[2017-10-22 06:02] LABS: BEDSIDE GLUCOSE 106 MG/DL (83-110)
[2017-10-22] MEDS: HumaLOG INSULIN (NovoLOG) PER UNIT SC ×4 (07:45→21:00)
[2017-10-22] MEDS: LIDOCAINE 5% (LIDODERM) PATCH TD (09:36)
[2017-10-22] MEDS: EUCERIN 120GM CREAM TOP ×2 (09:36→20:09)
[2017-10-22] MEDS: LACTOBACILLUS ACIDOPHILUS CAP (BACID) PO ×2 (09:36→17:03)
[2017-10-22] MEDS: FOLIC ACID 1 MG TAB PO (09:36)
[2017-10-22] MEDS: ATORVASTATIN 20 MG TAB PO (09:36)
[2017-10-22] MEDS: ASPIRIN 81 MG CHEW TABLET PO (09:36)
[2017-10-22] MEDS: LEVEMIR (INSULIN DETEMIR) 1 UNITS/0.01ML SC ×2 (09:37→20:42)
[2017-10-22] MEDS: ENOXAPARIN 40 MG/0.4 ML SYRINGE (J1650) SC (09:37)
[2017-10-22] MEDS: MIDODRINE 2.5 MG TAB PO ×3 (09:37→17:03)
[2017-10-22] MEDS: MULTIVITAMINS/MINERALS THERAP 1 TAB PO (09:37)
[2017-10-22 12:28] LABS: BEDSIDE GLUCOSE 165 MG/DL (83-110)
[2017-10-22 17:07] LABS: BEDSIDE GLUCOSE 135 MG/DL (83-110)
[2017-10-22] MEDS: FINASTERIDE 5 MG TAB PO (20:09)
[2017-10-22] MEDS: TAMSULOSIN 0.4 MG CAP PO (20:09)
[2017-10-22 20:35] LABS: BEDSIDE GLUCOSE 193 MG/DL (83-110)
[2017-10-22] MEDS: **NOTE PATIENT COMMENT** MISC XX (21:00)
[2017-10-23 06:18] LABS: BEDSIDE GLUCOSE 127 MG/DL (83-110)
[2017-10-23] MEDS: ATORVASTATIN 20 MG TAB PO (07:35)
[2017-10-23] MEDS: ENOXAPARIN 40 MG/0.4 ML SYRINGE (J1650) SC (07:35)
[2017-10-23] MEDS: MIDODRINE 2.5 MG TAB PO ×3 (07:35→16:35)
[2017-10-23] MEDS: ASPIRIN 81 MG CHEW TABLET PO (07:35)
[2017-10-23] MEDS: LACTOBACILLUS ACIDOPHILUS CAP (BACID) PO ×2 (07:35→18:00)
[2017-10-23] MEDS: FOLIC ACID 1 MG TAB PO (07:35)
[2017-10-23] MEDS: MULTIVITAMINS/MINERALS THERAP 1 TAB PO (07:35)
[2017-10-23] MEDS: LEVEMIR (INSULIN DETEMIR) 1 UNITS/0.01ML SC ×2 (07:36→21:35)
[2017-10-23] MEDS: LIDOCAINE 5% (LIDODERM) PATCH TD (07:36)
[2017-10-23] MEDS: HumaLOG INSULIN (NovoLOG) PER UNIT SC ×4 (07:41→22:00)
[2017-10-23] MEDS: EUCERIN 120GM CREAM TOP ×2 (07:41→21:36)
[2017-10-23 11:49] LABS: BEDSIDE GLUCOSE 128 MG/DL (83-110)
[2017-10-23] MEDS: **NOTE PATIENT COMMENT** MISC XX (21:00)
[2017-10-23] MEDS: FINASTERIDE 5 MG TAB PO (21:36)
[2017-10-23] MEDS: TAMSULOSIN 0.4 MG CAP PO (21:36)
[2017-10-24 06:46] LABS: BEDSIDE GLUCOSE 125 MG/DL (83-110)
[2017-10-24] MEDS: LEVEMIR (INSULIN DETEMIR) 1 UNITS/0.01ML SC ×2 (07:58→20:25)
[2017-10-24] MEDS: HumaLOG INSULIN (NovoLOG) PER UNIT SC ×4 (07:58→20:25)
[2017-10-24] MEDS: LIDOCAINE 5% (LIDODERM) PATCH TD (07:58)
[2017-10-24] MEDS: LACTOBACILLUS ACIDOPHILUS CAP (BACID) PO ×2 (07:59→17:29)
[2017-10-24] MEDS: EUCERIN 120GM CREAM TOP ×2 (07:59→20:55)
[2017-10-24] MEDS: MIDODRINE 2.5 MG TAB PO ×3 (07:59→16:28)
[2017-10-24] MEDS: ATORVASTATIN 20 MG TAB PO (07:59)
[2017-10-24] MEDS: MULTIVITAMINS/MINERALS THERAP 1 TAB PO (07:59)
[2017-10-24] MEDS: FOLIC ACID 1 MG TAB PO (07:59)
[2017-10-24] MEDS: ASPIRIN 81 MG CHEW TABLET PO (07:59)
[2017-10-24 08:28] LABS: BEDSIDE GLUCOSE 164 MG/DL (83-110)
[2017-10-24 08:28] LABS: BEDSIDE GLUCOSE 188 MG/DL (83-110)
[2017-10-24] MEDS: ENOXAPARIN 40 MG/0.4 ML SYRINGE (J1650) SC (12:41)
[2017-10-24 12:43] LABS: BEDSIDE GLUCOSE 161 MG/DL (83-110)
[2017-10-24 17:05] LABS: BEDSIDE GLUCOSE 144 MG/DL (83-110)
[2017-10-24] MEDS: TAMSULOSIN 0.4 MG CAP PO (20:24)
[2017-10-24] MEDS: FINASTERIDE 5 MG TAB PO (20:24)
[2017-10-24 20:52] LABS: BEDSIDE GLUCOSE 174 MG/DL (83-110)
[2017-10-24] MEDS: **NOTE PATIENT COMMENT** MISC XX (20:55)
[2017-10-25] MEDS: ENOXAPARIN 40 MG/0.4 ML SYRINGE (J1650) SC (08:36)
[2017-10-25] MEDS: HumaLOG INSULIN (NovoLOG) PER UNIT SC ×4 (08:37→21:00)
[2017-10-25] MEDS: LEVEMIR (INSULIN DETEMIR) 1 UNITS/0.01ML SC ×2 (08:37→21:41)
[2017-10-25] MEDS: LACTOBACILLUS ACIDOPHILUS CAP (BACID) PO ×2 (09:02→17:47)
[2017-10-25] MEDS: MIDODRINE 2.5 MG TAB PO ×3 (09:02→17:47)
[2017-10-25] MEDS: ASPIRIN 81 MG CHEW TABLET PO (10:35)
[2017-10-25] MEDS: MULTIVITAMINS/MINERALS THERAP 1 TAB PO (10:36)
[2017-10-25] MEDS: ATORVASTATIN 20 MG TAB PO (10:36)
[2017-10-25] MEDS: FOLIC ACID 1 MG TAB PO (10:36)
[2017-10-25] MEDS: LIDOCAINE 5% (LIDODERM) PATCH TD (10:37)
[2017-10-25] MEDS: EUCERIN 120GM CREAM TOP ×2 (10:38→21:00)
[2017-10-25 12:15] LABS: BEDSIDE GLUCOSE 132 MG/DL (83-110)
[2017-10-25 16:19] LABS: BEDSIDE GLUCOSE 124 MG/DL (83-110)
[2017-10-25 17:02] LABS: BEDSIDE GLUCOSE 168 MG/DL (83-110)
[2017-10-25 20:48] LABS: BEDSIDE GLUCOSE 185 MG/DL (83-110)
[2017-10-25] MEDS: **NOTE PATIENT COMMENT** MISC XX (21:00)
[2017-10-25] MEDS: FINASTERIDE 5 MG TAB PO (21:41)
[2017-10-25] MEDS: TAMSULOSIN 0.4 MG CAP PO (21:41)
[2017-10-26 06:36] LABS: BEDSIDE GLUCOSE 134 MG/DL (83-110)
[2017-10-26] MEDS: HumaLOG INSULIN (NovoLOG) PER UNIT SC ×4 (09:12→21:00)
[2017-10-26] MEDS: ASPIRIN 81 MG CHEW TABLET PO (09:12)
[2017-10-26] MEDS: LEVEMIR (INSULIN DETEMIR) 1 UNITS/0.01ML SC ×2 (09:12→21:06)
[2017-10-26] MEDS: FOLIC ACID 1 MG TAB PO (09:13)
[2017-10-26] MEDS: ENOXAPARIN 40 MG/0.4 ML SYRINGE (J1650) SC (09:13)
[2017-10-26] MEDS: LACTOBACILLUS ACIDOPHILUS CAP (BACID) PO ×2 (09:13→17:30)
[2017-10-26] MEDS: MIDODRINE 2.5 MG TAB PO ×3 (09:13→17:30)
[2017-10-26] MEDS: MULTIVITAMINS/MINERALS THERAP 1 TAB PO (09:13)
[2017-10-26] MEDS: ATORVASTATIN 20 MG TAB PO (09:13)
[2017-10-26] MEDS: EUCERIN 120GM CREAM TOP ×2 (09:14→21:07)
[2017-10-26] MEDS: LIDOCAINE 5% (LIDODERM) PATCH TD (09:14)
[2017-10-26 12:03] LABS: BEDSIDE GLUCOSE 149 MG/DL (83-110)
[2017-10-26 16:51] LABS: BEDSIDE GLUCOSE 150 MG/DL (83-110)
[2017-10-26] MEDS: guaiFENesin ER 600 MG TAB PO (18:55)
[2017-10-26] MEDS: **NOTE PATIENT COMMENT** MISC XX (21:00)
[2017-10-26] MEDS: TAMSULOSIN 0.4 MG CAP PO (21:06)
[2017-10-26] MEDS: FINASTERIDE 5 MG TAB PO (21:06)
[2017-10-26] MEDS: ACETAMINOPHEN TAB 650MG DOSE (2X325MG) PO (21:07)
[2017-10-26 21:18] LABS: BEDSIDE GLUCOSE 170 MG/DL (83-110)
[2017-10-27 06:11] LABS: HEMATOCRIT 27.3 % (42.0-52.0); HEMOGLOBIN 8.5 g/dl (13.5-17.5); MEAN CORPUSCULAR HEMOGLOBIN 24.4 pg (27.0-33.0); MEAN CORPUSCULAR HGB CONC 31.1 g/dl (32.0-36.5); MEAN CORPUSCULAR VOLUME 78.2 fl (80.0-96.0); PLATELET COUNT, AUTOMATED 352 10^3/uL (150-450); RED BLOOD COUNT 3.49 10^6/uL (4.30-6.10); RED CELL DISTRIBUTION WIDTH 15.3 % (11.5-14.5); WHITE BLOOD COUNT 9.6 10^3/uL (4.0-10.0)
[2017-10-27 07:06] LABS: BEDSIDE GLUCOSE 114 MG/DL (83-110)
[2017-10-27] MEDS: HumaLOG INSULIN (NovoLOG) PER UNIT SC ×4 (10:05→21:00)
[2017-10-27] MEDS: MIDODRINE 2.5 MG TAB PO ×3 (10:06→16:24)
[2017-10-27] MEDS: LEVEMIR (INSULIN DETEMIR) 1 UNITS/0.01ML SC ×2 (10:06→22:11)
[2017-10-27] MEDS: ASPIRIN 81 MG CHEW TABLET PO (10:18)
[2017-10-27] MEDS: ATORVASTATIN 20 MG TAB PO (10:19)
[2017-10-27] MEDS: LACTOBACILLUS ACIDOPHILUS CAP (BACID) PO ×2 (10:19→16:49)
[2017-10-27] MEDS: MULTIVITAMINS/MINERALS THERAP 1 TAB PO (10:19)
[2017-10-27] MEDS: LIDOCAINE 5% (LIDODERM) PATCH TD (10:19)
[2017-10-27] MEDS: FOLIC ACID 1 MG TAB PO (10:19)
[2017-10-27] MEDS: EUCERIN 120GM CREAM TOP ×2 (10:20→22:12)
[2017-10-27] MEDS: ENOXAPARIN 40 MG/0.4 ML SYRINGE (J1650) SC (10:20)
[2017-10-27] MEDS: guaiFENesin ER 600 MG TAB PO ×2 (10:22→22:11)
[2017-10-27 12:40] LABS: BEDSIDE GLUCOSE 161 MG/DL (83-110)
[2017-10-27 16:44] LABS: BEDSIDE GLUCOSE 133 MG/DL (83-110)
[2017-10-27 20:23] LABS: BEDSIDE GLUCOSE 149 MG/DL (83-110)
[2017-10-27] MEDS: **NOTE PATIENT COMMENT** MISC XX (21:00)
[2017-10-27] MEDS: TAMSULOSIN 0.4 MG CAP PO (22:11)
[2017-10-27] MEDS: FINASTERIDE 5 MG TAB PO (22:11)
[2017-10-28] MEDS: guaiFENesin ER 600 MG TAB PO ×3 (05:57→21:06)
[2017-10-28 06:20] LABS: BEDSIDE GLUCOSE 122 MG/DL (83-110)
[2017-10-28] MEDS: HumaLOG INSULIN (NovoLOG) PER UNIT SC ×4 (07:51→20:59)
[2017-10-28] MEDS: ASPIRIN 81 MG CHEW TABLET PO (07:59)
[2017-10-28] MEDS: LACTOBACILLUS ACIDOPHILUS CAP (BACID) PO ×2 (07:59→17:53)
[2017-10-28] MEDS: MIDODRINE 2.5 MG TAB PO ×3 (07:59→16:11)
[2017-10-28] MEDS: ATORVASTATIN 20 MG TAB PO (08:00)
[2017-10-28] MEDS: FOLIC ACID 1 MG TAB PO (08:00)
[2017-10-28] MEDS: ENOXAPARIN 40 MG/0.4 ML SYRINGE (J1650) SC (08:00)
[2017-10-28] MEDS: LIDOCAINE 5% (LIDODERM) PATCH TD (08:00)
[2017-10-28] MEDS: MULTIVITAMINS/MINERALS THERAP 1 TAB PO (08:00)
[2017-10-28] MEDS: EUCERIN 120GM CREAM TOP ×2 (08:01→21:00)
[2017-10-28] MEDS: LEVEMIR (INSULIN DETEMIR) 1 UNITS/0.01ML SC ×2 (08:01→21:06)
[2017-10-28 09:53] LABS: ANION GAP 6 MEQ/L (8-16); BLOOD UREA NITROGEN 15 MG/DL (7-18); CALCIUM LEVEL 8.6 MG/DL (8.8-10.2); CARBON DIOXIDE LEVEL 28 MEQ/L (21-32); CHLORIDE LEVEL 106 MEQ/L (98-107); GLOMERULAR FILTRATION RATE > 60.0 (>42); GLUCOSE, FASTING 93 MG/DL (70-100); POTASSIUM SERUM 4.2 MEQ/L (3.5-5.1); SODIUM LEVEL 140 MEQ/L (136-145)
[2017-10-28 11:35] LABS: BEDSIDE GLUCOSE 93 MG/DL (83-110)
[2017-10-28 20:12] LABS: BEDSIDE GLUCOSE 141 MG/DL (83-110)
[2017-10-28] MEDS: **NOTE PATIENT COMMENT** MISC XX (21:00)
[2017-10-28] MEDS: TAMSULOSIN 0.4 MG CAP PO (21:06)
[2017-10-28] MEDS: FINASTERIDE 5 MG TAB PO (21:06)
[2017-10-29] MEDS: guaiFENesin ER 600 MG TAB PO ×3 (05:39→21:31)
[2017-10-29 06:33] LABS: BEDSIDE GLUCOSE 105 MG/DL (83-110)
[2017-10-29] MEDS: HumaLOG INSULIN (NovoLOG) PER UNIT SC ×4 (07:30→21:00)
[2017-10-29 08:28] LABS: BEDSIDE GLUCOSE 119 MG/DL (83-110)
[2017-10-29] MEDS: ENOXAPARIN 40 MG/0.4 ML SYRINGE (J1650) SC (08:52)
[2017-10-29] MEDS: EUCERIN 120GM CREAM TOP ×2 (08:52→21:28)
[2017-10-29] MEDS: MIDODRINE 2.5 MG TAB PO ×3 (08:52→16:58)
[2017-10-29 11:45] LABS: BEDSIDE GLUCOSE 121 MG/DL (83-110)
[2017-10-29] MEDS: LEVEMIR (INSULIN DETEMIR) 1 UNITS/0.01ML SC ×2 (12:50→21:29)
[2017-10-29] MEDS: LACTOBACILLUS ACIDOPHILUS CAP (BACID) PO ×2 (13:12→16:58)
[2017-10-29] MEDS: ASPIRIN 81 MG CHEW TABLET PO (13:12)
[2017-10-29] MEDS: LIDOCAINE 5% (LIDODERM) PATCH TD (13:13)
[2017-10-29] MEDS: MULTIVITAMINS/MINERALS THERAP 1 TAB PO (13:13)
[2017-10-29] MEDS: ATORVASTATIN 20 MG TAB PO (13:13)
[2017-10-29] MEDS: FOLIC ACID 1 MG TAB PO (13:13)
[2017-10-29 17:01] LABS: BEDSIDE GLUCOSE 208 MG/DL (83-110)
[2017-10-29 19:55] LABS: BEDSIDE GLUCOSE 219 MG/DL (83-110)
[2017-10-29] MEDS: **NOTE PATIENT COMMENT** MISC XX (21:00)
[2017-10-29] MEDS: FINASTERIDE 5 MG TAB PO (21:31)
[2017-10-29] MEDS: ACETAMINOPHEN TAB 650MG DOSE (2X325MG) PO (21:31)
[2017-10-29] MEDS: TAMSULOSIN 0.4 MG CAP PO (21:31)
[2017-10-30 06:02] LABS: BEDSIDE GLUCOSE 137 MG/DL (83-110)
[2017-10-30] MEDS: guaiFENesin ER 600 MG TAB PO ×3 (06:16→21:21)
[2017-10-30] MEDS: ASPIRIN 81 MG CHEW TABLET PO (09:02)
[2017-10-30] MEDS: MULTIVITAMINS/MINERALS THERAP 1 TAB PO (09:03)
[2017-10-30] MEDS: LEVEMIR (INSULIN DETEMIR) 1 UNITS/0.01ML SC ×2 (09:03→21:21)
[2017-10-30] MEDS: LACTOBACILLUS ACIDOPHILUS CAP (BACID) PO ×2 (09:03→17:26)
[2017-10-30] MEDS: FOLIC ACID 1 MG TAB PO (09:03)
[2017-10-30] MEDS: ATORVASTATIN 20 MG TAB PO (09:03)
[2017-10-30] MEDS: ENOXAPARIN 40 MG/0.4 ML SYRINGE (J1650) SC (09:03)
[2017-10-30] MEDS: EUCERIN 120GM CREAM TOP ×2 (09:04→21:22)
[2017-10-30] MEDS: LIDOCAINE 5% (LIDODERM) PATCH TD (09:04)
[2017-10-30] MEDS: HumaLOG INSULIN (NovoLOG) PER UNIT SC ×4 (09:13→20:23)
[2017-10-30] MEDS: MIDODRINE 2.5 MG TAB PO ×3 (09:13→16:18)
[2017-10-30 11:41] LABS: BEDSIDE GLUCOSE 135 MG/DL (83-110)
[2017-10-30] MEDS: ACETAMINOPHEN TAB 650MG DOSE (2X325MG) PO (16:18)
[2017-10-30 17:00] LABS: BEDSIDE GLUCOSE 132 MG/DL (83-110)
[2017-10-30 19:52] LABS: BEDSIDE GLUCOSE 195 MG/DL (83-110)
[2017-10-30] MEDS: TAMSULOSIN 0.4 MG CAP PO (21:21)
[2017-10-30] MEDS: FINASTERIDE 5 MG TAB PO (21:21)
[2017-10-30] MEDS: **NOTE PATIENT COMMENT** MISC XX (21:22)
[2017-10-31] MEDS: guaiFENesin ER 600 MG TAB PO ×3 (05:45→21:01)
[2017-10-31 06:19] LABS: HEMATOCRIT 27.5 % (42.0-52.0); HEMOGLOBIN 8.6 g/dl (13.5-17.5); MEAN CORPUSCULAR HEMOGLOBIN 24.2 pg (27.0-33.0); MEAN CORPUSCULAR HGB CONC 31.3 g/dl (32.0-36.5); MEAN CORPUSCULAR VOLUME 77.2 fl (80.0-96.0); PLATELET COUNT, AUTOMATED 392 10^3/uL (150-450); RED BLOOD COUNT 3.56 10^6/uL (4.30-6.10); RED CELL DISTRIBUTION WIDTH 15.2 % (11.5-14.5); WHITE BLOOD COUNT 9.9 10^3/uL (4.0-10.0)
[2017-10-31 06:37] LABS: ANION GAP 8 MEQ/L (8-16); BLOOD UREA NITROGEN 17 MG/DL (7-18); CALCIUM LEVEL 8.5 MG/DL (8.8-10.2); CARBON DIOXIDE LEVEL 27 MEQ/L (21-32); CHLORIDE LEVEL 105 MEQ/L (98-107); CREATININE FOR GFR 0.75 MG/DL (0.70-1.30); GLOMERULAR FILTRATION RATE > 60.0 (>42); GLUCOSE, FASTING 111 MG/DL (70-100); MAGNESIUM LEVEL 1.8 MG/DL (1.8-2.4); POTASSIUM SERUM 3.8 MEQ/L (3.5-5.1); SODIUM LEVEL 140 MEQ/L (136-145)
[2017-10-31] MEDS: HumaLOG INSULIN (NovoLOG) PER UNIT SC ×4 (07:30→20:45)
[2017-10-31] MEDS: EUCERIN 120GM CREAM TOP ×2 (09:00→21:02)
[2017-10-31] MEDS: FOLIC ACID 1 MG TAB PO (10:27)
[2017-10-31] MEDS: ATORVASTATIN 20 MG TAB PO (10:28)
[2017-10-31] MEDS: LIDOCAINE 5% (LIDODERM) PATCH TD (10:28)
[2017-10-31] MEDS: MIDODRINE 2.5 MG TAB PO ×3 (10:28→17:27)
[2017-10-31] MEDS: MULTIVITAMINS/MINERALS THERAP 1 TAB PO (10:28)
[2017-10-31] MEDS: ASPIRIN 81 MG CHEW TABLET PO (10:28)
[2017-10-31] MEDS: LEVEMIR (INSULIN DETEMIR) 1 UNITS/0.01ML SC ×2 (10:29→21:02)
[2017-10-31] MEDS: ENOXAPARIN 40 MG/0.4 ML SYRINGE (J1650) SC (10:29)
[2017-10-31] MEDS: LACTOBACILLUS ACIDOPHILUS CAP (BACID) PO ×2 (10:30→17:28)
[2017-10-31 11:50] LABS: BEDSIDE GLUCOSE 151 MG/DL (83-110)
[2017-10-31 16:33] LABS: BEDSIDE GLUCOSE 173 MG/DL (83-110)
[2017-10-31 20:05] LABS: BEDSIDE GLUCOSE 177 MG/DL (83-110)
[2017-10-31] MEDS: **NOTE PATIENT COMMENT** MISC XX (21:00)
[2017-10-31] MEDS: FINASTERIDE 5 MG TAB PO (21:01)
[2017-10-31] MEDS: TAMSULOSIN 0.4 MG CAP PO (21:01)
[2017-10-31] MEDS: ACETAMINOPHEN TAB 650MG DOSE (2X325MG) PO (21:02)
[2017-11-01] MEDS: guaiFENesin ER 600 MG TAB PO ×3 (05:45→21:22)
[2017-11-01 06:28] LABS: BEDSIDE GLUCOSE 99 MG/DL (83-110)
[2017-11-01] MEDS: HumaLOG INSULIN (NovoLOG) PER UNIT SC ×4 (07:30→20:21)
[2017-11-01] MEDS: ENOXAPARIN 40 MG/0.4 ML SYRINGE (J1650) SC (08:31)
[2017-11-01] MEDS: LEVEMIR (INSULIN DETEMIR) 1 UNITS/0.01ML SC ×2 (08:32→21:22)
[2017-11-01] MEDS: LIDOCAINE 5% (LIDODERM) PATCH TD (08:32)
[2017-11-01] MEDS: ATORVASTATIN 20 MG TAB PO (08:33)
[2017-11-01] MEDS: MIDODRINE 2.5 MG TAB PO ×3 (08:33→17:28)
[2017-11-01] MEDS: EUCERIN 120GM CREAM TOP ×2 (08:33→21:23)
[2017-11-01] MEDS: ASPIRIN 81 MG CHEW TABLET PO (08:33)
[2017-11-01] MEDS: MULTIVITAMINS/MINERALS THERAP 1 TAB PO (08:33)
[2017-11-01] MEDS: LACTOBACILLUS ACIDOPHILUS CAP (BACID) PO ×2 (08:33→17:28)
[2017-11-01] MEDS: FOLIC ACID 1 MG TAB PO (08:33)
[2017-11-01 11:38] LABS: BEDSIDE GLUCOSE 131 MG/DL (83-110)
[2017-11-01 16:30] LABS: BEDSIDE GLUCOSE 91 MG/DL (83-110)
[2017-11-01 20:17] LABS: BEDSIDE GLUCOSE 176 MG/DL (83-110)
[2017-11-01] MEDS: **NOTE PATIENT COMMENT** MISC XX (21:20)
[2017-11-01] MEDS: ACETAMINOPHEN TAB 650MG DOSE (2X325MG) PO (21:22)
[2017-11-01] MEDS: FINASTERIDE 5 MG TAB PO (21:22)
[2017-11-01] MEDS: TAMSULOSIN 0.4 MG CAP PO (21:22)
[2017-11-02] MEDS: guaiFENesin ER 600 MG TAB PO ×3 (05:50→22:16)
[2017-11-02 06:07] LABS: BEDSIDE GLUCOSE 101 MG/DL (83-110)
[2017-11-02] MEDS: HumaLOG INSULIN (NovoLOG) PER UNIT SC ×4 (07:30→22:10)
[2017-11-02] MEDS: MIDODRINE 2.5 MG TAB PO ×3 (09:00→17:24)
[2017-11-02] MEDS: FOLIC ACID 1 MG TAB PO (09:00)
[2017-11-02] MEDS: ASPIRIN 81 MG CHEW TABLET PO (09:00)
[2017-11-02] MEDS: LIDOCAINE 5% (LIDODERM) PATCH TD (09:00)
[2017-11-02] MEDS: LACTOBACILLUS ACIDOPHILUS CAP (BACID) PO ×2 (09:00→17:24)
[2017-11-02] MEDS: ATORVASTATIN 20 MG TAB PO (09:00)
[2017-11-02] MEDS: MULTIVITAMINS/MINERALS THERAP 1 TAB PO (09:00)
[2017-11-02] MEDS: LEVEMIR (INSULIN DETEMIR) 1 UNITS/0.01ML SC ×2 (09:01→22:16)
[2017-11-02] MEDS: ENOXAPARIN 40 MG/0.4 ML SYRINGE (J1650) SC (09:01)
[2017-11-02] MEDS: EUCERIN 120GM CREAM TOP ×2 (09:02→22:17)
[2017-11-02] MEDS: ACETAMINOPHEN TAB 650MG DOSE (2X325MG) PO ×2 (11:18→22:16)
[2017-11-02 11:44] LABS: BEDSIDE GLUCOSE 154 MG/DL (83-110)
[2017-11-02] MEDS ORDERED: IBUPROFEN 600 MG TAB PO (14:45)
[2017-11-02] MEDS: NORCO, ANEXSIA 5/325MG TABLET (HYDROcodone/ACETAMINOPHEN) PO (14:53)
[2017-11-02 16:34] LABS: BEDSIDE GLUCOSE 169 MG/DL (83-110)
[2017-11-02 20:15] LABS: BEDSIDE GLUCOSE 179 MG/DL (83-110)
[2017-11-02] MEDS: TAMSULOSIN 0.4 MG CAP PO (22:16)
[2017-11-02] MEDS: FINASTERIDE 5 MG TAB PO (22:16)
[2017-11-02] MEDS: **NOTE PATIENT COMMENT** MISC XX (22:17)
[2017-11-03] MEDS: guaiFENesin ER 600 MG TAB PO ×3 (05:39→21:12)
[2017-11-03 06:23] LABS: HEMATOCRIT 27.9 % (42.0-52.0); HEMOGLOBIN 8.5 g/dl (13.5-17.5); MEAN CORPUSCULAR HEMOGLOBIN 23.7 pg (27.0-33.0); MEAN CORPUSCULAR HGB CONC 30.5 g/dl (32.0-36.5); MEAN CORPUSCULAR VOLUME 77.7 fl (80.0-96.0); PLATELET COUNT, AUTOMATED 388 10^3/uL (150-450); RED BLOOD COUNT 3.59 10^6/uL (4.30-6.10); RED CELL DISTRIBUTION WIDTH 15.1 % (11.5-14.5); WHITE BLOOD COUNT 8.4 10^3/uL (4.0-10.0)
[2017-11-03 06:48] LABS: ANION GAP 6 MEQ/L (8-16); BLOOD UREA NITROGEN 15 MG/DL (7-18); CALCIUM LEVEL 8.5 MG/DL (8.8-10.2); CARBON DIOXIDE LEVEL 28 MEQ/L (21-32); CHLORIDE LEVEL 106 MEQ/L (98-107); CREATININE FOR GFR 0.68 MG/DL (0.70-1.30); GLOMERULAR FILTRATION RATE > 60.0 (>42); GLUCOSE, FASTING 118 MG/DL (70-100); MAGNESIUM LEVEL 1.8 MG/DL (1.8-2.4); POTASSIUM SERUM 4.1 MEQ/L (3.5-5.1); SODIUM LEVEL 140 MEQ/L (136-145)
[2017-11-03] MEDS: LIDOCAINE 5% (LIDODERM) PATCH TD (07:35)
[2017-11-03] MEDS: MIDODRINE 2.5 MG TAB PO ×3 (08:30→17:26)
[2017-11-03] MEDS: FOLIC ACID 1 MG TAB PO (08:30)
[2017-11-03] MEDS: MULTIVITAMINS/MINERALS THERAP 1 TAB PO (08:30)
[2017-11-03] MEDS: ATORVASTATIN 20 MG TAB PO (08:30)
[2017-11-03] MEDS: ASPIRIN 81 MG CHEW TABLET PO (08:30)
[2017-11-03] MEDS: HumaLOG INSULIN (NovoLOG) PER UNIT SC ×4 (08:30→21:00)
[2017-11-03] MEDS: LACTOBACILLUS ACIDOPHILUS CAP (BACID) PO ×2 (08:30→17:26)
[2017-11-03] MEDS: ENOXAPARIN 40 MG/0.4 ML SYRINGE (J1650) SC (08:31)
[2017-11-03] MEDS: LEVEMIR (INSULIN DETEMIR) 1 UNITS/0.01ML SC ×2 (08:31→21:12)
[2017-11-03] MEDS: EUCERIN 120GM CREAM TOP ×2 (08:32→21:00)
[2017-11-03 11:42] LABS: BEDSIDE GLUCOSE 173 MG/DL (83-110)
[2017-11-03 17:02] LABS: BEDSIDE GLUCOSE 110 MG/DL (83-110)
[2017-11-03 20:08] LABS: BEDSIDE GLUCOSE 148 MG/DL (83-110)
[2017-11-03] MEDS: TAMSULOSIN 0.4 MG CAP PO (21:11)
[2017-11-03] MEDS: FINASTERIDE 5 MG TAB PO (21:11)
[2017-11-03] MEDS: NORCO, ANEXSIA 5/325MG TABLET (HYDROcodone/ACETAMINOPHEN) PO (21:12)
[2017-11-03] MEDS: **NOTE PATIENT COMMENT** MISC XX (21:13)
[2017-11-04 05:48] LABS: BEDSIDE GLUCOSE 91 MG/DL (83-110)
[2017-11-04] MEDS: guaiFENesin ER 600 MG TAB PO ×3 (05:50→21:10)
[2017-11-04] MEDS: HumaLOG INSULIN (NovoLOG) PER UNIT SC ×4 (07:36→21:00)
[2017-11-04] MEDS: MIDODRINE 2.5 MG TAB PO ×3 (08:49→17:02)
[2017-11-04] MEDS: LACTOBACILLUS ACIDOPHILUS CAP (BACID) PO ×2 (08:49→17:02)
[2017-11-04] MEDS: FOLIC ACID 1 MG TAB PO (08:49)
[2017-11-04] MEDS: ASPIRIN 81 MG CHEW TABLET PO (08:49)
[2017-11-04] MEDS: MULTIVITAMINS/MINERALS THERAP 1 TAB PO (08:50)
[2017-11-04] MEDS: LIDOCAINE 5% (LIDODERM) PATCH TD (08:50)
[2017-11-04] MEDS: LEVEMIR (INSULIN DETEMIR) 1 UNITS/0.01ML SC ×2 (08:50→21:10)
[2017-11-04] MEDS: ENOXAPARIN 40 MG/0.4 ML SYRINGE (J1650) SC (08:50)
[2017-11-04] MEDS: ATORVASTATIN 20 MG TAB PO (08:50)
[2017-11-04] MEDS: EUCERIN 120GM CREAM TOP ×2 (08:51→21:11)
[2017-11-04 12:34] LABS: BEDSIDE GLUCOSE 167 MG/DL (83-110)
[2017-11-04 16:48] LABS: BEDSIDE GLUCOSE 164 MG/DL (83-110)
[2017-11-04 20:19] LABS: BEDSIDE GLUCOSE 198 MG/DL (83-110)
[2017-11-04] MEDS: **NOTE PATIENT COMMENT** MISC XX (21:00)
[2017-11-04] MEDS: TAMSULOSIN 0.4 MG CAP PO (21:10)
[2017-11-04] MEDS: FINASTERIDE 5 MG TAB PO (21:10)
[2017-11-05] MEDS: guaiFENesin ER 600 MG TAB PO ×2 (05:45→21:18)
[2017-11-05 06:08] LABS: BEDSIDE GLUCOSE 158 MG/DL (83-110)
[2017-11-05] MEDS: FOLIC ACID 1 MG TAB PO (08:16)
[2017-11-05] MEDS: ASPIRIN 81 MG CHEW TABLET PO (08:16)
[2017-11-05] MEDS: ENOXAPARIN 40 MG/0.4 ML SYRINGE (J1650) SC (08:16)
[2017-11-05] MEDS: MULTIVITAMINS/MINERALS THERAP 1 TAB PO (08:16)
[2017-11-05] MEDS: LEVEMIR (INSULIN DETEMIR) 1 UNITS/0.01ML SC ×2 (08:16→21:17)
[2017-11-05] MEDS: HumaLOG INSULIN (NovoLOG) PER UNIT SC ×4 (08:16→21:00)
[2017-11-05] MEDS: MIDODRINE 2.5 MG TAB PO ×3 (08:16→16:00)
[2017-11-05] MEDS: LACTOBACILLUS ACIDOPHILUS CAP (BACID) PO ×2 (08:16→18:00)
[2017-11-05] MEDS: ATORVASTATIN 20 MG TAB PO (08:17)
[2017-11-05] MEDS: LIDOCAINE 5% (LIDODERM) PATCH TD (08:19)
[2017-11-05] MEDS: EUCERIN 120GM CREAM TOP ×2 (08:19→21:00)
[2017-11-05 11:40] LABS: BEDSIDE GLUCOSE 150 MG/DL (83-110)
[2017-11-05] MEDS: **NOTE PATIENT COMMENT** MISC XX (21:00)
[2017-11-05] MEDS: FINASTERIDE 5 MG TAB PO (21:17)
[2017-11-05] MEDS: TAMSULOSIN 0.4 MG CAP PO (21:17)
[2017-11-05] MEDS: ACETAMINOPHEN TAB 650MG DOSE (2X325MG) PO (22:08)
[2017-11-06] MEDS: guaiFENesin ER 600 MG TAB PO ×3 (05:16→21:20)
[2017-11-06 05:59] LABS: HEMATOCRIT 28.9 % (42.0-52.0); MEAN CORPUSCULAR HEMOGLOBIN 24.1 pg (27.0-33.0); MEAN CORPUSCULAR HGB CONC 31.1 g/dl (32.0-36.5); MEAN CORPUSCULAR VOLUME 77.3 fl (80.0-96.0); PLATELET COUNT, AUTOMATED 396 10^3/uL (150-450); RED BLOOD COUNT 3.74 10^6/uL (4.30-6.10); RED CELL DISTRIBUTION WIDTH 15.4 % (11.5-14.5); WHITE BLOOD COUNT 9.5 10^3/uL (4.0-10.0)
[2017-11-06 06:09] LABS: ANION GAP 8 MEQ/L (8-16); BLOOD UREA NITROGEN 14 MG/DL (7-18); CALCIUM LEVEL 8.5 MG/DL (8.8-10.2); CARBON DIOXIDE LEVEL 26 MEQ/L (21-32); CHLORIDE LEVEL 109 MEQ/L (98-107); CREATININE FOR GFR 0.71 MG/DL (0.70-1.30); GLOMERULAR FILTRATION RATE > 60.0 (>42); GLUCOSE, FASTING 101 MG/DL (70-100); MAGNESIUM LEVEL 1.9 MG/DL (1.8-2.4); SODIUM LEVEL 143 MEQ/L (136-145)
[2017-11-06] MEDS: HumaLOG INSULIN (NovoLOG) PER UNIT SC ×4 (07:30→20:29)
[2017-11-06] MEDS: MIDODRINE 2.5 MG TAB PO ×3 (08:12→15:30)
[2017-11-06] MEDS: LACTOBACILLUS ACIDOPHILUS CAP (BACID) PO ×2 (08:12→17:41)
[2017-11-06] MEDS: ATORVASTATIN 20 MG TAB PO (08:12)
[2017-11-06] MEDS: MULTIVITAMINS/MINERALS THERAP 1 TAB PO (08:12)
[2017-11-06] MEDS: LEVEMIR (INSULIN DETEMIR) 1 UNITS/0.01ML SC ×2 (08:12→21:20)
[2017-11-06] MEDS: ASPIRIN 81 MG CHEW TABLET PO (08:12)
[2017-11-06] MEDS: FOLIC ACID 1 MG TAB PO (08:12)
[2017-11-06] MEDS: ENOXAPARIN 40 MG/0.4 ML SYRINGE (J1650) SC (08:13)
[2017-11-06] MEDS: LIDOCAINE 5% (LIDODERM) PATCH TD (08:13)
[2017-11-06] MEDS: EUCERIN 120GM CREAM TOP ×2 (08:13→21:00)
[2017-11-06 10:11] LABS: BEDSIDE GLUCOSE 143 MG/DL (83-110)
[2017-11-06 10:12] LABS: BEDSIDE GLUCOSE 187 MG/DL (83-110)
[2017-11-06 10:13] LABS: BEDSIDE GLUCOSE 107 MG/DL (83-110)
[2017-11-06 12:16] LABS: BEDSIDE GLUCOSE 163 MG/DL (83-110)
[2017-11-06 16:40] LABS: BEDSIDE GLUCOSE 164 MG/DL (83-110)
[2017-11-06] MEDS: **NOTE PATIENT COMMENT** MISC XX (21:00)
[2017-11-06] MEDS: TAMSULOSIN 0.4 MG CAP PO (21:20)
[2017-11-06] MEDS: FINASTERIDE 5 MG TAB PO (21:20)
[2017-11-07] MEDS: guaiFENesin ER 600 MG TAB PO ×3 (05:56→21:42)
[2017-11-07] MEDS: ENOXAPARIN 40 MG/0.4 ML SYRINGE (J1650) SC (08:14)
[2017-11-07] MEDS: LEVEMIR (INSULIN DETEMIR) 1 UNITS/0.01ML SC ×2 (08:14→21:42)
[2017-11-07] MEDS: ASPIRIN 81 MG CHEW TABLET PO (08:15)
[2017-11-07] MEDS: LACTOBACILLUS ACIDOPHILUS CAP (BACID) PO ×2 (08:15→17:21)
[2017-11-07] MEDS: ATORVASTATIN 20 MG TAB PO (08:15)
[2017-11-07] MEDS: HumaLOG INSULIN (NovoLOG) PER UNIT SC ×4 (08:15→21:00)
[2017-11-07] MEDS: FOLIC ACID 1 MG TAB PO (08:16)
[2017-11-07] MEDS: LIDOCAINE 5% (LIDODERM) PATCH TD (08:16)
[2017-11-07] MEDS: MIDODRINE 2.5 MG TAB PO ×3 (08:16→15:27)
[2017-11-07] MEDS: EUCERIN 120GM CREAM TOP ×2 (08:16→21:43)
[2017-11-07] MEDS: MULTIVITAMINS/MINERALS THERAP 1 TAB PO (08:16)
[2017-11-07 11:42] LABS: BEDSIDE GLUCOSE 161 MG/DL (83-110)
[2017-11-07 12:01] LABS: BEDSIDE GLUCOSE 133 MG/DL (83-110)
[2017-11-07 12:01] LABS: BEDSIDE GLUCOSE 116 MG/DL (83-110)
[2017-11-07 16:58] LABS: BEDSIDE GLUCOSE 152 MG/DL (83-110)
[2017-11-07 20:46] LABS: BEDSIDE GLUCOSE 176 MG/DL (83-110)
[2017-11-07] MEDS: **NOTE PATIENT COMMENT** MISC XX (21:00)
[2017-11-07] MEDS: TAMSULOSIN 0.4 MG CAP PO (21:42)
[2017-11-07] MEDS: FINASTERIDE 5 MG TAB PO (21:42)
[2017-11-08] MEDS: guaiFENesin ER 600 MG TAB PO ×3 (05:35→21:07)
[2017-11-08 06:05] LABS: BEDSIDE GLUCOSE 124 MG/DL (83-110)
[2017-11-08] MEDS: HumaLOG INSULIN (NovoLOG) PER UNIT SC ×4 (10:06→21:00)
[2017-11-08] MEDS: ENOXAPARIN 40 MG/0.4 ML SYRINGE (J1650) SC (10:06)
[2017-11-08] MEDS: LIDOCAINE 5% (LIDODERM) PATCH TD (10:06)
[2017-11-08] MEDS: MULTIVITAMINS/MINERALS THERAP 1 TAB PO (10:07)
[2017-11-08] MEDS: FOLIC ACID 1 MG TAB PO (10:07)
[2017-11-08] MEDS: LACTOBACILLUS ACIDOPHILUS CAP (BACID) PO ×2 (10:07→17:39)
[2017-11-08] MEDS: ASPIRIN 81 MG CHEW TABLET PO (10:07)
[2017-11-08] MEDS: MIDODRINE 2.5 MG TAB PO ×3 (10:07→17:40)
[2017-11-08] MEDS: ATORVASTATIN 20 MG TAB PO (10:07)
[2017-11-08] MEDS: EUCERIN 120GM CREAM TOP ×2 (10:08→21:00)
[2017-11-08] MEDS: LEVEMIR (INSULIN DETEMIR) 1 UNITS/0.01ML SC ×2 (10:08→21:08)
[2017-11-08 11:53] LABS: BEDSIDE GLUCOSE 168 MG/DL (83-110)
[2017-11-08 16:48] LABS: BEDSIDE GLUCOSE 97 MG/DL (83-110)
[2017-11-08] MEDS: **NOTE PATIENT COMMENT** MISC XX ×2 (21:00→22:00)
[2017-11-08 21:07] LABS: BEDSIDE GLUCOSE 104 MG/DL (83-110)
[2017-11-08] MEDS: TAMSULOSIN 0.4 MG CAP PO (21:07)
[2017-11-08] MEDS: FINASTERIDE 5 MG TAB PO (21:07)
[2017-11-09] MEDS: guaiFENesin ER 600 MG TAB PO ×3 (06:08→21:08)
[2017-11-09 06:24] LABS: HEMATOCRIT 31.7 % (42.0-52.0); HEMOGLOBIN 9.7 g/dl (13.5-17.5); MEAN CORPUSCULAR HEMOGLOBIN 23.5 pg (27.0-33.0); MEAN CORPUSCULAR HGB CONC 30.6 g/dl (32.0-36.5); MEAN CORPUSCULAR VOLUME 76.8 fl (80.0-96.0); PLATELET COUNT, AUTOMATED 439 10^3/uL (150-450); RED BLOOD COUNT 4.13 10^6/uL (4.30-6.10); RED CELL DISTRIBUTION WIDTH 15.3 % (11.5-14.5); WHITE BLOOD COUNT 15.7 10^3/uL (4.0-10.0)
[2017-11-09 06:45] LABS: ANION GAP 7 MEQ/L (8-16); BLOOD UREA NITROGEN 18 MG/DL (7-18); CALCIUM LEVEL 8.6 MG/DL (8.8-10.2); CARBON DIOXIDE LEVEL 27 MEQ/L (21-32); CHLORIDE LEVEL 106 MEQ/L (98-107); GLOMERULAR FILTRATION RATE > 60.0 (>42); GLUCOSE, FASTING 133 MG/DL (70-100); POTASSIUM SERUM 4.2 MEQ/L (3.5-5.1); SODIUM LEVEL 140 MEQ/L (136-145)
[2017-11-09 06:58] LABS: BEDSIDE GLUCOSE 126 MG/DL (83-110)
[2017-11-09] MEDS: HumaLOG INSULIN (NovoLOG) PER UNIT SC ×4 (07:30→21:00)
[2017-11-09] MEDS: LIDOCAINE 5% (LIDODERM) PATCH TD (08:41)
[2017-11-09] MEDS: LEVEMIR (INSULIN DETEMIR) 1 UNITS/0.01ML SC ×2 (08:43→21:14)
[2017-11-09] MEDS: ASPIRIN 81 MG CHEW TABLET PO (08:43)
[2017-11-09] MEDS: MULTIVITAMINS/MINERALS THERAP 1 TAB PO (08:43)
[2017-11-09] MEDS: FOLIC ACID 1 MG TAB PO (08:43)
[2017-11-09] MEDS: ENOXAPARIN 40 MG/0.4 ML SYRINGE (J1650) SC (08:43)
[2017-11-09] MEDS: MIDODRINE 2.5 MG TAB PO ×3 (08:43→17:55)
[2017-11-09] MEDS: LACTOBACILLUS ACIDOPHILUS CAP (BACID) PO ×2 (08:44→17:55)
[2017-11-09] MEDS: EUCERIN 120GM CREAM TOP ×2 (08:44→21:00)
[2017-11-09] MEDS: ATORVASTATIN 20 MG TAB PO (08:44)
[2017-11-09 12:09] LABS: BEDSIDE GLUCOSE 129 MG/DL (83-110)
[2017-11-09 17:13] LABS: BEDSIDE GLUCOSE 114 MG/DL (83-110)
[2017-11-09] MEDS: **NOTE PATIENT COMMENT** MISC XX (21:00)
[2017-11-09] MEDS: TAMSULOSIN 0.4 MG CAP PO (21:08)
[2017-11-09] MEDS: FINASTERIDE 5 MG TAB PO (21:08)
[2017-11-09 21:12] LABS: KETONE, URINE AUTO RFX NEGATIVE (NEGATIVE); MUCUS, URINE RFX SMALL (NEGATIVE); NITRITE, URINE AUTO RFX NEGATIVE (NEGATIVE); RBC, URINE AUTO RFX 1 /HPF (0-3); SPECIFIC GRAVITY UR AUTO RFX 1.021 (1.002-1.035); SQUAM EPITHELIAL CELL UR AURFX 0 /HPF (0-6)
[2017-11-09 21:13] LABS: BEDSIDE GLUCOSE 144 MG/DL (83-110)
[2017-11-09 21:25] LABS: LEUKOCYTE ESTERASE UR AUTO RFX 1+ (NEGATIVE); WBC, URINE AUTO RFX 12 /HPF (0-3)
[2017-11-10] MEDS: guaiFENesin ER 600 MG TAB PO ×3 (05:33→21:09)
[2017-11-10 05:39] LABS: BEDSIDE GLUCOSE 93 MG/DL (83-110)
[2017-11-10] MEDS: HumaLOG INSULIN (NovoLOG) PER UNIT SC ×4 (07:30→20:07)
[2017-11-10 08:33] LABS: BASO # 0.1 10^3/uL (0.0-0.2); BASO % 0.5 % (0.0-1.0); EOS # 0.2 10^3/uL (0.0-0.50); EOS % 2.6 % (0.0-3.0); HEMATOCRIT 29.5 % (42.0-52.0); HEMOGLOBIN 9.2 g/dl (13.5-17.5); IMMATURE GRANULOCYTE % 0.5 % (0-3.0); LYMPH # 2.9 10^3/uL (1.5-4.5); LYMPH % 30.7 % (24.0-44.0); MEAN CORPUSCULAR HEMOGLOBIN 23.9 pg (27.0-33.0); MEAN CORPUSCULAR HGB CONC 31.2 g/dl (32.0-36.5); MEAN CORPUSCULAR VOLUME 76.6 fl (80.0-96.0); MONO # 0.7 10^3/uL (0.0-0.8); MONO % 7.9 % (0.0-5.0); NEUTROPHILS # 5.4 10^3/uL (1.8-7.7); NEUTROPHILS % 57.8 % (36.0-66.0); PLATELET COUNT, AUTOMATED 374 10^3/uL (150-450); RED BLOOD COUNT 3.85 10^6/uL (4.30-6.10); RED CELL DISTRIBUTION WIDTH 15.8 % (11.5-14.5); WHITE BLOOD COUNT 9.4 10^3/uL (4.0-10.0)
[2017-11-10 08:56] LABS: ALBUMIN 2.6 GM/DL (3.2-5.2); ALBUMIN/GLOBULIN RATIO 0.72 (1.00-1.93); ALKALINE PHOSPHATASE 102 U/L (45-117); ALT/SGPT 37 U/L (12-78); ANION GAP 7 MEQ/L (8-16); AST/SGOT 10 U/L (7-37); BILIRUBIN,TOTAL 0.2 MG/DL (0.2-1.0); BLOOD UREA NITROGEN 16 MG/DL (7-18); CALCIUM LEVEL 8.7 MG/DL (8.8-10.2); CARBON DIOXIDE LEVEL 27 MEQ/L (21-32); CHLORIDE LEVEL 108 MEQ/L (98-107); CREATININE FOR GFR 0.66 MG/DL (0.70-1.30); GLOMERULAR FILTRATION RATE > 60.0 (>42); GLUCOSE, FASTING 90 MG/DL (70-100); SODIUM LEVEL 142 MEQ/L (136-145); TOTAL PROTEIN 6.2 GM/DL (6.4-8.2)
[2017-11-10] MEDS: LACTOBACILLUS ACIDOPHILUS CAP (BACID) PO ×2 (09:06→17:46)
[2017-11-10] MEDS: ASPIRIN 81 MG CHEW TABLET PO (09:06)
[2017-11-10] MEDS: ATORVASTATIN 20 MG TAB PO (09:06)
[2017-11-10] MEDS: FOLIC ACID 1 MG TAB PO (09:06)
[2017-11-10] MEDS: MULTIVITAMINS/MINERALS THERAP 1 TAB PO (09:06)
[2017-11-10] MEDS: MIDODRINE 2.5 MG TAB PO ×3 (09:07→17:47)
[2017-11-10] MEDS: EUCERIN 120GM CREAM TOP ×2 (09:07→21:10)
[2017-11-10] MEDS: ENOXAPARIN 40 MG/0.4 ML SYRINGE (J1650) SC (09:07)
[2017-11-10] MEDS: LEVEMIR (INSULIN DETEMIR) 1 UNITS/0.01ML SC ×2 (09:12→21:10)
[2017-11-10] MEDS: LIDOCAINE 5% (LIDODERM) PATCH TD (09:12)
[2017-11-10 12:07] LABS: BEDSIDE GLUCOSE 143 MG/DL (83-110)
[2017-11-10 17:37] LABS: BEDSIDE GLUCOSE 109 MG/DL (83-110)
[2017-11-10 19:58] LABS: BEDSIDE GLUCOSE 166 MG/DL (83-110)
[2017-11-10] MEDS: TAMSULOSIN 0.4 MG CAP PO (21:09)
[2017-11-10] MEDS: FINASTERIDE 5 MG TAB PO (21:09)
[2017-11-10] MEDS: **NOTE PATIENT COMMENT** MISC XX (21:18)
[2017-11-11] MEDS: guaiFENesin ER 600 MG TAB PO ×3 (05:10→20:58)
[2017-11-11 05:56] LABS: BEDSIDE GLUCOSE 95 MG/DL (83-110)
[2017-11-11] MEDS: HumaLOG INSULIN (NovoLOG) PER UNIT SC ×4 (07:26→20:49)
[2017-11-11] MEDS: ASPIRIN 81 MG CHEW TABLET PO (08:32)
[2017-11-11] MEDS: LEVEMIR (INSULIN DETEMIR) 1 UNITS/0.01ML SC ×2 (08:32→20:59)
[2017-11-11] MEDS: MIDODRINE 2.5 MG TAB PO ×3 (08:33→17:28)
[2017-11-11] MEDS: FOLIC ACID 1 MG TAB PO (08:33)
[2017-11-11] MEDS: LIDOCAINE 5% (LIDODERM) PATCH TD (08:33)
[2017-11-11] MEDS: ATORVASTATIN 20 MG TAB PO (08:33)
[2017-11-11] MEDS: ENOXAPARIN 40 MG/0.4 ML SYRINGE (J1650) SC (08:33)
[2017-11-11] MEDS: LACTOBACILLUS ACIDOPHILUS CAP (BACID) PO ×2 (08:33→17:28)
[2017-11-11] MEDS: MULTIVITAMINS/MINERALS THERAP 1 TAB PO (08:33)
[2017-11-11] MEDS: EUCERIN 120GM CREAM TOP ×2 (08:34→20:59)
[2017-11-11 12:03] LABS: BEDSIDE GLUCOSE 116 MG/DL (83-110)
[2017-11-11 17:16] LABS: BEDSIDE GLUCOSE 168 MG/DL (83-110)
[2017-11-11 20:18] LABS: BEDSIDE GLUCOSE 158 MG/DL (83-110)
[2017-11-11] MEDS: TAMSULOSIN 0.4 MG CAP PO (20:58)
[2017-11-11] MEDS: FINASTERIDE 5 MG TAB PO (20:58)
[2017-11-11] MEDS: **NOTE PATIENT COMMENT** MISC XX (20:59)
[2017-11-12] MEDS: guaiFENesin ER 600 MG TAB PO ×3 (05:21→20:55)
[2017-11-12 05:54] LABS: BEDSIDE GLUCOSE 122 MG/DL (83-110)
[2017-11-12 07:28] LABS: HEMATOCRIT 29.7 % (42.0-52.0); HEMOGLOBIN 9.1 g/dl (13.5-17.5); MEAN CORPUSCULAR HEMOGLOBIN 23.5 pg (27.0-33.0); MEAN CORPUSCULAR HGB CONC 30.6 g/dl (32.0-36.5); MEAN CORPUSCULAR VOLUME 76.7 fl (80.0-96.0); PLATELET COUNT, AUTOMATED 353 10^3/uL (150-450); RED BLOOD COUNT 3.87 10^6/uL (4.30-6.10); RED CELL DISTRIBUTION WIDTH 15.9 % (11.5-14.5); WHITE BLOOD COUNT 9.1 10^3/uL (4.0-10.0)
[2017-11-12 07:47] LABS: ANION GAP 6 MEQ/L (8-16); BLOOD UREA NITROGEN 19 MG/DL (7-18); CALCIUM LEVEL 8.6 MG/DL (8.8-10.2); CARBON DIOXIDE LEVEL 27 MEQ/L (21-32); CHLORIDE LEVEL 108 MEQ/L (98-107); GLOMERULAR FILTRATION RATE > 60.0 (>42); GLUCOSE, FASTING 123 MG/DL (70-100); MAGNESIUM LEVEL 1.8 MG/DL (1.8-2.4); POTASSIUM SERUM 3.9 MEQ/L (3.5-5.1); SODIUM LEVEL 141 MEQ/L (136-145)
[2017-11-12] MEDS: HumaLOG INSULIN (NovoLOG) PER UNIT SC ×4 (08:35→20:49)
[2017-11-12] MEDS: LEVEMIR (INSULIN DETEMIR) 1 UNITS/0.01ML SC ×2 (08:36→20:55)
[2017-11-12] MEDS: MIDODRINE 2.5 MG TAB PO ×3 (08:36→17:27)
[2017-11-12] MEDS: ATORVASTATIN 20 MG TAB PO (08:36)
[2017-11-12] MEDS: FOLIC ACID 1 MG TAB PO (08:36)
[2017-11-12] MEDS: LIDOCAINE 5% (LIDODERM) PATCH TD (08:36)
[2017-11-12] MEDS: ASPIRIN 81 MG CHEW TABLET PO (08:36)
[2017-11-12] MEDS: LACTOBACILLUS ACIDOPHILUS CAP (BACID) PO ×2 (08:36→17:27)
[2017-11-12] MEDS: ENOXAPARIN 40 MG/0.4 ML SYRINGE (J1650) SC (08:36)
[2017-11-12] MEDS: MULTIVITAMINS/MINERALS THERAP 1 TAB PO (08:37)
[2017-11-12] MEDS: EUCERIN 120GM CREAM TOP ×2 (08:37→20:55)
[2017-11-12 11:27] LABS: BEDSIDE GLUCOSE 102 MG/DL (83-110)
[2017-11-12 16:33] LABS: BEDSIDE GLUCOSE 145 MG/DL (83-110)
[2017-11-12 19:49] LABS: BEDSIDE GLUCOSE 137 MG/DL (83-110)
[2017-11-12] MEDS: **NOTE PATIENT COMMENT** MISC XX (20:50)
[2017-11-12] MEDS: FINASTERIDE 5 MG TAB PO (20:55)
[2017-11-12] MEDS: TAMSULOSIN 0.4 MG CAP PO (20:55)
[2017-11-13] MEDS: guaiFENesin ER 600 MG TAB PO ×3 (05:26→21:09)
[2017-11-13 06:01] LABS: BEDSIDE GLUCOSE 106 MG/DL (83-110)
[2017-11-13] MEDS: HumaLOG INSULIN (NovoLOG) PER UNIT SC ×4 (07:30→20:03)
[2017-11-13] MEDS: ATORVASTATIN 20 MG TAB PO (08:57)
[2017-11-13] MEDS: ASPIRIN 81 MG CHEW TABLET PO (08:57)
[2017-11-13] MEDS: ENOXAPARIN 40 MG/0.4 ML SYRINGE (J1650) SC (08:57)
[2017-11-13] MEDS: MIDODRINE 2.5 MG TAB PO ×3 (08:57→17:51)
[2017-11-13] MEDS: MULTIVITAMINS/MINERALS THERAP 1 TAB PO (08:57)
[2017-11-13] MEDS: EUCERIN 120GM CREAM TOP ×2 (08:57→21:10)
[2017-11-13] MEDS: FOLIC ACID 1 MG TAB PO (08:57)
[2017-11-13] MEDS: LACTOBACILLUS ACIDOPHILUS CAP (BACID) PO ×2 (08:57→17:51)
[2017-11-13] MEDS: LEVEMIR (INSULIN DETEMIR) 1 UNITS/0.01ML SC ×2 (08:58→21:09)
[2017-11-13] MEDS: LIDOCAINE 5% (LIDODERM) PATCH TD (08:58)
[2017-11-13 11:38] LABS: BEDSIDE GLUCOSE 151 MG/DL (83-110)
[2017-11-13] MEDS: LINEZOLID 600MG TABLET (ZYVOX) PO ×2 (14:21→21:09)
[2017-11-13 16:34] LABS: BEDSIDE GLUCOSE 128 MG/DL (83-110)
[2017-11-13 19:54] LABS: BEDSIDE GLUCOSE 228 MG/DL (83-110)
[2017-11-13] MEDS: TAMSULOSIN 0.4 MG CAP PO (21:09)
[2017-11-13] MEDS: FINASTERIDE 5 MG TAB PO (21:09)
[2017-11-13] MEDS: **NOTE PATIENT COMMENT** MISC XX (21:10)
[2017-11-14] MEDS: guaiFENesin ER 600 MG TAB PO ×3 (05:36→21:07)
[2017-11-14 05:59] LABS: BEDSIDE GLUCOSE 129 MG/DL (83-110)
[2017-11-14] MEDS: ENOXAPARIN 40 MG/0.4 ML SYRINGE (J1650) SC (08:34)
[2017-11-14] MEDS: LEVEMIR (INSULIN DETEMIR) 1 UNITS/0.01ML SC ×2 (08:34→21:07)
[2017-11-14] MEDS: HumaLOG INSULIN (NovoLOG) PER UNIT SC ×4 (08:35→21:00)
[2017-11-14] MEDS: MIDODRINE 2.5 MG TAB PO ×3 (08:35→15:30)
[2017-11-14] MEDS: FOLIC ACID 1 MG TAB PO (08:35)
[2017-11-14] MEDS: ATORVASTATIN 20 MG TAB PO (08:35)
[2017-11-14] MEDS: ASPIRIN 81 MG CHEW TABLET PO (08:35)
[2017-11-14] MEDS: LINEZOLID 600MG TABLET (ZYVOX) PO ×2 (08:35→21:07)
[2017-11-14] MEDS: LACTOBACILLUS ACIDOPHILUS CAP (BACID) PO ×2 (08:35→17:38)
[2017-11-14] MEDS: MULTIVITAMINS/MINERALS THERAP 1 TAB PO (08:35)
[2017-11-14] MEDS: LIDOCAINE 5% (LIDODERM) PATCH TD (08:35)
[2017-11-14] MEDS: EUCERIN 120GM CREAM TOP ×2 (08:36→21:00)
[2017-11-14 11:30] LABS: BEDSIDE GLUCOSE 181 MG/DL (83-110)
[2017-11-14 16:47] LABS: BEDSIDE GLUCOSE 116 MG/DL (83-110)
[2017-11-14 20:43] LABS: BEDSIDE GLUCOSE 159 MG/DL (83-110)
[2017-11-14] MEDS: FINASTERIDE 5 MG TAB PO (21:07)
[2017-11-14] MEDS: TAMSULOSIN 0.4 MG CAP PO (21:07)
[2017-11-14] MEDS: **NOTE PATIENT COMMENT** MISC XX (21:07)
[2017-11-15] MEDS: guaiFENesin ER 600 MG TAB PO ×3 (05:35→21:47)
[2017-11-15 06:35] LABS: HEMATOCRIT 31.7 % (42.0-52.0); HEMOGLOBIN 9.7 g/dl (13.5-17.5); MEAN CORPUSCULAR HEMOGLOBIN 23.7 pg (27.0-33.0); MEAN CORPUSCULAR HGB CONC 30.6 g/dl (32.0-36.5); MEAN CORPUSCULAR VOLUME 77.3 fl (80.0-96.0); PLATELET COUNT, AUTOMATED 335 10^3/uL (150-450); RED CELL DISTRIBUTION WIDTH 16.4 % (11.5-14.5); WHITE BLOOD COUNT 9.2 10^3/uL (4.0-10.0)
[2017-11-15 06:46] LABS: ANION GAP 5 MEQ/L (8-16); BLOOD UREA NITROGEN 17 MG/DL (7-18); CALCIUM LEVEL 8.6 MG/DL (8.8-10.2); CARBON DIOXIDE LEVEL 28 MEQ/L (21-32); CHLORIDE LEVEL 109 MEQ/L (98-107); CREATININE FOR GFR 0.81 MG/DL (0.70-1.30); GLOMERULAR FILTRATION RATE > 60.0 (>42); GLUCOSE, FASTING 102 MG/DL (70-100); MAGNESIUM LEVEL 1.9 MG/DL (1.8-2.4); SODIUM LEVEL 142 MEQ/L (136-145)
[2017-11-15] MEDS: HumaLOG INSULIN (NovoLOG) PER UNIT SC ×4 (07:23→20:40)
[2017-11-15] MEDS: LIDOCAINE 5% (LIDODERM) PATCH TD (07:24)
[2017-11-15] MEDS: FOLIC ACID 1 MG TAB PO (08:32)
[2017-11-15] MEDS: MIDODRINE 2.5 MG TAB PO ×3 (08:32→15:00)
[2017-11-15] MEDS: MULTIVITAMINS/MINERALS THERAP 1 TAB PO (08:32)
[2017-11-15] MEDS: ASPIRIN 81 MG CHEW TABLET PO (08:32)
[2017-11-15] MEDS: LACTOBACILLUS ACIDOPHILUS CAP (BACID) PO ×2 (08:32→18:01)
[2017-11-15] MEDS: ATORVASTATIN 20 MG TAB PO (08:32)
[2017-11-15] MEDS: LINEZOLID 600MG TABLET (ZYVOX) PO ×2 (08:32→21:47)
[2017-11-15] MEDS: ENOXAPARIN 40 MG/0.4 ML SYRINGE (J1650) SC (08:32)
[2017-11-15] MEDS: EUCERIN 120GM CREAM TOP ×2 (08:33→21:48)
[2017-11-15] MEDS: LEVEMIR (INSULIN DETEMIR) 1 UNITS/0.01ML SC ×2 (08:33→21:48)
[2017-11-15 11:35] LABS: BEDSIDE GLUCOSE 171 MG/DL (83-110)
[2017-11-15 16:46] LABS: BEDSIDE GLUCOSE 139 MG/DL (83-110)
[2017-11-15 20:35] LABS: BEDSIDE GLUCOSE 134 MG/DL (83-110)
[2017-11-15] MEDS: **NOTE PATIENT COMMENT** MISC XX (21:00)
[2017-11-15] MEDS: TAMSULOSIN 0.4 MG CAP PO (21:47)
[2017-11-15] MEDS: FINASTERIDE 5 MG TAB PO (21:47)
[2017-11-16] MEDS: guaiFENesin ER 600 MG TAB PO ×3 (05:05→20:44)
[2017-11-16 06:37] LABS: BEDSIDE GLUCOSE 95 MG/DL (83-110)
[2017-11-16] MEDS: HumaLOG INSULIN (NovoLOG) PER UNIT SC ×4 (07:33→20:37)
[2017-11-16] MEDS: LACTOBACILLUS ACIDOPHILUS CAP (BACID) PO ×2 (08:12→17:09)
[2017-11-16] MEDS: FOLIC ACID 1 MG TAB PO (08:12)
[2017-11-16] MEDS: LINEZOLID 600MG TABLET (ZYVOX) PO ×2 (08:12→20:47)
[2017-11-16] MEDS: MULTIVITAMINS/MINERALS THERAP 1 TAB PO (08:12)
[2017-11-16] MEDS: ASPIRIN 81 MG CHEW TABLET PO (08:12)
[2017-11-16] MEDS: ATORVASTATIN 20 MG TAB PO (08:12)
[2017-11-16] MEDS: MIDODRINE 2.5 MG TAB PO ×3 (08:12→17:09)
[2017-11-16] MEDS: ENOXAPARIN 40 MG/0.4 ML SYRINGE (J1650) SC (08:12)
[2017-11-16] MEDS: LEVEMIR (INSULIN DETEMIR) 1 UNITS/0.01ML SC ×2 (08:13→20:43)
[2017-11-16] MEDS: LIDOCAINE 5% (LIDODERM) PATCH TD (08:13)
[2017-11-16] MEDS: EUCERIN 120GM CREAM TOP ×2 (08:13→20:47)
[2017-11-16 11:27] LABS: BEDSIDE GLUCOSE 121 MG/DL (83-110)
[2017-11-16 16:45] LABS: BEDSIDE GLUCOSE 164 MG/DL (83-110)
[2017-11-16] MEDS: NORCO, ANEXSIA 5/325MG TABLET (HYDROcodone/ACETAMINOPHEN) PO (17:10)
[2017-11-16 20:13] LABS: BEDSIDE GLUCOSE 159 MG/DL (83-110)
[2017-11-16] MEDS: TAMSULOSIN 0.4 MG CAP PO (20:43)
[2017-11-16] MEDS: FINASTERIDE 5 MG TAB PO (20:44)
[2017-11-16] MEDS: **NOTE PATIENT COMMENT** MISC XX (20:47)
[2017-11-17] MEDS: guaiFENesin ER 600 MG TAB PO ×3 (05:56→20:41)
[2017-11-17 07:37] LABS: BEDSIDE GLUCOSE 107 MG/DL (83-110)
[2017-11-17] MEDS: HumaLOG INSULIN (NovoLOG) PER UNIT SC ×4 (07:46→21:00)
[2017-11-17] MEDS: LIDOCAINE 5% (LIDODERM) PATCH TD (07:47)
[2017-11-17] MEDS: ATORVASTATIN 20 MG TAB PO (07:47)
[2017-11-17] MEDS: LACTOBACILLUS ACIDOPHILUS CAP (BACID) PO ×2 (07:47→17:31)
[2017-11-17] MEDS: LEVEMIR (INSULIN DETEMIR) 1 UNITS/0.01ML SC ×2 (07:47→20:42)
[2017-11-17] MEDS: MIDODRINE 2.5 MG TAB PO ×3 (07:47→16:32)
[2017-11-17] MEDS: ASPIRIN 81 MG CHEW TABLET PO (07:47)
[2017-11-17] MEDS: ENOXAPARIN 40 MG/0.4 ML SYRINGE (J1650) SC (07:48)
[2017-11-17] MEDS: FOLIC ACID 1 MG TAB PO (07:48)
[2017-11-17] MEDS: MULTIVITAMINS/MINERALS THERAP 1 TAB PO (07:48)
[2017-11-17] MEDS: LINEZOLID 600MG TABLET (ZYVOX) PO ×2 (07:48→20:44)
[2017-11-17] MEDS: EUCERIN 120GM CREAM TOP ×2 (09:00→20:42)
[2017-11-17 11:57] LABS: BEDSIDE GLUCOSE 113 MG/DL (83-110)
[2017-11-17 17:15] LABS: BEDSIDE GLUCOSE 132 MG/DL (83-110)
[2017-11-17 20:17] LABS: BEDSIDE GLUCOSE 166 MG/DL (83-110)
[2017-11-17] MEDS: FINASTERIDE 5 MG TAB PO (20:42)
[2017-11-17] MEDS: **NOTE PATIENT COMMENT** MISC XX (20:42)
[2017-11-17] MEDS: TAMSULOSIN 0.4 MG CAP PO (20:42)
[2017-11-18] MEDS: guaiFENesin ER 600 MG TAB PO ×3 (05:31→21:00)
[2017-11-18] MEDS: MIDODRINE 2.5 MG TAB PO ×3 (08:54→16:28)
[2017-11-18] MEDS: MULTIVITAMINS/MINERALS THERAP 1 TAB PO (08:54)
[2017-11-18] MEDS: ASPIRIN 81 MG CHEW TABLET PO (08:54)
[2017-11-18] MEDS: FOLIC ACID 1 MG TAB PO (08:54)
[2017-11-18] MEDS: LACTOBACILLUS ACIDOPHILUS CAP (BACID) PO ×2 (08:54→17:47)
[2017-11-18] MEDS: HumaLOG INSULIN (NovoLOG) PER UNIT SC ×4 (08:54→21:00)
[2017-11-18] MEDS: ATORVASTATIN 20 MG TAB PO (08:54)
[2017-11-18] MEDS: LEVEMIR (INSULIN DETEMIR) 1 UNITS/0.01ML SC ×2 (08:55→21:01)
[2017-11-18] MEDS: ENOXAPARIN 40 MG/0.4 ML SYRINGE (J1650) SC (08:56)
[2017-11-18] MEDS: EUCERIN 120GM CREAM TOP ×2 (08:56→21:01)
[2017-11-18] MEDS: LIDOCAINE 5% (LIDODERM) PATCH TD (08:56)
[2017-11-18 09:13] LABS: HEMATOCRIT 32.5 % (42.0-52.0); HEMOGLOBIN 9.8 g/dl (13.5-17.5); MEAN CORPUSCULAR HEMOGLOBIN 23.4 pg (27.0-33.0); MEAN CORPUSCULAR HGB CONC 30.2 g/dl (32.0-36.5); MEAN CORPUSCULAR VOLUME 77.6 fl (80.0-96.0); PLATELET COUNT, AUTOMATED 303 10^3/uL (150-450); RED BLOOD COUNT 4.19 10^6/uL (4.30-6.10); RED CELL DISTRIBUTION WIDTH 16.7 % (11.5-14.5)
[2017-11-18 09:37] LABS: ANION GAP 8 MEQ/L (8-16); BLOOD UREA NITROGEN 16 MG/DL (7-18); CALCIUM LEVEL 8.9 MG/DL (8.8-10.2); CARBON DIOXIDE LEVEL 25 MEQ/L (21-32); CHLORIDE LEVEL 107 MEQ/L (98-107); CREATININE FOR GFR 0.78 MG/DL (0.70-1.30); GLOMERULAR FILTRATION RATE > 60.0 (>42); GLUCOSE, FASTING 93 MG/DL (70-100); MAGNESIUM LEVEL 1.8 MG/DL (1.8-2.4); POTASSIUM SERUM 4.1 MEQ/L (3.5-5.1); SODIUM LEVEL 140 MEQ/L (136-145)
[2017-11-18 12:00] LABS: BEDSIDE GLUCOSE 126 MG/DL (83-110)
[2017-11-18] MEDS: LINEZOLID 600MG TABLET (ZYVOX) PO ×2 (13:15→21:01)
[2017-11-18 17:25] LABS: BEDSIDE GLUCOSE 114 MG/DL (83-110)
[2017-11-18 20:16] LABS: BEDSIDE GLUCOSE 151 MG/DL (83-110)
[2017-11-18] MEDS: TAMSULOSIN 0.4 MG CAP PO (21:01)
[2017-11-18] MEDS: FINASTERIDE 5 MG TAB PO (21:01)
[2017-11-18] MEDS: **NOTE PATIENT COMMENT** MISC XX (21:02)
[2017-11-19] MEDS: guaiFENesin ER 600 MG TAB PO (05:23)
[2017-11-19 07:06] LABS: BEDSIDE GLUCOSE 111 MG/DL (83-110)
[2017-11-19] MEDS: LIDOCAINE 5% (LIDODERM) PATCH TD (08:59)
[2017-11-19] MEDS: LACTOBACILLUS ACIDOPHILUS CAP (BACID) PO (08:59)
[2017-11-19] MEDS: ASPIRIN 81 MG CHEW TABLET PO (08:59)
[2017-11-19] MEDS: ENOXAPARIN 40 MG/0.4 ML SYRINGE (J1650) SC (08:59)
[2017-11-19] MEDS: FOLIC ACID 1 MG TAB PO (08:59)
[2017-11-19] MEDS: MULTIVITAMINS/MINERALS THERAP 1 TAB PO (09:00)
[2017-11-19] MEDS: HumaLOG INSULIN (NovoLOG) PER UNIT SC (09:00)
[2017-11-19] MEDS: ATORVASTATIN 20 MG TAB PO (09:00)
[2017-11-19] MEDS: LINEZOLID 600MG TABLET (ZYVOX) PO (09:00)
[2017-11-19] MEDS: MIDODRINE 2.5 MG TAB PO ×2 (09:00→12:18)
[2017-11-19] MEDS: EUCERIN 120GM CREAM TOP ×2 (09:01→09:02)
[2017-11-19] MEDS: LEVEMIR (INSULIN DETEMIR) 1 UNITS/0.01ML SC (09:01)
== END 2017-11-19 12:28 | DRG 853 ==
LOC: M MSPAV 09-19 17:37 → M ED 15:16 → M ED INP 19:10 → M MSPAV 21:16
PROC: 0JDQ0ZZ Extraction of Right Foot Subcutaneous Tissue and Fascia, Open Approach (ICD-10-PCS; principal; 2017-07-18 14:00)
PROC: 0JBQ0ZZ Excision of Right Foot Subcutaneous Tissue and Fascia, Open Approach (ICD-10-PCS; 2017-07-18 14:00)
PROC: 0X6 Anatomical Regions, Upper Extremities, Detachment (ICD-10-PCS; 2017-07-18 14:00)
PROC: 0QBP0ZZ Excision of Left Metatarsal, Open Approach (ICD-10-PCS; 2017-07-18 14:57)
PROC: B41DYZZ Fluoroscopy of Aorta and Bilateral Lower Extremity Arteries using Other Contrast (ICD-10-PCS; 2017-07-18 14:57)
DX: A41.01 Sepsis due to Methicillin susceptible Staphylococcus aureus (principal); G93.41 Metabolic encephalopathy; L03.116 Cellulitis of left lower limb; G45.9 Transient cerebral ischemic attack, unspecified; N17.9 Acute kidney failure, unspecified; T34.831A Frostbite with tissue necrosis of right toe(s), initial encounter; T33.822A Superficial frostbite of left foot, initial encounter; F03.91 Unspecified dementia, unspecified severity, with behavioral disturbance; N39.0 Urinary tract infection, site not specified; N13.30 Unspecified hydronephrosis; I38 Endocarditis, valve unspecified; T81.31XA Disruption of external operation (surgical) wound, not elsewhere classified, initial encounter; E11.40 Type 2 diabetes mellitus with diabetic neuropathy, unspecified; I10 Essential (primary) hypertension; E78.5 Hyperlipidemia, unspecified; N40.0 Benign prostatic hyperplasia without lower urinary tract symptoms; K59.00 Constipation, unspecified; I95.1 Orthostatic hypotension; Z79.82 Long term (current) use of aspirin; Z79.899 Other long term (current) drug therapy; M70.61 Trochanteric bursitis, right hip; M70.62 Trochanteric bursitis, left hip; N45.1 Epididymitis; M51.26 Other intervertebral disc displacement, lumbar region; I35.0 Nonrheumatic aortic (valve) stenosis; X31.XXXA Exposure to excessive natural cold, initial encounter; Y92.009 Unspecified place in unspecified non-institutional (private) residence as the place of occurrence of the external cause

== ENCOUNTER → 2017-11-20 | Outpatient (REF) ==
[2017-11-20 08:03] LABS: HEMATOCRIT 31.7 % (42.0-52.0); HEMOGLOBIN 9.7 g/dl (13.5-17.5); MEAN CORPUSCULAR HEMOGLOBIN 23.7 pg (27.0-33.0); MEAN CORPUSCULAR HGB CONC 30.6 g/dl (32.0-36.5); MEAN CORPUSCULAR VOLUME 77.3 fl (80.0-96.0); PLATELET COUNT, AUTOMATED 312 10^3/uL (150-450); RED CELL DISTRIBUTION WIDTH 17.1 % (11.5-14.5); WHITE BLOOD COUNT 10.5 10^3/uL (4.0-10.0)
[2017-11-20 08:33] LABS: ESTIMATED AVERAGE GLUCOSE 131 MG/DL (60-110); HEMOGLOBIN A1c 6.2 %
== END ==
LOC: SKLAB5 07:04
DX: D64.9 Anemia, unspecified (principal); E11.9 Type 2 diabetes mellitus without complications; N40.0 Benign prostatic hyperplasia without lower urinary tract symptoms

== ENCOUNTER → 2018-02-12 | Outpatient (REF) | payer MEDICARE, MEDICAID ==
[2018-02-12 08:58] LABS: HEMATOCRIT 36.5 % (42.0-52.0); HEMOGLOBIN 11.5 g/dl (13.5-17.5); MEAN CORPUSCULAR HEMOGLOBIN 25.3 pg (27.0-33.0); MEAN CORPUSCULAR HGB CONC 31.5 g/dl (32.0-36.5); MEAN CORPUSCULAR VOLUME 80.4 fl (80.0-96.0); PLATELET COUNT, AUTOMATED 215 10^3/uL (150-450); RED BLOOD COUNT 4.54 10^6/uL (4.30-6.10); RED CELL DISTRIBUTION WIDTH 17.2 % (11.5-14.5)
== END ==
LOC: SKLAB5 09:43
DX: D64.9 Anemia, unspecified (principal)
CPT/HCPCS: 36415

== ENCOUNTER → 2018-04-02 | Outpatient (REF) | payer MEDICARE, MEDICAID ==
[2018-04-02 10:24] LABS: CHOLESTEROL LEVEL 112 MG/DL (<200); CHOLESTEROL RISK RATIO 2.871 (<5); HDL CHOLESTEROL 39 MG/DL (>40); LDL CHOLESTEROL 49 MG/DL (<100); NON-HDL-C 73 MG/DL; TRIGLYCERIDES LEVEL 122 MG/DL (<150)
== END ==
LOC: SKLAB5 09:57
DX: E78.5 Hyperlipidemia, unspecified (principal)
CPT/HCPCS: 80061

== ENCOUNTER → 2018-04-09 | Outpatient (REF) | payer MEDICARE, MEDICAID ==
[2018-04-09 08:43] LABS: CHOLESTEROL LEVEL 108 MG/DL (<200); CHOLESTEROL RISK RATIO 3.483 (<5); HDL CHOLESTEROL 31 MG/DL (>40); LDL CHOLESTEROL 46 MG/DL (<100); NON-HDL-C 77 MG/DL; TRIGLYCERIDES LEVEL 155 MG/DL (<150)
== END ==
LOC: SKLAB5 07:31
DX: E78.5 Hyperlipidemia, unspecified (principal)
CPT/HCPCS: 80061

== ENCOUNTER → 2018-05-14 | Outpatient (REF) | payer MEDICARE, MEDICAID ==
[2018-05-14 08:02] LABS: HEMATOCRIT 37.9 % (42.0-52.0); HEMOGLOBIN 12.3 g/dl (13.5-17.5); MEAN CORPUSCULAR HEMOGLOBIN 27.2 pg (27.0-33.0); MEAN CORPUSCULAR HGB CONC 32.5 g/dl (32.0-36.5); MEAN CORPUSCULAR VOLUME 83.8 fl (80.0-96.0); PLATELET COUNT, AUTOMATED 193 10^3/uL (150-450); RED BLOOD COUNT 4.52 10^6/uL (4.30-6.10); RED CELL DISTRIBUTION WIDTH 14.3 % (11.5-14.5); WHITE BLOOD COUNT 6.9 10^3/uL (4.0-10.0)
[2018-05-14 08:36] LABS: ALBUMIN 3.3 GM/DL (3.2-5.2); ALKALINE PHOSPHATASE 87 U/L (45-117); ALT/SGPT 32 U/L (12-78); ANION GAP 7 MEQ/L (8-16); AST/SGOT 14 U/L (7-37); BILIRUBIN,TOTAL 0.3 MG/DL (0.2-1.0); BLOOD UREA NITROGEN 24 MG/DL (7-18); CALCIUM LEVEL 8.6 MG/DL (8.8-10.2); CARBON DIOXIDE LEVEL 26 MEQ/L (21-32); CHLORIDE LEVEL 109 MEQ/L (98-107); CREATININE FOR GFR 1.16 MG/DL (0.70-1.30); GLOMERULAR FILTRATION RATE > 60.0 (>42); GLUCOSE, FASTING 112 MG/DL (70-100); POTASSIUM SERUM 4.1 MEQ/L (3.5-5.1); SODIUM LEVEL 142 MEQ/L (136-145); TOTAL PROTEIN 6.3 GM/DL (6.4-8.2)
== END ==
LOC: SKLAB5 08:14
DX: E11.9 Type 2 diabetes mellitus without complications (principal); I95.9 Hypotension, unspecified
CPT/HCPCS: 80053

== ENCOUNTER → 2018-06-11 | Outpatient (REF) | payer MEDICARE, MEDICAID ==
[~2018-06-11] MED LIST changes: -AMLO10TA2 PO; +AMLO10TA4 PO; +AMLO5TAB4 PO; +ATOR1TAB21 PO; +CHIL81CH2 PO; +FINA5TAB2 PO; +FLOM0.4C39 PO; +FOLI1TAB5 PO; +INSUDET SC; +LEVA1TAB2 PO; -LEVA500T PO; +LIDO5TD TD; +LINE60TAB PO; +LISI10TA4 PO; +METF500T13 PO; -METF850T PO; +METF850T4 PO; +MIDO2.5T PO; +MUCI600T37 PO; +NORCOTAB PO; +SILV50CR TOP; +VITMTA PO
[2018-06-11 09:03] LABS: CHOLESTEROL RISK RATIO 4.187 (<5)
== END ==
LOC: SKLAB5 08:09
PROVIDERS: ATTEND Internal Medicine
DX: E78.00 Pure hypercholesterolemia, unspecified (principal); N40.1 Benign prostatic hyperplasia with lower urinary tract symptoms
CPT/HCPCS: 36415; 80061; G0103

== ENCOUNTER → 2018-07-30 | Outpatient (REF) | payer MEDICARE, MEDICAID ==
[~2018-07-30] MED LIST changes: -AMLO10TA4 PO; +AMLO10TA5 PO; -AMLO5TAB4 PO; +AMLO5TAB6 PO; +FOLI1TAB11 PO; -FOLI1TAB5 PO
[2018-07-30 10:51] LABS: HEMOGLOBIN A1c 7.6 %
== END ==
LOC: SKLAB5 08:20
PROVIDERS: ATTEND Internal Medicine
DX: E11.9 Type 2 diabetes mellitus without complications (principal)

== ENCOUNTER → 2018-08-13 | Outpatient (REF) | payer MEDICARE, MEDICAID ==
[2018-08-13 10:22] LABS: HEMATOCRIT 39.6 % (42.0-52.0); HEMOGLOBIN 12.8 g/dl (13.5-17.5); MEAN CORPUSCULAR HEMOGLOBIN 27.6 pg (27.0-33.0); MEAN CORPUSCULAR HGB CONC 32.3 g/dl (32.0-36.5); MEAN CORPUSCULAR VOLUME 85.3 fl (80.0-96.0); PLATELET COUNT, AUTOMATED 182 10^3/uL (150-450); RED BLOOD COUNT 4.64 10^6/uL (4.30-6.10); WHITE BLOOD COUNT 8.3 10^3/uL (4.0-10.0)
== END ==
LOC: SKLAB5 08:03
PROVIDERS: ATTEND Internal Medicine
DX: D64.9 Anemia, unspecified (principal); E78.00 Pure hypercholesterolemia, unspecified

== ENCOUNTER → 2018-11-12 | Outpatient (REF) | payer MEDICARE, MEDICAID ==
[~2018-11-12] MED LIST changes: +ASPI-286 PO; -ASPI1TAB PO; +ASPI81TA26 PO; -CHIL81CH2 PO; +HYDR-3715 PO; +LINE1TAB PO; -LINE60TAB PO; -NORCOTAB PO
[2018-11-12 07:23] LABS: HEMATOCRIT 40.2 % (42.0-52.0); MEAN CORPUSCULAR HEMOGLOBIN 27.4 pg (27.0-33.0); MEAN CORPUSCULAR HGB CONC 32.3 g/dl (32.0-36.5); MEAN CORPUSCULAR VOLUME 84.8 fl (80.0-96.0); PLATELET COUNT, AUTOMATED 183 10^3/uL (150-450); RED BLOOD COUNT 4.74 10^6/uL (4.30-6.10); WHITE BLOOD COUNT 7.8 10^3/uL (4.0-10.0)
[2018-11-12 07:52] LABS: ALBUMIN 3.3 GM/DL (3.2-5.2); ALT/SGPT 21 U/L (12-78); BILIRUBIN,TOTAL 0.3 MG/DL (0.2-1.0); BLOOD UREA NITROGEN 21 MG/DL (7-18); CALCIUM LEVEL 9.1 MG/DL (8.8-10.2); CARBON DIOXIDE LEVEL 24 MEQ/L (21-32); CHLORIDE LEVEL 109 MEQ/L (98-107); GLOMERULAR FILTRATION RATE > 60.0 (>42); GLUCOSE, FASTING 122 MG/DL (70-100); POTASSIUM SERUM 4.2 MEQ/L (3.5-5.1); SODIUM LEVEL 141 MEQ/L (136-145); TOTAL PROTEIN 6.5 GM/DL (6.4-8.2)
== END ==
LOC: SKLAB5 09:11
PROVIDERS: ATTEND Internal Medicine
DX: E78.5 Hyperlipidemia, unspecified (principal); F03.90 Unspecified dementia, unspecified severity, without behavioral disturbance, psychotic disturbance, mood disturbance, and anxiety

== ENCOUNTER → 2019-02-11 | Outpatient (REF) | payer MEDICARE, MEDICAID ==
[~2019-02-11] MED LIST changes: -SIMV40TA2 PO; +SIMV40TA20 PO
[2019-02-11 08:19] LABS: HEMATOCRIT 41.4 % (42.0-52.0); HEMOGLOBIN 13.4 g/dl (13.5-17.5); MEAN CORPUSCULAR HEMOGLOBIN 27.2 pg (27.0-33.0); MEAN CORPUSCULAR HGB CONC 32.4 g/dl (32.0-36.5); MEAN CORPUSCULAR VOLUME 84.1 fl (80.0-96.0); PLATELET COUNT, AUTOMATED 181 10^3/uL (150-450); RED BLOOD COUNT 4.92 10^6/uL (4.30-6.10); WHITE BLOOD COUNT 8.1 10^3/uL (4.0-10.0)
== END ==
LOC: SKLAB5 10:29
PROVIDERS: ATTEND Internal Medicine
DX: E11.9 Type 2 diabetes mellitus without complications (principal); N40.0 Benign prostatic hyperplasia without lower urinary tract symptoms; D64.9 Anemia, unspecified

== ENCOUNTER → 2019-05-13 | Outpatient (REF) | payer MEDICARE, MEDICAID ==
[2019-05-13 08:33] LABS: HEMATOCRIT 39.8 % (42.0-52.0); HEMOGLOBIN 12.9 g/dl (13.5-17.5); MEAN CORPUSCULAR HEMOGLOBIN 27.5 pg (27.0-33.0); MEAN CORPUSCULAR HGB CONC 32.4 g/dl (32.0-36.5); MEAN CORPUSCULAR VOLUME 84.9 fl (80.0-96.0); PLATELET COUNT, AUTOMATED 178 10^3/uL (150-450); RED BLOOD COUNT 4.69 10^6/uL (4.30-6.10); WHITE BLOOD COUNT 7.7 10^3/uL (4.0-10.0)
[2019-05-13 09:01] LABS: ALBUMIN 3.1 GM/DL (3.2-5.2); ALT/SGPT 20 U/L (12-78); BILIRUBIN,TOTAL 0.4 MG/DL (0.2-1.0); BLOOD UREA NITROGEN 16 MG/DL (7-18); CALCIUM LEVEL 8.5 MG/DL (8.8-10.2); CARBON DIOXIDE LEVEL 27 MEQ/L (21-32); CHLORIDE LEVEL 111 MEQ/L (98-107); CHOLESTEROL LEVEL 113 MG/DL (<200); CHOLESTEROL RISK RATIO 3.228 (<5); CREATININE FOR GFR 1.13 MG/DL (0.70-1.30); GLOMERULAR FILTRATION RATE > 60.0 (>42); GLUCOSE, FASTING 109 MG/DL (70-100); HDL CHOLESTEROL 35 MG/DL (>40); LDL CHOLESTEROL 48 MG/DL (<100); NON-HDL-C 78 MG/DL; POTASSIUM SERUM 3.9 MEQ/L (3.5-5.1); SODIUM LEVEL 144 MEQ/L (136-145); TRIGLYCERIDES LEVEL 148 MG/DL (<150)
[2019-05-13 09:44] LABS: HEMOGLOBIN A1c 7.8 %
== END ==
LOC: SKLAB5 10:11
PROVIDERS: ATTEND Internal Medicine
DX: E11.9 Type 2 diabetes mellitus without complications (principal); E78.5 Hyperlipidemia, unspecified; D64.9 Anemia, unspecified

== ENCOUNTER → 2019-10-20 | Outpatient (REF) ==
[~2019-10-20] MED LIST changes: -IRBE150T12 PO; +IRBE150T7 PO
== END ==
LOC: SKLAB5 08:54
PROVIDERS: ATTEND Internal Medicine
DX: Z03.818 Encounter for observation for suspected exposure to other biological agents ruled out (principal)

== ENCOUNTER → 2019-11-11 | Outpatient (REF) | payer MEDICARE, MEDICAID ==
[2019-11-11 09:40] LABS: BLOOD UREA NITROGEN 14 MG/DL (7-18); CARBON DIOXIDE LEVEL 28 MEQ/L (21-32); CHLORIDE LEVEL 107 MEQ/L (98-107); GLOMERULAR FILTRATION RATE > 60.0 (>42); GLUCOSE, FASTING 126 MG/DL (70-100); POTASSIUM SERUM 3.9 MEQ/L (3.5-5.1); SODIUM LEVEL 141 MEQ/L (136-145)
== END ==
LOC: SKLAB5 08:16
PROVIDERS: ATTEND Internal Medicine
DX: N18.9 Chronic kidney disease, unspecified (principal)

== ENCOUNTER → 2020-03-02 | Outpatient (REF) | payer MEDICARE, MEDICAID ==
[~2020-03-02] MED LIST changes: -AMLO10TA5 PO; +AMLO1TAB24 PO; +AMLO1TAB25 PO; -AMLO5TAB6 PO
[2020-03-02 09:35] LABS: HEMOGLOBIN A1c 6.8 %
== END ==
LOC: SKLAB5 07:26
PROVIDERS: ATTEND Internal Medicine
DX: E11.9 Type 2 diabetes mellitus without complications (principal)

== ENCOUNTER → 2020-04-26 | Outpatient (REF) | payer MEDICARE, MEDICAID ==
[~2020-04-26] MED LIST changes: +LISI10TA22 PO; -LISI10TA4 PO
== END ==
LOC: SKLAB5 04-25 15:24 → EDSTATUS 05-30 12:37
PROVIDERS: ATTEND Internal Medicine
DX: Z20.828 Contact with and (suspected) exposure to other viral communicable diseases (principal)

== ENCOUNTER → 2020-05-03 | Outpatient (REF) | payer MEDICARE, MEDICAID | LOC: SKLAB5 08:00 | PROVIDERS: ATTEND Internal Medicine | DX: Z20.828 Contact with and (suspected) exposure to other viral communicable diseases (principal) ==

== ENCOUNTER → 2020-05-11 | Outpatient (REF) | payer MEDICARE, MEDICAID ==
[~2020-05-11] MED LIST changes: -LISI10TA22 PO; +LISI10TA4 PO
[2020-05-11 08:12] LABS: HEMATOCRIT 42.4 % (42.0-52.0); HEMOGLOBIN 13.2 g/dl (13.5-17.5); MEAN CORPUSCULAR HEMOGLOBIN 26.7 pg (27.0-33.0); MEAN CORPUSCULAR HGB CONC 31.1 g/dl (32.0-36.5); MEAN CORPUSCULAR VOLUME 85.7 fl (80.0-96.0); PLATELET COUNT, AUTOMATED 163 10^3/uL (150-450); RED BLOOD COUNT 4.95 10^6/uL (4.30-6.10)
[2020-05-11 08:36] LABS: ALBUMIN 3.3 GM/DL (3.2-5.2); ALT/SGPT 23 U/L (12-78); BILIRUBIN,TOTAL 0.3 MG/DL (0.2-1.0); BLOOD UREA NITROGEN 16 MG/DL (7-18); CALCIUM LEVEL 8.8 MG/DL (8.8-10.2); CARBON DIOXIDE LEVEL 26 MEQ/L (21-32); CHLORIDE LEVEL 108 MEQ/L (98-107); CHOLESTEROL LEVEL 127 MG/DL (<200); CHOLESTEROL RISK RATIO 3.527 (<5); CREATININE FOR GFR 1.17 MG/DL (0.70-1.30); GLOMERULAR FILTRATION RATE > 60.0 (>42); GLUCOSE, FASTING 126 MG/DL (70-100); HDL CHOLESTEROL 36 MG/DL (>40); LDL CHOLESTEROL 59 MG/DL (<100); NON-HDL-C 91 MG/DL; POTASSIUM SERUM 4.1 MEQ/L (3.5-5.1); SODIUM LEVEL 140 MEQ/L (136-145); TOTAL PROTEIN 6.3 GM/DL (6.4-8.2); TRIGLYCERIDES LEVEL 161 MG/DL (<150)
[2020-05-11 08:39] LABS: HEMOGLOBIN A1c 7.6 %
== END ==
LOC: SKLAB5 08:07
PROVIDERS: ATTEND Internal Medicine
DX: D64.9 Anemia, unspecified (principal); E11.9 Type 2 diabetes mellitus without complications

== ENCOUNTER → 2020-05-17 | Outpatient (REF) | payer MEDICARE, MEDICAID | LOC: SKLAB5 06:51 | PROVIDERS: ATTEND Family Medicine | DX: Z20.828 Contact with and (suspected) exposure to other viral communicable diseases (principal) ==

== ENCOUNTER → 2020-05-24 | Outpatient (REF) | payer MEDICARE, MEDICAID | LOC: SKLAB5 09:21 | PROVIDERS: ATTEND Internal Medicine | DX: Z20.828 Contact with and (suspected) exposure to other viral communicable diseases (principal) ==

== ENCOUNTER → 2020-05-31 | Outpatient (REF) | payer MEDICARE, MEDICAID | LOC: SKLAB5 06:11 | PROVIDERS: ATTEND Internal Medicine | DX: Z20.828 Contact with and (suspected) exposure to other viral communicable diseases (principal) ==

== ENCOUNTER → 2020-06-05 | Outpatient (REF) | payer MEDICARE, MEDICAID ==
--- NOTE | 2020-06-05 12:59 | REP ---
INDICATION: ABDOMINAL DISTENTION COMPARISON: None. TECHNIQUE: Portable supine view of the abdomen and pelvis. FINDINGS: Bowel gas pattern is nonspecific and without obstruction or perforation. Underlying ascites cannot be excluded. No organomegaly. Skeletal structures demonstrate age-related degenerative changes. IMPRESSION: 1. Non-specific bowel gas pattern. 2. Suggestions for ascites. <Electronically signed by Aaron Iqbal > 06/05/20 [id number]
== END ==
LOC: SKLAB5 11:20
PROVIDERS: ATTEND Internal Medicine
DX: R14.0 Abdominal distension (gaseous) (principal)

== ENCOUNTER → 2020-06-06 | Outpatient (CLI) | payer MEDICARE, MEDICAID ==
[~2020-06-06] MED LIST changes: +ISOVUE-370 76% 100ML VIAL As Ordered ONE
--- NOTE | 2020-06-06 10:31 | REP ---
INDICATION: ABD DISTENTION. COMPARISON: 09/19/2017 TECHNIQUE: Axial contrast-enhanced images from the lung bases to the pubic symphysis using 100 cc Isovue 370 intravenous contrast material. Coronal and sagittal reformations obtained. This CT examination was performed using the following dose reduction techniques: Automated exposure control, adjustment of mA and/or kv according to the patient's size, and the use of iterative reconstruction technique. FINDINGS: Liver, spleen, pancreas, gallbladder, bilateral adrenal glands and kidneys are normal. There is mild and likely transient fluid-filled dilatation to the distal stomach and proximal duodenum followed by normal appearance to the small bowel. Large bowel demonstrates mild fecal stasis and scattered diverticulosis without obstruction or acute inflammatory process. Pelvis demonstrates normal bladder and age-appropriate prostate/seminal vesicles. Mild fecal stasis at the level of the rectosigmoid distending to 7 cm maximal diameter may reflect fecal impaction. Small fat containing inguinal hernias noted. No ascites. No free air. No intraperitoneal or retroperitoneal adenopathy. Abdominal aorta and vasculature demonstrate atherosclerotic changes without aneurysm or dissection. Musculoskeletal structures demonstrate age-related degenerative changes. IMPRESSION: 1. Likely transient moderate fluid distension of the distal stomach and proximal duodenum with otherwise relatively normal appearance to the small bowel. 2. Mild fecal stasis with possible mild fecal impaction at the rectum should be correlated clinically. 3. No further acute abdominopelvic pathology appreciated. <Electronically signed by Aaron Iqbal > 06/06/20 [id number]
== END ==
LOC: M RAD 09:50
PROVIDERS: ATTEND Nurse Practitioner Adult Health
DX: R14.0 Abdominal distension (gaseous) (principal)
CPT/HCPCS: 74177; Q9967

== ENCOUNTER → 2020-06-07 | Outpatient (REF) | payer MEDICARE, MEDICAID ==
[~2020-06-07] MED LIST changes: -ISOVUE-370 76% 100ML VIAL As Ordered ONE
== END ==
LOC: SKLAB5 06:40
PROVIDERS: ATTEND Internal Medicine
DX: Z20.828 Contact with and (suspected) exposure to other viral communicable diseases (principal)

== ENCOUNTER → 2020-06-14 | Outpatient (REF) | payer MEDICARE, MEDICAID | LOC: SKLAB5 07:11 | PROVIDERS: ATTEND Internal Medicine | DX: Z11.52 Encounter for screening for COVID-19 (principal) ==

== ENCOUNTER → 2020-06-21 | Outpatient (REF) | payer MEDICARE, MEDICAID | LOC: SKLAB5 06:48 | PROVIDERS: ATTEND Internal Medicine | DX: Z20.822 Contact with and (suspected) exposure to COVID-19 (principal) ==

== ENCOUNTER → 2020-06-28 | Outpatient (REF) | payer MEDICARE, MEDICAID ==
[~2020-06-28] MED LIST changes: +LISI10TA22 PO; -LISI10TA4 PO
== END ==
LOC: SKLAB5 07:27
PROVIDERS: ATTEND Internal Medicine
DX: Z20.822 Contact with and (suspected) exposure to COVID-19 (principal)

== ENCOUNTER → 2020-07-05 | Outpatient (REF) | payer MEDICARE, MEDICAID | LOC: SKLAB5 06:52 | PROVIDERS: ATTEND Internal Medicine | DX: Z20.822 Contact with and (suspected) exposure to COVID-19 (principal) ==

== ENCOUNTER → 2020-07-12 | Outpatient (REF) | payer MEDICARE, MEDICAID ==
[~2020-07-12] MED LIST changes: -LISI10TA22 PO; +LISI10TA4 PO
== END ==
LOC: SKLAB5 07:28
PROVIDERS: ATTEND Internal Medicine
DX: Z20.822 Contact with and (suspected) exposure to COVID-19 (principal)

== ENCOUNTER → 2020-07-19 | Outpatient (REF) | payer MEDICARE, MEDICAID ==
[~2020-07-19] MED LIST changes: +LISI10TA22 PO; -LISI10TA4 PO
== END ==
LOC: SKLAB5 06:30
PROVIDERS: ATTEND Internal Medicine
DX: Z20.822 Contact with and (suspected) exposure to COVID-19 (principal)

== ENCOUNTER → 2020-07-26 | Outpatient (REF) | payer MEDICARE, MEDICAID | LOC: SKLAB5 06:42 | PROVIDERS: ATTEND Internal Medicine | DX: Z20.822 Contact with and (suspected) exposure to COVID-19 (principal) ==

== ENCOUNTER → 2020-08-02 | Outpatient (REF) | payer MEDICARE, MEDICAID | LOC: SKLAB5 07:16 | PROVIDERS: ATTEND Internal Medicine | DX: Z20.822 Contact with and (suspected) exposure to COVID-19 (principal) ==

== ENCOUNTER → 2020-08-10 | Outpatient (REF) | payer MEDICARE, MEDICAID | LOC: SKLAB5 06:19 | PROVIDERS: ATTEND Internal Medicine | DX: Z20.822 Contact with and (suspected) exposure to COVID-19 (principal) ==

== ENCOUNTER → 2020-08-16 | Outpatient (REF) | payer MEDICARE, MEDICAID | LOC: SKLAB5 06:38 | PROVIDERS: ATTEND Internal Medicine | DX: Z20.822 Contact with and (suspected) exposure to COVID-19 (principal) ==

== ENCOUNTER → 2020-08-23 | Outpatient (REF) | payer MEDICARE, MEDICAID | LOC: SKLAB5 07:15 | PROVIDERS: ATTEND Internal Medicine | DX: Z20.822 Contact with and (suspected) exposure to COVID-19 (principal) ==

== ENCOUNTER → 2020-09-08 | Outpatient (REF) | payer MEDICARE, MEDICAID | LOC: SKLAB5 06:55 | PROVIDERS: ATTEND Internal Medicine | DX: Z20.822 Contact with and (suspected) exposure to COVID-19 (principal) ==

== ENCOUNTER → 2020-11-09 | Outpatient (REF) | payer MEDICARE, MEDICAID ==
[2020-11-09 09:25] LABS: HEMOGLOBIN 14.8 g/dl (13.5-17.5); MEAN CORPUSCULAR HEMOGLOBIN 27.2 pg (27.0-33.0); MEAN CORPUSCULAR HGB CONC 31.5 g/dl (32.0-36.5); MEAN CORPUSCULAR VOLUME 86.4 fl (80.0-96.0); PLATELET COUNT, AUTOMATED 184 10^3/uL (150-450); RED BLOOD COUNT 5.44 10^6/uL (4.30-6.10); WHITE BLOOD COUNT 7.9 10^3/uL (4.0-10.0)
[2020-11-09 10:18] LABS: HEMOGLOBIN A1c 6.9 %
== END ==
LOC: SKLAB5 08:01
PROVIDERS: ATTEND Internal Medicine
DX: E11.9 Type 2 diabetes mellitus without complications (principal); D64.9 Anemia, unspecified

== ENCOUNTER → 2021-03-27 | Outpatient (REF) | payer MEDICARE, MEDICAID | LOC: SKLAB5 10:34 | PROVIDERS: ATTEND Internal Medicine | DX: Z20.822 Contact with and (suspected) exposure to COVID-19 (principal) ==

== ENCOUNTER → 2021-03-29 | Outpatient (REF) | payer MEDICARE, MEDICAID | LOC: SKLAB5 09:22 | PROVIDERS: ATTEND Internal Medicine | DX: Z20.822 Contact with and (suspected) exposure to COVID-19 (principal) ==

== ENCOUNTER → 2021-04-02 | Outpatient (REF) | payer MEDICARE, MEDICAID | LOC: SKLAB5 06:18 | PROVIDERS: ATTEND Internal Medicine | DX: Z20.822 Contact with and (suspected) exposure to COVID-19 (principal) ==

== ENCOUNTER → 2021-04-05 | Outpatient (REF) | payer MEDICARE, MEDICAID | LOC: SKLAB5 06:13 | PROVIDERS: ATTEND Internal Medicine | DX: Z20.822 Contact with and (suspected) exposure to COVID-19 (principal) ==

== ENCOUNTER → 2021-04-09 | Outpatient (REF) | payer MEDICARE, MEDICAID | LOC: SKLAB5 05:32 | PROVIDERS: ATTEND Internal Medicine | DX: Z20.822 Contact with and (suspected) exposure to COVID-19 (principal) ==

== ENCOUNTER → 2021-04-12 | Outpatient (REF) | payer MEDICARE, MEDICAID | LOC: SKLAB5 10:54 | PROVIDERS: ATTEND Internal Medicine | DX: Z20.822 Contact with and (suspected) exposure to COVID-19 (principal) ==

== ENCOUNTER → 2021-04-18 | Outpatient (REF) | payer MEDICARE, MEDICAID | LOC: SKLAB5 13:32 | PROVIDERS: ATTEND Internal Medicine | DX: Z20.822 Contact with and (suspected) exposure to COVID-19 (principal) ==

== ENCOUNTER → 2021-04-25 | Outpatient (REF) | payer MEDICARE, MEDICAID | LOC: SKLAB5 07:53 | PROVIDERS: ATTEND Internal Medicine | DX: Z20.822 Contact with and (suspected) exposure to COVID-19 (principal) ==

== ENCOUNTER → 2021-05-10 | Outpatient (REF) | payer MEDICARE, MEDICAID ==
[2021-05-10 11:03] LABS: HEMATOCRIT 43.4 % (42.0-52.0); HEMOGLOBIN 13.7 g/dl (13.5-17.5); MEAN CORPUSCULAR HEMOGLOBIN 27.4 pg (27.0-33.0); MEAN CORPUSCULAR HGB CONC 31.6 g/dl (32.0-36.5); MEAN CORPUSCULAR VOLUME 86.8 fl (80.0-96.0); PLATELET COUNT, AUTOMATED 154 10^3/uL (150-450); WHITE BLOOD COUNT 7.5 10^3/uL (4.0-10.0)
[2021-05-10 11:35] LABS: ALT/SGPT 17 U/L (12-78); BILIRUBIN,TOTAL 0.4 MG/DL (0.2-1.0); BLOOD UREA NITROGEN 17 MG/DL (7-18); CALCIUM LEVEL 8.4 MG/DL (8.8-10.2); CARBON DIOXIDE LEVEL 26 MEQ/L (21-32); CHLORIDE LEVEL 109 MEQ/L (98-107); CHOLESTEROL LEVEL 108 MG/DL (<200); CHOLESTEROL RISK RATIO 3.272 (<5); CREATININE FOR GFR 1.18 MG/DL (0.70-1.30); GLOMERULAR FILTRATION RATE > 60.0 (>42); GLUCOSE, FASTING 121 MG/DL (70-100); HDL CHOLESTEROL 33 MG/DL (>40); LDL CHOLESTEROL 52 MG/DL (<100); NON-HDL-C 75 MG/DL; POTASSIUM SERUM 3.9 MEQ/L (3.5-5.1); SODIUM LEVEL 142 MEQ/L (136-145); TOTAL PROTEIN 6.2 GM/DL (6.4-8.2); TRIGLYCERIDES LEVEL 116 MG/DL (<150)
[2021-05-10 12:02] LABS: HEMOGLOBIN A1c 6.5 %
== END ==
LOC: SKLAB5 07:00
PROVIDERS: ATTEND Internal Medicine
DX: D64.9 Anemia, unspecified (principal); E11.9 Type 2 diabetes mellitus without complications

== ENCOUNTER → 2021-05-15 | Outpatient (REF) | payer MEDICARE, MEDICAID | LOC: SKLAB5 10:55 | PROVIDERS: ATTEND Internal Medicine | DX: Z20.822 Contact with and (suspected) exposure to COVID-19 (principal) ==

== ENCOUNTER → 2021-05-23 | Outpatient (REF) | payer MEDICARE, MEDICAID | LOC: SKLAB5 13:43 | PROVIDERS: ATTEND Internal Medicine | DX: Z20.822 Contact with and (suspected) exposure to COVID-19 (principal) ==

== ENCOUNTER → 2021-05-30 | Outpatient (REF) | payer MEDICARE, MEDICAID | LOC: SKLAB5 14:31 | PROVIDERS: ATTEND Internal Medicine | DX: Z20.822 Contact with and (suspected) exposure to COVID-19 (principal) ==

== ENCOUNTER → 2021-06-06 | Outpatient (REF) | payer MEDICARE, MEDICAID | LOC: SKLAB5 11:37 | PROVIDERS: ATTEND Internal Medicine | DX: Z20.822 Contact with and (suspected) exposure to COVID-19 (principal) ==

== ENCOUNTER → 2021-06-13 | Outpatient (REF) | payer MEDICARE, MEDICAID | LOC: SKLAB5 06:31 | PROVIDERS: ATTEND Internal Medicine | DX: Z20.822 Contact with and (suspected) exposure to COVID-19 (principal) ==

== ENCOUNTER → 2021-11-19 | Outpatient (REF) | payer MEDICARE, MEDICAID ==
[~2021-11-19] MED LIST changes: -ASPI-286 PO; +SM C81CH2 PO
[2021-11-19 12:33] LABS: HEMATOCRIT 47.9 % (42.0-52.0); MEAN CORPUSCULAR HEMOGLOBIN 27.5 pg (27.0-33.0); MEAN CORPUSCULAR HGB CONC 31.3 g/dl (32.0-36.5); MEAN CORPUSCULAR VOLUME 87.9 fl (80.0-96.0); PLATELET COUNT, AUTOMATED 193 10^3/uL (150-450); RED BLOOD COUNT 5.45 10^6/uL (4.30-6.10); WHITE BLOOD COUNT 9.9 10^3/uL (4.0-10.0)
[2021-11-19 13:08] LABS: CALCIUM LEVEL 9.9 MG/DL (8.8-10.2); CREATININE FOR GFR 1.42 MG/DL (0.70-1.30); GLOMERULAR FILTRATION RATE 51.5 (>42); POTASSIUM SERUM 4.6 MEQ/L (3.5-5.1)
== END ==
LOC: SKLAB5 11:37
PROVIDERS: ATTEND Nurse Practitioner Adult Health
DX: R60.0 Localized edema (principal)

== ENCOUNTER → 2021-11-21 | Outpatient (REF) | payer MEDICARE, MEDICAID ==
[2021-11-21 07:36] LABS: CALCIUM LEVEL 8.3 MG/DL (8.8-10.2); CREATININE FOR GFR 1.4 MG/DL (0.70-1.30); GLOMERULAR FILTRATION RATE 52.3 (>42)
== END ==
LOC: SKLAB5 08:19
PROVIDERS: ATTEND Internal Medicine
DX: N18.9 Chronic kidney disease, unspecified (principal)

== ENCOUNTER → 2021-11-26 | Outpatient (REF) | payer MEDICARE, MEDICAID | LOC: SKLAB5 08:43 | PROVIDERS: ATTEND Internal Medicine | DX: N18.9 Chronic kidney disease, unspecified (principal) ==

== ENCOUNTER → 2021-11-27 | Outpatient (REF) | payer MEDICARE, MEDICAID ==
[2021-11-27 07:27] LABS: HEMATOCRIT 46.6 % (42.0-52.0); HEMOGLOBIN 14.5 g/dl (13.5-17.5); MEAN CORPUSCULAR HEMOGLOBIN 26.9 pg (27.0-33.0); MEAN CORPUSCULAR HGB CONC 31.1 g/dl (32.0-36.5); MEAN CORPUSCULAR VOLUME 86.5 fl (80.0-96.0); PLATELET COUNT, AUTOMATED 179 10^3/uL (150-450); RED BLOOD COUNT 5.39 10^6/uL (4.30-6.10); WHITE BLOOD COUNT 7.5 10^3/uL (4.0-10.0)
[2021-11-27 07:46] LABS: HEMOGLOBIN A1c 6.4 %
[2021-11-27 07:56] LABS: BLOOD UREA NITROGEN 21 MG/DL (7-18); CALCIUM LEVEL 9.2 MG/DL (8.8-10.2); CARBON DIOXIDE LEVEL 25 MEQ/L (21-32); CHLORIDE LEVEL 107 MEQ/L (98-107); GLOMERULAR FILTRATION RATE > 60.0 (>42); GLUCOSE, FASTING 100 MG/DL (70-100); POTASSIUM SERUM 4.1 MEQ/L (3.5-5.1); SODIUM LEVEL 142 MEQ/L (136-145)
== END ==
LOC: SKLAB5 06:00
PROVIDERS: ATTEND Internal Medicine
DX: E11.9 Type 2 diabetes mellitus without complications (principal); D64.9 Anemia, unspecified

== ENCOUNTER → 2022-02-04 | Outpatient (REF) | payer MEDICARE, MEDICAID ==
[2022-02-04 18:58] LABS: HEMATOCRIT 47.4 % (42.0-52.0); HEMOGLOBIN 15.4 g/dl (13.5-17.5); MEAN CORPUSCULAR HEMOGLOBIN 27.3 pg (27.0-33.0); MEAN CORPUSCULAR HGB CONC 32.5 g/dl (32.0-36.5); MEAN CORPUSCULAR VOLUME 83.9 fl (80.0-96.0); PLATELET COUNT, AUTOMATED 204 10^3/uL (150-450); RED BLOOD COUNT 5.65 10^6/uL (4.30-6.10); WHITE BLOOD COUNT 9.1 10^3/uL (4.0-10.0)
[2022-02-04 19:54] LABS: CREATININE FOR GFR 1.28 MG/DL (0.70-1.30); POTASSIUM SERUM 4.3 MEQ/L (3.5-5.1)
[2022-02-04 19:55] LABS: CALCIUM LEVEL 9.4 MG/DL (8.8-10.2)
== END ==
LOC: SKLAB5 17:03
PROVIDERS: ATTEND Internal Medicine
DX: R11.0 Nausea (principal); R19.7 Diarrhea, unspecified

== ENCOUNTER → 2022-02-06 | Outpatient (CLI) | payer MEDICARE, MEDICAID | LOC: M RAD 11:35 | PROVIDERS: ATTEND Nurse Practitioner Adult Health | DX: M25.78 Osteophyte, vertebrae (principal); M51.36 Other intervertebral disc degeneration, lumbar region; M51.37 Other intervertebral disc degeneration, lumbosacral region ==

== ENCOUNTER → 2022-04-08 | Outpatient (REF) | payer MEDICARE, MEDICAID ==
[2022-04-08 11:56] LABS: HEMATOCRIT 44.5 % (42.0-52.0); HEMOGLOBIN 13.9 g/dl (13.5-17.5); MEAN CORPUSCULAR HEMOGLOBIN 27.4 pg (27.0-33.0); MEAN CORPUSCULAR HGB CONC 31.2 g/dl (32.0-36.5); MEAN CORPUSCULAR VOLUME 87.8 fl (80.0-96.0); PLATELET COUNT, AUTOMATED 169 10^3/uL (150-450); RED BLOOD COUNT 5.07 10^6/uL (4.30-6.10); WHITE BLOOD COUNT 8.7 10^3/uL (4.0-10.0)
[2022-04-08 12:42] LABS: CREATININE FOR GFR 1.24 MG/DL (0.70-1.30); POTASSIUM SERUM 4.4 MEQ/L (3.5-5.1)
== END ==
LOC: SKLAB5 11:18
PROVIDERS: ATTEND Nurse Practitioner Adult Health
DX: N18.9 Chronic kidney disease, unspecified (principal); R60.0 Localized edema

== ENCOUNTER → 2022-04-18 | Outpatient (REF) | payer MEDICARE, MEDICAID ==
[2022-04-18 08:54] LABS: BLOOD UREA NITROGEN 25 MG/DL (7-18); CARBON DIOXIDE LEVEL 25 MEQ/L (21-32); CHLORIDE LEVEL 109 MEQ/L (98-107); CREATININE FOR GFR 1.17 MG/DL (0.70-1.30); GLOMERULAR FILTRATION RATE > 60.0 (>42); GLUCOSE, FASTING 110 MG/DL (70-100); POTASSIUM SERUM 4.1 MEQ/L (3.5-5.1); SODIUM LEVEL 140 MEQ/L (136-145)
== END ==
LOC: SKLAB5 07:00
PROVIDERS: ATTEND Nurse Practitioner Adult Health
DX: N18.9 Chronic kidney disease, unspecified (principal)

== ENCOUNTER → 2022-05-22 | Outpatient (REF) | payer MEDICARE, MEDICAID ==
[2022-05-22 16:21] LABS: HEMATOCRIT 47.3 % (42.0-52.0); HEMOGLOBIN 14.9 g/dl (13.5-17.5); MEAN CORPUSCULAR HEMOGLOBIN 27.5 pg (27.0-33.0); MEAN CORPUSCULAR HGB CONC 31.5 g/dl (32.0-36.5); MEAN CORPUSCULAR VOLUME 87.4 fl (80.0-96.0); PLATELET COUNT, AUTOMATED 181 10^3/uL (150-450); RED BLOOD COUNT 5.41 10^6/uL (4.30-6.10); WHITE BLOOD COUNT 10.8 10^3/uL (4.0-10.0)
[2022-05-22 17:00] LABS: BLOOD UREA NITROGEN 27 MG/DL (9-23); CALCIUM LEVEL 8.8 MG/DL (8.3-10.6); CARBON DIOXIDE LEVEL 25 MMOL/L (20-31); CHLORIDE LEVEL 103 MMOL/L (98-107); CREATININE FOR GFR 1.23 MG/DL (0.70-1.30); GLOMERULAR FILTRATION RATE > 60.0 (>42); GLUCOSE, FASTING 154 MG/DL (74-106); POTASSIUM SERUM 4.4 MMOL/L (3.5-5.1); SODIUM LEVEL 140 MMOL/L (136-145)
== END ==
LOC: SKLAB5 15:38
PROVIDERS: ATTEND Nurse Practitioner Adult Health
DX: L03.90 Cellulitis, unspecified (principal)

== ENCOUNTER → 2022-05-24 | Outpatient (REF) | payer MEDICARE, MEDICAID ==
[2022-05-24 08:03] LABS: HEMATOCRIT 43.5 % (42.0-52.0); HEMOGLOBIN 13.9 g/dl (13.5-17.5); MEAN CORPUSCULAR HEMOGLOBIN 27.7 pg (27.0-33.0); MEAN CORPUSCULAR VOLUME 86.7 fl (80.0-96.0); PLATELET COUNT, AUTOMATED 167 10^3/uL (150-450); RED BLOOD COUNT 5.02 10^6/uL (4.30-6.10); WHITE BLOOD COUNT 7.1 10^3/uL (4.0-10.0)
[2022-05-24 08:40] LABS: ALBUMIN 3.1 G/DL (3.2-5.2); ALKALINE PHOSPHATASE 75 U/L (46-116); ALT/SGPT 16 U/L (7.0-40); AST/SGOT 15 U/L (<34); BILIRUBIN,TOTAL 0.3 MG/DL (0.3-1.2); BLOOD UREA NITROGEN 31 MG/DL (9-23); CALCIUM LEVEL 8.9 MG/DL (8.3-10.6); CARBON DIOXIDE LEVEL 29 MMOL/L (20-31); CHLORIDE LEVEL 106 MMOL/L (98-107); CHOLESTEROL LEVEL 114 MG/DL (<200); CHOLESTEROL RISK RATIO 3.52 (<5); CREATININE FOR GFR 1.17 MG/DL (0.70-1.30); GLOMERULAR FILTRATION RATE > 60.0 (>42); GLUCOSE, FASTING 115 MG/DL (74-106); HDL CHOLESTEROL 32.3 MG/DL (>40); HEMOGLOBIN A1c 6.3 % (4.0-6.0); LDL CHOLESTEROL 56.5 MG/DL (<100); NON-HDL-C 82 MG/DL; SODIUM LEVEL 142 MMOL/L (136-145); TOTAL PROTEIN 6.2 G/DL (5.7-8.2); TRIGLYCERIDES LEVEL 126 MG/DL (<150)
== END ==
LOC: SKLAB5 07:00
PROVIDERS: ATTEND Nurse Practitioner Adult Health
DX: E11.9 Type 2 diabetes mellitus without complications (principal); D64.9 Anemia, unspecified; E78.00 Pure hypercholesterolemia, unspecified

== ENCOUNTER → 2022-07-04 | Outpatient (REF) | payer MEDICARE, MEDICAID ==
[2022-07-04 14:15] LABS: HEMATOCRIT 48.7 % (42.0-52.0); HEMOGLOBIN 15.6 g/dl (13.5-17.5); MEAN CORPUSCULAR VOLUME 87.4 fl (80.0-96.0); PLATELET COUNT, AUTOMATED 189 10^3/uL (150-450); RED BLOOD COUNT 5.57 10^6/uL (4.30-6.10); WHITE BLOOD COUNT 7.6 10^3/uL (4.0-10.0)
[2022-07-04 14:26] LABS: ALKALINE PHOSPHATASE 89 U/L (46-116); ALT/SGPT 27 U/L (7.0-40); AST/SGOT 20 U/L (<34); BILIRUBIN,TOTAL 0.4 MG/DL (0.3-1.2); BLOOD UREA NITROGEN 20 MG/DL (9-23); CALCIUM LEVEL 9.4 MG/DL (8.3-10.6); CARBON DIOXIDE LEVEL 29 MMOL/L (20-31); CHLORIDE LEVEL 103 MMOL/L (98-107); CREATININE FOR GFR 1.18 MG/DL (0.70-1.30); GLOMERULAR FILTRATION RATE > 60.0 (>42); GLUCOSE, FASTING 104 MG/DL (74-106); POTASSIUM SERUM 4.4 MMOL/L (3.5-5.1); SODIUM LEVEL 138 MMOL/L (136-145); TOTAL PROTEIN 7.5 G/DL (5.7-8.2)
== END ==
LOC: SKLAB5 13:05
PROVIDERS: ATTEND Nurse Practitioner Adult Health
DX: U07.1 COVID-19 (principal); Z79.899 Other long term (current) drug therapy

== ENCOUNTER → 2022-07-08 | Outpatient (REF) | payer MEDICARE, MEDICAID ==
[2022-07-08 09:26] LABS: HEMATOCRIT 46.9 % (42.0-52.0); HEMOGLOBIN 14.7 g/dl (13.5-17.5); MEAN CORPUSCULAR HEMOGLOBIN 27.6 pg (27.0-33.0); MEAN CORPUSCULAR HGB CONC 31.3 g/dl (32.0-36.5); PLATELET COUNT, AUTOMATED 182 10^3/uL (150-450); RED BLOOD COUNT 5.33 10^6/uL (4.30-6.10); WHITE BLOOD COUNT 6.3 10^3/uL (4.0-10.0)
[2022-07-08 09:56] LABS: ALBUMIN 3.6 G/DL (3.2-5.2); ALKALINE PHOSPHATASE 84 U/L (46-116); ALT/SGPT 24 U/L (7.0-40); AST/SGOT 25 U/L (<34); BILIRUBIN,TOTAL 0.3 MG/DL (0.3-1.2); BLOOD UREA NITROGEN 25 MG/DL (9-23); CALCIUM LEVEL 9.1 MG/DL (8.3-10.6); CARBON DIOXIDE LEVEL 25 MMOL/L (20-31); CHLORIDE LEVEL 106 MMOL/L (98-107); CREATININE FOR GFR 0.98 MG/DL (0.70-1.30); GLOMERULAR FILTRATION RATE > 60.0 (>42); GLUCOSE, FASTING 115 MG/DL (74-106); POTASSIUM SERUM 4.1 MMOL/L (3.5-5.1); SODIUM LEVEL 139 MMOL/L (136-145); TOTAL PROTEIN 6.7 G/DL (5.7-8.2)
== END ==
LOC: SKLAB5 10:32
PROVIDERS: ATTEND Nurse Practitioner Adult Health
DX: U07.1 COVID-19 (principal); Z79.899 Other long term (current) drug therapy

== ENCOUNTER → 2022-07-11 | Outpatient (REF) | payer MEDICARE, MEDICAID ==
[2022-07-11 14:36] LABS: HEMATOCRIT 48.9 % (42.0-52.0); HEMOGLOBIN 15.6 g/dl (13.5-17.5); MEAN CORPUSCULAR HEMOGLOBIN 28.1 pg (27.0-33.0); MEAN CORPUSCULAR HGB CONC 31.9 g/dl (32.0-36.5); MEAN CORPUSCULAR VOLUME 87.9 fl (80.0-96.0); PLATELET COUNT, AUTOMATED 160 10^3/uL (150-450); RED BLOOD COUNT 5.56 10^6/uL (4.30-6.10); WHITE BLOOD COUNT 6.9 10^3/uL (4.0-10.0)
[2022-07-11 15:08] LABS: ALBUMIN 3.5 G/DL (3.2-5.2); ALKALINE PHOSPHATASE 81 U/L (46-116); ALT/SGPT 26 U/L (7.0-40); AST/SGOT 21 U/L (<34); BILIRUBIN,TOTAL 0.3 MG/DL (0.3-1.2); BLOOD UREA NITROGEN 21 MG/DL (9-23); CALCIUM LEVEL 8.8 MG/DL (8.3-10.6); CARBON DIOXIDE LEVEL 25 MMOL/L (20-31); CHLORIDE LEVEL 105 MMOL/L (98-107); CREATININE FOR GFR 1.02 MG/DL (0.70-1.30); GLOMERULAR FILTRATION RATE > 60.0 (>42); GLUCOSE, FASTING 101 MG/DL (74-106); POTASSIUM SERUM 4.3 MMOL/L (3.5-5.1); SODIUM LEVEL 138 MMOL/L (136-145); TOTAL PROTEIN 6.9 G/DL (5.7-8.2)
== END ==
LOC: SKLAB5 09:03
PROVIDERS: ATTEND Nurse Practitioner Adult Health
DX: U07.1 COVID-19 (principal); Z79.899 Other long term (current) drug therapy

== ENCOUNTER → 2022-07-24 | Outpatient (REF) | payer MEDICARE, MEDICAID ==
[2022-07-24 13:30] LABS: HEMATOCRIT 44.4 % (42.0-52.0); HEMOGLOBIN 14.1 g/dl (13.5-17.5); MEAN CORPUSCULAR HEMOGLOBIN 27.9 pg (27.0-33.0); MEAN CORPUSCULAR HGB CONC 31.8 g/dl (32.0-36.5); MEAN CORPUSCULAR VOLUME 87.9 fl (80.0-96.0); PLATELET COUNT, AUTOMATED 199 10^3/uL (150-450); RED BLOOD COUNT 5.05 10^6/uL (4.30-6.10); WHITE BLOOD COUNT 8.5 10^3/uL (4.0-10.0)
== END ==
LOC: SKLAB5 12:06
PROVIDERS: ATTEND Nurse Practitioner Adult Health
DX: M79.672 Pain in left foot (principal); M77.32 Calcaneal spur, left foot; B99.9 Unspecified infectious disease

== ENCOUNTER → 2022-10-14 | Outpatient (REF) | payer MEDICARE, MEDICAID | LOC: SKLAB5 14:10 | PROVIDERS: ATTEND Nurse Practitioner Adult Health | DX: L08.9 Local infection of the skin and subcutaneous tissue, unspecified (principal) ==

== ENCOUNTER → 2022-11-22 | Outpatient (REF) | payer MEDICARE, MEDICAID ==
[2022-11-22 08:27] LABS: HEMATOCRIT 43.2 % (42.0-52.0); HEMOGLOBIN 13.4 g/dl (13.5-17.5); MEAN CORPUSCULAR HEMOGLOBIN 27.5 pg (27.0-33.0); MEAN CORPUSCULAR VOLUME 88.7 fl (80.0-96.0); PLATELET COUNT, AUTOMATED 158 10^3/uL (150-450); RED BLOOD COUNT 4.87 10^6/uL (4.30-6.10); WHITE BLOOD COUNT 9.1 10^3/uL (4.0-10.0)
[2022-11-22 08:55] LABS: HEMOGLOBIN A1c 6.8 % (4.0-6.0)
== END ==
LOC: SKLAB5 09:55
PROVIDERS: ATTEND Nurse Practitioner Adult Health
DX: E11.9 Type 2 diabetes mellitus without complications (principal); D64.9 Anemia, unspecified

== ENCOUNTER → 2023-04-11 | Outpatient (REF) | payer MEDICARE, MEDICAID ==
[2023-04-11 11:30] LABS: HEMATOCRIT 46.1 % (42.0-52.0); HEMOGLOBIN 14.4 g/dl (13.5-17.5); MEAN CORPUSCULAR HEMOGLOBIN 27.7 pg (27.0-33.0); MEAN CORPUSCULAR HGB CONC 31.2 g/dl (32.0-36.5); MEAN CORPUSCULAR VOLUME 88.8 fl (80.0-96.0); PLATELET COUNT, AUTOMATED 177 10^3/uL (150-450); RED BLOOD COUNT 5.19 10^6/uL (4.30-6.10); WHITE BLOOD COUNT 10.8 10^3/uL (4.0-10.0)
[2023-04-11 12:03] LABS: CALCIUM LEVEL 8.9 MG/DL (8.3-10.6); CREATININE FOR GFR 1.26 MG/DL (0.70-1.30); GLOMERULAR FILTRATION RATE 58.8 (>42); POTASSIUM SERUM 4.2 MMOL/L (3.5-5.1)
== END ==
LOC: SKLAB5 10:54
PROVIDERS: ATTEND Nurse Practitioner Adult Health
DX: R41.82 Altered mental status, unspecified (principal)

== ENCOUNTER → 2023-04-14 | Outpatient (REF) | payer MEDICARE, MEDICAID ==
[2023-04-14 06:43] LABS: HEMATOCRIT 43.5 % (42.0-52.0); HEMOGLOBIN 13.9 g/dl (13.5-17.5); MEAN CORPUSCULAR HEMOGLOBIN 28.1 pg (27.0-33.0); MEAN CORPUSCULAR VOLUME 87.9 fl (80.0-96.0); PLATELET COUNT, AUTOMATED 178 10^3/uL (150-450); RED BLOOD COUNT 4.95 10^6/uL (4.30-6.10)
[2023-04-14 07:12] LABS: BLOOD UREA NITROGEN 22 MG/DL (9-23); CALCIUM LEVEL 8.4 MG/DL (8.3-10.6); CARBON DIOXIDE LEVEL 28 MMOL/L (20-31); CHLORIDE LEVEL 107 MMOL/L (98-107); CREATININE FOR GFR 1.06 MG/DL (0.70-1.30); GLOMERULAR FILTRATION RATE > 60.0 (>42); GLUCOSE, FASTING 111 MG/DL (74-106); POTASSIUM SERUM 4.2 MMOL/L (3.5-5.1); SODIUM LEVEL 142 MMOL/L (136-145)
== END ==
LOC: SKLAB5 11:59
PROVIDERS: ATTEND Nurse Practitioner Adult Health
DX: R41.82 Altered mental status, unspecified (principal)

== ENCOUNTER → 2023-05-23 | Outpatient (REF) | payer MEDICARE, MEDICAID ==
[2023-05-23 07:36] LABS: HEMATOCRIT 44.4 % (42.0-52.0); HEMOGLOBIN 14.3 g/dl (13.5-17.5); MEAN CORPUSCULAR HEMOGLOBIN 28.6 pg (27.0-33.0); MEAN CORPUSCULAR HGB CONC 32.2 g/dl (32.0-36.5); MEAN CORPUSCULAR VOLUME 88.8 fl (80.0-96.0); PLATELET COUNT, AUTOMATED 174 10^3/uL (150-450); WHITE BLOOD COUNT 7.8 10^3/uL (4.0-10.0)
[2023-05-23 08:13] LABS: ALBUMIN 3.2 G/DL (3.2-5.2); ALKALINE PHOSPHATASE 74 U/L (46-116); ALT/SGPT 24 U/L (7.0-40); AST/SGOT 15 U/L (<34); BILIRUBIN,TOTAL 0.2 MG/DL (0.3-1.2); BLOOD UREA NITROGEN 21 MG/DL (9-23); CALCIUM LEVEL 8.8 MG/DL (8.3-10.6); CARBON DIOXIDE LEVEL 29 MMOL/L (20-31); CHLORIDE LEVEL 105 MMOL/L (98-107); CHOLESTEROL LEVEL 130 MG/DL (<200); CHOLESTEROL RISK RATIO 4.27 (<5); CREATININE FOR GFR 0.96 MG/DL (0.70-1.30); GLOMERULAR FILTRATION RATE > 60.0 (>42); GLUCOSE, FASTING 92 MG/DL (74-106); HDL CHOLESTEROL 30.4 MG/DL (>40); LDL CHOLESTEROL 54.6 MG/DL (<100); NON-HDL-C 99.6 MG/DL; POTASSIUM SERUM 3.7 MMOL/L (3.5-5.1); SODIUM LEVEL 141 MMOL/L (136-145); TOTAL PROTEIN 6.1 G/DL (5.7-8.2); TRIGLYCERIDES LEVEL 225 MG/DL (<150)
[2023-05-23 08:34] LABS: HEMOGLOBIN A1c 6.3 % (4.0-6.0)
== END ==
LOC: SKLAB5 10:43
PROVIDERS: ATTEND Nurse Practitioner Adult Health
DX: E11.9 Type 2 diabetes mellitus without complications (principal); D64.9 Anemia, unspecified; E78.00 Pure hypercholesterolemia, unspecified

== ENCOUNTER → 2023-09-23 | Outpatient (REF) | payer MEDICARE, MEDICAID ==
[~2023-09-23] MED LIST changes: +IRBE150T27 PO; -IRBE150T7 PO
[2023-09-23 17:06] LABS: THYROID STIMULATING HORMONE 1.715 uIU/ML (0.55-4.78)
[2023-09-23 17:07] LABS: FOLATE 11.66 NG/ML (>5.4)
== END ==
LOC: SKLAB5 14:55
PROVIDERS: ATTEND Nurse Practitioner Adult Health
DX: E03.9 Hypothyroidism, unspecified (principal); E56.9 Vitamin deficiency, unspecified

== ENCOUNTER → 2023-11-01 | Outpatient (REF) | payer MEDICARE, MEDICAID ==
[2023-11-01 03:39] LABS: HEMATOCRIT 41.7 % (42.0-52.0); HEMOGLOBIN 13.6 g/dl (13.5-17.5); MEAN CORPUSCULAR HEMOGLOBIN 28.1 pg (27.0-33.0); MEAN CORPUSCULAR HGB CONC 32.6 g/dl (32.0-36.5); MEAN CORPUSCULAR VOLUME 86.2 fl (80.0-96.0); PLATELET COUNT, AUTOMATED 176 10^3/uL (150-450); RED BLOOD COUNT 4.84 10^6/uL (4.30-6.10); WHITE BLOOD COUNT 11.7 10^3/uL (4.0-10.0)
[2023-11-01 03:43] LABS: ALBUMIN 3.1 G/DL (3.2-5.2); ALKALINE PHOSPHATASE 70 U/L (46-116); ALT/SGPT < 9 U/L (7.0-40); AST/SGOT < 8 U/L (<34); BILIRUBIN,TOTAL 0.5 MG/DL (0.3-1.2); BLOOD UREA NITROGEN 23 MG/DL (9-23); CALCIUM LEVEL 8.7 MG/DL (8.3-10.6); CARBON DIOXIDE LEVEL 25 MMOL/L (20-31); CHLORIDE LEVEL 110 MMOL/L (98-107); CREATININE FOR GFR 1.08 MG/DL (0.70-1.30); GLOMERULAR FILTRATION RATE > 60.0 (>42); GLUCOSE, FASTING 105 MG/DL (74-106); POTASSIUM SERUM 3.7 MMOL/L (3.5-5.1); SODIUM LEVEL 141 MMOL/L (136-145)
== END ==
LOC: SKLAB8 07:00
PROVIDERS: ATTEND Nurse Practitioner Adult Health
DX: R41.82 Altered mental status, unspecified (principal)

== ENCOUNTER → 2023-11-05 | Outpatient (REF) | payer MEDICARE, MEDICAID ==
[2023-11-05 09:10] LABS: HEMATOCRIT 47.2 % (42.0-52.0); MEAN CORPUSCULAR HEMOGLOBIN 27.8 pg (27.0-33.0); MEAN CORPUSCULAR HGB CONC 31.8 g/dl (32.0-36.5); MEAN CORPUSCULAR VOLUME 87.4 fl (80.0-96.0); PLATELET COUNT, AUTOMATED 213 10^3/uL (150-450); WHITE BLOOD COUNT 7.9 10^3/uL (4.0-10.0)
[2023-11-05 15:49] LABS: APPEARANCE, URINE CLOUDY (CLEAR); BACTERIA, URINE AUTO 3+ (NEGATIVE); BILIRUBIN, URINE AUTO NEGATIVE (NEGATIVE); BLOOD, URINE BLOOD 1+ (NEGATIVE); COLOR, URINE YELLOW (YELLOW); GLUCOSE, URINE (UA) AUTO 3+ mg/dL (NEGATIVE); KETONE, URINE AUTO TRACE mg/dL (NEGATIVE); LEUKOCYTE ESTERASE, URINE AUTO 2+ (NEGATIVE); MUCUS, URINE SMALL (NEGATIVE); NITRITE, URINE AUTO NEGATIVE (NEGATIVE); PROTEIN, URINE AUTO 1+ mg/dL (NEGATIVE); RBC, URINE AUTO 7 /HPF (0-3); SPECIFIC GRAVITY URINE AUTO 1.025 (1.002-1.035); SQUAMOUS EPITHELIAL CELL UR AU 2 /HPF (0-6); WBC, URINE AUTO 165 /HPF (0-3)
== END ==
LOC: SKLAB8 07:49
PROVIDERS: ATTEND Internal Medicine
DX: D72.829 Elevated white blood cell count, unspecified (principal); Z79.899 Other long term (current) drug therapy

== ENCOUNTER → 2023-11-17 | Outpatient (REF) | payer MEDICARE, MEDICAID ==
[2023-11-17 15:32] LABS: APPEARANCE, URINE HAZY (CLEAR); BACTERIA, URINE AUTO NEGATIVE (NEGATIVE); BILIRUBIN, URINE AUTO NEGATIVE (NEGATIVE); BLOOD, URINE BLOOD NEGATIVE (NEGATIVE); COLOR, URINE YELLOW (YELLOW); GLUCOSE, URINE (UA) AUTO 3+ mg/dL (NEGATIVE); KETONE, URINE AUTO TRACE mg/dL (NEGATIVE); LEUKOCYTE ESTERASE, URINE AUTO 1+ (NEGATIVE); NITRITE, URINE AUTO NEGATIVE (NEGATIVE); PROTEIN, URINE AUTO NEGATIVE (NEGATIVE); RBC, URINE AUTO 18 /HPF (0-3); SPECIFIC GRAVITY URINE AUTO 1.025 (1.002-1.035); SQUAMOUS EPITHELIAL CELL UR AU 1 /HPF (0-6); UROBILINOGEN, URINE AUTO 0.2 mg/dL (0.0-2.0); WBC, URINE AUTO 21 /HPF (0-3)
== END ==
LOC: SKLAB5 14:59
PROVIDERS: ATTEND Internal Medicine
DX: R41.82 Altered mental status, unspecified (principal)

== ENCOUNTER → 2023-11-18 | Outpatient (REF) | payer MEDICARE, MEDICAID | LOC: SKLAB5 09:33 | PROVIDERS: ATTEND Internal Medicine | DX: R41.82 Altered mental status, unspecified (principal) ==

== ENCOUNTER → 2023-11-18 | Outpatient (REF) | payer MEDICARE, MEDICAID ==
[2023-11-18 10:43] LABS: HEMATOCRIT 42.9 % (42.0-52.0); HEMOGLOBIN 13.7 g/dl (13.5-17.5); MEAN CORPUSCULAR HEMOGLOBIN 27.9 pg (27.0-33.0); MEAN CORPUSCULAR HGB CONC 31.9 g/dl (32.0-36.5); MEAN CORPUSCULAR VOLUME 87.4 fl (80.0-96.0); PLATELET COUNT, AUTOMATED 179 10^3/uL (150-450); RED BLOOD COUNT 4.91 10^6/uL (4.30-6.10); WHITE BLOOD COUNT 6.6 10^3/uL (4.0-10.0)
[2023-11-18 11:13] LABS: BLOOD UREA NITROGEN 18 MG/DL (9-23); CALCIUM LEVEL 8.9 MG/DL (8.3-10.6); CARBON DIOXIDE LEVEL 25 MMOL/L (20-31); CHLORIDE LEVEL 109 MMOL/L (98-107); CREATININE FOR GFR 0.94 MG/DL (0.70-1.30); GLOMERULAR FILTRATION RATE > 60.0 (>42); GLUCOSE, FASTING 129 MG/DL (74-106); SODIUM LEVEL 142 MMOL/L (136-145)
== END ==
LOC: SKLAB5 08:40
PROVIDERS: ATTEND Internal Medicine
DX: R41.82 Altered mental status, unspecified (principal)

== ENCOUNTER → 2023-11-19 | Outpatient (REF) | payer MEDICARE, MEDICAID ==
[2023-11-19 14:42] LABS: APPEARANCE, URINE HAZY (CLEAR); BACTERIA, URINE AUTO NEGATIVE (NEGATIVE); BILIRUBIN, URINE AUTO NEGATIVE (NEGATIVE); BLOOD, URINE BLOOD NEGATIVE (NEGATIVE); COLOR, URINE YELLOW (YELLOW); GLUCOSE, URINE (UA) AUTO 3+ mg/dL (NEGATIVE); KETONE, URINE AUTO TRACE mg/dL (NEGATIVE); LEUKOCYTE ESTERASE, URINE AUTO NEGATIVE (NEGATIVE); MUCUS, URINE SMALL (NEGATIVE); NITRITE, URINE AUTO NEGATIVE (NEGATIVE); PROTEIN, URINE AUTO NEGATIVE (NEGATIVE); RBC, URINE AUTO 2 /HPF (0-3); SPECIFIC GRAVITY URINE AUTO 1.025 (1.002-1.035); SQUAMOUS EPITHELIAL CELL UR AU 0 /HPF (0-6); UROBILINOGEN, URINE AUTO 0.2 mg/dL (0.0-2.0); WBC, URINE AUTO 1 /HPF (0-3)
== END ==
LOC: SKLAB5 14:08
PROVIDERS: ATTEND Internal Medicine
DX: R41.82 Altered mental status, unspecified (principal)

== ENCOUNTER → 2023-11-25 | Outpatient (REF) | payer MEDICARE, MEDICAID ==
[2023-11-25 11:46] LABS: HEMOGLOBIN A1c 5.9 % (4.0-6.0)
== END ==
LOC: SKLAB5 07:00
PROVIDERS: ATTEND Internal Medicine
DX: E11.9 Type 2 diabetes mellitus without complications (principal)

== ENCOUNTER → 2023-12-17 | Outpatient (REF) | payer MEDICARE, MEDICAID ==
[2023-12-17 18:14] LABS: FOLATE 8.7 NG/ML (>5.4); THYROID STIMULATING HORMONE 2.207 uIU/ML (0.55-4.78)
[2023-12-22 05:53] LABS: VITAMIN E(ALPHA TOCOPHEROL) 8.7 mg/L (5.7-19.9); VITAMIN E(GAMMA TOCOPHEROL) < 1.0 mg/L (<=4.3)
[2023-12-24 10:02] LABS: VITAMIN B1 LEVEL WHOLE BLOOD 105 nmol/L (78-185); VITAMIN B6,PYRIDOXAL PHOSPHATE 2.4 ng/mL (2.1-21.7)
== END ==
LOC: SKLAB5 15:07
PROVIDERS: ATTEND Internal Medicine
DX: E03.9 Hypothyroidism, unspecified (principal); E56.9 Vitamin deficiency, unspecified

== ENCOUNTER → 2023-12-31 | Outpatient (REF) | payer MEDICARE, MEDICAID ==
[2023-12-31 13:47] LABS: HEMATOCRIT 46.4 % (42.0-52.0); HEMOGLOBIN 14.8 g/dl (13.5-17.5); MEAN CORPUSCULAR HGB CONC 31.9 g/dl (32.0-36.5); MEAN CORPUSCULAR VOLUME 87.7 fl (80.0-96.0); PLATELET COUNT, AUTOMATED 191 10^3/uL (150-450); RED BLOOD COUNT 5.29 10^6/uL (4.30-6.10); WHITE BLOOD COUNT 8.2 10^3/uL (4.0-10.0)
[2023-12-31 14:11] LABS: ALBUMIN 3.7 G/DL (3.2-5.2); ALKALINE PHOSPHATASE 64 U/L (46-116); ALT/SGPT 11 U/L (7.0-40); AST/SGOT 13 U/L (<34); BILIRUBIN,TOTAL 0.5 MG/DL (0.3-1.2); BLOOD UREA NITROGEN 22 MG/DL (9-23); CALCIUM LEVEL 9.6 MG/DL (8.3-10.6); CARBON DIOXIDE LEVEL 25 MMOL/L (20-31); CHLORIDE LEVEL 108 MMOL/L (98-107); GLOMERULAR FILTRATION RATE > 60.0 (>42); GLUCOSE, FASTING 98 MG/DL (74-106); POTASSIUM SERUM 4.3 MMOL/L (3.5-5.1); SODIUM LEVEL 141 MMOL/L (136-145); TOTAL PROTEIN 6.6 G/DL (5.7-8.2)
== END ==
LOC: SKLAB5 12:48
PROVIDERS: ATTEND Internal Medicine
DX: R41.82 Altered mental status, unspecified (principal)

== ENCOUNTER → 2024-01-01 | Outpatient (REF) | payer MEDICARE, MEDICAID ==
[2024-01-01 14:00] LABS: APPEARANCE, URINE HAZY (CLEAR); BACTERIA, URINE AUTO NEGATIVE (NEGATIVE); BILIRUBIN, URINE AUTO NEGATIVE (NEGATIVE); BLOOD, URINE BLOOD NEGATIVE (NEGATIVE); COLOR, URINE YELLOW (YELLOW); GLUCOSE, URINE (UA) AUTO 3+ mg/dL (NEGATIVE); KETONE, URINE AUTO TRACE mg/dL (NEGATIVE); LEUKOCYTE ESTERASE, URINE AUTO TRACE (NEGATIVE); NITRITE, URINE AUTO NEGATIVE (NEGATIVE); PROTEIN, URINE AUTO NEGATIVE (NEGATIVE); RBC, URINE AUTO 0 /HPF (0-3); SPECIFIC GRAVITY URINE AUTO 1.032 (1.002-1.035); SQUAMOUS EPITHELIAL CELL UR AU 1 /HPF (0-6); UROBILINOGEN, URINE AUTO 0.2 mg/dL (0.0-2.0); WBC, URINE AUTO 8 /HPF (0-3)
== END ==
LOC: SKLAB5 12:12
PROVIDERS: ATTEND Internal Medicine
DX: R41.82 Altered mental status, unspecified (principal)

== ENCOUNTER → 2024-01-15 | Outpatient (REF) | payer MEDICARE, MEDICAID ==
[2024-01-15 14:30] LABS: HEMOGLOBIN 14.7 g/dl (13.5-17.5); MEAN CORPUSCULAR HEMOGLOBIN 28.3 pg (27.0-33.0); MEAN CORPUSCULAR VOLUME 88.6 fl (80.0-96.0); PLATELET COUNT, AUTOMATED 163 10^3/uL (150-450); RED BLOOD COUNT 5.19 10^6/uL (4.30-6.10); WHITE BLOOD COUNT 6.9 10^3/uL (4.0-10.0)
[2024-01-15 17:37] LABS: BLOOD UREA NITROGEN 26 MG/DL (9-23); CALCIUM LEVEL 8.7 MG/DL (8.3-10.6); CARBON DIOXIDE LEVEL 26 MMOL/L (20-31); CHLORIDE LEVEL 109 MMOL/L (98-107); CREATININE FOR GFR 1.16 MG/DL (0.70-1.30); GLOMERULAR FILTRATION RATE > 60.0 (>42); GLUCOSE, FASTING 179 MG/DL (74-106); SODIUM LEVEL 139 MMOL/L (136-145)
== END ==
LOC: SKLAB5 12:02
PROVIDERS: ATTEND Internal Medicine
DX: U07.1 COVID-19 (principal); Z79.899 Other long term (current) drug therapy

== ENCOUNTER → 2024-04-27 | Outpatient (REF) | payer MEDICARE, MEDICAID ==
[~2024-04-27] MED LIST changes: -MIDO2.5T PO; +MIDO2.5T3 PO
[2024-04-27 11:07] LABS: BLOOD UREA NITROGEN 22 MG/DL (9-23); CARBON DIOXIDE LEVEL 27 MMOL/L (20-31); CHLORIDE LEVEL 109 MMOL/L (98-107); CREATININE FOR GFR 1.08 MG/DL (0.70-1.30); GLOMERULAR FILTRATION RATE > 60.0 (>35); GLUCOSE, FASTING 131 MG/DL (74-106); POTASSIUM SERUM 4.1 MMOL/L (3.5-5.1); SODIUM LEVEL 141 MMOL/L (136-145)
== END ==
LOC: SKLAB5 09:08
PROVIDERS: ATTEND Internal Medicine
DX: N18.9 Chronic kidney disease, unspecified (principal)

== ENCOUNTER → 2024-05-04 | Outpatient (REF) | payer MEDICARE, MEDICAID ==
[2024-05-04 12:23] LABS: BLOOD UREA NITROGEN 25 MG/DL (9-23); CALCIUM LEVEL 9.6 MG/DL (8.3-10.6); CARBON DIOXIDE LEVEL 30 MMOL/L (20-31); CHLORIDE LEVEL 105 MMOL/L (98-107); CREATININE FOR GFR 1.17 MG/DL (0.70-1.30); GLOMERULAR FILTRATION RATE > 60.0 (>35); GLUCOSE, FASTING 157 MG/DL (74-106); POTASSIUM SERUM 4.2 MMOL/L (3.5-5.1); SODIUM LEVEL 141 MMOL/L (136-145)
== END ==
LOC: SKLAB5 11:12
PROVIDERS: ATTEND Internal Medicine
DX: N18.9 Chronic kidney disease, unspecified (principal)

== ENCOUNTER → 2024-05-12 | Outpatient (REF) | payer MEDICARE, MEDICAID ==
[2024-05-12 14:20] LABS: BLOOD UREA NITROGEN 24 MG/DL (9-23); CALCIUM LEVEL 9.7 MG/DL (8.3-10.6); CARBON DIOXIDE LEVEL 29 MMOL/L (20-31); CHLORIDE LEVEL 106 MMOL/L (98-107); CREATININE FOR GFR 1.06 MG/DL (0.70-1.30); GLOMERULAR FILTRATION RATE > 60.0 (>35); GLUCOSE, FASTING 114 MG/DL (74-106); POTASSIUM SERUM 4.3 MMOL/L (3.5-5.1); SODIUM LEVEL 142 MMOL/L (136-145)
== END ==
LOC: SKLAB5 13:11
PROVIDERS: ATTEND Internal Medicine
DX: N18.9 Chronic kidney disease, unspecified (principal)

== ENCOUNTER → 2024-06-11 | Outpatient (REF) | payer MEDICARE, MEDICAID ==
[2024-06-11 10:25] LABS: HEMATOCRIT 43.1 % (42.0-52.0); HEMOGLOBIN 13.9 g/dl (13.5-17.5); MEAN CORPUSCULAR HEMOGLOBIN 28.6 pg (27.0-33.0); MEAN CORPUSCULAR HGB CONC 32.3 g/dl (32.0-36.5); MEAN CORPUSCULAR VOLUME 88.7 fl (80.0-96.0); PLATELET COUNT, AUTOMATED 187 10^3/uL (150-450); RED BLOOD COUNT 4.86 10^6/uL (4.30-6.10); WHITE BLOOD COUNT 7.7 10^3/uL (4.0-10.0)
[2024-06-11 10:54] LABS: HEMOGLOBIN A1c 5.8 % (4.0-6.0)
[2024-06-11 10:57] LABS: CHOLESTEROL RISK RATIO 3.45 (<5); LDL CHOLESTEROL 38.6 MG/DL (<100)
== END ==
LOC: SKLAB5 07:00
PROVIDERS: ATTEND Internal Medicine
DX: E78.00 Pure hypercholesterolemia, unspecified (principal); D64.9 Anemia, unspecified; E11.9 Type 2 diabetes mellitus without complications

== ENCOUNTER → 2024-09-30 | Outpatient (REF) | payer MEDICARE, MEDICAID ==
[~2024-09-30] MED LIST changes: -FLOM0.4C39 PO; +TAMS-18 PO
[2024-09-30 09:08] LABS: HEMOGLOBIN A1c 5.8 % (4.0-6.0)
[2024-09-30 09:22] LABS: CALCIUM LEVEL 8.7 MG/DL (8.3-10.6); CREATININE FOR GFR 0.86 MG/DL (0.70-1.30); GLOMERULAR FILTRATION RATE 87.5 (>35)
== END ==
LOC: SKLAB5 07:24
PROVIDERS: ATTEND Internal Medicine
DX: E11.9 Type 2 diabetes mellitus without complications (principal)

== ENCOUNTER → 2024-10-07 | Outpatient (REF) | payer MEDICARE, MEDICAID | LOC: SKLAB5 07:00 | PROVIDERS: ATTEND Internal Medicine | DX: E11.9 Type 2 diabetes mellitus without complications (principal) ==

== ENCOUNTER → 2024-12-30 | Outpatient (REF) | payer MEDICARE, MEDICAID ==
[2024-12-30 10:28] LABS: PLATELET COUNT, AUTOMATED 182 10^3/uL (150-450)
== END ==
LOC: SKLAB5 07:00
PROVIDERS: ATTEND Internal Medicine
DX: D64.9 Anemia, unspecified (principal)

== ENCOUNTER → 2025-02-03 | Outpatient (REF) | payer MEDICARE, MEDICAID ==
[2025-02-03 09:47] LABS: ESTIMATED AVERAGE GLUCOSE 131.0 MG/DL (60-110)
[2025-02-03 09:58] LABS: CALCIUM LEVEL 8.6 MG/DL (8.3-10.6); CARBON DIOXIDE LEVEL 24.0 MMOL/L (20-31); CHLORIDE LEVEL 108.0 MMOL/L (98-107); CREATININE FOR GFR 0.98 MG/DL (0.70-1.30); GLOMERULAR FILTRATION RATE 78.0 (>35); POTASSIUM SERUM 3.7 MMOL/L (3.5-5.1); SODIUM LEVEL 143.0 MMOL/L (136-145)
== END ==
LOC: SKLAB5 07:00
PROVIDERS: ATTEND Internal Medicine
DX: E11.9 Type 2 diabetes mellitus without complications (principal)